=== PATIENT | female | born 1940 | race Caucasian/White ===

== ENCOUNTER → 2016-10-10 | Outpatient (CLI) | payer MEDICARE ==
--- NOTE | 2016-10-10 13:48 | MM ---
Reason for exam: clinical finding. Last mammogram was performed 4 years and 6 months ago. History: Patient is postmenopausal. Family history of breast cancer in maternal aunt, breast cancer in maternal grandmother, breast cancer in maternal cousin, and breast cancer in sister at age 66. 3 excisional biopsies of the left breast. 2 excisional biopsies of the right breast. Indicated problem(s): bloody discharge in the left breast. Physical Findings: Nurse did not find any significant physical abnormalities on exam. MG 3D Diag Mammo W/Cad MARYANN Bilateral CC and MLO view(s) were taken. Prior study comparison: April 16, 2012, CAD bilateral diagnostic mammogram. The breast tissue is heterogeneously dense. This may lower the sensitivity of mammography. Finding #1: Stable architectural distortion in the subareolar position of the left breast consistent with excisional biopsy. Finding #2: There are typically benign round, diffuse/scattered and grouped calcifications in both breasts. These results were verbally communicated with the patient and result sheet given to the patient on 10/10/16. ASSESSMENT: Incomplete: need additional imaging evaluation, BI-RAD 0 RECOMMENDATION: Ultrasound of the left breast. (bloody spontaneous nipple discharge)
--- NOTE | 2016-10-10 13:59 | USB ---
Reason for exam: additional evaluation requested from abnormal screening. History: Patient is postmenopausal. Family history of breast cancer in maternal aunt, breast cancer in maternal grandmother, breast cancer in maternal cousin, and breast cancer in sister at age 66. 3 excisional biopsies of the left breast. 2 excisional biopsies of the right breast. US Breast Limited LT Left breast ultrasound demonstrates prominent ducts at 5-6 o'clock and a 4 x 3 x 4mm oval lesion too small to characterize at 4 o'clock. These results were verbally communicated with the patient and result sheet given to the patient on 10/10/16. ASSESSMENT: Incomplete: need additional imaging evaluation, BI-RAD 0 RECOMMENDATION: Surgical consultation of the left breast. Manage patient on a clinical basis. Consider ductogram. Called Dr. Caputo with mammographic findings and has scheduled an appointment for the patient for 10/20/16 at 4:[address] Bowers. PRELIMINARY REPORT CALLED AND FAXED TO DR. BOWERS ON 10/10/16 AT 300/TMP.
== END | disposition home or self-care (01) ==
LOC: RADMAMWWP 10:22
PROVIDERS: ATTEND Family Medicine
DX: N64.52 Nipple discharge (principal); R92.8 Other abnormal and inconclusive findings on diagnostic imaging of breast
CPT/HCPCS: 76642; G0204; G0279

== ENCOUNTER → 2016-10-28 | Day surgery (SDC) | payer MEDICARE ==
--- NOTE | 2016-10-30 21:59 | MM ---
EXAMINATION TYPE: MG ductogram single duct LT DATE OF EXAM: 10/28/2016 3:23 PM CLINICAL HISTORY: 76-year-old female referred for further evaluation of left- sided spontaneous bloody nipple discharge. COMPARISON: Correlation 10/10/2016 TECHNIQUE: Left-sided ductography. The procedure of ductogram was explained to the patient. Benefits, alternatives , and risks were discussed. An informed consent was then obtained. The patient was placed in supine positioning. The nipple was cleansed with an alcohol wipe. The patient reported a trigger point along the superior aspect of the breast near the nipple which the patient was allowed to manipulate to elicit the bloody discharge. Sterile technique was utilized. The discharging pore was identified and a right -angled JaLoveSpaceki cannula descended easily into the pore after initial probing. A total of 0.4 ml of Omnipaque 240 contrast was injected and the catheter was secured to the nipple with tape. Magnification CC, CC rolled, lateral, and MLO subareolar views were obtained. FINDINGS: The involved segment corresponds to the 4-5:00 position of the breast. Some scattered ductal ectasia and scattered beading is present within this segment. Seen best on the CC view, there is a tortuous duct at the 5:00 position, 5 cm posterior to the nipple which seems to abruptly cut off. This is not clearly seen on the tangential or MLO view. MLO view shows a few short areas of ductal narrowing. The patient tolerated the procedure well without any immediate complication. The patient was discharged home in stable condition. IMPRESSION: BI-RADS 4 - Suspicious RECOMMENDATION: 1. Surgical consultation for possible intraductal lesion at the 5:00 position, 5 cm back from the nipple (CC view). 2. Consider breast MRI correlation as the finding is not clearly seen on the tangential views and given additional scattered ductal narrowing and beading within this segment suggesting additional intraductal abnormalities. Depending on MRI findings, a wider surgical excision may be indicated. MTDD
== END ==
LOC: RADMAMWWP 12:20 → EDSTATUS 13:30
PROVIDERS: ATTEND Surgery
DX: R92.8 Other abnormal and inconclusive findings on diagnostic imaging of breast (principal); N64.52 Nipple discharge; N60.42 Mammary duct ectasia of left breast

== ENCOUNTER → 2016-11-17 | Outpatient (CLI) | payer MEDICARE | END | disposition home or self-care (01) | LOC: RADMRIMAIN 16:13 | PROVIDERS: ATTEND Surgery | DX: N60.49 Mammary duct ectasia of unspecified breast (principal) | CPT/HCPCS: 36415; 82565 ==

== ENCOUNTER 2016-12-30 07:15 | Day surgery (SDC) | payer MEDICARE ==
[2016-12-28 11:13] VITALS: BMI 44.2
[~2016-12-30 07:15] MED LIST: DEXAMETHASONE SOD PHOSPHATE 10 MG/ML 1 ML VIAL IV ONE; HYDROmorphone 1 MG/ML 1 ML SYRINGE IVP PRN; LACTATED RINGERS 1,000 ML IV SCH; LIDOCAINE 1% 20 ML VIAL (10MG/ML) FOR IV START INTRADERMA PRN; MIDAZOLAM 2 MG/2 ML VIAL IV PRN; ONDANSETRON 4 MG/2 ML VIAL IVP ONE; Pre Op ABX Message 1 EACH MISC MISCELLANE ONE; SCOPOLAMINE 1.5MG/72HR PATCH TRANSDERM ONE
[2016-12-30 08:28] LABS: Glucose,Whole Blood 191 mg/dL (75-99)
--- NOTE | 2016-12-30 09:06 | P.GSHP ---
History of Present Illness H&P Date: 12/30/16 Chief Complaint: Left breast intraductal papilloma This a 76-year-old female who presents today for left breast biopsy. Patient has had complaints of some intermittent bloody left nipple drainage. She had a ductogram performed which showed a possible intraductal polyp in the left breast 5 o'clock position approximately 5 cm deep to the nipple. MRI was discussed with the patient. She did not wish to have an MRI. The patient is scheduled today for a left breast biopsy. - Constitutional Constitutional: Reports as per HPI Past Medical History Past Medical History: Diabetes Mellitus, Hyperlipidemia, Hypertension, Thyroid Disorder Additional Past Medical History / Comment(s): left breast bloody discharge History of Any Multi-Drug Resistant Organisms: None Reported Past Surgical History: Breast Surgery, Hysterectomy, Orthopedic Surgery Additional Past Surgical History / Comment(s): 3 left breast bx, 2 rt breast bx , ductogram, right leg orif, with plate, left hip sx Past Anesthesia/Blood Transfusion Reactions: No Reported Reaction Past Psychological History: Anxiety, Depression Smoking Status: Never smoker Past Alcohol Use History: None Reported Past Drug Use History: None Reported - Past Family History Sister(s) Family Medical History: Cancer Medications and Allergies Home Medications Medication Instructions Recorded Confirmed Type INSULIN LISPRO (HumaLOG) [humaLOG] 0 unit SQ AC-TID 12/28/16 12/30/16 History Insulin Detemir [Levemir Flextouch] 60 units SQ HS 12/28/16 12/30/16 History Levothyroxine Sodium [Synthroid] 50 mcg PO QAM 12/28/16 12/30/16 History Losartan/Hydrochlorothiazide 1 each PO HS 12/28/16 12/30/16 History [Losartan-Hctz 100-12.5 mg Tab] Naproxen Sodium [Aleve] 220 mg PO DAILY PRN 12/28/16 12/30/16 History Sertraline [Zoloft] 50 mg PO DAILY 12/28/16 12/30/16 History Simvastatin 20 mg PO DAILY 12/28/16 12/30/16 History Zolpidem [Ambien] 10 mg PO HS 12/28/16 12/30/16 History metFORMIN HCL [Metformin HCl] 500 mg PO BID 12/28/16 12/30/16 History Allergies Allergy/AdvReac Type Severity Reaction Status Date / Time No Known Allergies Allergy Verified 12/30/16 08:26 Surgical - Exam Vital Signs Temp Pulse Resp BP Pulse Ox 98.0 F 69 16 147/79 98 12/30/16 08:19 12/30/16 08:19 12/30/16 08:19 12/30/16 08:19 12/30/16 08:19 - General well developed, no distress - Eyes PERRL - ENT normal pinna - Neck no masses - Respiratory normal expansion - Cardiovascular Rhythm: regular - Abdomen Abdomen: soft, non tender - Integumentary Breast exam is within normal limits there is no masses palpated. There is no cervical or axillary adenopathy. Gentle pressure left breast shows a small amount of dark fluid from a duct in the nipple near the 4 o'clock position. Results - Labs Abnormal Lab Results - Last 24 Hours (Table) 12/30/16 Range/Units 08:22 POC Glucose (mg/dL) 191 H (75-99) mg/dL Assessment and Plan Plan: Left breast intraductal papilloma. We'll perform left breast biopsy.
[2016-12-30] MEDS ORDERED: BUPIVACAIN-EPI 0.25%-1:200,000 30 ML VIAL SQ ONE ×2 (09:09→09:45)
[2016-12-30] MEDS ORDERED: fentaNYL (PF) 50 MCG/ML 2 ML AMP ONE (09:11)
[2016-12-30] MEDS ORDERED: PROPOFOL 10 MG/ML 20 ML VIAL IV ONE (09:11)
[2016-12-30] MEDS ORDERED: PHENYLEPHRINE-0.9% NACL SYG 1 MG/10 ML SYRINGE ONE (09:11)
[2016-12-30] MEDS ORDERED: MIDAZOLAM 2 MG/2 ML VIAL ONE (09:11)
[2016-12-30] MEDS ORDERED: SUCCINYLCHOLINE CHLORIDE 100 MG/5 ML SYR IV ONE (09:11)
[2016-12-30] MEDS ORDERED: LIDOCAINE 1% INJ 10MG/ML (20 ML MDV) ONE (09:11)
[2016-12-30] MEDS ORDERED: LABETALOL 5 MG/ML VIAL MDV ONE (09:11)
[2016-12-30] MEDS ORDERED: SODIUM CHLORIDE 0.9% 50 ML with ceFAZolin 2,000 MG IV ONE ×2 (10:15)
[2016-12-30] MEDS ORDERED: LACTATED RINGERS 1,000 ML IV ONE (10:53)
--- NOTE | 2016-12-30 10:58 | P.OP ---
Date of Procedure: 12/30/16 Preoperative Diagnosis: Intraductal papilloma Postoperative Diagnosis: Intraductal papilloma Procedure(s) Performed: Left breast lumpectomy Implants: Anesthesia: MANSOOR Surgeon: Jeison Bowers Estimated Blood Loss (ml): 20 Pathology: other (Left breast lumpectomy) Condition: stable Disposition: PACU Indications for Procedure: Operative Findings: Description of Procedure: The patient's placed the operative table in the supine position. She received general anesthesia. Her left chest was prepped and draped usual fashion. A inferior circumareolar incision was made and then using left cautery the subcutaneous tissue divided. And then a pair of traction was placed the wound. And then using accommodation with cautery Harmonic scissors the lumpectomy was performed. The rectus performed at the 8 to 3 o'clock position of the breast. The Bovie hemostasis. Since with interrupted 3-0 Monocryl suture. Dermabond was applied. Patient was sent to recovery in stable condition.
[2016-12-30 11:26] VITALS: TEMP 98.5
[2016-12-30 11:31] LABS: Glucose,Whole Blood 222 mg/dL (75-99)
[2016-12-30] MEDS ORDERED: INSULIN LISPRO (humaLOG) 300 UNIT/3 ML VIAL SQ ONE (11:36)
[2016-12-30 11:45] VITALS: RESP 16
[2016-12-30 12:51] VITALS: BP 121/65; PULSE 81
[2016-12-30 13:07] LABS: Glucose,Whole Blood 241 mg/dL (75-99)
== END 2016-12-30 13:41 | disposition home or self-care (01) ==
LOC: OR 07:15
PROVIDERS: ATTEND Surgery
DX: C50.912 Malignant neoplasm of unspecified site of left female breast (principal); E11.9 Type 2 diabetes mellitus without complications; E78.5 Hyperlipidemia, unspecified; I10 Essential (primary) hypertension; E07.9 Disorder of thyroid, unspecified; Z90.710 Acquired absence of both cervix and uterus; Z79.84 Long term (current) use of oral hypoglycemic drugs; Z79.1 Long term (current) use of non-steroidal anti-inflammatories (NSAID); Z79.4 Long term (current) use of insulin; Z79.899 Other long term (current) drug therapy
CPT/HCPCS: 19301; 88342; 88307; 88311; 88341; J2250; J1100; J2405; J2001; J3010; J0690; J2370; J0330; J2704

== ENCOUNTER 2017-01-25 22:24 | Emergency (ER) | payer MEDICARE ==
[2017-01-25 22:31] VITALS: TEMP 98
[2017-01-25] MEDS ORDERED: CEPHALEXIN 500 MG CAP PO STA (23:00)
--- NOTE | 2017-01-25 23:04 | ED ---
Recheck HPI - General Chief Complaint: Recheck/Abnormal Lab/Rx Stated Complaint: breast biopsy incision/poss infection Time Seen by Provider: 01/25/17 22:45 Source: patient, family Mode of arrival: ambulatory Limitations: no limitations - History of Present Illness Initial Comments: Patient complains of drainage from a surgical site. She had a biopsy done on the left breast. Today, she had a large amount of brownish drainage from the surgical site. The drainage has stopped. She has no fevers or chills. She has no chest pain or shortness of breath. She has had no injuries. She has no weakness. - Related Data Home Medications Medication Instructions Recorded Confirmed INSULIN LISPRO (HumaLOG) [humaLOG] 0 unit SQ AC-TID 12/28/16 12/30/16 Insulin Detemir [Levemir Flextouch] 60 units SQ HS 12/28/16 12/30/16 Levothyroxine Sodium [Synthroid] 50 mcg PO QAM 12/28/16 12/30/16 Losartan/Hydrochlorothiazide 1 each PO HS 12/28/16 12/30/16 [Losartan-Hctz 100-12.5 mg Tab] Naproxen Sodium [Aleve] 220 mg PO DAILY PRN 12/28/16 12/30/16 Sertraline [Zoloft] 50 mg PO DAILY 12/28/16 12/30/16 Simvastatin 20 mg PO DAILY 12/28/16 12/30/16 Zolpidem [Ambien] 10 mg PO HS 12/28/16 12/30/16 metFORMIN HCL [Metformin HCl] 500 mg PO BID 12/28/16 12/30/16 Previous Rx's Medication Instructions Recorded Docusate [Colace] 100 mg PO BID #20 capsule 12/30/16 HYDROcodone/APAP 7.5-325MG [[place] 1 each PO Q4H PRN #60 tab 12/30/16 7.5] Cephalexin [Keflex] 500 mg PO Q6HR #40 cap 01/25/17 Allergies Allergy/AdvReac Type Severity Reaction Status Date / Time No Known Allergies Allergy Verified 01/25/17 22:31 Review of Systems ROS Statement: Those systems with pertinent positive or pertinent negative responses have been documented in the HPI. ROS Other: All systems not noted in ROS Statement are negative. Past Medical History Past Medical History: Cancer, Diabetes Mellitus, Hyperlipidemia, Hypertension, Thyroid Disorder Additional Past Medical History / Comment(s): left breast bloody discharge History of Any Multi-Drug Resistant Organisms: None Reported Past Surgical History: Breast Surgery, Hysterectomy, Orthopedic Surgery Additional Past Surgical History / Comment(s): 3 left breast bx, 2 rt breast bx , ductogram, right leg orif, with plate, left hip sx Past Anesthesia/Blood Transfusion Reactions: No Reported Reaction Past Psychological History: Anxiety, Depression Smoking Status: Never smoker Past Alcohol Use History: None Reported Past Drug Use History: None Reported - Past Family History Sister(s) Family Medical History: Cancer General Exam Limitations: no limitations General appearance: alert, in no apparent distress Head exam: Present: atraumatic, normocephalic, normal inspection Extremities exam: Present: normal inspection, full ROM, normal capillary refill. Absent: tenderness, pedal edema, joint swelling, calf tenderness Back exam: Present: normal inspection Skin exam: Present: other (Patient has a surgical site on the left breast, with pink granulation tissue and no active drainage or bleeding) Course Vital Signs 01/25/17 22:27 Temperature 98 F Pulse Rate 78 Respiratory 20 Rate Blood Pressure 132/80 O2 Sat by Pulse 96 Oximetry Medical Decision Making - Medical Decision Making Patient complains of drainage from her surgical site. On my examination she does have a surgical wound with pink granulation tissue, no active bleeding or drainage at this time. I think she likely had a hematoma which spontaneously drained. At this time there is no indication for admission or further workup. I gave her 1 dose of 500 monos Keflex by mouth, and I will prescribe her Keflex to go home on. Patient has a follow-up appointment with her doctor in less than one week, however I instructed her to call him in the morning to see if he would like to see her sooner. She verbalized understanding of this information. Disposition Clinical Impression: Hematoma (nontraumatic) of breast Disposition: HOME SELF-CARE Condition: Good Instructions: Hematoma (ED) Prescriptions: Cephalexin [Keflex] 500 mg PO Q6HR #40 cap Referrals: Amrit Caputo DO [Primary Care Provider] - 1-2 days Time of Disposition: 23:03
[2017-01-25 23:17] VITALS: BP 122/63; PULSE 74; RESP 16
== END 2017-01-25 23:16 | disposition home or self-care (01) ==
LOC: EC 22:24
DX: N64.89 Other specified disorders of breast (principal); E11.9 Type 2 diabetes mellitus without complications; E78.5 Hyperlipidemia, unspecified; E07.9 Disorder of thyroid, unspecified; I10 Essential (primary) hypertension; F41.9 Anxiety disorder, unspecified; F32.9 Major depressive disorder, single episode, unspecified; Z79.84 Long term (current) use of oral hypoglycemic drugs; Z79.4 Long term (current) use of insulin; Z79.899 Other long term (current) drug therapy
CPT/HCPCS: 99282

== ENCOUNTER → 2017-03-03 | Outpatient (CLI) | payer MEDICARE ==
[2017-03-03 11:56] LABS: EKG EKG PERFORMED
[2017-03-03 12:15] LABS: CH 28.7; CHCM 34.1; HCT 40.1 % (34.0-46.0); HDW 3.26; HGB 13.3 gm/dL (11.4-16.0); MCHC 33.1 g/dL (31.0-37.0); MCV 84.6 fL (80.0-100.0); Mean Platelet Volume 7.8; RBC 4.75 m/uL (3.80-5.40); RDW 15.6 % (11.5-15.5); WBC 7.9 k/uL (3.8-10.6)
[2017-03-03 12:34] LABS: Anion Gap 12 mmol/L; Carbon Dioxide 24 mmol/L (22-30); Chloride 106 mmol/L (98-107); Potassium 4.1 mmol/L (3.5-5.1); Sodium 142 mmol/L (137-145)
== END | disposition home or self-care (01) ==
LOC: LABPAT 11:37
PROVIDERS: ATTEND Surgery
DX: Z01.810 Encounter for preprocedural cardiovascular examination (principal); I10 Essential (primary) hypertension; R93.1 Abnormal findings on diagnostic imaging of heart and coronary circulation; C50.912 Malignant neoplasm of unspecified site of left female breast; Z01.812 Encounter for preprocedural laboratory examination
CPT/HCPCS: 80051; 85027; 93005

== ENCOUNTER 2017-03-06 06:47 | Inpatient (IN) | payer MEDICARE ==
[2017-03-01 16:28] VITALS: BMI 43.7
[~2017-03-06 06:47] MED LIST changes: +HEPARIN SODIUM,PORCINE 5,000 UNIT/ML 1 ML VIAL SQ ONE; -HYDROmorphone 1 MG/ML 1 ML SYRINGE IVP PRN; -LACTATED RINGERS 1,000 ML IV SCH; -LIDOCAINE 1% 20 ML VIAL (10MG/ML) FOR IV START INTRADERMA PRN; -MIDAZOLAM 2 MG/2 ML VIAL IV PRN; -SCOPOLAMINE 1.5MG/72HR PATCH TRANSDERM ONE
[2017-03-06] MEDS ORDERED: ALPRAZolam 0.25 MG TAB PO ONE (07:18)
[2017-03-06] MEDS: LACTATED RINGERS 1,000 ML IV SCH (07:25)
[2017-03-06] MEDS ORDERED: LIDOCAINE 1% 20 ML VIAL (10MG/ML) FOR IV START INTRADERMA ONE (07:26)
[2017-03-06 07:31] LABS: Glucose,Whole Blood 157 mg/dL (75-99)
--- NOTE | 2017-03-06 07:59 | P.GSHP ---
History of Present Illness H&P Date: 03/06/17 Chief Complaint: Left Breast cancer This is a 77-year-old female who presents today for left modified radical mastectomy with sentinel node biopsy. Patient was received diagnosed with left breast cancer. She is experiencing bloody nipple discharge. - Constitutional Constitutional: Reports as per HPI Past Medical History Past Medical History: Cancer, Diabetes Mellitus, Hyperlipidemia, Hypertension, Musculoskeletal Disorder, Thyroid Disorder Additional Past Medical History / Comment(s): Left Breast CA. BAD RT HIP. History of Any Multi-Drug Resistant Organisms: None Reported Past Surgical History: Breast Surgery, Hysterectomy, Joint Replacement, Orthopedic Surgery Additional Past Surgical History / Comment(s): 3 left breast bx, 2 rt breast bx , ductogram, ORIF RT LOWER LEG, w/ plate. Left TOTAL Hip. LT BREAST LUMPECTOMY. Past Anesthesia/Blood Transfusion Reactions: No Reported Reaction Smoking Status: Never smoker - Past Family History Sister(s) Family Medical History: Cancer Additional Family Medical History / Comment(s): BREAST CA Medications and Allergies Home Medications Medication Instructions Recorded Confirmed Type INSULIN LISPRO (HumaLOG) [humaLOG] See Protocol SQ AC-TID 12/28/16 03/01/17 History Insulin Detemir [Levemir Flextouch] 60 units SQ HS 12/28/16 03/01/17 History Levothyroxine Sodium [Synthroid] 50 mcg PO QAM 12/28/16 03/01/17 History Losartan/Hydrochlorothiazide 1 tab PO HS 12/28/16 03/01/17 History [Losartan-Hctz 100-12.5 mg Tab] Naproxen Sodium [Aleve] 220 mg PO DAILY PRN 12/28/16 03/01/17 History Sertraline [Zoloft] 50 mg PO HS 12/28/16 03/01/17 History Simvastatin 20 mg PO HS 12/28/16 03/01/17 History Zolpidem [Ambien] 10 mg PO HS 12/28/16 03/01/17 History metFORMIN HCL [Metformin HCl] 500 mg PO AC-SUPPER 12/28/16 03/01/17 History Melatonin 10 mg PO HS PRN 03/01/17 03/01/17 History Allergies Allergy/AdvReac Type Severity Reaction Status Date / Time No Known Allergies Allergy Verified 03/01/17 15:58 Surgical - Exam Vital Signs Temp Pulse Resp BP Pulse Ox 97.3 F L 72 16 193/81 97 03/06/17 07:20 03/06/17 07:20 03/06/17 07:20 03/06/17 07:20 03/06/17 07:20 - General well developed, no distress - Eyes PERRL - ENT normal pinna - Neck no masses - Respiratory normal expansion - Cardiovascular Rhythm: regular - Abdomen Abdomen: soft, non tender Left breast shows evidence of recent biopsy. There are no palpable masses. There is no cervical or axillary lymphadenopathy. Results - Labs Abnormal Lab Results - Last 24 Hours (Table) 03/06/17 Range/Units 07:22 POC Glucose (mg/dL) 157 H (75-99) mg/dL Assessment and Plan Plan: Left breast cancer. We'll perform left modified radical mastectomy with sentinel biopsy.
--- NOTE | 2017-03-06 08:14 | P.OP ---
Date of Procedure: 03/06/17 Preoperative Diagnosis: Screening colonoscopy. History colon polyps Postoperative Diagnosis: Diverticulosis Procedure(s) Performed: Colonoscopy Implants: Anesthesia: MAC Surgeon: Jeison Bowers Pathology: none sent Condition: stable Disposition: PACU Indications for Procedure: Operative Findings: Description of Procedure: Patient's placed on the endoscopy table in the lateral position. She received IV sedation. Digital rectal exam was performed which revealed no abnormalities. The flexible colonoscope was then placed patient anus passed throughout the entire colon. The ileocecal valve was visualized. The cecum, ascending and transverse colon appeared normal. In the descending and sigmoid colon there was evidence of diverticular changes without diverticulitis. The scope was then brought back the rectum and this appeared normal. Scope was withdrawn for patient.
--- NOTE | 2017-03-06 09:14 | NM ---
EXAMINATION TYPE: NM sentinel node injection DATE OF EXAM: 03/06/2017 COMPARISON: NONE HISTORY: LEFT BREAST CA TECHNIQUE AND FINDINGS: The procedure of sentinel lymph node injection was explained to the patient. The benefits, alternatives, and risks were discussed. An informed consent was then obtained. Overlying skin is cleaned with sterile alcohol. Lidocaine buffered with bicarbonate was used as anes thetic into the skin and subcutaneous tissue surrounding the nipple. Following this, 550 uCi Tc 99m Filtered Sulfur Colloid was injected into 4 equivalent doses at 12, 3, 6, and 9:00 position surroundi ng the left nipple intradermally. The injection sites were massaged by nuclear operator for 10 minutes after injection. T he patient tolerated the procedure well without any immediate complication. The patient was kept in the radiology department for short stay after the procedure and then taken to surgery for surgical pr ocedure what is presumed intraoperative gamma probe will be used for sentinel lymph node detection. IMPRESSION: Left breast radiotracer injection for sentinel node localization as above.
[2017-03-06] MEDS ORDERED: ePHEDrine SULFATE/0.9% NACL/PF 50 MG/5 ML SYRINGE IV ONE (11:05)
[2017-03-06] MEDS ORDERED: GLYCOPYRROLATE 0.2 MG/ML 2 ML VIAL ONE (11:05)
[2017-03-06] MEDS ORDERED: fentaNYL (PF) 50 MCG/ML 2 ML AMP ONE (11:05)
[2017-03-06] MEDS ORDERED: ROCURONIUM BROMIDE 10 MG/ML 10 ML VIAL IV ONE (11:05)
[2017-03-06] MEDS ORDERED: LIDOCAINE 1% INJ 10MG/ML (20 ML MDV) ONE (11:05)
[2017-03-06] MEDS ORDERED: NEOSTIGMINE 1 MG/ML 10 ML VIAL ONE (11:05)
[2017-03-06] MEDS ORDERED: MIDAZOLAM 2 MG/2 ML VIAL ONE (11:05)
[2017-03-06] MEDS ORDERED: PROPOFOL 10 MG/ML 20 ML VIAL IV ONE (11:05)
[2017-03-06] MEDS ORDERED: LABETALOL 5 MG/ML VIAL MDV ONE (11:05)
[2017-03-06] MEDS ORDERED: ONDANSETRON 4 MG/2 ML VIAL ONE (11:05)
[2017-03-06] MEDS ORDERED: SODIUM CHLORIDE 0.9% 50 ML with ceFAZolin 2,000 MG IV ONE ×2 (11:10)
[2017-03-06] MEDS ORDERED: METHYLENE BLUE 10 MG/ML 1 ML VIAL INJ ONE (11:33)
[2017-03-06] MEDS ORDERED: LACTATED RINGERS 1,000 ML IV ONE ×2 (11:45→12:56)
[2017-03-06] MEDS ORDERED: HYDROmorphone 1 MG/ML 1 ML SYRINGE IVP PRN (12:56)
[2017-03-06] MEDS ORDERED: NALOXONE 0.4 MG/ML 1 ML VIAL IV PRN (12:56)
[2017-03-06] MEDS ORDERED: ONDANSETRON 4 MG/2 ML VIAL IVP PRN (12:56)
[2017-03-06] MEDS ORDERED: INSULIN LISPRO (humaLOG) 300 UNIT/3 ML VIAL SQ ONE (13:13)
[2017-03-06 13:17] LABS: Glucose,Whole Blood 225 mg/dL (75-99)
[2017-03-06] MEDS: HYDROmorphone 1 MG/ML 1 ML SYRINGE IVP PRN ×2 (13:22→13:28)
--- NOTE | 2017-03-06 13:46 | P.OP ---
Date of Procedure: 03/06/17 Preoperative Diagnosis: Left breast cancer Postoperative Diagnosis: Left breast cancer Procedure(s) Performed: Left modified radical mastectomy with sentinel node biopsy Implants: Anesthesia: MANSOOR Surgeon: Jeison Bowers Estimated Blood Loss (ml): 50 Pathology: other (Left breast and sentinel node) Condition: stable Disposition: PACU Indications for Procedure: Operative Findings: Description of Procedure: The patient's placed the operative table in the supine position. She received general anesthesia. Her left chest wall was prepped and draped usual fashion. The patient's left breast was injected with blue. The breast was marked and the mastectomy flaps were incised. The mastectomy flaps are elevated using left cautery. The flaps were elevated to the sternum medially the clavicle superiorly and inframammary crease inferiorly and the axilla laterally. Breast was then dissected free from the chest wall. Several small perforating veins were divided using Harmonic scissors. Once the breast was free from the chest wall the clavipectoral fascia is opened and then using the neoprobe the sentinel node was found. Sent to pathology. The axilla appeared to have some other enlarged lymph nodes. A low level lymph node actually lymph node dissection was performed using using the Harmonic scissors meticulous dissection was performed to obtain the axillary lymph nodes. Care was taken to identify and preserve the long thoracic and thoracodorsal nerve. The specimen was sent to pathology. The specimen had been tagged with a suture on the superior lateral aspect of the breast. The Bovie hemostasis. 2 GABRIEL drains were placed in the wound. One was placed in the second site and the other was examined. Skin was closed with 2-0 Vicryl in the deep layer and skin jose maria. Patient sent to recovery room in stable condition.
[2017-03-06 20:12] LABS: Glucose,Whole Blood 257 mg/dL (75-99)
[2017-03-06] MEDS: INSULIN DETEMIR 100 UNIT/ML 10 ML VIAL SQ SCH (20:30)
[2017-03-06] MEDS: INSULIN LISPRO (humaLOG) 300 UNIT/3 ML VIAL SQ SCH (20:31)
[2017-03-06] MEDS: ATORVASTATIN 10 MG TAB PO SCH (20:32)
[2017-03-06] MEDS: SERTRALINE 50 MG TAB PO SCH (20:32)
[2017-03-06] MEDS: DOCUSATE 100 MG CAP PO SCH (20:32)
[2017-03-06] MEDS: LOSARTAN 50 MG TAB PO SCH (20:32)
[2017-03-06] MEDS: HYDROCHLOROTHIAZIDE 12.5 MG CAP PO SCH (20:32)
[2017-03-07] MEDS: ZOLPIDEM 10 MG TAB PO PRN (00:49)
[2017-03-07] MEDS: LACTATED RINGERS 1,000 ML IV SCH (04:17)
[2017-03-07] MEDS: LEVOTHYROXINE 50 MCG TAB PO SCH (07:04)
[2017-03-07 07:47] LABS: Glucose,Whole Blood 162 mg/dL (75-99)
[2017-03-07] MEDS: INSULIN LISPRO (humaLOG) 300 UNIT/3 ML VIAL SQ SCH ×4 (08:22→20:56)
[2017-03-07] MEDS: DOCUSATE 100 MG CAP PO SCH ×2 (08:24→20:56)
[2017-03-07] MEDS: ENOXAPARIN 40 MG/0.4 ML SYRINGE SQ SCH (08:24)
--- NOTE | 2017-03-07 10:21 | P.PN ---
Subjective 77-year-old female being seen this morning at the request of nursing staff. Patient has [address] Nikhil-Yee Yee drain labeled b is leaking bulb not functioning the drain does not appear to be in place appears to be out sitting at the tip of the incision dressing around the sites moderate amount of serous drainage noted. Nikhil-Yee drain labeled a 281cc of serous fluid since surgery. Patient is postop done on March 06 left modified radical mastectomy with sentinel node biopsy did speak with the surgeon in regards to the above-mentioned findings who did recommend that the Nikhil-Yee drain B be removed with dressings changed to the left breast Objective - Vital Signs Vital signs: Vital Signs Temp 97.8 F 03/07/17 09:00 Pulse 86 03/07/17 09:00 Resp 12 03/07/17 09:00 BP 135/69 03/07/17 09:00 Pulse Ox 95 03/07/17 09:00 Intake & Output 03/06/17 03/07/17 03/07/17 18:59 06:59 18:59 Intake Total 1600 200 Output Total 70 1929 40 Balance 1530 -1929 160 Intake: IV 1600 Oral 200 Output: Drainage 70 279 40 a 45 196 40 b 25 83 0 Urine 1650 Other: Voiding Method Toilet Toilet # Voids 1 - Exam Physical exam 77-year-old female resting in bed pleasant cooperative oriented 3 Lungs essentially clear with adequate air movement on room air no shortness of breath noted Chest dressing to the left breast with [address]hil-[address] in [address] draining 281cc since surgery drain b the drain appears to be sitting at the tip of the incision leaking around the drain serous drainage Heart S1-S2 audible regular denying chest pain Abdomen soft nontender reports no nausea vomiting Extremities no edema noted - Labs Labs: Abnormal Lab Results - Last 24 Hours (Table) 03/06/17 03/06/17 03/07/17 Range/Units 13:07 20:11 07:42 POC Glucose (mg/dL) 225 H 257 H 162 H (75-99) mg/dL Assessment and Plan Plan: Impression Status post left modified radical mastectomy with sentinel node biopsy done on March 06 Recently diagnosed with left breast cancer experiencing bloody nipple drainage on the left breast Hyperlipidemia Anxiety depressive disorder nonspecified Plan Remove Nikhil-Yee drain B Resume home meds as appropriate Pain control Redress the left breast area and monitor Prepped for probable discharge within 24 hours The above impression and plan of care have been discussed and directed by signing physician. Chapis Carrion nurse practitioner acting as scribe for signing physician.
[2017-03-07] MEDS: HYDROcodone/APAP 5-325MG 1 EACH TAB PO PRN ×2 (10:55→23:01)
[2017-03-07 12:01] LABS: Glucose,Whole Blood 170 mg/dL (75-99)
[2017-03-07 13:46] LABS: Hemoglobin A1C 6.6 % (4.2-6.1)
[2017-03-07] MEDS: LEVOFLOXACIN 500MG-D5W PMX 500 MG in DEXTROSE/WATER 1 100ML.BAG IVPB SCH (14:10)
[2017-03-07 16:48] LABS: Glucose,Whole Blood 245 mg/dL (75-99)
[2017-03-07] MEDS ORDERED: metFORMIN 500 MG TAB PO SCH (17:30)
[2017-03-07 20:52] LABS: Glucose,Whole Blood 214 mg/dL (75-99)
[2017-03-07] MEDS: LOSARTAN 50 MG TAB PO SCH (20:56)
[2017-03-07] MEDS: SERTRALINE 50 MG TAB PO SCH (20:56)
[2017-03-07] MEDS: HYDROCHLOROTHIAZIDE 12.5 MG CAP PO SCH (20:56)
[2017-03-07] MEDS: ATORVASTATIN 10 MG TAB PO SCH (20:56)
[2017-03-07] MEDS: INSULIN DETEMIR 100 UNIT/ML 10 ML VIAL SQ SCH (20:58)
[2017-03-08] MEDS: ZOLPIDEM 10 MG TAB PO PRN (00:07)
[2017-03-08] MEDS: LEVOTHYROXINE 50 MCG TAB PO SCH (06:28)
[2017-03-08 07:21] LABS: Glucose,Whole Blood 158 mg/dL (75-99)
[2017-03-08] MEDS: LACTATED RINGERS 1,000 ML IV SCH (08:03)
[2017-03-08] MEDS: INSULIN LISPRO (humaLOG) 300 UNIT/3 ML VIAL SQ SCH ×2 (08:16→12:34)
[2017-03-08] MEDS: ENOXAPARIN 40 MG/0.4 ML SYRINGE SQ SCH (08:17)
[2017-03-08] MEDS: DOCUSATE 100 MG CAP PO SCH (08:17)
[2017-03-08] MEDS: HYDROcodone/APAP 5-325MG 1 EACH TAB PO PRN (08:20)
[2017-03-08 09:26] VITALS: BP 131/65; PULSE 71; RESP 20; TEMP 97.6
--- NOTE | 2017-03-08 11:32 | P.DS ---
Providers Date of admission: 03/06/17 12:32 Expected date of discharge: 03/08/17 Attending physician: Jeison Hassan Consults: 03/06/17 12:56 Consult Physician Routine Consulting Provider: Amrit Caputo Reason/Comments: Medical management Do you want consulting provider notified?: Yes Primary care physician: Amrit Caputo [facility] Course: 77-year-old female being seen this morning at the request of nursing staff. Patient has [address] Nikhil-Yee Yee drain labeled b is leaking bulb not functioning the drain does not appear to be in place appears to be out sitting at the tip of the incision dressing around the sites moderate amount of serous drainage noted. Nikhil-Yee drain labeled a 281cc of serous fluid since surgery. Patient is postop done on March 06 left modified radical mastectomy with sentinel node biopsy did speak with the surgeon in regards to the above-mentioned findings who did recommend that the Nikhil-Yee drain B be removed with dressings changed to the left breast patient started on IV Levaquin postop. Nikhil-Yee drain A restraining serous drainage dressing remained dry Patient stated there was less surgical pain and patient was felt to be appropriate to be discharged home Impression Status post left modified radical mastectomy with sentinel node biopsy done on March 06 Recently diagnosed with left breast cancer experiencing bloody nipple drainage on the left breast Hyperlipidemia Anxiety depressive disorder nonspecified The above impression and plan of care have been discussed and directed by signing physician. Chapis Carrion nurse practitioner acting as scribe for signing physician. Plan - Discharge Summary New Discharge Prescriptions: New HYDROcodone/APAP 5-325MG [[place] 5-325] 2 each PO Q6HR PRN #15 tab PRN Reason: Moderate To Severe Pain Levofloxacin [Levaquin] 500 mg PO DAILY #7 tab Continue Naproxen Sodium [Aleve] 220 mg PO DAILY PRN PRN Reason: Pain Sertraline [Zoloft] 50 mg PO HS Losartan/Hydrochlorothiazide [Losartan-Hctz 100-12.5 mg Tab] 1 tab PO HS Levothyroxine Sodium [Synthroid] 50 mcg PO QAM Zolpidem [Ambien] 10 mg PO HS Simvastatin 20 mg PO HS Insulin Detemir [Levemir Flextouch] 60 units SQ HS INSULIN LISPRO (HumaLOG) [humaLOG] See Protocol SQ AC-TID metFORMIN HCL [Metformin HCl] 500 mg PO AC-SUPPER Melatonin 10 mg PO HS PRN PRN Reason: INSOMNIA, AMBIEN NOT EFFECTIVE Discharge Medication List INSULIN LISPRO (HumaLOG) [humaLOG] See Protocol SQ AC-TID 12/28/16 [History] Insulin Detemir [Levemir Flextouch] 60 units SQ HS 12/28/16 [History] Levothyroxine Sodium [Synthroid] 50 mcg PO QAM 12/28/16 [History] Losartan/Hydrochlorothiazide [Losartan-Hctz 100-12.5 mg Tab] 1 tab PO HS [History] Naproxen Sodium [Aleve] 220 mg PO DAILY PRN 12/28/16 [History] Sertraline [Zoloft] 50 mg PO HS 12/28/16 [History] Simvastatin 20 mg PO HS 12/28/16 [History] Zolpidem [Ambien] 10 mg PO HS 12/28/16 [History] metFORMIN HCL [Metformin HCl] 500 mg PO AC-SUPPER 12/28/16 [History] Melatonin 10 mg PO HS PRN 03/01/17 [History] HYDROcodone/APAP 5-325MG [[place] 5-325] 2 each PO Q6HR PRN #15 tab 03/08/17 [Rx] Levofloxacin [Levaquin] 500 mg PO DAILY #7 tab 03/08/17 [Rx] Follow up Appointment(s)/Referral(s): Jeison Hassan MD [STAFF PHYSICIAN] - 03/21/17 1:40 pm Activity/Diet/Wound Care/Special Instructions: [facility] [phone] Instructions to be provided for Nikhil-Yee drain care No lifting over 10 pounds May shower in 24 hours No tub bath until seen in follow-up visit in one week with Dr. hassan Discharge Disposition: HOME WITH HOME HEALTH SERVICES
[2017-03-08 12:14] LABS: Glucose,Whole Blood 200 mg/dL (75-99)
[2017-03-08] MEDS: LEVOFLOXACIN 500MG-D5W PMX 500 MG in DEXTROSE/WATER 1 100ML.BAG IVPB SCH (12:36)
--- NOTE | 2017-03-08 13:08 | CONS ---
DATE OF SERVICE: 03/07/2017 Ms. Vizcaino is a pleasant 77-year-old white female who was admitted after left radical mastectomy with sentinel node biopsy. She was recently diagnosed with breast cancer. Past medical history IS significant for left breast cancer, hyperlipidemia, hypertension, hypothyroidism, degenerative osteoarthritis, diabetes. PAST SURGICAL HISTORY: Left radical mastectomy, hysterectomy, joint replacement per orthopedic surgery in the form of lower leg with plate and left total hip arthroplasty. She has had previous left breast lumpectomy, which showed invasive ductal carcinoma. Further pathology currently pending. MEDICATIONS: Insulin, Levemir, Synthroid, Losartan hydrochlorothiazide, Aleve, Zoloft, simvastatin, Ambien, metformin, melatonin. REVIEW OF SYSTEMS: She denies any chest pain, dizziness, diaphoresis, nausea, vomiting. She denies any headache. She denies any dysuria, or incontinence. She denies any stroke or paralysis. She denies any depression. She actually feels in good spirits and is awaiting possible discharge later on today. PHYSICAL EXAM: The patient is alert and oriented x3. HEENT: Head is normocephalic and atraumatic. Oral with poor dentition. NECK: Supple, no JVD. HEART: Regular rate and rhythm. LUNGS: Clear to auscultation. ABDOMEN: Soft, flat, obese. EXTREMITIES: No cyanosis, clubbing or jaundice. No edema. NEUROLOGICAL: Cranial nerves II through XII intact. IMPRESSIONS: 1. Left breast cancers status post left radical mastectomy with drain. 2. Lucas node biopsy. 3. Diabetes. 4. Hypertension. PLAN: Continue postoperative care. Will anticipate discharge soon. She will probably recommend at home nursing for wound care. DEMOND
--- NOTE | 2017-03-09 08:33 | PN ---
DATE OF SERVICE: 03/08/2017 Patient is a pleasant 77-year-old white female who was seen postoperative day # 2 for radical left mastectomy with lymph node dissection. Pathology is still pending. She is upright in chair and eating without difficulty. She denies any complaints. She is tolerating pain well. Apparently, she had a clogging of her drain which a new drain is inserted and is functioning fine with some serosanguineous drainage. PHYSICAL EXAM: HEENT is normocephalic and atraumatic. Neck is supple, no JVD. Heart regular rate and rhythm. LUNGS: Clear to auscultation. ABDOMEN: Soft, nontender, no rebound or rigidity, guarding. EXTREMITIES: No cyanosis, clubbing or jaundice. PSYCHOLOGICAL: She answered questions appropriately without difficulty. IMPRESSION: 1. Left invasive breast cancer. 2. Status post radical mastectomy with lymph node dissection. 3. Diabetes. 4. Hyperlipidemia. 5. Hypothyroidism. PLAN: Continue current medications. Patient will most likely be discharged today with wound care in place. Will go ahead and have follow up with Dr. Bowers for the pathology. DEMOND
== END 2017-03-08 15:45 | disposition home health service (06) | DRG 581 ==
LOC: OR 06:47 → 6PED 12:31 → OR 12:32 → 6PED 12:32
PROVIDERS: ADMIT Surgery; ATTEND Surgery
PROC: 07B60ZZ Excision of Left Axillary Lymphatic, Open Approach (ICD-10-PCS; principal; 2017-03-06 10:30)
PROC: 0HTU0ZZ Resection of Left Breast, Open Approach (ICD-10-PCS; principal; 2017-03-06 10:30)
DX: C50.912 Malignant neoplasm of unspecified site of left female breast (principal); E11.9 Type 2 diabetes mellitus without complications; I10 Essential (primary) hypertension; F32.9 Major depressive disorder, single episode, unspecified; E03.9 Hypothyroidism, unspecified; E78.5 Hyperlipidemia, unspecified; F41.9 Anxiety disorder, unspecified; Z79.4 Long term (current) use of insulin; Z79.899 Other long term (current) drug therapy; Z80.3 Family history of malignant neoplasm of breast; Z96.642 Presence of left artificial hip joint
CPT/HCPCS: 38792; 80051; 83036; 85027; 88307; 88309; 88341; 88342; 93005; 94760

== ENCOUNTER 2017-03-16 18:20 | Emergency (ER) | payer MEDICARE ==
[2017-03-16 18:44] VITALS: RESP 18
--- NOTE | 2017-03-16 19:00 | ED ---
General Adult HPI - General Chief complaint: Wound/Laceration Stated complaint: POST OP COMPLICATIONS Time Seen by Provider: 03/16/17 18:39 Source: patient, family Mode of arrival: wheelchair Limitations: no limitations - History of Present Illness Initial comments: 77-year-old female patient presents to emergency department today for evaluation of her GABRIEL drain site. Patient underwent left sided mastectomy with lymph node removal by Dr. Bowers on 03/06/2017. The patient states that over the last couple of days the site has become more painful. She states that she did have her visiting nurse look at it today and they sent her in with concerns for infection. Patient states that the site has increased redness. She denies any drainage from around the site. States that the GABRIEL drain has been draining however the bulb is dysfunctional and inflates without it eating fall. They state that the drainage inside the bulb has not changed, denies any odor or pus. Patient denies any fever, chills, chest pain, shortness of breath , nausea, vomiting, abdominal pain, or difficulty with urination or bowel movements. Patient states that the mastectomy incision site is not painful, draining, or reddened. Patient was placed on Levaquin after the surgery and completed this yesterday. - Related Data Home Medications Medication Instructions Recorded Confirmed INSULIN LISPRO (HumaLOG) [humaLOG] 20 unit SQ AC-TID 12/28/16 03/16/17 Insulin Detemir [Levemir Flextouch] 60 units SQ HS 12/28/16 03/16/17 Levothyroxine Sodium [Synthroid] 50 mcg PO QAM 12/28/16 03/16/17 Losartan/Hydrochlorothiazide 1 tab PO HS 12/28/16 03/16/17 [Losartan-Hctz 100-12.5 mg Tab] Simvastatin 20 mg PO HS 12/28/16 03/16/17 Zolpidem [Ambien] 10 mg PO HS 12/28/16 03/16/17 metFORMIN HCL [Metformin HCl] 1,000 mg PO AC-SUPPER 12/28/16 03/16/17 Melatonin 10 mg PO HS PRN 03/01/17 03/16/17 HYDROcodone/APAP 5-325MG [[place] 2 tab PO Q6HR PRN 03/16/17 03/16/17 5-325] Sertraline [Zoloft] 100 mg PO DAILY 03/16/17 03/16/17 Previous Rx's Medication Instructions Recorded Cephalexin [Keflex] 500 mg PO Q6H #40 cap 03/16/17 Fluconazole [Diflucan] 100 mg PO ONCE #2 tablet 03/16/17 Allergies Allergy/AdvReac Type Severity Reaction Status Date / Time No Known Allergies Allergy Verified 03/16/17 18:54 Review of Systems ROS Statement: Those systems with pertinent positive or pertinent negative responses have been documented in the HPI. ROS Other: All systems not noted in ROS Statement are negative. Past Medical History Past Medical History: Cancer, Diabetes Mellitus, Hyperlipidemia, Hypertension, Musculoskeletal Disorder, Thyroid Disorder Additional Past Medical History / Comment(s): Left Breast CA. BAD RT HIP. History of Any Multi-Drug Resistant Organisms: None Reported Past Surgical History: Breast Surgery, Hysterectomy, Joint Replacement, Orthopedic Surgery Additional Past Surgical History / Comment(s): 3 left breast bx, 2 rt breast bx , ductogram, ORIF RT LOWER LEG, w/ plate. Left TOTAL Hip. LT BREAST LUMPECTOMY. Past Anesthesia/Blood Transfusion Reactions: No Reported Reaction Past Psychological History: Anxiety, Depression Smoking Status: Never smoker Past Alcohol Use History: None Reported Past Drug Use History: None Reported - Past Family History Sister(s) Family Medical History: Cancer Additional Family Medical History / Comment(s): BREAST CA General Exam Limitations: no limitations General appearance: alert, in no apparent distress Head exam: Present: atraumatic, normocephalic, normal inspection Eye exam: Present: normal appearance, PERRL, EOMI. Absent: scleral icterus, conjunctival injection, periorbital swelling ENT exam: Present: normal exam, mucous membranes moist Neck exam: Present: normal inspection. Absent: tenderness, meningismus, lymphadenopathy Respiratory exam: Present: normal lung sounds bilaterally. Absent: respiratory distress, wheezes, rales, rhonchi, stridor Cardiovascular Exam: Present: regular rate, normal rhythm, normal heart sounds. Absent: systolic murmur, diastolic murmur, rubs, gallop, clicks GI/Abdominal exam: Present: soft, normal bowel sounds. Absent: distended, tenderness, guarding, rebound, rigid Extremities exam: Present: normal inspection, full ROM, normal capillary refill. Absent: tenderness, pedal edema, joint swelling, calf tenderness Back exam: Present: normal inspection Neurological exam: Present: alert, oriented X3, CN II-XII intact Psychiatric exam: Present: normal affect, normal mood Skin exam: Present: warm, dry, intact, normal color, other (Left mastectomy incision site is well approximated with jose maria, no erythema no drainage. Left mid axillary J-P drain site does exhibit surrounding erythema, no drainage. GABRIEL bulb drainage is serosanguineous without evidence of purulence.). Absent: rash Course Vital Signs 03/16/17 03/16/17 03/16/17 18:37 20:22 20:23 Temperature 97.9 F 97.6 F Pulse Rate 76 68 Respiratory 18 18 Rate Blood Pressure 126/58 132/62 O2 Sat by Pulse 94 L 95 Oximetry Medical Decision Making - Medical Decision Making 77-year-old female patient presented for evaluation of her GABRIEL drain site. Physical exam did reveal some surrounding erythema. Lab work was reviewed and was unremarkable, white blood cell count was within normal limits. Patient vital signs are stable, she remained afebrile. Did change the bulb on the GABRIEL drain as it was not staying compressed. Patient had serosanguineous output from the GABRIEL drain with no evidence of purulent drainage. Patient will be started on Keflex. Instructed to call Dr. Nesbitt tomorrow for an appointment. Instructed to return here immediately for any new, worsening, or concerning symptoms. Patient verbalizes understanding and agrees with this plan. - Lab Data Result diagrams: 03/16/17 19:00 03/16/17 19:00 Lab Results 03/16/17 03/16/17 Range/Units 19:00 19:00 WBC 11.3 H (3.8-10.6) k/uL RBC 4.62 (3.80-5.40) m/uL Hgb 13.2 (11.4-16.0) gm/dL Hct 39.0 (34.0-46.0) % MCV 84.5 (80.0-100.0) fL MCH 28.5 (25.0-35.0) pg MCHC 33.7 (31.0-37.0) g/dL RDW 15.9 H (11.5-15.5) % Plt Count 252 (150-450) k/uL Neutrophils % 62 % Lymphocytes % 26 % Monocytes % 6 % Eosinophils % 4 % Basophils % 1 % Neutrophils # 7.0 (1.3-7.7) k/uL Lymphocytes # 3.0 (1.0-4.8) k/uL Monocytes # 0.7 (0-1.0) k/uL Eosinophils # 0.4 (0-0.7) k/uL Basophils # 0.1 (0-0.2) k/uL Sodium 140 (137-145) mmol/L Potassium 4.9 (3.5-5.1) mmol/L Chloride 105 (98-107) mmol/L Carbon Dioxide 27 (22-30) mmol/L Anion Gap 8 mmol/L BUN 24 H (7-17) mg/dL Creatinine 1.12 H (0.52-1.04) mg/dL Est GFR (MDRD) Af Amer 57 (>60 ml/min/1.73 sqM) Est GFR (MDRD) Non-Af 47 (>60 ml/min/1.73 sqM) Glucose 158 H (74-99) mg/dL Calcium 9.1 (8.4-10.2) mg/dL Total Bilirubin 0.4 (0.2-1.3) mg/dL AST 18 (14-36) U/L ALT 28 (9-52) U/L Alkaline Phosphatase 99 (38-126) U/L Total Protein 6.1 L (6.3-8.2) g/dL Albumin 3.7 (3.5-5.0) g/dL Disposition Clinical Impression: Cellulitis Disposition: HOME SELF-CARE Condition: Good Instructions: Cellulitis (ED) Additional Instructions: Complete antibiotic prescription in full. Follow up with Dr. Bowers as directed. Follow up with primary care physician for recheck in 1-2 days. Return here immediately for any new, worsening, or concerning symptoms. Prescriptions: Cephalexin [Keflex] 500 mg PO Q6H #40 cap Fluconazole [Diflucan] 100 mg PO ONCE #2 tablet Referrals: Amrit Caputo DO [Primary Care Provider] - 1-2 days Jeison Bowers MD [STAFF PHYSICIAN] - 1-2 days Time of Disposition: 19:50
[2017-03-16 19:21] LABS: Basophils # (A) 0.1 k/uL (0-0.2); Basophils % (A) 1 %; CH 28.8; CHCM 34.2; Eosinophils # (A) 0.4 k/uL (0-0.7); Eosinophils % (A) 4 %; HDW 3.21; HGB 13.2 gm/dL (11.4-16.0); Luc % (Auto) 2; Lymphocytes % (A) 26 %; MCH 28.5 pg (25.0-35.0); MCHC 33.7 g/dL (31.0-37.0); MCV 84.5 fL (80.0-100.0); Mean Platelet Volume 7.7; Monocytes # (A) 0.7 k/uL (0-1.0); Monocytes % (A) 6 %; Neutrophils % (A) 62 %; RBC 4.62 m/uL (3.80-5.40); RDW 15.9 % (11.5-15.5); WBC 11.3 k/uL (3.8-10.6); WBC (Perox) 10.97
[2017-03-16 19:32] LABS: Calcium 9.1 mg/dL (8.4-10.2); Potassium 4.9 mmol/L (3.5-5.1); Total Bilirubin 0.4 mg/dL (0.2-1.3); Total Protein 6.1 g/dL (6.3-8.2)
[2017-03-16] MEDS ORDERED: CEPHALEXIN 500 MG CAP PO STA (19:47)
[2017-03-16 20:23] VITALS: BP 132/62; PULSE 68
[2017-03-16 20:24] VITALS: TEMP 97.6
== END 2017-03-16 20:24 | disposition home or self-care (01) ==
LOC: EC 18:20
DX: L03.112 Cellulitis of left axilla (principal); T81.89XA Other complications of procedures, not elsewhere classified, initial encounter; E78.5 Hyperlipidemia, unspecified; I10 Essential (primary) hypertension; E11.9 Type 2 diabetes mellitus without complications; E07.9 Disorder of thyroid, unspecified; F32.9 Major depressive disorder, single episode, unspecified; F41.9 Anxiety disorder, unspecified; Z79.4 Long term (current) use of insulin; Z79.84 Long term (current) use of oral hypoglycemic drugs; Z79.899 Other long term (current) drug therapy; Z85.3 Personal history of malignant neoplasm of breast; Z80.3 Family history of malignant neoplasm of breast; Z90.12 Acquired absence of left breast and nipple
CPT/HCPCS: 36415; 80053; 85025; 87040; 99283

== ENCOUNTER → 2017-05-05 | Outpatient (CLI) | payer MEDICARE ==
--- NOTE | 2017-05-07 22:11 | BD ---
EXAMINATION TYPE: MG DEXA axial skeleton. DATE OF EXAM: 05/05/2017 COMPARISON: NONE CLINICAL HISTORY: 77 year-old female history of breast cancer, postmenopausal screening with HRT. Height: 63 Weight: 243.0 FRAX RISK QUESTIONS: Alcohol (3 or more units per day): no Family History (Parent hip fracture): no Glucocorticoids (More than 3mos): no (Ex: prednisone, prednisolone, methylprednisolone, dexamethasone, and hydrocortisone). History of Fracture in Adulthood: yes Secondary Osteoporosis: 1. Type 1 Diabetes: no 2. Hyperthyroidism: no 3. Menopause before 45: yes 4. Malnutrition: no 5. Chronic liver disease: no Rheumatoid Arthritis: no Current Tobacco Use: no RISK FACTORS HISTORY OF: Hip Fracture (Right/Left): no Spine Fracture: no History of Wrist Fracture: no Surgery to Spine/Hip(right/left)/Wrist (right/left): yes left hip When: after 2002 Family History of Osteoporosis: yes Active: no Diet low in dairy products/other sources of calcium: yes Postmenopausal woman: hysterectomy around age 30 Lost more than 2 inches in height since high school: no Frequent falls: no Poor Health: yes Hyperparathyroidism: no Adrenal Insufficiency: no MEDICATIONS: simvastatin, anastrozole, diabetic meds Thyroid Medications: levothyroxine, How Lon year Additional History: breast cancer pt / diagnosed 4 months ago EXAM MEASUREMENTS: Bone mineral densitometry was performed using the [employer] System. Bone mineral density as measured about the Lumbar spine is: ----- L1-L4(G/cm2): 1.456 T Score Values are as follows: ----- L2: 1.8 ----- L3: 3.6 ----- L4: 1.4 ----- L1-L4: 2.3 Bone mineral density has: increased 19.5 % since study of: 10.01.2002 Bone mineral density about the R hip (g/cm2): 1.065 T Score values are as follows: -----R Neck: 0.2 -----R Total: 0.9 Bone mineral density has: increased 3.2 % since study of: 10.01.2002 IMPRESSION: Normal (Values between +1 and -1 indicate normal bone mass). Consider repeating this study in 5 year s or sooner if there is some new clinical indication. NOTE: T-SCORE=SD OF THE YOUNG ADULT MEAN.
== END | disposition home or self-care (01) ==
LOC: RADBDWWP 14:24
PROVIDERS: ATTEND Internal Medicine Hematology & Oncology
DX: C50.512 Malignant neoplasm of lower-outer quadrant of left female breast (principal)
CPT/HCPCS: 77080

== ENCOUNTER → 2017-08-21 | Outpatient (CLI) | payer MEDICARE ==
--- NOTE | 2017-08-21 09:45 | US ---
EXAMINATION TYPE: US abdomen complete DATE OF EXAM: 08/21/2017 COMPARISON: NONE CLINICAL HISTORY: Rt Upper Quad Pain R10.11. History of breast CA. Difficult and limited exam due to patient body habitus and overlying bowel gas EXAM MEASUREMENTS: Liver Length: 19.4 cm Gallbladder Wall: 0.2 cm CBD: 0.5 cm Spleen: 11.5 cm Right Kidney: 10.1 x 4.6 x 4.6 cm Left Kidney: 10.1 x 4.6 x 5.2 cm Pancreas: Tail obscured by overlying bowel gas, visualized portions show no abnormality Liver: Enlarged, attenuating, coarse and echogenic echotexture. Gallbladder: wnl Evidence for sonographic Patterson's sign: No CBD: wnl Spleen: wnl Right Kidney: No hydronephrosis or masses seen Left Kidney: No hydronephrosis or masses seen Upper IVC: wnl Abd Aorta: wnl as visualized, distal portion obscured by bowel gas IMPRESSION: 1. Moderate fatty infiltration of the liver with hepatomegaly.
== END | disposition home or self-care (01) ==
LOC: RADUSWWP 07:34
PROVIDERS: ATTEND Internal Medicine Hematology & Oncology
DX: K76.0 Fatty (change of) liver, not elsewhere classified (principal); R10.13 Epigastric pain
CPT/HCPCS: 76700

== ENCOUNTER → 2018-01-05 | Outpatient (CLI) | payer MEDICARE ==
--- NOTE | 2018-01-05 14:12 | MM ---
Reason for exam: additional evaluation requested from prior study. Last mammogram was performed 1 year and 3 months ago. History: Patient is postmenopausal and has history of breast cancer at age 77. Family history of breast cancer in maternal aunt, breast cancer in maternal grandmother, breast cancer in maternal cousin, and breast cancer in sister at age 66. 3 excisional biopsies of the left breast. 2 excisional biopsies of the right breast. Physical Findings: Nurse Summary: 1cm adenopathy in the right axilla (nurse dw). MG 3D Diag Mammo W/Cad RT CC and MLO view(s) were taken of the right breast. Prior study comparison: October 10, 2016, bilateral MG 3d diag mammo w/cad MARYANN. April 16, 2012, CAD bilateral diagnostic mammogram. The breast tissue is heterogeneously dense. This may lower the sensitivity of mammography. Benign calcifications in the right axilla. No suspicious abnormality. Post biopsy change. These results were verbally communicated with the patient and result sheet given to the patient on 01/05/18. ASSESSMENT: Incomplete: need additional imaging evaluation, BI-RAD 0 RECOMMENDATION: Ultrasound of the right breast. (axilla palpable)
--- NOTE | 2018-01-05 14:21 | USB ---
Reason for exam: additional evaluation requested from abnormal screening. History: Patient is postmenopausal and has history of breast cancer at age 77. Family history of breast cancer in maternal aunt, breast cancer in maternal grandmother, breast cancer in maternal cousin, and breast cancer in sister at age 66. 3 excisional biopsies of the left breast. 2 excisional biopsies of the right breast. US Breast Axilla RT Right axilla ultrasound including focal area of concern, retroareolar and axilla demonstrates no cystic or solid lesion seen. No suspicious finding. These results were verbally communicated with the patient and result sheet given to the patient on 01/05/18. ASSESSMENT: Negative, BI-RAD 1 RECOMMENDATION: Follow-up diagnostic mammogram of the right breast in 1 year.
== END | disposition home or self-care (01) ==
LOC: RADMAMWWP 10:31
PROVIDERS: ATTEND Family Medicine
DX: Z08 Encounter for follow-up examination after completed treatment for malignant neoplasm (principal); R92.8 Other abnormal and inconclusive findings on diagnostic imaging of breast; Z85.3 Personal history of malignant neoplasm of breast
CPT/HCPCS: 77065; 76642; G0279; 77061

== ENCOUNTER → 2019-03-12 | Outpatient (CLI) | payer MEDICARE ==
--- NOTE | 2019-03-12 11:56 | MM ---
Reason for exam: additional evaluation requested from prior study. Last mammogram was performed 1 year and 2 months ago. History: Patient is postmenopausal and has history of breast cancer at age 77. Family history of breast cancer in maternal aunt, breast cancer in maternal grandmother, breast cancer in maternal cousin, and breast cancer in sister at age 66. Mastectomy of the left breast, 2017. 3 excisional biopsies of the left breast. 2 excisional biopsies of the right breast. Took antineoplastic for 2 years beginning at age 77. Physical Findings: Nurse did not find any significant physical abnormalities on exam. MG 3D Diag Mammo W/Cad RT CC and MLO view(s) were taken of the right breast. Prior study comparison: January 05, 2018, right breast MG 3d diag mammo w/cad RT. October 10, 2016, bilateral MG 3d diag mammo w/cad MARYANN. The breast tissue is heterogeneously dense. This may lower the sensitivity of mammography. Finding #1: There is stable architectural distortion in the right breast consistent with known excisional biopsy. Finding #2: There are typically benign round, linear calcifications in the right breast. There is no discrete abnormality. These results were verbally communicated with the patient and result sheet given to the patient on 03/12/19. ASSESSMENT: Benign, BI-RAD 2 RECOMMENDATION: Follow-up diagnostic mammogram of the right breast in 1 year.
== END | disposition home or self-care (01) ==
LOC: RADMAMWWP 10:53
PROVIDERS: ATTEND Family Medicine
DX: R92.8 Other abnormal and inconclusive findings on diagnostic imaging of breast (principal)
CPT/HCPCS: 77065; G0279; 77061

== ENCOUNTER → 2019-10-02 | Outpatient (CLI) | payer MEDICARE ==
--- NOTE | 2019-10-03 10:10 | BD ---
EXAMINATION TYPE: Axial Bone Density DATE OF EXAM: 10/02/2019 COMPARISON: 05/05/2017 CLINICAL HISTORY: C 50.512 Height: 61.5 IN Weight: 246 LBS FRAX RISK QUESTIONS: Secondary Osteoporosis: 3. Menopause before 45: TOTAL HYST AGE 45 RISK FACTORS HISTORY OF: Surgery to Hip(left): YES When: AGE 65 APPROX Active: LIMITED Diet low in dairy products/other sources of calcium: YES Postmenopausal woman: TOTAL HYST AGE 45 MEDICATIONS: Thyroid Medications: YES Which medication: Levothyroxine How Lon+ YEARS Additional Medications: ANASTROZOLE, HUMALOG, LEVEMIR, LEVOTHYROXINE, LOSARTAN, SERTRALINE, SIMVASTAT IN, ZOLPIDEM, LATANOPROST Additional History: BREAST CANCER EXAM MEASUREMENTS: Bone mineral densitometry was performed using the NOSTROMO ICT System. Bone mineral density as measured about the Lumbar spine is: ----- L1-L4(G/cm2): 1.412 T Score Values are as follows: ----- L2: 1.6 ----- L3: 2.3 ----- L4: 1.3 ----- L1-L4: 1.9 Bone mineral density has: Decreased -4.9% since study of: 05/05/2017 Bone mineral density about the R hip (g/cm2): 1.019 T Score values are as follows: -----R Neck: -0.1 -----R Total: 0.7 Bone mineral density has: Decreased -1.9% since study of: 05/05/2017 IMPRESSION: Normal (Values between +1 and -1 indicate normal bone mass). Consider repeating this study in 5 year s or sooner if there is some new clinical indication. NOTE: T-SCORE=SD OF THE YOUNG ADULT MEAN.
== END | disposition home or self-care (01) ==
LOC: RADBDWWP 15:22
PROVIDERS: ATTEND Internal Medicine Hematology & Oncology
DX: C50.512 Malignant neoplasm of lower-outer quadrant of left female breast (principal); Z79.890 Hormone replacement therapy
CPT/HCPCS: 77080

== ENCOUNTER → 2020-05-01 | Outpatient (CLI) | payer MEDICARE ==
--- NOTE | 2020-05-04 10:55 | MM ---
Reason for exam: additional evaluation requested from prior study. Last mammogram was performed 1 year and 2 months ago. History: Patient is postmenopausal and has history of breast cancer at age 77. Family history of breast cancer in maternal aunt, breast cancer in maternal grandmother, breast cancer in maternal cousin, and breast cancer in sister at age 66. Mastectomy of the left breast, 2017. 3 excisional biopsies of the left breast. 2 excisional biopsies of the right breast. Taking antineoplastic for 3 years beginning at age 77. Physical Findings: Nurse did not find any significant physical abnormalities on exam. MG 3D Diag Mammo W/Cad RT CC and MLO view(s) were taken of the right breast. Prior study comparison: March 12, 2019, right breast MG 3d diag mammo w/cad RT. January 05, 2018, right breast MG 3d diag mammo w/cad RT. The breast tissue is heterogeneously dense. This may lower the sensitivity of mammography. Finding: There are typically benign round, linear calcifications in the right breast. There is no discrete abnormality. These results were verbally communicated with the patient and result sheet given to the patient on 05/01/20. ASSESSMENT: Benign, BI-RAD 2 RECOMMENDATION: Follow-up diagnostic mammogram of the right breast in 1 year.
== END | disposition home or self-care (01) ==
LOC: RADMAMWWP 12:28
PROVIDERS: ATTEND Family Medicine
DX: Z08 Encounter for follow-up examination after completed treatment for malignant neoplasm (principal); Z85.3 Personal history of malignant neoplasm of breast
CPT/HCPCS: 77065; G0279; 77061

== ENCOUNTER → 2021-06-22 | Outpatient (CLI) | payer MEDICARE ==
--- NOTE | 2021-06-23 07:33 | MM ---
Reason for exam: additional evaluation requested from prior study. Last mammogram was performed 1 year and 2 months ago. History: Patient is postmenopausal and has history of breast cancer at age 77. Family history of breast cancer in maternal aunt, breast cancer in maternal grandmother, breast cancer in maternal cousin, and breast cancer in sister at age 66. Mastectomy of the left breast, 2017. 3 excisional biopsies of the left breast. 2 excisional biopsies of the right breast. Taking antineoplastic for 3 years beginning at age 77. Physical Findings: Nurse did not find any significant physical abnormalities on exam. MG 3D Diag Mammo W/Cad RT CC and MLO view(s) were taken of the right breast. Prior study comparison: May 01, 2020, right breast MG 3d diag mammo w/cad RT. March 12, 2019, right breast MG 3d diag mammo w/cad RT. There are scattered fibroglandular densities. No significant new findings when compared with previous films. These results were verbally communicated with the patient and result sheet given to the patient on 06/22/21. ASSESSMENT: Benign, BI-RAD 2 RECOMMENDATION: Follow-up diagnostic mammogram of both breasts in 1 year.
== END | disposition home or self-care (01) ==
LOC: RADMAMWWP 13:56
PROVIDERS: ATTEND Family Medicine
DX: N64.89 Other specified disorders of breast (principal); Z85.3 Personal history of malignant neoplasm of breast; Z78.0 Asymptomatic menopausal state; Z80.3 Family history of malignant neoplasm of breast
CPT/HCPCS: 77065; G0279; 77061

== ENCOUNTER → 2021-10-05 | Outpatient (CLI) | payer MEDICARE ==
--- NOTE | 2021-10-05 11:55 | CT ---
EXAMINATION TYPE: CT chest w con DATE OF EXAM: 10/05/2021 COMPARISON: Chest CT April 09, 2012. HISTORY: Breast cancer, shortness of breath CT DLP: 794.1 mGycm. Automated Exposure Control for Dose Reduction was Utilized. TECHNIQUE: CT scan of the thorax is performed following with IV Contrast, patient injected with 80 m L of Isovue 300. FINDINGS: LUNGS: Mild increased interstitial markings bilaterally along with some areas of groundglass opacity in the bases suggestive of mild alveolar and interstitial edema. No new greater than 5 mm pulmonary n odules or masses. No suspicious focal consolidation. There is no pleural effusion or pneumothorax see n. The tracheobronchial tree is patent. MEDIASTINUM: There are no greater than 1 cm hilar or mediastinal lymph nodes. No cardiomegaly or pe ricardial effusion is seen. Coronary artery calcification is present. OTHER: Partial visualization of diverticula in the transverse colon. Multilevel prominent spurring in the mid to lower thoracic spine is present. Left breast is surgically absent. IMPRESSION: Mild bilateral interstitial and bibasilar alveolar edema. Correlate for CHF exacerbation and/or fluid overload state. No suspicious focal consolidation. No significant parenchymal scarring.
--- NOTE | 2021-10-05 19:42 | BD ---
EXAMINATION TYPE: Axial Bone Density DATE OF EXAM: 10/05/2021 COMPARISON: 10.02.2019 CLINICAL HISTORY: 81 YR OLD FEMALE.....ICD-10 CODE: C50.512 BREAST CA, Z79.890 MENOPAUSAL Height: 61.3 Weight: 240 FRAX RISK QUESTIONS: History of Fracture in Adulthood: YES Secondary Osteoporosis: YES 1. Type 1 Diabetes: YES 3. Menopause before 45: YES RISK FACTORS HISTORY OF: HX OR RT TIB FIB FX, LT ANKLE, Surgery to LT HIP....THR, FROM ARTHRITIS Family History of Osteoporosis: YES, NO HIP FXS PT VERY UNSTEADY, AND WINDED....USING [employer] Diet low in dairy products/other sources of calcium: YES Postmenopausal woman: YES, HYST AT 30 YRS OLD, TOTAL Poor Health: CANCER PATIENT Hyperparathyroidism: NO Adrenal Insufficiency: NO MEDICATIONS: Thyroid Medications: YES, SYNTHROID PRODUCT, FOR ABOUT 3 YRS Additional Medications: STATIN FOR CHOLESTEROL, DIABETIC MEDS, ANASTROZOLE, BP MEDS, XANAX, AND ANTID EPRESSANTS, INSULIN, CALCIUM, REFLUX MEDS , NSAIDS, Additional History: HX OF BREAST CANCER 2017...LT BREAST, DIABETIC, CHOLESTEROL, THYROID, ARTHRITIS, HYPERTENSION, REFLUX, CHRONIC PAIN, SOB EXAM MEASUREMENTS: Bone mineral densitometry was performed using the [employer] System. Bone mineral density as measured about the Lumbar spine is: ----- L1-L4(G/cm2): 1.398 T Score Values are as follows: ----- L1: -2.2 ----- L2: -0.4 ----- L3: 2.6 ----- L4: 1.9 ----- L1-L4: 1.8 Bone mineral density has: Decreased -0.4% since study of: 10.02.2019 Bone mineral density about the R hip (g/cm2): 0.923 T Score values are as follows: -----R Neck: -1.5 -----R Total: -0.7 Bone mineral density has: Decreased -16.2% since study of: 10.02.2019 FRAX%s: GRAPH PROVIDED ILLUSTRATES A 16.3% CHANCE FOR A MAJOR OSTEOPOROTIC FX AND A 3.4% FOR HIPS. ....PROBABILITY FOR FX IN 10 YRS TIME IMPRESSION: Osteopenia (T Score between -2.5 and -1). There is slightly increased risk of fracture and the patient may be considered for treatment. Re-Screen 2-5 years. NOTE: T-SCORE=SD OF THE YOUNG ADULT MEAN.
== END | disposition home or self-care (01) ==
LOC: RADBDWWP 08:55
PROVIDERS: ATTEND Internal Medicine Hematology & Oncology
DX: C50.212 Malignant neoplasm of upper-inner quadrant of left female breast (principal); M85.89 Other specified disorders of bone density and structure, multiple sites; J81.0 Acute pulmonary edema; Z79.890 Hormone replacement therapy
CPT/HCPCS: 82565; 84520; 77080; 71260; 36415; Q9967

== ENCOUNTER → 2022-06-23 | Outpatient (CLI) | payer MEDICARE ==
--- NOTE | 2022-06-23 15:38 | MM ---
Reason for Exam: Hx of breast cancer, mastectomy. Last mammogram was performed 1 year(s) and 1 month(s) ago. Patient History: Menarche at age 12. First Full-Term at age 21. Left ovary removed at age 50. Right ovary removed at age 50. Hysterectomy at age 50. Postmenopausal. Breast cancer, left, age 77. 2017, Mastectomy on the Left side. Excisional Biopsy on the Left side. Excisional Biopsy on the Left side. Excisional Biopsy on the Left side. Excisional Biopsy on the Right side. Excisional Biopsy on the Right side. Maternal grandmother had breast cancer, age 67. Maternal cousin (Ruthann) had breast cancer, age 28. Maternal aunt had breast cancer, age 66. Sister had breast cancer, age 66. Prior Study Comparison: 03/12/2019 Right Diagnostic Mammogram, [facility]. 05/01/2020 Right Diagnostic Mammogram, [facility]. 06/22/2021 Right Diagnostic Mammogram, [facility]. Tissue Density: Right: There are scattered fibroglandular densities. Findings: Analyzed By CAD. Benign secretory and Parish's calcifications are redemonstrated. Asymmetric density posterior lateral cc view remains unchanged. No significant change from prior exams. Overall Assessment: Benign, BI-RAD 2 Management: Screening Mammogram of the right breast in 1 year. 1. Patient should continue monthly self breast exams. 2. A clinical breast exam by your physician is recommended on an annual basis. 3. This exam should not preclude additional follow-up of suspicious palpable abnormalities. Results were given to the patient verbally at the time of exam. Electronically signed and approved by: Hadley Daniels M.D. Radiologist
== END | disposition home or self-care (01) ==
LOC: RADMAMWWP 14:50
PROVIDERS: ATTEND Family Medicine
DX: Z85.3 Personal history of malignant neoplasm of breast (principal); Z78.0 Asymptomatic menopausal state; Z90.721 Acquired absence of ovaries, unilateral; Z80.3 Family history of malignant neoplasm of breast
CPT/HCPCS: 77065; G0279; 77061

== ENCOUNTER 2023-05-19 14:54 | Inpatient (IN) | payer MEDICARE ==
[2023-05-19] MEDS ORDERED: MORPHINE SULFATE 4 MG/ML SYRINGE IV STA (15:51)
--- NOTE | 2023-05-19 16:38 | XR ---
EXAMINATION TYPE: XR chest 1V DATE OF EXAM: 05/19/2023 COMPARISON: NONE HISTORY: Fall. TECHNIQUE: Single frontal view of the chest is obtained. FINDINGS: There is no focal air space opacity, pleural effusion, or pneumothorax seen. The cardiac silhouette size is within normal limits. The osseous structures are intact. IMPRESSION: No acute process.
--- NOTE | 2023-05-19 16:54 | ED ---
Weakness HPI - General Chief complaint: Fall Stated complaint: Fall, No Thinners Time Seen by Provider: 05/19/23 15:18 Source: patient, RN notes reviewed, old records reviewed, Caregiver Mode of arrival: EMS Limitations: no limitations - History of Present Illness Initial comments: This is a 83-year-old female to the emergency department for evaluation. Today patient is complaining of multiple issues severe and increasing debility weakness with multiple falls. Hip pain pelvic pain right-sided hip pain as well as significant swelling of the face. Significant swelling of the right side of her neck. Patient does have severe dental disease and dental caries. Patient denying fevers no significant current chest pain or shortness of breath but sev ere weakness MD Complaint: generalized weakness, lack of energy, difficulty walking -: month(s) Location: generalized Severity: severe Consistency: constant Improves with: none Worsens with: none Context: recent illness, history of similar Associated Symptoms: shortness of breath - Related Data Home Medications Medication Instructions Recorded Confirmed INSULIN LISPRO (HumaLOG) [humaLOG] See Protocol SQ AC-TID 12/28/16 05/19/23 Levothyroxine Sodium [Synthroid] 50 mcg PO DAILY 12/28/16 05/19/23 Losartan/Hydrochlorothiazide 1 tab PO DAILY 12/28/16 05/19/23 [Losartan-Hctz 100-12.5 mg Tab] Sertraline [Zoloft] 100 mg PO DAILY 03/16/17 05/19/23 Anastrozole 1 mg PO DAILY 05/19/23 05/19/23 Latanoprost Ophth [Xalatan 0.005%] 1 drop BOTH EYES HS 05/19/23 05/19/23 Loratadine [Claritin] 10 mg PO DAILY 05/19/23 05/19/23 buPROPion XL [Wellbutrin XL] 150 mg PO DAILY 05/19/23 05/19/23 Previous Rx's Medication Instructions Recorded Amoxic-Pot Clav 875-125Mg 1 tab PO Q12HR 10 Days #20 tab 05/24/23 [Augmentin 875-125] Aspirin 81 mg PO DAILY tab 05/24/23 Atorvastatin [Lipitor] 80 mg PO HS tab 05/24/23 Clopidogrel [Plavix] 75 mg PO DAILY tab 05/24/23 Famotidine [Pepcid] 20 mg PO Q24HR tab 05/24/23 Insulin Detemir (Levemir) [Levemir] 13 unit SQ BID@0700,2100 each 05/24/23 Melatonin 6 mg PO HS PRN tab 05/24/23 Zolpidem [Ambien] 10 mg PO HS #3 tab 05/24/23 amLODIPine [Norvasc] 10 mg PO DAILY tab 05/24/23 carvediloL [Coreg] 6.25 mg PO BID-W/MEALS tab 05/24/23 Allergies Allergy/AdvReac Type Severity Reaction Status Date / Time No Known Allergies Allergy Verified 05/19/23 19:20 Review of Systems ROS Statement: Those systems with pertinent positive or pertinent negative responses have been documented in the HPI. ROS Other: All systems not noted in ROS Statement are negative. Past Medical History Past Medical History: Cancer, Diabetes Mellitus, Hyperlipidemia, Hypertension, Musculoskeletal Disorder, Thyroid Disorder Additional Past Medical History / Comment(s): Left Breast CA. BAD RT HIP. History of Any Multi-Drug Resistant Organisms: None Reported Past Surgical History: Breast Surgery, Hysterectomy, Joint Replacement, Orthop edic Surgery Additional Past Surgical History / Comment(s): 3 left breast bx, 2 rt breast bx, ductogram, ORIF RT LOWER LEG, w/ plate. Left TOTAL Hip. LT BREAST LUMPECTOMY. Past Anesthesia/Blood Transfusion Reactions: No Reported Reaction Past Psychological History: Anxiety, Depression Past Alcohol Use History: None Reported Past Drug Use History: None Reported - Past Family History Sister(s) Family Medical History: Cancer Additional Family Medical History / Comment(s): BREAST CA General Exam Limitations: no limitations General appearance: alert, in no apparent distress Head exam: Present: atraumatic, normocephalic, normal inspection Eye exam: Present: normal appearance, PERRL, EOMI, other (Or swelling and edema of right side of the neck). Absent: scleral icterus, conjunctival injection, periorbital swelling ENT exam: Present: other (Neck pain neck swelling right-sided neck swelling) Neck exam: Present: normal inspection. Absent: tenderness, meningismus, lymphadenopathy Respiratory exam: Present: normal lung sounds bilaterally. Absent: respiratory distress, wheezes, rales, rhonchi, stridor Cardiovascular Exam: Present: regular rate, normal rhythm, normal heart sounds. Absent: systolic murmur, diastolic murmur, rubs, gallop, clicks GI/Abdominal exam: Present: soft, normal bowel sounds. Absent: distended, tenderness, guarding, rebound, rigid Extremities exam: Present: normal inspection, full ROM, normal capillary refill. Absent: tenderness, pedal edema, joint swelling, calf tenderness Back exam: Present: normal inspection Neurological exam: Present: alert, oriented X3, CN II-XII intact Psychiatric exam: Present: normal affect, normal mood Skin exam: Present: warm, dry, intact, normal color. Absent: rash Course Vital Signs 05/19/23 05/19/23 05/19/23 14:59 21:44 22:12 Temperature 98.5 F 97.4 F L Pulse Rate 67 65 Respiratory 20 18 18 Rate Blood Pressure 179/60 161/69 O2 Sat by Pulse 95 96 Oximetry - Reevaluation(s) Reevaluation #1: 05/19/23 20:18 Medical record is reviewed Reevaluation #2: 05/19/23 20:18 Patient has no real change in symptoms Reevaluation #3: 05/19/23 20:18 Patient informed results questions answered Reevaluation #4: 05/19/23 20:18 Was pt. sent in by a medical professional or institution (, PA, MACHINE LOADER, urgent care, hospital, or fdc...) When possible be specific @ -no Did you speak to anyone other than the patient for history (EMS, parent, family, police, friend...)? What history was obtained from this source @ -no Did you review nursing and triage notes (agree or disagree)? Why? @ -agree Are old charts reviewed (outside hosp., previous admission, EMS record, old EKG, old radiological studies, urgent care reports/EKG's, fdc records)? Report findings @ -yes Differential Diagnosis (chest pain, altered mental status, abdominal pain women, abdominal pain men, vaginal bleeding, weakness, fever, dyspnea, syncope, headache, dizziness, GI bleed, back pain, seizure, CVA, palpatations, mental health, musculoskeletal)? @ -prior EKG interpreted by me (3pts min.). @ -yes X-rays interpreted by me (1pt min.). @ -yes CT interpreted by me (1pt min.). @ -yes U/S interpreted by me (1pt. min.). @ -no What testing was considered but not performed or refused? (CT, X-rays, U/S, labs)? Why? @ -none What meds were considered but not given or refused? Why? @ -none Did you discuss the management of the patient with other professionals (professionals i.e. , PA, MACHINE LOADER, lab, RT, psych nurse, medical social consultant, corporate travel agent, teacher, juvenile corrections officer, case management assistant)? Give summary @ -no Was smoking cessation discussed for >3mins.? @ -no Was critical care preformed (if so, how long)? @ -no Were there social determinants of health that impacted care today? How? (Homelessness, low income, unemployed, alcoholism, drug addiction, transportation, low edu. Level, literacy, decrease access to med. care, senior living, rehab)? @ -none Was there de-escalation of care discussed even if they declined (Discuss DNR or withdrawal of care, Hospice)? DNR status @ -no What co-morbidities impacted this encounter? (DM, HTN, Smoking, COPD, CAD, Cancer, CVA, ARF, Chemo, Hep., AIDS, mental health diagnosis, sleep apnea, morbid obesity)? @ -none Was patient admitted / discharged? Hospital course, mention meds given and route, prescriptions, significant lab abnormalities, going to OR and other pertinent info. @ - 83 female severe debility and increased falls, pain. Patient also has significant peritonitis, will place on antibiotics and admit for further evaluation management Admitted Undiagnosed new problem with uncertain prognosis? @ -no Drug Therapy requiring intensive monitoring for toxicity (Heparin, Nitro, Insulin, Cardizem)? @ -no Were any procedures done? @ -no Diagnosis/symptom? @ -Stability, peritonitis, weakness Acute, or Chronic, or Acute on Chronic? @ -Acute Uncomplicated (without systemic symptoms) or Complicated (systemic symptoms)? @ -Complicated Side effects of treatment? @ -no Exacerbation, Progression, or Severe Exacerbation? @ -exacerbation Poses a threat to life or bodily function? How? (Chest pain, USA, AL, pneumonia, PE, COPD, DKA, ARF, appy, cholecystitis, CVA, Diverticulitis, Homicidal, Suicidal, threat to staff... and all critical care pts) @ -yes stability Reevaluation #5: 05/19/23 20:18 Differential Weakness: Hypoglycemia, shock, sepsis, hyponatremia, anemia, infection, AL, ETOH, adverse medicine reaction, overdose, stroke, this is not meant to be an all-inclusive list. - Consultations Consultation #1: Spoke with Dr. Caputo will admit this patient Medical Decision Making - Medical Decision Making 83 female severe debility and increased falls, pain. Patient also has significant peritonitis, will place on antibiotics and admit for further evaluation management - Lab Data Result diagrams: 05/22/23 05:57 05/24/23 08:09 Lab Results 05/19/23 05/19/23 05/19/23 Range/Units 17:00 17:00 17:00 WBC (3.8-10.6) k/uL RBC (3.80-5.40) m/uL Hgb (11.4-16.0) gm/dL Hct (34.0-46.0) % MCV (80.0-100.0) fL MCH (25.0-35.0) pg MCHC (31.0-37.0) g/dL RDW (11.5-15.5) % Plt Count (150-450) k/uL MPV Neutrophils % % Lymphocytes % % Monocytes % % Eosinophils % % Basophils % % Neutrophils # (1.3-7.7) k/uL Lymphocytes # (1.0-4.8) k/uL Monocytes # (0-1.0) k/uL Eosinophils # (0-0.7) k/uL Basophils # (0-0.2) k/uL PT 10.6 (10.0-12.5) sec INR 1.0 (<1.2) APTT 20.0 L (22.0-30.0) sec Sodium 141 (137-145) mmol/L Potassium 4.8 (3.5-5.1) mmol/L Chloride 106 (98-107) mmol/L Carbon Dioxide 23 (22-30) mmol/L Anion Gap 12 mmol/L BUN 26 H (7-17) mg/dL Creatinine 0.84 (0.52-1.04) mg/dL Est GFR (CKD-EPI)AfAm 74 (>60 ml/min/1.73 sqM) Est GFR (CKD-EPI)NonAf 64 (>60 ml/min/1.73 sqM) Glucose 54 L (74-99) mg/dL Calcium 9.5 (8.4-10.2) mg/dL Phosphorus 4.2 (2.5-4.5) mg/dL Magnesium 1.6 (1.6-2.3) mg/dL Total Bilirubin 0.8 (0.2-1.3) mg/dL AST 35 (14-36) U/L ALT 21 (4-34) U/L Alkaline Phosphatase 101 (38-126) U/L Troponin I (0.000-0.034) ng/mL C-Reactive Protein 4.2 H (<1.0) mg/dL NT-Pro-B Natriuret Pep 851 pg/mL Total Protein 7.1 (6.3-8.2) g/dL Albumin 4.2 (3.5-5.0) g/dL Amylase 1035 H* (30-110) U/L Lipase 57 (23-300) U/L Influenza Type A (PCR) Not Detected (Not Detectd) Influenza Type B (PCR) Not Detected (Not Detectd) RSV (PCR) Not Detected (Not Detectd) SARS-CoV-2 (PCR) Not Detected (Not Detectd) 05/19/23 05/19/23 Range/Units 17:00 20:05 WBC 9.1 (3.8-10.6) k/uL RBC 4.30 (3.80-5.40) m/uL Hgb 12.7 (11.4-16.0) gm/dL Hct 35.5 (34.0-46.0) % MCV 82.6 (80.0-100.0) fL MCH 29.5 (25.0-35.0) pg MCHC 35.7 (31.0-37.0) g/dL RDW 14.4 (11.5-15.5) % Plt Count 147 L (150-450) k/uL MPV 8.0 Neutrophils % 67 % Lymphocytes % 24 % Monocytes % 6 % Eosinophils % 1 % Basophils % 0 % Neutrophils # 6.1 (1.3-7.7) k/uL Lymphocytes # 2.1 (1.0-4.8) k/uL Monocytes # 0.6 (0-1.0) k/uL Eosinophils # 0.1 (0-0.7) k/uL Basophils # 0.0 (0-0.2) k/uL PT (10.0-12.5) sec INR (<1.2) APTT (22.0-30.0) sec Sodium (137-145) mmol/L Potassium (3.5-5.1) mmol/L Chloride (98-107) mmol/L Carbon Dioxide (22-30) mmol/L Anion Gap mmol/L BUN (7-17) mg/dL Creatinine (0.52-1.04) mg/dL Est GFR (CKD-EPI)AfAm (>60 ml/min/1.73 sqM) Est GFR (CKD-EPI)NonAf (>60 ml/min/1.73 sqM) Glucose (74-99) mg/dL Calcium (8.4-10.2) mg/dL Phosphorus (2.5-4.5) mg/dL Magnesium (1.6-2.3) mg/dL Total Bilirubin (0.2-1.3) mg/dL AST (14-36) U/L ALT (4-34) U/L Alkaline Phosphatase (38-126) U/L Troponin I 0.052 H* (0.000-0.034) ng/mL C-Reactive Protein (<1.0) mg/dL NT-Pro-B Natriuret Pep pg/mL Total Protein (6.3-8.2) g/dL Albumin (3.5-5.0) g/dL Amylase (30-110) U/L Lipase (23-300) U/L Influenza Type A (PCR) (Not Detectd) Influenza Type B (PCR) (Not Detectd) RSV (PCR) (Not Detectd) SARS-CoV-2 (PCR) (Not Detectd) - EKG Data -: EKG Interpreted by Me (EKG is sinus 69 AR 179 QRS 119 QTc 455) - Radiology Data Radiology results: report reviewed (X-ray chest pelvis soft tissue neck is negative for traumatic injury CT does show acute peritonitis), image reviewed Disposition Clinical Impression: Fall, Weakness, Debility, Parotitis Disposition: ADMITTED IP TO THIS HOSP Condition: Stable Is patient prescribed a controlled substance at d/c from ED?: No Time of Disposition: 20:00
[2023-05-19 18:16] LABS: Prothrombin Time 10.6 sec (10.0-12.5)
[2023-05-19 18:19] LABS: ALT 21 U/L (4-34); AST 35 U/L (14-36); African American GFR (CKD) 74 (>60 ml/min/1.73 sqM); Albumin 4.2 g/dL (3.5-5.0); Alkaline Phosphatase 101 U/L (38-126); Anion Gap 12 mmol/L; Blood Urea Nitrogen 26 mg/dL (7-17); C Reactive Protein 4.2 mg/dL (<1.0); Calcium 9.5 mg/dL (8.4-10.2); Carbon Dioxide 23 mmol/L (22-30); Chloride 106 mmol/L (98-107); Glucose 54 mg/dL (74-99); Lipase 57 U/L (23-300); Magnesium 1.6 mg/dL (1.6-2.3); Non-African American GFR(CKD) 64 (>60 ml/min/1.73 sqM); Phosphorus 4.2 mg/dL (2.5-4.5); Potassium 4.8 mmol/L (3.5-5.1); Sodium 141 mmol/L (137-145); Total Protein 7.1 g/dL (6.3-8.2)
[2023-05-19 18:25] LABS: NT-Pro-B-Type Natriuretic Pept 851 pg/mL
[2023-05-19 18:55] LABS: Amylase 1035 U/L (30-110)
[2023-05-19 19:10] LABS: Total Bilirubin 0.8 mg/dL (0.2-1.3)
--- NOTE | 2023-05-19 19:45 | XR ---
EXAMINATION TYPE: XR Hip RT and AP Pelvis DATE OF EXAM: 05/19/2023 4:25 PM CLINICAL INDICATION:Female, 83 years old with history of fall; [facility] COMPARISON: None. TECHNIQUE: The right hip was examined in the frontal and lateral projections and a AP pelvis. FINDINGS: Generalized osteopenia and patient body habitus, limits assessment for fracture. No fracture or dislo cation is identified. Moderate to severe right hip osteoarthritis with some marginal osteophytes. Lef t total hip arthroplasty appears unremarkable. Mild degenerative changes of the SI joints. Degenerati ve cortical irregularity along the anterior iliac spines. Moderate degenerative change of the visuali zed lower lumbar spine. Moderate to heavy atherosclerotic calcifications throughout. IMPRESSION: No radiographic evidence of acute fracture or dislocation involving the pelvis or right hip.
--- NOTE | 2023-05-19 20:10 | CT ---
EXAMINATION TYPE: CT soft tissue neck w con DATE OF EXAM: 05/19/2023 HISTORY: rt sided neck abscess COMPARISON: NONE CT DLP: 413.5 mGycm. Automated Exposure Control for Dose Reduction was Utilized. TECHNIQUE: CT scan of the neck is performed with IV Contrast, patient injected with 85ml mL of Isovu e 370, axial images are obtained, coronal and sagittal reformatted images are reviewed. FINDINGS: Exam is suboptimal secondary to patient's large body habitus along with motion artifact com promises Airway: Patent oropharyngeal airway into the hypopharyngeal airway. There is fullness of the adenoid tonsils in the posterior nasopharynx and prominence of the palatine tonsils. Parotid/submandibular glands: Parotid glands are symmetric with left gland being diffusely lower dens ity. Right gland shows heterogeneous hyperdensity with mild adjacent fat stranding. Carotid/Vascular Structures: Moderate to severe plaque at the bilateral carotid bulb level likely cau ses significant stenosis. Advised follow-up carotid ultrasound to further evaluate. Moderate to sever e mixed plaque at origin of left subclavian artery without definitive significant stenosis. Osseous Structures: Grade 1 retrolisthesis C3 on C4, C4 on C5, and C5 on C6 . Moderate multilevel dis c space narrowing is present. Severe anterior spurring at C5-C6 level is noted. Other: No well-formed fluid collection or abscess is seen. There are subcentimeter lymph nodes throug hout the neck bilaterally. No definitive greater than 1 cm neck adenopathy. IMPRESSION: Suboptimal study. Heterogeneous hyperdensity to right parotid gland with mild adjacent fl uid and fat stranding suggest infection at this level. No well-formed fluid collection or abscess is seen. Airway is patent. Significant stenosis at carotid bulb origin is likely present bilaterally. Ad vise nonemergent carotid ultrasound follow-up to further evaluate.
[2023-05-19 20:12] LABS: Basophils % (A) 0 %; Eosinophils # (A) 0.1 k/uL (0-0.7); Eosinophils % (A) 1 %; HCT 35.5 % (34.0-46.0); HGB 12.7 gm/dL (11.4-16.0); Lymphocytes # (A) 2.1 k/uL (1.0-4.8); Lymphocytes % (A) 24 %; MCH 29.5 pg (25.0-35.0); MCHC 35.7 g/dL (31.0-37.0); MCV 82.6 fL (80.0-100.0); Monocytes # (A) 0.6 k/uL (0-1.0); Monocytes % (A) 6 %; Neutrophils # (A) 6.1 k/uL (1.3-7.7); Neutrophils % (A) 67 %; Platelet Count 147 k/uL (150-450); RDW 14.4 % (11.5-15.5); WBC 9.1 k/uL (3.8-10.6)
[2023-05-19] MEDS ORDERED: NALOXONE 0.4 MG/ML 1 ML VIAL IV PRN (20:13)
[2023-05-19] MEDS ORDERED: ONDANSETRON 4 MG/2 ML VIAL IVP PRN (20:13)
[2023-05-19] MEDS ORDERED: PIPERACILLIN-TAZOBACTAM 3.375 GM in SODIUM CHLORIDE 0.9% 100 ML IVPB STA (20:16)
[2023-05-19] MEDS ORDERED: LEVOFLOXACIN 750MG-D5W PMX 750 MG in DEXTROSE/WATER 1 150ML.BAG IVPB STA (20:16)
[2023-05-19] MEDS: SODIUM CHLORIDE 0.9% 1,000 ML IV SCH (20:33)
[2023-05-19 22:28] LABS: Glucose,Whole Blood 95 mg/dL (70-110)
[2023-05-19] MEDS ORDERED: MELATONIN 3 MG TABLET PO PRN (23:22)
[2023-05-19] MEDS ORDERED: DEXTROSE 50% SYRINGE 50 ML IVP PRN ×2 (23:23)
[2023-05-19] MEDS: ZOLPIDEM 5 MG TAB PO SCH (23:41)
[2023-05-19] MEDS: PIPERACILLIN-TAZOBACTAM 3.375 GM in SODIUM CHLORIDE 0.9% 100 ML IVPB SCH (23:42)
[2023-05-20] MEDS: LATANOPROST 0.005% OPHTH DROPS 2.5 ML BTL BOTH EYES SCH ×2 (00:22→20:54)
[2023-05-20] MEDS: LEVOTHYROXINE 50 MCG TAB PO SCH (05:33)
[2023-05-20 06:18] LABS: Glucose,Whole Blood 112 mg/dL (70-110)
[2023-05-20 07:12] LABS: Glucose,Whole Blood 125 mg/dL (70-110)
[2023-05-20] MEDS: INSULIN ASPART (NovoLOG) 100 UNIT/ML VIAL SQ SCH ×4 (08:11→20:50)
[2023-05-20] MEDS: buPROPion XL 150 MG TAB.ER.24H PO SCH (09:17)
[2023-05-20] MEDS: ANASTROZOLE 1 MG TAB PO SCH (09:17)
[2023-05-20] MEDS: LORATADINE 10 MG TAB PO SCH (09:18)
[2023-05-20] MEDS: LOSARTAN 50 MG TAB PO SCH (09:18)
[2023-05-20] MEDS: SERTRALINE 100 MG TAB PO SCH (09:18)
[2023-05-20] MEDS: FAMOTIDINE 20 MG/2 ML VIAL IV SCH (09:18)
[2023-05-20] MEDS: HEPARIN SODIUM,PORCINE 5,000 UNIT/ML 1 ML VIAL SQ SCH ×2 (09:18→20:50)
[2023-05-20] MEDS: hydroCHLOROthiazide 12.5 MG CAP PO SCH (09:18)
[2023-05-20] MEDS: PIPERACILLIN-TAZOBACTAM 3.375 GM in SODIUM CHLORIDE 0.9% 100 ML IVPB SCH (09:19)
[2023-05-20 09:56] LABS: ALT 17 U/L (8-44); AST 24 U/L (13-35); Albumin 3.8 d/dL (3.8-4.9); Albumin/Globulin Ratio 1.73 Ratio (1.60-3.17); Alkaline Phosphatase 108 U/L (41-126); BUN/Creat Ratio 20.82 Ratio (12.00-20.00); Blood Urea Nitrogen 22.9 mg/dL (9.0-27.0); Calcium 9.1 mg/dL (8.7-10.3); Carbon Dioxide 27.1 mmol/L (21.6-31.8); Chloride 104 mmol/L (96-109); Globulin 2.2 d/dL (1.6-3.3); Glucose 105 mg/dL (70-110); Magnesium 1.6 mg/dL (1.5-2.4); Phosphorus 3.6 mg/dL (2.4-5.1); Sodium 143 mmol/L (135-145); Total Bilirubin 0.3 mg/dL (0.3-1.2)
[2023-05-20 10:06] LABS: Basophils # (A) 0.04 X 10*3/uL (0.00-0.10); Basophils % (A) 0.5 %; Eosinophils # (A) 0.16 X 10*3/uL (0.04-0.35); Eosinophils % (A) 1.9 %; HCT 34.7 % (37.2-46.3); HGB 11.5 d/dL (12.0-15.0); Lymphocytes # (A) 2.23 X 10*3/uL (0.90-5.00); Lymphocytes % (A) 26.5 %; MCH 27.7 pg (27.0-32.0); MCHC 33.1 d/dL (32.0-37.0); MCV 83.6 FL (80.0-97.0); Monocytes # (A) 0.81 X 10*3/uL (0.20-1.00); Monocytes % (A) 9.6 %; NRBC Per 100 WBC 0 X 10*3/uL (0.00-0.01); Neutrophils # (A) 5.13 X 10*3/uL (1.80-7.70); Platelet Count 150 X 10*3/uL (140-440); RBC 4.15 X 10*6/uL (4.10-5.20); RDW 13.6 % (11.5-14.5); WBC 8.41 X 10*3/uL (4.50-10.00)
[2023-05-20 11:53] LABS: Glucose,Whole Blood 436 mg/dL (70-110)
--- NOTE | 2023-05-20 16:12 | P.CRDCN ---
History of Present Illness Consult date: 05/20/23 Consult reason: other (Abnormal EKG and elevated troponin) Chief complaint: Falling frequently History of present illness: History of present illness: Patient is a pleasant 83-year-old female with significant past medical history of diabetes, hypertension, and history of breast cancer who presented to the emergency department with complaints of weakness and falling. She reports that over the past 3-4 months she has been having increasing falling spells and feels like her legs are weak and give out. She denies feeling dizzy or lightheaded during these episodes. Yesterday she was unable to get up and EMS had to be called. She denies any syncope. Denies any chest pain or pressure. No shortness of breath. She denies any significant family history of heart disease. She was never a smoker, denies alcohol or drug use. Troponin was elevated 0.045. EKG shows sinus rhythm with ST depressions, this is a change from prior EKG. REVIEW OF SYSTEMS: No fever or chills. No cough or expectoration. No diaphoresi s. Patient denies headache, dizziness, blurred vision, double vision. Patient denies any stomach discomfort. No nausea, vomiting. No hematochezia. No hematemesis. Denies any black stools or blood in his stools. Denies dysuria or hematuria. Reports muscle weakness. No numbness. No chest pain or pressure. Reports frequent falls. PHYSICAL EXAMINATION: This is a 83 year-old female in no apparent distress at the time of my examination. HEENT: Head is atraumatic, normocephalic. Pupils are equal, round. Sclerae anicteric. Conjunctivae are clear. Mucous membranes of the mouth are moist. CHEST EXAMINATION: Lungs are clear to auscultation. No chest wall tenderness is noted on palpation or with deep breathing. HEART EXAMINATION: Heart regular rate and rhythm. S1, S2 heard. No murmurs, gallops or rub. ABDOMEN: Soft, nontender. Bowel sounds are heard. EXTREMITIES: 2+ peripheral pulses with no evidence of peripheral edema and no calf tenderness noted. NEUROLOGIC EXAMINATION: Patient is awake, alert and oriented x3. IMPRESSION AND PLAN: Abnormal EKG Elevated troponin Diabetes Hypertension History of breast cancer Frequent falls Generalized weakness PLAN: Trend troponin. She is not having any chest pain or shortness of breath. We'll check echocardiogram to evaluate heart function and structure. Given abnormal EKG and elevated troponin will likely plan to proceed with Lexiscan st ress test on Monday if patient is still in the hospital. Continue current regimen. We will follow. I am dictating on behalf of Dr. Hira Anderson's history/physical and assessment/plan. Past Medical History Past Medical History: Cancer, Diabetes Mellitus, Hyperlipidemia, Hypertension, Musculoskeletal Disorder, Thyroid Disorder Additional Past Medical History / Comment(s): Left Breast CA. BAD RT HIP. History of Any Multi-Drug Resistant Organisms: None Reported Past Surgical History: Breast Surgery, Hysterectomy, Joint Replacement, Orthopedic Surgery Additional Past Surgical History / Comment(s): 3 left breast bx, 2 rt breast bx, ductogram, ORIF RT LOWER LEG, w/ plate. Left TOTAL Hip. LT BREAST LUMPECTOMY. Past Anesthesia/Blood Transfusion Reactions: No Reported Reaction Past Psychological History: Anxiety, Depression Smoking Status: Never smoker Past Alcohol Use History: None Reported Past Drug Use History: None Reported - Past Family History Sister(s) Family Medical History: Cancer Additional Family Medical History / Comment(s): BREAST CA Medications and Allergies Home Medications Medication Instructions Recorded Confirmed Type INSULIN LISPRO (HumaLOG) [humaLOG] See Protocol SQ AC-TID 12/28/16 05/19/23 History Levothyroxine Sodium [Synthroid] 50 mcg PO DAILY 12/28/16 05/19/23 History Losartan/Hydrochlorothiazide 1 tab PO DAILY 12/28/16 05/19/23 History [Losartan-Hctz 100-12.5 mg Tab] Simvastatin 20 mg PO HS 12/28/16 05/19/23 History Zolpidem [Ambien] 10 mg PO HS 12/28/16 05/19/23 History Melatonin [Melatonin ER] 10 mg PO HS 03/01/17 05/19/23 History Sertraline [Zoloft] 100 mg PO DAILY 03/16/17 05/19/23 History Anastrozole 1 mg PO DAILY 05/19/23 05/19/23 History Insulin Glargine,Hum.rec.anlog 130 units SQ HS 05/19/23 05/19/23 History [Lantus Solostar Pen] Latanoprost Ophth [Xalatan 0.005%] 1 drop BOTH EYES HS 05/19/23 05/19/23 History Loratadine [Claritin] 10 mg PO DAILY 05/19/23 05/19/23 History buPROPion XL [Wellbutrin XL] 150 mg PO DAILY 05/19/23 05/19/23 History Allergies Allergy/AdvReac Type Severity Reaction Status Date / Time No Known Allergies Allergy Verified 05/19/23 19:20 Physical Exam Vitals: Vital Signs Temp Pulse Pulse Pulse Resp BP BP 05/20/23 12:50 98.2 F 71 16 176/79 05/20/23 07:13 98.5 F 69 20 159/67 05/20/23 01:48 98 F 68 18 147/61 05/19/23 22:12 18 05/19/23 21:44 97.4 F L 65 18 161/69 Pulse Ox 05/20/23 12:50 96 05/20/23 07:13 97 05/20/23 01:48 100 05/19/23 22:12 05/19/23 21:44 96 Intake and Output 05/20/23 05/20/23 05/20/23 06:59 14:59 22:59 Intake Total 590 Output Total 200 600 Balance 390 -600 Intake: Oral 590 Output: Urine 200 600 Other: Voiding Method Toilet Bedside Commode # Voids 3 Results 05/20/23 06:19 05/20/23 06:19 Cardiac Enzymes 05/19/23 05/19/23 05/20/23 Range/Units 17:00 17:00 06:19 AST 35 24 (14-36) U/L Troponin I 0.052 H* (0.000-0.034) ng/mL 05/20/23 Range/Units 12:52 AST (14-36) U/L Troponin I 0.045 H* (0.000-0.034) ng/mL Coagulation 05/19/23 Range/Units 17:00 PT 10.6 (10.0-12.5) sec APTT 20.0 L (22.0-30.0) sec CBC 05/19/23 05/20/23 Range/Units 20:05 06:19 WBC 9.1 8.41 (3.8-10.6) k/uL RBC 4.30 4.15 (3.80-5.40) m/uL Hgb 12.7 11.5 L (11.4-16.0) gm/dL Hct 35.5 34.7 L (34.0-46.0) % Plt Count 147 L 150 (150-450) k/uL Comprehensive Metabolic Panel 05/19/23 05/20/23 Range/Units 17:00 06:19 Sodium 141 143 (137-145) mmol/L Potassium 4.8 4.0 (3.5-5.1) mmol/L Chloride 106 104 (98-107) mmol/L Carbon Dioxide 23 27.1 (22-30) mmol/L BUN 26 H 22.9 (7-17) mg/dL Creatinine 0.84 1.1 (0.52-1.04) mg/dL Glucose 54 L 105 (74-99) mg/dL Calcium 9.5 9.1 (8.4-10.2) mg/dL AST 35 24 (14-36) U/L ALT 21 17 (4-34) U/L Alkaline Phosphatase 101 108 (38-126) U/L Total Protein 7.1 6.0 L (6.3-8.2) g/dL Albumin 4.2 3.8 (3.5-5.0) g/dL Current Medications Generic Name Dose Route Start Last Admin Trade Name Freq PRN Reason Stop Dose Admin Anastrozole 1 mg 05/20/23 09:00 05/20/23 09:17 Anastrozole 1 Mg Tab PO 1 mg DAILY AIDA Administration Atorvastatin Calcium 10 mg 05/20/23 21:00 Atorvastatin 10 Mg Tab PO HS AIDA Bupropion HCl 150 mg 05/20/23 09:00 05/20/23 09:17 Bupropion Xl 150 Mg Tab.Er.24h PO 150 mg DAILY AIDA Administration Dextrose/Water 25 ml 05/19/23 23:23 Dextrose 50% Syringe 50 Ml IVP PER PROTOCOL PRN Hypoglycemia Protocol Dextrose/Water 50 ml 05/19/23 23:23 Dextrose 50% Syringe 50 Ml IVP PER PROTOCOL PRN Hypoglycemia Protocol Famotidine 20 mg 05/20/23 09:00 05/20/23 09:18 Famotidine 20 Mg/2 Ml Vial IV 20 mg Q24HR AIDA Administration Heparin Sodium (Porcine) 5,000 unit 05/20/23 09:00 05/20/23 09:18 Heparin Sodium,Porcine 5,000 Unit/Ml 1 Ml Vial SQ 5,000 unit Q12HR AIDA Administration Hydrochlorothiazide 12.5 mg 05/20/23 09:00 05/20/23 09:18 Hydrochlorothiazide 12.5 Mg Cap PO 12.5 mg DAILY AIDA Administration Sodium Chloride 1,000 mls @ 75 mls/hr 05/19/23 20:15 05/19/23 20:33 Saline 0.9% IV 75 mls/hr .[id number] AIDA Administration Ampicillin Sodium/Sulbactam 100 mls @ 200 mls/hr 05/20/23 16:00 Sodium 3 gm/ Sodium Chloride IVPB Q8HR AIDA Protocol Insulin Aspart 0 unit 05/20/23 07:30 05/20/23 12:55 Insulin Aspart (Novolog) 100 Unit/Ml Vial SQ 12 unit ACHS AIDA Administration Protocol Latanoprost 1 drops 05/19/23 23:30 05/20/23 00:22 Latanoprost 0.005% Ophth Drops 2.5 Ml Btl BOTH EYES 1 drops HS AIDA Administration Levothyroxine Sodium 50 mcg 05/20/23 06:30 05/20/23 05:33 Levothyroxine 50 Mcg Tab PO 50 mcg DAILY@0630 AIDA Administration Loratadine 10 mg 05/20/23 09:00 05/20/23 09:18 Loratadine 10 Mg Tab PO 10 mg DAILY AIDA Administration Losartan Potassium 100 mg 05/20/23 09:00 05/20/23 09:18 Losartan 50 Mg Tab PO 100 mg DAILY AIDA Administration Melatonin 6 mg 05/19/23 23:22 Melatonin 3 Mg Tablet PO HS PRN Insomnia Morphine Sulfate 4 mg 05/19/23 20:13 Morphine Sulfate 4 Mg/Ml Syringe IV Q4HR PRN Severe Pain (Scale 7 to 10) Naloxone HCl 0.2 mg 05/19/23 20:13 Naloxone 0.4 Mg/Ml 1 Ml Vial IV Q2M PRN Opioid Reversal Ondansetron HCl 4 mg 05/19/23 20:13 Ondansetron 4 Mg/2 Ml Vial IVP Q8HR PRN Nausea And Vomiting Sertraline HCl 100 mg 05/20/23 09:00 05/20/23 09:18 Sertraline 100 Mg Tab PO 100 mg DAILY AIDA Administration Zolpidem Tartrate 10 mg 05/19/23 23:30 05/19/23 23:41 Zolpidem 5 Mg Tab PO 10 mg HS AIDA Administration Intake and Output 05/20/23 05/20/23 05/20/23 06:59 14:59 22:59 Intake Total 590 Output Total 200 600 Balance 390 -600 Intake: Oral 590 Output: Urine 200 600 Other: Voiding Method Toilet Bedside Commode # Voids 3 05/20/23 06:19 05/20/23 06:19
--- NOTE | 2023-05-20 16:14 | P.HPIM ---
History of Present Illness This is a pleasant 83 years old female with past medical history of Diabetes Mellitus, Hyperlipidemia, Hypertension, hypothyroidism, left breast cancer status post hysterectomy and left breast lumpectomy, Anxiety, Depression Patient presents because of falling. Patient stated that she's been falling 2-3 times over the last 2-3 months, last time felt was yesterday. She denies dizziness or presyncope/syncope. Patient state that she feels. She is very weak especially in her legs and thus why she fell. She fell on her buttocks and she denies any trauma. No hematoma. No musculoskeletal pain. Patient denies chest pain or dyspnea. No diarrhea or vomiting. No urinary complaints. She is complaining of from right parotid gland swelling and tenderness and warmth for the last 3 days. No pain with eating. She has little exertional dyspnea. She denies smoking alcohol or illicit drugs Patient is afebrile. Vitals are stable Labs reviewed and showing unremarkable cbc, inr, bmp, liver enzymes. Troponin is elevated 0.05. Amylase elevated 1035. Lipase normal at [address] of the neck showing right parotid g with possible infection and possible internal carotid artery stenosisland hyperdensity Review of Systems Review of systems CONSTITUTIONAL: No fever, no malaise, no fatigue. HEENT: No recent visual problems or hearing problems. Denied any sore throat. CARDIOVASCULAR: No orthopnea, PND, no palpitations, no syncope. PULMONARY: No shortness of breath, no cough, no hemoptysis. GASTROINTESTINAL: No diarrhea, no nausea, no vomiting, no abdominal pain. Normoactive bowel sounds. NEUROLOGICAL: No headaches, no weakness, no numbness. HEMATOLOGICAL: Denies any bleeding or petechiae. GENITOURINARY: Denies any burning micturition, frequency, or urgency. MUSCULOSKELETAL/RHEUMATOLOGICAL: Denies any joint pain, swelling, or any muscle pain. ENDOCRINE: Denies any polyuria or polydipsia. Past Medical History Past Medical History: Cancer, Diabetes Mellitus, Hyperlipidemia, Hypertension, Musculoskeletal Disorder, Thyroid Disorder Additional Past Medical History / Comment(s): Left Breast CA. BAD RT HIP. History of Any Multi-Drug Resistant Organisms: None Reported Past Surgical History: Breast Surgery, Hysterectomy, Joint Replacement, Orthopedic Surgery Additional Past Surgical History / Comment(s): 3 left breast bx, 2 rt breast bx, ductogram, ORIF RT LOWER LEG, w/ plate. Left TOTAL Hip. LT BREAST LUMPECTOMY. Past Anesthesia/Blood Transfusion Reactions: No Reported Reaction Past Psychological History: Anxiety, Depression Smoking Status: Never smoker Past Alcohol Use History: None Reported Past Drug Use History: None Reported - Past Family History Sister(s) Family Medical History: Cancer Additional Family Medical History / Comment(s): BREAST CA Medications and Allergies Home Medications Medication Instructions Recorded Confirmed Type INSULIN LISPRO (HumaLOG) [humaLOG] See Protocol SQ AC-TID 12/28/16 05/19/23 History Levothyroxine Sodium [Synthroid] 50 mcg PO DAILY 12/28/16 05/19/23 History Losartan/Hydrochlorothiazide 1 tab PO DAILY 12/28/16 05/19/23 History [Losartan-Hctz 100-12.5 mg Tab] Simvastatin 20 mg PO HS 12/28/16 05/19/23 History Zolpidem [Ambien] 10 mg PO HS 12/28/16 05/19/23 History Melatonin [Melatonin ER] 10 mg PO HS 03/01/17 05/19/23 History Sertraline [Zoloft] 100 mg PO DAILY 03/16/17 05/19/23 History Anastrozole 1 mg PO DAILY 05/19/23 05/19/23 History Insulin Glargine,Hum.rec.anlog 130 units SQ HS 05/19/23 05/19/23 History [Lantus Solostar Pen] Latanoprost Ophth [Xalatan 0.005%] 1 drop BOTH EYES HS 05/19/23 05/19/23 History Loratadine [Claritin] 10 mg PO DAILY 05/19/23 05/19/23 History buPROPion XL [Wellbutrin XL] 150 mg PO DAILY 05/19/23 05/19/23 History Allergies Allergy/AdvReac Type Severity Reaction Status Date / Time No Known Allergies Allergy Verified 05/19/23 19:20 Physical Exam Vitals: Vital Signs Temp Pulse Pulse Resp BP BP Pulse Ox 05/20/23 01:48 98 F 68 18 147/61 100 05/19/23 22:12 18 05/19/23 21:44 97.4 F L 65 18 161/69 96 05/19/23 14:59 98.5 F 67 20 179/60 95 Intake and Output 05/19/23 05/20/23 05/20/23 22:59 06:59 14:59 Intake Total 590 Output Total 200 Balance 390 Intake: Oral 590 Output: Urine 200 Other: Voiding Method Toilet Bedside Commode # Voids 3 Weight 90.718 kg GENERAL: The patient is alert and oriented x3, not in any acute distress. Well developed, well nourished. HEENT: Pupils are round and equally reacting to light. EOMI. No scleral icterus. No conjunctival pallor. Normocephalic, atraumatic. No pharyngeal erythema. No thyromegaly. CARDIOVASCULAR: S1 and S2 present. No murmurs, rubs, or gallops. PULMONARY: Chest is clear to auscultation, no wheezing , no crackles. ABDOMEN: Soft, nontender, nondistended, normoactive bowel sounds. No palpable organomegaly. MUSCULOSKELETAL: No joint swelling or deformity. EXTREMITIES: No cyanosis, clubbing, or pedal edema. NEUROLOGICAL: Gross neurological examination did not reveal any focal deficits. SKIN: No rashes. no petechiae. Results CBC & Chem 7: 05/20/23 06:19 05/20/23 06:19 Labs: Abnormal Lab Results - Last 24 Hours (Table) 05/19/23 05/19/23 05/19/23 Range/Units 17:00 17:00 17:00 Plt Count (150-450) k/uL APTT 20.0 L (22.0-30.0) sec BUN 26 H (7-17) mg/dL Glucose 54 L (74-99) mg/dL POC Glucose (mg/dL) (70-110) mg/dL Troponin I 0.052 H* (0.000-0.034) ng/mL C-Reactive Protein 4.2 H (<1.0) mg/dL Amylase 1035 H* (30-110) U/L 05/19/23 05/20/23 05/20/23 Range/Units 20:05 06:18 07:11 Plt Count 147 L (150-450) k/uL APTT (22.0-30.0) sec BUN (7-17) mg/dL Glucose (74-99) mg/dL POC Glucose (mg/dL) 112 H 125 H (70-110) mg/dL Troponin I (0.000-0.034) ng/mL C-Reactive Protein (<1.0) mg/dL Amylase (30-110) U/L Thrombosis Risk Factor Assmnt - Choose All That Apply Any of the Below Risk Factors Present?: No Other Risk Factors: Yes Each Risk Factor Represents 3 Points: Age 75 years or older Other congenital or acquired thrombophilia - If yes, enter type in comment: No Thrombosis Risk Factor Assessment Total Risk Factor Score: 3 Thrombosis Risk Factor Assessment Level: Moderate Risk Assessment and Plan Assessment: Acute right parotitis generalized weakness, without syncope. Secondary to above Fall possible internal carotid artery stenosis elevated troponin, with mild EKG changes Diabetes mellitus Hypertension Hyperlipidemia Hypothyroidism History of left breast cancer status post breast lumpectomy and hysterectomy. Plan: continue with antibiotic, currently on Zosyn and Levaquin ENT consult infectious disease consult Check echocardiogram and cardiology consult check carotid Doppler Labs and medication were reviewed.. Continue same treatment. Continue with symptomatic treatment. Resume home medication. Monitor lytes and vitals. DVT and GI prophylaxis. Further recommendations depends on the clinical course of the patient DVT prophylaxis: Subcutaneous heparin GI Prophylaxis: Pepcid PT/OT: Pending Prognosis is guarded
[2023-05-20] MEDS: AMPICILLIN-SULBACTAM 3 GM in SODIUM CHLORIDE 0.9% 100 ML IVPB SCH ×2 (16:50→23:59)
[2023-05-20] MEDS: SODIUM CHLORIDE 0.9% 1,000 ML IV SCH ×2 (16:58→22:55)
[2023-05-20 17:00] LABS: Glucose,Whole Blood 148 mg/dL (70-110)
--- NOTE | 2023-05-20 18:27 | US ---
EXAMINATION TYPE: US carotid duplex BILAT DATE OF EXAM: 05/20/2023 COMPARISON: NONE CLINICAL INDICATION: Female, 83 years old with history of fall and stenosis on us; fall stenosis f/u to ct scan TECHNIQUE: Carotid duplex ultrasound examination. Indirect Doppler criteria was utilized. FINDINGS: EXAM MEASUREMENTS: RIGHT: Peak Systolic Velocity (PSV) cm/sec ----- Right CCA: 77.9 ----- Right ICA: Occluded no flow seen ----- Right ECA: 217 ICA/CCA ratio: RIGHT: End Diastole cm/sec ----- Right CCA: 0 ----- Right ICA: Occluded no flow seen ----- Right ECA: 14.5 LEFT: Peak Systolic Velocity (PSV) cm/sec ----- Left CCA: 83 ----- Left ICA: 271 ----- Left ECA: 148 ICA/CCA ratio: 3.3 LEFT: End Diastole cm/sec ----- Left CCA: 0 ----- Left ICA: 12.2 ----- Left ECA: 0 VERTEBRALS (direction of flow): Right Vertebral: Antegrade Left Vertebral: Antegrade ORCHESTRA TEACHER NOTES: IMPRESSION: 1. Right internal carotid artery appears occluded at its origin. Right external carotid artery flow a ppears to be present. 2. Elevated left internal carotid artery velocities suggest stenosis greater than 70%. Criteria for Assigning % of Stenosis / Diameter reduction (Estimation based on the indirect measurements of the internal carotid artery velocities (ICA PSV). 1. Normal (no stenosis)=ICA PSV < 125 cm/s: ratio < 2.0: ICA EDV<40 cm/s. 2. Less than 50% stenosis=ICA PSV < 125 cm/s: ratio < 2.0: ICA EDV<40 cm/s. 3. 50 to 69% stenosis=ICA PSV of 125 to 230 cm/s: ration 2.0 ? 4.0: ICA EDV 40-100 cm/s. 4. Greater than 70% stenosis to near occlusion= ICA PSV > 230 cm/s: ratio > 4.0: ICA EDV > 100 cm/s. 5. Near occlusion= ICA PSV velocities may be low or undetectable: variable ratio and ICA EDV. 6. Total occlusion=unable to detect flow.
[2023-05-20 20:10] LABS: Glucose,Whole Blood 210 mg/dL (70-110)
[2023-05-20] MEDS: ZOLPIDEM 5 MG TAB PO SCH (20:50)
[2023-05-20] MEDS: ATORVASTATIN 10 MG TAB PO SCH (20:50)
[2023-05-20] MEDS ORDERED: LEVOFLOXACIN 750MG-D5W PMX 750 MG in DEXTROSE/WATER 1 150ML.BAG IVPB SCH (21:00)
[2023-05-20] MEDS: MORPHINE SULFATE 4 MG/ML SYRINGE IV PRN (21:00)
[2023-05-21] MEDS: LEVOTHYROXINE 50 MCG TAB PO SCH (05:41)
[2023-05-21 07:28] LABS: Glucose,Whole Blood 292 mg/dL (70-110)
--- NOTE | 2023-05-21 07:39 | P.CONS ---
History of Present Illness - Reason for Consult Consult date: 05/20/23 Parotitis Requesting physician: Edmundo E Sheet - Chief Complaint Pain and swelling to the right side of the face x few days - History of Present Illness Patient is a 83-year-old female with a past medical history significant for diabetes mellitus hypertension hyperlipidemia history of left breast cancer patient presenting to the hospital for evaluation of increasing weakness and debility and fall patient also complaining of swelling of the right side of her cheek and the patient did have a history of multiple dental caries and infection with concern for possible dental infection patient complaining of pain to the right side of the jaw area along with the swelling pain is mostly dull aching to throbbing intensity this morning rate without any radiation pa tient denies having any difficulty swallowing patient denies having any high- grade fever no nausea no vomiting no abdominal pain no diarrhea patient on presentation to the hospital was afebrile did have a normal white count creatinine was normal did have elevated troponin and evaluated amylase lipase was normal blood cultures obtained which are currently pending patient did have a soft tissue neck CT heterogeneous density to the right parietal brain with mild adjacent fluid and fat stranding suggest infection at this level no well- formed fluid collection or abscess patient was started on Zosyn infectious disease was consulted for further management of antibiotic therapy Review of Systems Positive point and negatives has been mentioned in the HPI, complete review of systems was performed and all other systems are negative Past Medical History Past Medical History: Cancer, Diabetes Mellitus, Hyperlipidemia, Hypertension, Musculoskeletal Disorder, Thyroid Disorder Additional Past Medical History / Comment(s): Left Breast CA. BAD RT HIP. History of Any Multi-Drug Resistant Organisms: None Reported Past Surgical History: Breast Surgery, Hysterectomy, Joint Replacement, Orthopedic Surgery Additional Past Surgical History / Comment(s): 3 left breast bx, 2 rt breast bx, ductogram, ORIF RT LOWER LEG, w/ plate. Left TOTAL Hip. LT BREAST LUMPECTOMY. Past Anesthesia/Blood Transfusion Reactions: No Reported Reaction Past Psychological History: Anxiety, Depression Smoking Status: Never smoker Past Alcohol Use History: None Reported Past Drug Use History: None Reported - Past Family History Sister(s) Family Medical History: Cancer Additional Family Medical History / Comment(s): BREAST CA Medications and Allergies Home Medications Medication Instructions Recorded Confirmed Type INSULIN LISPRO (HumaLOG) [humaLOG] See Protocol SQ AC-TID 12/28/16 05/19/23 Hi story Levothyroxine Sodium [Synthroid] 50 mcg PO DAILY 12/28/16 05/19/23 History Losartan/Hydrochlorothiazide 1 tab PO DAILY 12/28/16 05/19/23 History [Losartan-Hctz 100-12.5 mg Tab] Sertraline [Zoloft] 100 mg PO DAILY 03/16/17 05/19/23 History Anastrozole 1 mg PO DAILY 05/19/23 05/19/23 History Latanoprost Ophth [Xalatan 0.005%] 1 drop BOTH EYES HS 05/19/23 05/19/23 History Loratadine [Claritin] 10 mg PO DAILY 05/19/23 05/19/23 History buPROPion XL [Wellbutrin XL] 150 mg PO DAILY 05/19/23 05/19/23 History Amoxic-Pot Clav 875-125Mg 1 tab PO Q12HR 10 Days #20 tab 05/24/23 Rx [Augmentin 875-125] Aspirin 81 mg PO DAILY tab 05/24/23 Rx Atorvastatin [Lipitor] 80 mg PO HS tab 05/24/23 Rx Clopidogrel [Plavix] 75 mg PO DAILY tab 05/24/23 Rx Famotidine [Pepcid] 20 mg PO Q24HR tab 05/24/23 Rx Insulin Detemir (Levemir) [Levemir] 13 unit SQ BID@0700,2100 each 05/24/23 Rx Melatonin 6 mg PO HS PRN tab 05/24/23 Rx Zolpidem [Ambien] 10 mg PO HS #3 tab 05/24/23 Rx amLODIPine [Norvasc] 10 mg PO DAILY tab 05/24/23 Rx carvediloL [Coreg] 6.25 mg PO BID-W/MEALS tab 05/24/23 Rx Allergies Allergy/AdvReac Type Severity Reaction Status Date / Time No Known Allergies Allergy Verified 05/19/23 19:20 Physical Exam Vitals: Vital Signs Temp Pulse Pulse Pulse Resp BP BP 05/20/23 07:13 98.5 F 69 20 159/67 05/20/23 01:48 98 F 68 18 147/61 05/19/23 22:12 18 05/19/23 21:44 97.4 F L 65 18 161/69 05/19/23 14:59 98.5 F 67 20 179/60 Pulse Ox 05/20/23 07:13 97 05/20/23 01:48 100 05/19/23 22:12 05/19/23 21:44 96 05/19/23 14:59 95 Intake and Output 05/19/23 05/20/23 05/20/23 22:59 06:59 14:59 Intake Total 590 Output Total 200 Balance 390 Intake: Oral 590 Output: Urine 200 Other: Voiding Method Toilet Toilet Bedside Commode Bedside Commode # Voids 3 Weight 90.718 kg IGENERAL DESCRIPTION: Elderly female lying in bed, no distress. No tachypnea or accessory muscle of respiration use. HEENT: Shows Pallor , no scleral icterus. Oral mucous membrane is dry. No pharyngeal erythema or thrush did have a swelling and tenderness to the right side of the face area NECK: Trachea central, no thyromegaly. LUNGS: Unlabored breathing. Clear to auscultation anteriorly. No wheeze or crackle. HEART: S1, S2, regular rate and rhythm. No loud murmur ABDOMEN: Soft, no tenderness , guarding or rigidity, no organomegaly EXTREMITIES: No edema of feet. SKIN: No rash, no masses palpable. NEUROLOGICAL: The patient is awake, alert, oriented x3, mood and affect normal. Results CBC & Chem 7: 05/22/23 05:57 05/24/23 08:09 Labs: Abnormal Lab Results - Last 24 Hours (Table) 05/19/23 05/19/23 05/19/23 Range/Units 17:00 17:00 17:00 Hgb (12.0-15.0) d/dL Hct (37.2-46.3) % Plt Count (150-450) k/uL APTT 20.0 L (22.0-30.0) sec BUN 26 H (7-17) mg/dL Est GFR (CKD-EPI) (>=60) BUN/Creatinine Ratio (12.00-20.00) Ratio Glucose 54 L (74-99) mg/dL POC Glucose (mg/dL) (70-110) mg/dL Hemoglobin A1c (<=6.0) % Troponin I 0.052 H* (0.000-0.034) ng/mL C-Reactive Protein 4.2 H (<1.0) mg/dL Total Protein (6.2-8.2) d/dL Amylase 1035 H* (30-110) U/L 05/19/23 05/20/23 05/20/23 Range/Units 20:05 06:18 06:19 Hgb 11.5 L (12.0-15.0) d/dL Hct 34.7 L (37.2-46.3) % Plt Count 147 L (150-450) k/uL APTT (22.0-30.0) sec BUN (7-17) mg/dL Est GFR (CKD-EPI) (>=60) BUN/Creatinine Ratio (12.00-20.00) Ratio Glucose (74-99) mg/dL POC Glucose (mg/dL) 112 H (70-110) mg/dL Hemoglobin A1c (<=6.0) % Troponin I (0.000-0.034) ng/mL C-Reactive Protein (<1.0) mg/dL Total Protein (6.2-8.2) d/dL Amylase (30-110) U/L 05/20/23 05/20/23 05/20/23 Range/Units 06:19 06:19 07:11 Hgb (12.0-15.0) d/dL Hct (37.2-46.3) % Plt Count (150-450) k/uL APTT (22.0-30.0) sec BUN (7-17) mg/dL Est GFR (CKD-EPI) 50 L (>=60) BUN/Creatinine Ratio 20.82 H (12.00-20.00) Ratio Glucose (74-99) mg/dL POC Glucose (mg/dL) 125 H (70-110) mg/dL Hemoglobin A1c 6.1 H (<=6.0) % Troponin I (0.000-0.034) ng/mL C-Reactive Protein (<1.0) mg/dL Total Protein 6.0 L (6.2-8.2) d/dL Amylase (30-110) U/L Assessment and Plan (1) Parotitis Status: Acute Code(s): K11.20 - SIALOADENITIS, UNSPECIFIED SNOMED Code(s): 75921459 Plan: 1patient with the right-sided parotitis more likely related to oral parrish in this patient with less risk of MRSA or gram-negative infection with no evidence of any abscess on the CT 2-discontinue Zosyn 3-start the patient on Unasyn 3 g every 6 hours Daughter at the bedside multiple questions concern answered We will follow on clinical condition and cultures to further adjust medication if needed Thank you for this consultation we will follow the patient along with you Dictation was produced using [employer] dictation software. please excuse any grammatical, word or spelling errors. Time with Patient: Greater than 30
[2023-05-21] MEDS: LOSARTAN 50 MG TAB PO SCH (08:47)
[2023-05-21] MEDS: INSULIN ASPART (NovoLOG) 100 UNIT/ML VIAL SQ SCH ×4 (08:47→20:59)
[2023-05-21] MEDS: buPROPion XL 150 MG TAB.ER.24H PO SCH (08:47)
[2023-05-21] MEDS: SERTRALINE 100 MG TAB PO SCH (08:47)
[2023-05-21] MEDS: LORATADINE 10 MG TAB PO SCH (08:47)
[2023-05-21] MEDS: HEPARIN SODIUM,PORCINE 5,000 UNIT/ML 1 ML VIAL SQ SCH ×2 (08:48→20:59)
[2023-05-21] MEDS: FAMOTIDINE 20 MG/2 ML VIAL IV SCH (08:48)
[2023-05-21] MEDS: AMPICILLIN-SULBACTAM 3 GM in SODIUM CHLORIDE 0.9% 100 ML IVPB SCH ×3 (08:48→23:52)
[2023-05-21] MEDS: ANASTROZOLE 1 MG TAB PO SCH (08:48)
[2023-05-21] MEDS: hydroCHLOROthiazide 12.5 MG CAP PO SCH (08:48)
[2023-05-21] MEDS: MORPHINE SULFATE 4 MG/ML SYRINGE IV PRN (08:56)
[2023-05-21 12:06] LABS: Glucose,Whole Blood 237 mg/dL (70-110)
[2023-05-21] MEDS ORDERED: FUROSEMIDE 10 MG/ML 2 ML VIAL IV ONE (12:56)
[2023-05-21] MEDS ORDERED: amLODIPine 5 MG TAB PO SCH (13:00)
--- NOTE | 2023-05-21 13:05 | P.PN ---
Subjective This is a pleasant 83 years old female with past medical history of Diabetes Mellitus, Hyperlipidemia, Hypertension, hypothyroidism, left breast cancer status post hysterectomy and left breast lumpectomy, Anxiety, Depression Patient presents because of falling. Patient stated that she's been falling 2-3 times over the last 2-3 months, last time felt was yesterday. She denies dizziness or presyncope/syncope. Patient state that she feels. She is very weak especially in her legs and thus why she fell. She fell on her buttocks and she denies any trauma. No hematoma. No musculoskeletal pain. Patient denies chest pain or dyspnea. No diarrhea or vomiting. No urinary complaints. She is complaining of from right parotid gland swelling and tenderness and warmth for the last 3 days. No pain with eating. She has little exertional dyspnea. She denies smoking alcohol or illicit drugs Patient is afebrile. Vitals are stable Labs reviewed and showing unremarkable cbc, inr, bmp, liver enzymes. Troponin is elevated 0.05. Amylase elevated 1035. Lipase normal at [address] of the neck showing right parotid g with possible infection and possible internal carotid artery stenosisland hyperdensity 05/21/2023 Patient arrived parietitis is improving on Unasyn. I discussed the case with Dr. Buckley from ENT service and he cleared her for discharge on 10 days of oral antibiotic from her ears perspective No chest pain or dyspnea. Echocardiogram pending. Cardiology team are planning for stress test on Monday. Her blood pressure is elevated. She is taking her low Zartan 100 mg and hydrochlorothiazide 12.5 mg. We will discontinue her normal saline 75 mL/h of her small dose of IV Lasix and start Norvasc and close monitoring of blood pressure She states that she takes Lantus 1:30 units at night, however we were trending her sugar here was slightly elevated more than 200s and required between 6-10 units of insulin. Therefore going to start her on Levemir 5 units daily with close monitoring. 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 Active Medications Generic Name Dose Route Start Last Admin Trade Name Freq PRN Reason Stop Dose Admin Amlodipine Besylate 5 mg 05/21/23 13:00 Amlodipine 5 Mg Tab PO DAILY AIDA Anastrozole 1 mg 05/20/23 09:00 05/21/23 08:48 Anastrozole 1 Mg Tab PO 1 mg DAILY AIDA Administration Atorvastatin Calcium 10 mg 05/20/23 21:00 05/20/23 20:50 Atorvastatin 10 Mg Tab PO 10 mg HS AIDA Administration Bupropion HCl 150 mg 05/20/23 09:00 05/21/23 08:47 Bupropion Xl 150 Mg Tab.Er.24h PO 150 mg DAILY AIDA Administration Dextrose/Water 25 ml 05/19/23 23:23 Dextrose 50% Syringe 50 Ml IVP PER PROTOCOL PRN Hypoglycemia Protocol Dextrose/Water 50 ml 05/19/23 23:23 Dextrose 50% Syringe 50 Ml IVP PER PROTOCOL PRN Hypoglycemia Protocol Famotidine 20 mg 05/20/23 09:00 05/21/23 08:48 Famotidine 20 Mg/2 Ml Vial IV 20 mg Q24HR AIDA Administration Furosemide 20 mg 05/21/23 12:56 Furosemide 10 Mg/Ml 2 Ml Vial IV 05/21/23 12:57 ONCE ONE Heparin Sodium (Porcine) 5,000 unit 05/20/23 09:00 05/21/23 08:48 Heparin Sodium,Porcine 5,000 Unit/Ml 1 Ml Vial SQ 5,000 unit Q12HR AIDA Administration Hydrochlorothiazide 12.5 mg 05/20/23 09:00 05/21/23 08:48 Hydrochlorothiazide 12.5 Mg Cap PO 12.5 mg DAILY AIDA Administration Ampicillin Sodium/Sulbactam 100 mls @ 200 mls/hr 05/20/23 16:00 05/21/23 08:48 Sodium 3 gm/ Sodium Chloride IVPB 200 mls/hr Q8HR AIDA Administration Protocol Insulin Aspart 0 unit 05/20/23 07:30 05/21/23 08:47 Insulin Aspart (Novolog) 100 Unit/Ml Vial SQ 6 unit ACHS AIDA Administration Protocol Insulin Detemir 5 unit 05/22/23 07:00 Insulin Detemir (Levemir) 100 Unit/Ml Syr SQ DAILY@0700 AIDA Latanoprost 1 drops 05/19/23 23:30 05/20/23 20:54 Latanoprost 0.005% Ophth Drops 2.5 Ml Btl BOTH EYES 1 drops HS AIDA Administration Levothyroxine Sodium 50 mcg 05/20/23 06:30 05/21/23 05:41 Levothyroxine 50 Mcg Tab PO 50 mcg DAILY@0630 AIDA Administration Loratadine 10 mg 05/20/23 09:00 05/21/23 08:47 Loratadine 10 Mg Tab PO 10 mg DAILY AIDA Administration Losartan Potassium 100 mg 05/20/23 09:00 05/21/23 08:47 Losartan 50 Mg Tab PO 100 mg DAILY AIDA Administration Melatonin 6 mg 05/19/23 23:22 Melatonin 3 Mg Tablet PO HS PRN Insomnia Morphine Sulfate 4 mg 05/19/23 20:13 05/21/23 08:56 Morphine Sulfate 4 Mg/Ml Syringe IV 4 mg Q4HR PRN Administration Severe Pain (Scale 7 to 10) Naloxone HCl 0.2 mg 05/19/23 20:13 Naloxone 0.4 Mg/Ml 1 Ml Vial IV Q2M PRN Opioid Reversal Ondansetron HCl 4 mg 05/19/23 20:13 Ondansetron 4 Mg/2 Ml Vial IVP Q8HR PRN Nausea And Vomiting Sertraline HCl 100 mg 05/20/23 09:00 05/21/23 08:47 Sertraline 100 Mg Tab PO 100 mg DAILY AIDA Administration Zolpidem Tartrate 10 mg 05/19/23 23:30 05/20/23 20:50 Zolpidem 5 Mg Tab PO 10 mg HS AIDA Administration Objective - Vital Signs Vital signs: Vital Signs Temp 97.5 F L 05/21/23 12:04 Pulse 77 05/21/23 12:04 Resp 18 05/21/23 12:04 BP 195/73 05/21/23 12:04 Pulse Ox 94 L 05/21/23 12:04 FiO2 Intake & Output 05/20/23 05/21/23 05/21/23 18:59 06:59 18:59 Intake Total 640 Output Total 1200 1100 Balance -1200 -460 Intake: Intake, IV Titration 100 Amount Piperacillin-Tazobactam 3 100 .375 gm In Sodium Chloride 0.9% 100 ml @ 25 mls/hr IVPB Q8HR [facility] Rx# :[id number] Oral 540 Output: Urine 1200 1100 Other: Voiding Method Toilet Diaper Diaper Bedside Commode External Catheter External Catheter # Voids 2 - Exam -GENERAL: The patient is alert and oriented x3, not in any acute distress. Morbidly obese -HEENT: Pupils are round and equally reacting to light. EOMI. No scleral icterus. No conjunctival pallor. Normocephalic, atraumatic. No pharyngeal erythema. No thyromegaly. Swelling around the right parotid gland CARDIOVASCULAR: S1 and S2 present. No murmurs, rubs, or gallops. PULMONARY: Chest is clear to auscultation, no wheezing , no crackles. ABDOMEN: Soft, nontender, nondistended, normoactive bowel sounds. No palpable organomegaly. MUSCULOSKELETAL: No joint swelling or deformity. EXTREMITIES: No cyanosis, clubbing, or pedal edema. NEUROLOGICAL: Gross neurological examination did not reveal any focal deficits. SKIN: No rashes. no petechiae. - Labs CBC & Chem 7: 05/20/23 06:19 05/20/23 06:19 Labs: Abnormal Lab Results - Last 24 Hours (Table) 05/20/23 05/20/23 05/20/23 Range/Units 12:52 16:58 20:09 POC Glucose (mg/dL) 148 H 210 H (70-110) mg/dL Troponin I 0.045 H* (0.000-0.034) ng/mL 05/21/23 05/21/23 Range/Units 07:27 12:05 POC Glucose (mg/dL) 292 H 237 H (70-110) mg/dL Troponin I (0.000-0.034) ng/mL Microbiology - Last 24 Hours (Table) 05/19/23 17:00 Blood Culture - Preliminary Blood Assessment and Plan Assessment: Acute right parotitis generalized weakness, without syncope. Secondary to above Fall possibl left e internal carotid artery stenosis more than 70% and completely on the right side elevated troponin, with mild EKG changes. Recommend for stress test Diabetes mellitus Hypertension Hyperlipidemia Hypothyroidism History of left breast cancer status post breast lumpectomy and hysterectomy. Plan: continue with antibiotic, currently on Zosyn and Levaquin ENT consult infectious disease consult Check echocardiogram and cardiology consult Consult vascular surgery team Continue with losartan and hydrochlorothiazide, Norvasc 5 mg daily and Lasix 20 mg IV 1 with a close monitoring of blood pressure Right units daily with iron insulin sliding scale and close monitoring of glucose. Labs and medication were reviewed.. Continue same treatment. Continue with symptomatic treatment. Resume home medication. Monitor lytes and vitals. DVT and GI prophylaxis. Further recommendations depends on the clinical course of the patient DVT prophylaxis: Subcutaneous heparin GI Prophylaxis: Pepcid PT/OT: Pending Prognosis is guarded
[2023-05-21] MEDS: SODIUM CHLORIDE 0.9% 1,000 ML IV SCH (13:17)
--- NOTE | 2023-05-21 13:42 | P.PN ---
Subjective Progress Note Date: 05/21/23 History of present illness: Patient is a pleasant 83-year-old female with significant past medical history of diabetes, hypertension, and history of breast cancer who presented to the emergency department with complaints of weakness and falling. She reports that over the past 3-4 months she has been having increasing falling spells and feels like her legs are weak and give out. She denies feeling dizzy or lightheaded during these episodes. Yesterday she was unable to get up and EMS had to be called. She denies any syncope. Denies any chest pain or pressure. No shortness of breath. She denies any significant family history of heart disease. She was never a smoker, denies alcohol or drug use. Troponin was elevated 0.052, 0.045. EKG shows sinus rhythm with ST depressions, this is a change from prior EKG. 05/21/23 Shortness of breath is the same. Her legs still feel heavy and weak. No chest pain. PHYSICAL EXAMINATION: This is a 83 year-old female in no apparent distress at the time of my examination. CHEST EXAMINATION: Lungs are clear to auscultation. No chest wall tenderness is noted on palpation or with deep breathing. HEART EXAMINATION: Heart regular rate and rhythm. S1, S2 heard. No murmurs, gallops or rub. ABDOMEN: Soft, nontender. Bowel sounds are heard. EXTREMITIES: 2+ peripheral pulses with no evidence of peripheral edema and no calf tenderness noted. NEUROLOGIC EXAMINATION: Patient is awake, alert and oriented x3. generalized weakness. IMPRESSION AND PLAN: Abnormal EKG Elevated troponin Diabetes Hypertension History of breast cancer Frequent falls Generalized weakness PLAN: We'll check echocardiogram to evaluate heart function and structure. Given abnormal EKG and elevated troponin will plan to proceed with Lexiscan stress test on Monday. Continue current regimen. NPO after midnight. We will follow. I am dictating on behalf of Dr. Hira Anderson's history/physical and assessment/plan. Objective - Vital Signs Vital signs: Vital Signs Temp 98.3 F 05/21/23 07:25 Pulse 82 05/21/23 07:25 Resp 18 05/21/23 07:25 BP 224/93 05/21/23 07:25 Pulse Ox 95 05/21/23 07:25 FiO2 Intake & Output 05/20/23 05/21/23 05/21/23 18:59 06:59 18:59 Intake Total 640 Output Total 1200 1100 Balance -1200 -460 Intake: Intake, IV Titration 100 Amount Piperacillin-Tazobactam 3 100 .375 gm In Sodium Chloride 0.9% 100 ml @ 25 mls/hr IVPB Q8HR [facility] Rx# :[id number] Oral 540 Output: Urine 1200 1100 Other: Voiding Method Toilet Diaper Diaper Bedside Commode External Catheter External Catheter - Labs CBC & Chem 7: 05/20/23 06:19 05/20/23 06:19 Labs: Abnormal Lab Results - Last 24 Hours (Table) 05/20/23 05/20/23 05/20/23 Range/Units 06:19 06:19 11:51 Hgb 11.5 L (12.0-15.0) d/dL Hct 34.7 L (37.2-46.3) % POC Glucose (mg/dL) 436 H (70-110) mg/dL Hemoglobin A1c 6.1 H (<=6.0) % Troponin I (0.000-0.034) ng/mL 05/20/23 05/20/23 05/20/23 Range/Units 12:52 16:58 20:09 Hgb (12.0-15.0) d/dL Hct (37.2-46.3) % POC Glucose (mg/dL) 148 H 210 H (70-110) mg/dL Hemoglobin A1c (<=6.0) % Troponin I 0.045 H* (0.000-0.034) ng/mL 05/21/23 Range/Units 07:27 Hgb (12.0-15.0) d/dL Hct (37.2-46.3) % POC Glucose (mg/dL) 292 H (70-110) mg/dL Hemoglobin A1c (<=6.0) % Troponin I (0.000-0.034) ng/mL Microbiology - Last 24 Hours (Table) 05/19/23 17:00 Blood Culture - Preliminary Blood
--- NOTE | 2023-05-21 16:09 | P.PN ---
Subjective Progress Note Date: 05/21/23 Principal diagnosis: Right-sided parotitis Patient is a 83-year-old female with a past medical history significant for diabetes mellitus hypertension hyperlipidemia history of left breast cancer patient presenting to the hospital for evaluation of increasing weakness and debility and fall patient also complaining of swelling of the right side of her cheek , patient did have a CT of the chest suspicious for right- sided parotitis. On today's evaluation that is 05/21/2023, the patient denies any fever or chills, the patient is breathing comfortably on room air and no need for supplemental oxygen, the patient denies any chest pain or cough, patient denies nausea/vomiting or diarrhea and no abdominal pain, the patient pain to the right side of the face has decreased in intensity Patient did have white count of 8.41 and a creatinine 1.1 as of yesterday, blood culture pending Objective - Vital Signs Vital signs: Vital Signs Temp 97.5 F L 05/21/23 12:04 Pulse 77 05/21/23 12:04 Resp 18 05/21/23 12:04 BP 195/73 05/21/23 12:04 Pulse Ox 94 L 05/21/23 12:04 FiO2 Intake & Output 05/20/23 05/21/23 05/21/23 18:59 06:59 18:59 Intake Total 640 Output Total 1200 1100 Balance -1200 -460 Intake: Intake, IV Titration 100 Amount Piperacillin-Tazobactam 3 100 .375 gm In Sodium Chloride 0.9% 100 ml @ 25 mls/hr IVPB Q8HR [facility] Rx# :[id number] Oral 540 Output: Urine 1200 1100 Other: Voiding Method Toilet Diaper Diaper Bedside Commode External Catheter External Catheter # Voids 2 - Exam GENERAL DESCRIPTION: An elderly female lying in bed in no distress HEENT: Right-sided facial swelling has decreased RESPIRATORY SYSTEM: Unlabored breathing , clear to auscultation anteriorly HEART: S1 S2 regular rate and rhythm , ABDOMEN: Soft , no tenderness EXTREMITIES: No edema feet - Labs CBC & Chem 7: 05/20/23 06:19 05/20/23 06:19 Labs: Abnormal Lab Results - Last 24 Hours (Table) 05/20/23 05/20/23 05/20/23 Range/Units 12:52 16:58 20:09 POC Glucose (mg/dL) 148 H 210 H (70-110) mg/dL Troponin I 0.045 H* (0.000-0.034) ng/mL 05/21/23 05/21/23 Range/Units 07:27 12:05 POC Glucose (mg/dL) 292 H 237 H (70-110) mg/dL Troponin I (0.000-0.034) ng/mL Microbiology - Last 24 Hours (Table) 05/19/23 17:00 Blood Culture - Preliminary Blood Assessment and Plan (1) Parotitis Current Visit: Yes Status: Acute Code(s): K11.20 - SIALOADENITIS, UNSPECIFIED SNOMED Code(s): 11311959 Plan: 1patient with the right-sided parotitis more likely related to oral parrish in this patient with less risk of MRSA or gram-negative infection with no evidence of any abscess on the CT 2Patient to continue with Unasyn 3 g every 6 hours and monitor clinical course closely Dictation was produced using [employer] dictation software. please excuse any grammatical, word or spelling errors. Time with Patient: Less than 30
--- NOTE | 2023-05-21 16:34 | CONS ---
CONSULTATION REASON FOR CONSULTATION: Right parotitis. HISTORY OF PRESENT ILLNESS: The patient is a very pleasant 83-year-old female, who was admitted via the [facility] Emergency Room Department with complaints of weakness, hip pain, and swelling of the right side of her face. The patient states that the right side of her face/neck began swelling approximately 1 week ago and has progressed. She also noted that it had become quite tender. She denied noticing any association of the swelling with respect to her meals. At the time that she was seen in the emergency room, a CT scan of the neck with contrast revealed evidence of some cellulitis of the right parotid gland, but no definite abscess formation. The patient was subsequently admitted for workup and was placed on high-dose Unasyn intravenous antibiotics. In addition, the Infectious Disease Service has been consulted on this patient. The patient does not have a history of having a similar issue before when questioned. The patient apparently does not drink very much water. I have advised her that she needs to drink at least 2 L of water daily if possible. PAST MEDICAL HISTORY: Reveals she has no allergies to medications. CURRENT MEDICATIONS: Include: 1. Insulin and Lantus insulin. 2. Wellbutrin. 3. Ambien. 4. Simvastatin. 5. Losartan/hydrochlorothiazide. 6. Zoloft. 7. Claritin. 8. Synthroid. 9. Xalatan. 10.Anastrozole. REVIEW OF SYSTEMS: CARDIOVASCULAR: Negative. RESPIRATORY: Negative. GASTROINTESTINAL: Negative. METABOLIC/ENDOCRINE: Positive for hypercholesterolemia, type 1 diabetes mellitus, and hypothyroidism. SPECIAL SENSES: Positive for glaucoma. Remainder of the review of systems is unremarkable. PHYSICAL EXAMINATION: GENERAL: This patient is an 83-year-old female, who was alert and cooperative. HEENT: The patient is normocephalic. Tympanic membranes are normal. Middle ear spaces are free of any fluid or infection. Pupils are equal, round, and reactive to light and accommodation. Extraocular movements are within normal limits. Intranasal examination reveals bomuygsr-di-titbmy septal deviation with compensatory hypertrophy of inferior turbinates. Examination of oropharynx is unremarkable. Bimanual palpation of the right cheek reveals evidence of ugfr-zf-hkvdsvku swelling of the right parotid gland with jaqu-jx-twiqmovu tenderness. The gland is firm but it is not fluctuant. No discrete masses or nodules or lumps are noted anywhere in the parotid gland or the tail of the parotid gland. Palpation of the neck is negative for any neck masses or lymphadenopathy. Cranial nerves 2 through 12 and remainder of the head and neck exam are unremarkable. CHEST/CARDIOVASCULAR: Both lung flaherty are clear to percussion and auscultation. The patient is in regular sinus rhythm. S1 and S2 are present without evidence of any murmurs. Peripheral pulses are bilaterally symmetrical. ABDOMEN: There is no evidence any masses, megaly, or tenderness. The abdomen is soft. SKIN: Unremarkable. MUSCULOSKELETAL/NEUROLOGICAL: All within normal limits. PELVIC/RECTAL: Deferred at this time because the patient has this done on a regular basis at her family physician's office. The remainder of the physical exam is essentially unremarkable. IMPRESSION: Right parotitis. PLAN: Continue the patient on the current course of Unasyn. The patient from an ENT standpoint can be discharged any time on the appropriate oral antibiotics as per Infectious Disease Service. It is quite common for elderly patients who don't drink enough water daily to become somewhat dehydrated and develop parotitis. I have encouraged the patient to try to drink as close to two liters of water daily at a minimum. I will sign off on this patient at this time. If the patient should become a surgical patient/candidate for drainage of the gland, then feel free to re-consult my office. I will not need to see this patient for followup in my office after her discharge. I want to take this opportunity to thank you for allowing me to assist in the care of your patient. If I could be of any further assistance, please feel free to call my office. MMODL / IJN: [id number] / DEMOND
[2023-05-21 17:05] LABS: Glucose,Whole Blood 268 mg/dL (70-110)
[2023-05-21 20:13] LABS: Glucose,Whole Blood 246 mg/dL (70-110)
[2023-05-21] MEDS: ZOLPIDEM 5 MG TAB PO SCH (20:59)
[2023-05-21] MEDS: ATORVASTATIN 10 MG TAB PO SCH (20:59)
[2023-05-21] MEDS: LATANOPROST 0.005% OPHTH DROPS 2.5 ML BTL BOTH EYES SCH (21:07)
[2023-05-22] MEDS: LEVOTHYROXINE 50 MCG TAB PO SCH (06:02)
[2023-05-22 07:19] LABS: Glucose,Whole Blood 200 mg/dL (70-110)
[2023-05-22] MEDS ORDERED: REGADENOSON 0.4 MG/5 ML SYRINGE IV ONE (08:00)
[2023-05-22] MEDS: INSULIN ASPART (NovoLOG) 100 UNIT/ML VIAL SQ SCH ×4 (08:14→20:39)
[2023-05-22 08:59] LABS: BUN/Creat Ratio 20.11 Ratio (12.00-20.00); Blood Urea Nitrogen 18.1 mg/dL (9.0-27.0); Calcium 9.1 mg/dL (8.7-10.3); Carbon Dioxide 25.9 mmol/L (21.6-31.8); Chloride 101 mmol/L (96-109); Glucose 198 mg/dL (70-110); Potassium 3.7 mmol/L (3.5-5.5); Sodium 141 mmol/L (135-145)
[2023-05-22] MEDS ORDERED: AMINOPHYLLINE 500 MG/20 ML VIAL IV PRN (09:00)
[2023-05-22] MEDS ORDERED: CAFFEINE CITRATE 60 MG/3 ML VIAL IV PRN (09:00)
[2023-05-22] MEDS ORDERED: REGADENOSON 0.4 MG/5 ML SYRINGE IV PRN (09:00)
[2023-05-22 09:23] LABS: Basophils # (A) 0.04 X 10*3/uL (0.00-0.10); Basophils % (A) 0.4 %; Eosinophils # (A) 0.24 X 10*3/uL (0.04-0.35); Eosinophils % (A) 2.4 %; HCT 37.6 % (37.2-46.3); HGB 12.6 d/dL (12.0-15.0); Lymphocytes # (A) 2.24 X 10*3/uL (0.90-5.00); Lymphocytes % (A) 22.6 %; MCH 27.7 pg (27.0-32.0); MCHC 33.5 d/dL (32.0-37.0); MCV 82.6 FL (80.0-97.0); Mean Platelet Volume 10.9 FL (9.5-12.2); Monocytes # (A) 0.97 X 10*3/uL (0.20-1.00); Monocytes % (A) 9.8 %; NRBC Per 100 WBC 0 X 10*3/uL (0.00-0.01); Neutrophils # (A) 6.36 X 10*3/uL (1.80-7.70); Neutrophils % (A) 64.3 %; Platelet Count 176 X 10*3/uL (140-440); RBC 4.55 X 10*6/uL (4.10-5.20); RDW 13.5 % (11.5-14.5)
[2023-05-22] MEDS ORDERED: amLODIPine 5 MG TAB PO STA (11:07)
--- NOTE | 2023-05-22 11:08 | P.PN ---
Subjective Progress Note Date: 05/22/23 History of present illness: Patient is a pleasant 83-year-old female with significant past medical history of diabetes, hypertension, and history of breast cancer who presented to the emergency department with complaints of weakness and falling. She reports that over the past 3-4 months she has been having increasing falling spells and feels like her legs are weak and give out. She denies feeling dizzy or lightheaded during these episodes. Yesterday she was unable to get up and EMS had to be called. She denies any syncope. Denies any chest pain or pressure. No shortness of breath. She denies any significant family history of heart disease. She was never a smoker, denies alcohol or drug use. Troponin was elevated 0.052, 0.045. EKG shows sinus rhythm with ST depressions, this is a change from prior EKG. 05/21/23 Shortness of breath is the same. Her legs still feel heavy and weak. No chest pain. 05/22 Patient states that she did not sleep last night. She denies having any chest pain or shortness of breath and no dizziness. Echocardiogram has been done and report is pending. Patient is scheduled for Lexiscan stress test today. Blood pressure readings remain elevated and noted that attending has increased amlodipine to 10 mg daily. PHYSICAL EXAMINATION: This is a 83 year-old female in no apparent distress at the time of my examination. CHEST EXAMINATION: Lungs are clear to auscultation. No chest wall tenderness is noted on palpation or with deep breathing. HEART EXAMINATION: Heart regular rate and rhythm. S1, S2 heard. No murmurs, gallops or rub. ABDOMEN: Soft, nontender. Bowel sounds are heard. EXTREMITIES: 2+ peripheral pulses with no evidence of peripheral edema and no calf tenderness noted. NEUROLOGIC EXAMINATION: Patient is awake, alert and oriented x3. generalized weakness. IMPRESSION AND PLAN: Abnormal EKG Elevated troponin Diabetes Hypertension History of breast cancer Frequent falls Generalized weakness PLAN: Obtain echocardiogram report Complete Lexiscan stress test today If echocardiogram and Lexiscan stress test are unremarkable, patient is cleared for discharge Agree with increasing the amlodipine and patient may receive additional 5 mg when she returns from stress test. Nurse practitioner note has been reviewed, I agree with the documented findings and plan of care. Patient was seen and examined. Objective - Vital Signs Vital signs: Vital Signs Temp 97.2 F L 05/22/23 07:16 Pulse 79 05/22/23 07:16 Resp 18 05/22/23 07:16 BP 187/73 05/22/23 07:16 Pulse Ox 92 L 05/22/23 07:16 FiO2 Intake & Output 05/21/23 05/22/23 05/22/23 18:59 06:59 18:59 Output Total 700 400 Balance -700 -400 Output: Urine 700 400 Other: Voiding Method Diaper Diaper External Catheter External Catheter # Voids 2 3 - Labs CBC & Chem 7: 05/22/23 05:57 05/22/23 05:57 Labs: Abnormal Lab Results - Last 24 Hours (Table) 05/21/23 05/21/23 05/21/23 Range/Units 12:05 17:03 20:07 POC Glucose (mg/dL) 237 H 268 H 246 H (70-110) mg/dL 05/22/23 Range/Units 07:18 POC Glucose (mg/dL) 200 H (70-110) mg/dL Microbiology - Last 24 Hours (Table) 05/19/23 17:00 Blood Culture - Preliminary Blood
--- NOTE | 2023-05-22 11:39 | CA ---
Lexiscan Nuclear Stress Test Report Name: Abena Vizcaino Exam Date: 05/22/2023 10:07 Exam Location: [place] Stress Ht (in): 63 Wt (lb): 200 BSA: 1.93 Ordering Phys: Jayda Whitman Referring Phys: ROMAN LAWSON,, Technologist: Stefan Cross Age: 83 Gender: F : 1940 Procedure CPT: Indications: Reflex order-Stress test ICD-10 Codes: Patient History: AZAM, HTN, DM, CHOL, RHEUM FEV Medications: SEE CHART Meds past 24 hrs: Pretest Chest Pain: STRESS TEST Lexiscan Protocol Exercise Duration (min:sec): 02:[address] Depressions (mm): Angina Score: Caballero Score: Resting HR (bpm): 72 Peak HR (bpm): 79 Resting BP (mmHg): 130 / 69 Peak BP (mmHg): 155 / 55 MPHR: 137 Target HR: 116 % MPHR: 58 METS: 1.0 Total Dose: Peak Dose: Atropine: Double Product: 60469 BP Response: Stress Termination: END OF DOSAGE Stress Symptoms: Stress Summary: ECG ANALYSIS Resting ECG: Sinus rhythm. Incomplete left bundle branch block. No arrhythmias. Stress ECG: No ECG changes from baseline with Lexiscan infusion. CONCLUSIONS No ECG evidence of ischemia with Lexiscan infusion. Nuclear test results to follow. Dr. Bruce Guaman MD (Electronically Signed) Final Date: 22 May 2023 11:38
[2023-05-22] MEDS: AMPICILLIN-SULBACTAM 3 GM in SODIUM CHLORIDE 0.9% 100 ML IVPB SCH ×2 (11:51→20:39)
[2023-05-22] MEDS: LORATADINE 10 MG TAB PO SCH (11:51)
[2023-05-22] MEDS: amLODIPine 10 MG TAB PO SCH (11:51)
[2023-05-22] MEDS: LOSARTAN 50 MG TAB PO SCH (11:51)
[2023-05-22] MEDS: hydroCHLOROthiazide 12.5 MG CAP PO SCH (11:52)
[2023-05-22] MEDS: ANASTROZOLE 1 MG TAB PO SCH (11:52)
[2023-05-22] MEDS: FAMOTIDINE 20 MG/2 ML VIAL IV SCH (11:52)
[2023-05-22] MEDS: INSULIN DETEMIR (LEVEMIR) 100 UNIT/ML SYR SQ SCH (11:52)
[2023-05-22] MEDS: SERTRALINE 100 MG TAB PO SCH (11:52)
[2023-05-22] MEDS: HEPARIN SODIUM,PORCINE 5,000 UNIT/ML 1 ML VIAL SQ SCH ×2 (11:53→20:39)
[2023-05-22] MEDS: buPROPion XL 150 MG TAB.ER.24H PO SCH (11:53)
[2023-05-22 12:03] LABS: Glucose,Whole Blood 284 mg/dL (70-110)
--- NOTE | 2023-05-22 12:34 | CT ---
EXAMINATION TYPE: CT angio head neck DATE OF EXAM: 05/22/2023 HISTORY: carotid stenosis COMPARISON: Ultrasound 05/20/2023 CT DLP: 488.6 mGycm. Automated Exposure Control for Dose Reduction was Utilized. TECHNIQUE: CTA scan of the head and neck is performed with IV Contrast, patient injected with 65cc m L of Isovue 370, axial images are obtained, coronal and sagittal reformatted images are reviewed. 3D reconstructed images are created on an independent workstation and reviewed. 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 Hyperostosis of the frontal bone . Mild demineralization is seen. Degenerative change of the atlantoaxial joint. Intracranially there is a dominant right vertebral artery. Vertebrobasilar system is patent. Visualiz ed posterior cerebral arteries are patent. Anterior circulation demonstrates NICA and MCA arteries which appear to be patent. 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 No sizable aneurysm or vascular malformation. There is moderate generalized degenerative change with hypoattenuation of the white matter compatible with remote ischemic white matter change. Dural venous sinuses appear to enhance normally. Emphysematous changes are seen involving the lung ap ices. Atherosclerotic plaque is seen at the origins of the great vessels. Approximate 70% stenosis of the proximal left subclavian artery. Diffuse atherosclerotic change of the right subclavian artery. Question significant stenosis on the right. This is in the region of artifact from the injection of c ontrast within the right upper extremity. Right carotid bifurcation demonstrates extensive calcified plaque. Approximate 80% stenosis axial chinmay ge 18 series 18. Left carotid bifurcation also demonstrates a dense atherosclerotic plaque but also a region of soft p laque best noted on axial image 18 series 18. Findings are suggestive of a 70-75% stenosis. There is approximate 60-70% stenosis proximal right ICA IMPRESSION: 1. There is heavily calcified plaque involving the right carotid bifurcation. On image 18 series 18 f indings are suggestive of a greater than 70% stenosis recommend dedicated arteriogram. No diagnostic evidence of occlusion of the right carotid artery. 2. Mixed calcified and soft plaque proximal left ICA near the bifurcation suspect 70-75% stenosis. Extensive atherosclerotic plaque bilateral subclavian arteries are limited due to adjacent artifact. NASCET criteria was used in interpretation of this exam?
[2023-05-22 12:41] LABS: Mumps Virus IgG Ab Interp POSITIVE; Mumps Virus IgG Antibody 3.4 AI
--- NOTE | 2023-05-22 13:14 | NM ---
EXAMINATION TYPE: NM stress lexiscan cardiolite DATE OF EXAM: 05/22/2023 COMPARISON: NONE CLINICAL INDICATION: Female, 83 years old with history of abnormal EGK, elevated trop; TECHNIQUE: After the intravenous administration of 10.4 mCi Tc 99m Sestamibi - Cardiolite resting SP ECT images acquired 144 minutes post injection. The patient received 0.4mg Lexiscan, 25.8 mCi Tc 99m Sestamibi - Stress images obtained [address] injection FINDINGS: Review of stress and rest SPECT images demonstrates a predominantly fixed defect involving the inferi or and inferolateral wall myocardium. Small area of stress-induced reversibility involving the inferi or lateral wall suspected.. Gated analysis shows an estimated left ventricular ejection fraction of 47 %. IMPRESSION: Findings suspicious for scintigraphic evidence of small area of stress-induced personable ischemia in ferolateral wall.
--- NOTE | 2023-05-22 13:40 | CA ---
Transthoracic Echo Report Name: Abena Vizcaino Age: 83 Gender: F : 1940 Exam Date: 05/22/2023 08:44 Exam Location: [place] [facility] Ht (in): 63 Wt (lb): 200 Ordering Physician: Edmundo Apodaca MD Attending/Referring Phys: [id number], Constanza Sheather Dieter Hua Procedure CPT: Indications: Rule out heart disease Cardiac Hx: Technical Quality: Fair Contrast 1: Total Dose (mL): Contrast 2: Total Dose (mL): MEASUREMENTS (Male / Female) Normal Values 2D ECHO LV Diastolic Diameter PLAX 3.9 cm 4.2 - 5.9 / 3.9 - 5.3 cm LV Systolic Diameter PLAX 3.0 cm IVS Diastolic Thickness 1.8 cm 0.6 - 1.0 / 0.6 - 0.9 cm LVPW Diastolic Thickness 1.4 cm 0.6 - 1.0 / 0.6 - 0.9 cm LV Relative Wall Thickness 0.8 RV Internal Dim ED PLAX 2.5 cm LVOT Diameter 2.1 cm Aortic Root Diameter 2.9 cm LA Systolic Diameter LX 2.1 cm 3.0 - 4.0 / 2.7 - 3.8 cm LV Diastolic Volume MOD BP 37.5 cm??? 67 - 155 / 56 - 104 cm??? LV Systolic Volume MOD BP 16.6 cm??? 22 - 58 / 19 - 49 cm??? LV Ejection Fraction MOD BP 55.8 % >= 55 % LV Cardiac Index MOD BP 786.8 cm???/min???m??? LV Diastolic Volume MOD 4C 52.5 cm??? LV Systolic Volume MOD 4C 24.1 cm??? LV Ejection Fraction MOD 4C 54.1 % LV Cardiac Index MOD 4C 1067.8 cm???/min???m??? LV Diastolic Length 4C 6.3 cm LV Systolic Length 4C 5.7 cm LV Diastolic Volume MOD 2C 25.4 cm??? LV Systolic Volume MOD 2C 11.4 cm??? LV Ejection Fraction MOD 2C 55.1 % LV Cardiac Index MOD 2C 526.0 cm???/min???m??? LV Diastolic Length 2C 6.0 cm LV Systolic Length 2C 5.8 cm LA Volume 45.9 cm??? 18 - 58 / 22 - 52 cm??? LA Volume Index 22.4 cm???/m??? 16 - 28 cm???/m??? DOPPLER AV Peak Velocity 140.9 cm/s AV Peak Gradient 7.9 mmHg LVOT Peak Velocity 89.9 cm/s LVOT Peak Gradient 3.2 mmHg LVOT Velocity Time Integral 19.4 cm LVOT Stroke Volume 65.6 cm??? LVOT Stroke Volume Index 33.9 ml/m??? LVOT Cardiac Index 2464.4 cm???/min???m??? AV Area Cont Eq pk 2.2 cm??? MV Peak Velocity 110.6 cm/s MV Peak Gradient 4.9 mmHg MV Mean Velocity 64.1 cm/s MV Mean Gradient 2.0 mmHg MV Velocity Time Integral 34.2 cm Mitral E Point Velocity 103.1 cm/s Mitral A Point Velocity 110.6 cm/s Mitral E to A Ratio 0.9 MV Deceleration Time 256.9 ms MV E' Velocity 3.2 cm/s Mitral E to MV E' Ratio 31.8 PV Peak Velocity 133.6 cm/s PV Peak Gradient 7.1 mmHg FINDINGS Left Ventricle Severely increased septal wall thickness. Moderately increased posterior wall thickness. Normal LV size. . Left ventricular ejection fraction is estimated at 50-55 %. Right Ventricle Normal right ventricular size. Right Atrium Normal right atrial size. Left Atrium Normal left atrial size. Mitral Valve Mild to moderate Posterior Mitral annulus calcification. Trace MR. Aortic Valve Trileaflet aortic valve. No aortic valve stenosis,, no regurgitation. Tricuspid Valve Structurally normal tricuspid valve. Mild TR. Pulmonic Valve Pulmonic valve not well visualized. No pulmonic regurgitation. Pericardium Normal pericardium. Aorta Normal size aortic root. CONCLUSIONS 1. Left ventricle systolic function borderline normal 2. Mild tricuspid regurgitation with trace mitral regurgitation Previewed by: Dr. Bruce Guaman MD (Electronically Signed) Final Date: 22 May 2023 13:39
[2023-05-22] MEDS ORDERED: ALPRAZolam 0.25 MG TAB PO PRN (14:26)
[2023-05-22] MEDS ORDERED: ALPRAZolam 0.5 MG TAB PO PRN (14:26)
[2023-05-22] MEDS ORDERED: ASPIRIN 325 MG TAB PO STA (14:26)
[2023-05-22] MEDS ORDERED: NITROGLYCERIN SL TABS 0.4 MG TAB SUBLINGUAL PRN (14:26)
[2023-05-22] MEDS ORDERED: ATORVASTATIN 80 MG TAB PO STA (14:26)
--- NOTE | 2023-05-22 15:28 | P.GSCN ---
History of Present Illness Consult date: 05/22/23 Reason for Consult: Carotid stenosis Requesting physician: Edmundo E Sheet History of present illness: This is a pleasant 83-year-old female with a past medical history including hypertension, hyperlipidemia, hypothyroidism, left breast cancer status post hysterectomy and lumpectomy, anxiety, depression, and diabetes mellitus. Patient presented to the emergency department 3 days ago with complaints of lower extremity weakness and multiple falls, with hip pain, pelvic pain and right facial swelling. She underwent a CT soft tissue of the neck showing hyperdensity of the right parotid gland with mild adjacent fluid and fat stranding to suggest infection at the level. Also reported significant stenosis at carotid bulb origin. She then underwent carotid duplex which reported right ICA occlusion and greater than 70% left ICA stenosis. Vascular surgery was consulted for carotid stenosis. She was evaluated by ENT who recommends IV antibiotics and recommendations from infectious disease. No surgical interve ntion warranted. She states swelling has improved. Patient states she has no known history of carotid stenosis and no previous known history of coronary artery disease. Patient was noted to have abnormal EKG and elevated troponin on admission. Cardiology was consulted. Patient underwent Lexiscan stress test which reported suspicious evidence of small area of stress-induced personable ischemia inferolateral wall. She is scheduled to undergo cardiac catheterization tomorrow. She currently denies any chest pain or shortness of breath. States that she gets discomfort in her feet and state that they will feel like they are heavy or that she has shoes on. She denies pain in her legs with walking but states that she has bilateral lower extremity weakness and they feel like they just want to give out and she has fallen. She denies any upper extremity weakness, no difficulty with speech and no visual changes at this time. Review of Systems A 14 point review systems was completed all pertinent positives and negatives as stated in the HPI. Past Medical History Past Medical History: Cancer, Diabetes Mellitus, Hyperlipidemia, Hypertension, Musculoskeletal Disorder, Thyroid Disorder Additional Past Medical History / Comment(s): Left Breast CA. BAD RT HIP. History of Any Multi-Drug Resistant Organisms: None Reported Past Surgical History: Breast Surgery, Hysterectomy, Joint Replacement, Orthopedic Surgery Additional Past Surgical History / Comment(s): 3 left breast bx, 2 rt breast bx, ductogram, ORIF RT LOWER LEG, w/ plate. Left TOTAL Hip. LT BREAST LUMPECTOMY. Past Anesthesia/Blood Transfusion Reactions: No Reported Reaction Past Psychological History: Anxiety, Depression Smoking Status: Never smoker Past Alcohol Use History: None Reported Past Drug Use History: None Reported - Past Family History Sister(s) Family Medical History: Cancer Additional Family Medical History / Comment(s): BREAST CA Medications and Allergies Home Medications Medication Instructions Recorded Confirmed Type INSULIN LISPRO (HumaLOG) [humaLOG] See Protocol SQ AC-TID 12/28/16 05/19/23 History Levothyroxine Sodium [Synthroid] 50 mcg PO DAILY 12/28/16 05/19/23 History Losartan/Hydrochlorothiazide 1 tab PO DAILY 12/28/16 05/19/23 History [Losartan-Hctz 100-12.5 mg Tab] Simvastatin 20 mg PO HS 12/28/16 05/19/23 History Zolpidem [Ambien] 10 mg PO HS 12/28/16 05/19/23 History Melatonin [Melatonin ER] 10 mg PO HS 03/01/17 05/19/23 History Sertraline [Zoloft] 100 mg PO DAILY 03/16/17 05/19/23 History Anastrozole 1 mg PO DAILY 05/19/23 05/19/23 History Insulin Glargine,Hum.rec.anlog 130 units SQ HS 05/19/23 05/19/23 History [Lantus Solostar Pen] Latanoprost Ophth [Xalatan 0.005%] 1 drop BOTH EYES HS 05/19/23 05/19/23 History Loratadine [Claritin] 10 mg PO DAILY 05/19/23 05/19/23 History buPROPion XL [Wellbutrin XL] 150 mg PO DAILY 05/19/23 05/19/23 History Allergies Allergy/AdvReac Type Severity Reaction Status Date / Time No Known Allergies Allergy Verified 05/19/23 19:20 Surgical - Exam Vital Signs Temp Pulse Resp BP Pulse Ox 98.5 F 67 20 179/60 95 05/19/23 14:59 05/19/23 14:59 05/19/23 14:59 05/19/23 14:59 05/19/23 14:59 General appearance: The patient is alert, oriented, appears in no acute distress. HET: Head is normocephalic and atraumatic. Pupils are equal and reactive. Neck: Supple. Heart: Regular. Lungs: Equal expansion, normal respiratory effort. Abdomen: Soft, nontender, nondistended. Extremities: Normal skin color and turgor. Nonpalpable DP and PT pulses. Lower extremities warm to touch with good capillary refill and sensory motor intact. Neurological: No focal deficits. Strength and sensation are grossly intact. Results - Labs 05/22/23 05:57 05/22/23 05:57 Abnormal Lab Results - Last 24 Hours (Table) 05/21/23 05/21/23 05/22/23 Range/Units 17:03 20:07 05:57 Anion Gap 14.10 H (4.00-12.00) mmol/L BUN/Creatinine Ratio 20.11 H (12.00-20.00) Ratio Glucose 198 H (70-110) mg/dL POC Glucose (mg/dL) 268 H 246 H (70-110) mg/dL 05/22/23 05/22/23 Range/Units 07:18 12:02 Anion Gap (4.00-12.00) mmol/L BUN/Creatinine Ratio (12.00-20.00) Ratio Glucose (70-110) mg/dL POC Glucose (mg/dL) 200 H 284 H (70-110) mg/dL Microbiology - Last 24 Hours (Table) 05/19/23 17:00 Blood Culture - Preliminary Blood Diabetes panel 05/22/23 Range/Units 05:57 Sodium 141 (135-145) mmol/L Potassium 3.7 (3.5-5.5) mmol/L Chloride 101 (96-109) mmol/L Carbon Dioxide 25.9 (21.6-31.8) mmol/L BUN 18.1 (9.0-27.0) mg/dL Creatinine 0.9 (0.6-1.5) mg/dL Glucose 198 H (70-110) mg/dL Calcium 9.1 (8.7-10.3) mg/dL Calcium panel 05/22/23 Range/Units 05:57 Calcium 9.1 (8.7-10.3) mg/dL Pituitary panel 05/22/23 Range/Units 05:57 Sodium 141 (135-145) mmol/L Potassium 3.7 (3.5-5.5) mmol/L Chloride 101 (96-109) mmol/L Carbon Dioxide 25.9 (21.6-31.8) mmol/L BUN 18.1 (9.0-27.0) mg/dL Creatinine 0.9 (0.6-1.5) mg/dL Glucose 198 H (70-110) mg/dL Calcium 9.1 (8.7-10.3) mg/dL Adrenal panel 05/22/23 Range/Units 05:57 Sodium 141 (135-145) mmol/L Potassium 3.7 (3.5-5.5) mmol/L Chloride 101 (96-109) mmol/L Carbon Dioxide 25.9 (21.6-31.8) mmol/L BUN 18.1 (9.0-27.0) mg/dL Creatinine 0.9 (0.6-1.5) mg/dL Glucose 198 H (70-110) mg/dL Calcium 9.1 (8.7-10.3) mg/dL - Imaging Comments: Carotid ultrasound: Right ICA reported as occluded. Left ICA PSV 271, ICA/CCA ratio 3.3 reported as greater than 70% stenosis left ICA CT angiogram head and neck reports heavily calcified plaque involving the right carotid bifurcation. On image 18 series 18 findings are suggestive of greater than 70% stenosis recommend dedicated arteriogram. No diagnostic evidence of occlusion of the right carotid artery. Mixed calcified and soft plaque proximal left ICA near the bifurcation suspect 70-75% stenosis. Extensive arthrosclerotic plaque bilateral subclavian arteries are limited due to adjacent artifact. Assessment and Plan Assessment: 1. Bilateral Lower extremity weakness with multiple falls 2. Right-sided facial swelling, parotitis 3. Asymptomatic bilateral ICA stenosis, moderate discordant findings on carotid ultrasound and CT angiogram head and neck 4. Abnormal EKG and elevated troponins, abnormal stress test 5. History hypertension 6. History hyperlipidemia 7. Hypothyroidism 8. Diabetes mellitus Plan: 1. CT angiogram head and neck ordered 2. Lower extremity arterial ultrasound ordered 3. Patient is scheduled for cardiac catheterization tomorrow 4. Recommend increasing statin to 40 mg daily 5. We will await further workup and recommendations from cardiology. Will recommend Plavix Thank you for this consultation, further recommendations forthcoming per vascular surgeon. The impression and plan of care has been dictated as directed. I performed a history and examination of this patient, discussed the same with the dictator. I agree with the dictator's note ,documented as a scribe. Any additional findings or plans will be noted.
--- NOTE | 2023-05-22 16:16 | US ---
EXAMINATION TYPE: US arterial LE multi level DATE OF EXAM: 05/22/2023 4:06 PM CLINICAL INDICATION: Female, 83 years old with history of Nonpalpable pedal pulses. Lower extremity weakness; Bilateral leg pain with R>L. Left arm deferred due to lymph node resections. Suboptimal due to patient unable to stop moving History of: Smoker: No Hypertension: Takes medication Diabetic: Yes Hyperlipidemia: Yes TIA/CVA: No Previous Vascular Surgery: No CAD: Yes Vascular Ulcers: No Gangrene: No Doppler Waveforms: Right: Multiphasic, monophasic waveforms within the digit Left: Multiphasic, monophasic waveform within the digit Right Brachial Pressure: 170 Left Brachial Pressure: Deferred due to lymph node resections Ankle-Brachial Indices: Right: 0.8 Left: 0.8 Toe Brachial Indices: Right: 0.2 Left: 0.4 IMPRESSION: Mild peripheral arterial vascular disease within both lower extremities.
[2023-05-22 17:06] LABS: Glucose,Whole Blood 301 mg/dL (70-110)
[2023-05-22 20:37] LABS: Glucose,Whole Blood 268 mg/dL (70-110)
[2023-05-22] MEDS: ATORVASTATIN 10 MG TAB PO SCH (20:39)
[2023-05-22] MEDS: ZOLPIDEM 5 MG TAB PO SCH (20:39)
[2023-05-22] MEDS: LATANOPROST 0.005% OPHTH DROPS 2.5 ML BTL BOTH EYES SCH (20:40)
[2023-05-23] MEDS: AMPICILLIN-SULBACTAM 3 GM in SODIUM CHLORIDE 0.9% 100 ML IVPB SCH ×3 (04:13→20:05)
[2023-05-23] MEDS: LEVOTHYROXINE 50 MCG TAB PO SCH (06:15)
[2023-05-23] MEDS ORDERED: HEPARIN SODIUM,PORCINE (1 ML) 2,500 UNIT in SODIUM CHLORIDE 0.9% 250 ML IRRIGATION PRN (07:00)
[2023-05-23] MEDS ORDERED: HEPARIN SODIUM,PORCINE 10,000 UNIT in SODIUM CHLORIDE 0.9% 1,000 ML IRRIGATION PRN (07:00)
[2023-05-23 07:17] LABS: Glucose,Whole Blood 262 mg/dL (70-110)
[2023-05-23] MEDS: INSULIN ASPART (NovoLOG) 100 UNIT/ML VIAL SQ SCH ×4 (08:44→20:16)
[2023-05-23] MEDS: INSULIN DETEMIR (LEVEMIR) 100 UNIT/ML SYR SQ SCH ×2 (08:44→20:15)
[2023-05-23] MEDS: amLODIPine 10 MG TAB PO SCH (08:53)
[2023-05-23] MEDS: LORATADINE 10 MG TAB PO SCH (08:54)
[2023-05-23] MEDS: HEPARIN SODIUM,PORCINE 5,000 UNIT/ML 1 ML VIAL SQ SCH ×2 (08:54→20:05)
[2023-05-23] MEDS: SERTRALINE 100 MG TAB PO SCH (08:54)
[2023-05-23] MEDS: LOSARTAN 50 MG TAB PO SCH (08:54)
[2023-05-23] MEDS: FAMOTIDINE 20 MG/2 ML VIAL IV SCH (08:54)
[2023-05-23] MEDS: hydroCHLOROthiazide 12.5 MG CAP PO SCH (08:54)
[2023-05-23] MEDS: buPROPion XL 150 MG TAB.ER.24H PO SCH (08:54)
[2023-05-23] MEDS: ANASTROZOLE 1 MG TAB PO SCH (08:54)
--- NOTE | 2023-05-23 10:03 | P.PN ---
Subjective Progress Note Date: 05/23/23 Principal diagnosis: Carotid stenosis Patient is seen and examined today as a follow-up. She was resting comfortably. She denies any focal deficits. She is scheduled to undergo cardiac catheterization today. She had lower extremity arterial ultrasound performed which shows minimal arterial disease with LORE 0.8 bilaterally. No other acute changes through the night. She denies any chest pain or shortness of breath at this time. Objective - Vital Signs Vital signs: Vital Signs Temp 97.6 F 05/23/23 07:17 Pulse 77 05/23/23 07:17 Resp 18 05/23/23 07:17 BP 174/74 05/23/23 07:17 Pulse Ox 95 05/23/23 07:17 FiO2 Intake & Output 05/22/23 05/23/23 05/23/23 18:59 06:59 18:59 Intake Total 590 Output Total 300 500 Balance -300 90 Intake: Oral 590 Output: Urine 300 500 Other: Voiding Method Diaper Diaper External Catheter External Catheter # Voids 1 1 # Bowel Movements 1 - Exam General appearance: The patient is alert, oriented, appears in no acute distress. HET: Head is normocephalic and atraumatic. Neck: Supple. Heart: Regular. Lungs: Equal expansion, normal respiratory effort. Abdomen: Soft, nondistended. Extremities: Normal skin color and turgor. Bilateral lower extremities warm to touch, good capillary refill. Neurological: No focal deficits. Strength and sensation are grossly intact. - Labs CBC & Chem 7: 05/22/23 05:57 05/22/23 05:57 Labs: Abnormal Lab Results - Last 24 Hours (Table) 05/22/23 05/22/23 05/22/23 Range/Units 05:57 12:02 17:04 Anion Gap 14.10 H (4.00-12.00) mmol/L BUN/Creatinine Ratio 20.11 H (12.00-20.00) Ratio Glucose 198 H (70-110) mg/dL POC Glucose (mg/dL) 284 H 301 H (70-110) mg/dL 05/22/23 05/23/23 Range/Units 20:36 07:16 Anion Gap (4.00-12.00) mmol/L BUN/Creatinine Ratio (12.00-20.00) Ratio Glucose (70-110) mg/dL POC Glucose (mg/dL) 268 H 262 H (70-110) mg/dL Microbiology - Last 24 Hours (Table) 05/19/23 17:00 Blood Culture - Preliminary Blood Assessment and Plan Assessment: 1. Bilateral Lower extremity weakness with multiple falls 2. Right-sided facial swelling, parotitis 3. Asymptomatic bilateral ICA stenosis, discordant findings on carotid ultrasound and CT angiogram head and neck 4. Abnormal EKG and elevated troponins, abnormal stress test 5. History hypertension 6. History hyperlipidemia 7. Hypothyroidism 8. Diabetes mellitus Plan: 1. CT angiogram head and neck ordered and reviewed by Dr. Rodarte. He feels that right ICA bifurcation occluded however appears that there may be reconstitution 2. Lower extremity arterial ultrasound ordered and reviewed, no significant peripheral arterial disease 3. Patient is scheduled for cardiac catheterization today, discussed with Dr. Guaman regarding visualizing right ICA during procedure to evaluate for occlusion 4. Recommend increasing statin to 40 mg daily 5. We will await further workup and recommendations from cardiology. Will recommend Plavix for ICA stenosis Thank you for this consultation, further recommendations forthcoming per vascular surgeon. The impression and plan of care has been dictated as directed. I performed a history and examination of this patient, discussed the same with the dictator. I agree with the dictator's note ,documented as a scribe. Any additional findings or plans will be noted.
[2023-05-23] MEDS ORDERED: VERAPAMIL 2.5 MG/ML 2 ML AMP ONE (10:58)
[2023-05-23] MEDS ORDERED: fentaNYL (PF) 50 MCG/ML 2 ML AMP ONE (11:21)
[2023-05-23] MEDS ORDERED: LIDOCAINE 1% INJ 10MG/ML (5 ML VIAL-PF) SQ ONE (11:39)
[2023-05-23] MEDS ORDERED: HEPARIN SODIUM 1,000 UN/ML (10ML VL) ONE (11:41)
[2023-05-23] MEDS ORDERED: MIDAZOLAM 2 MG/2 ML VIAL IVP ONE (11:43)
[2023-05-23] MEDS ORDERED: fentaNYL (PF) 50 MCG/ML 2 ML AMP IVP ONE (11:44)
[2023-05-23] MEDS ORDERED: VERAPAMIL SYRINGE (5 MG/10 ML) INTRAARTER ONE (11:44)
[2023-05-23] MEDS ORDERED: HEPARIN SODIUM 1,000 UN/ML (10ML VL) IVP ONE ×3 (11:49→12:02)
[2023-05-23] MEDS ORDERED: CLOPIDOGREL 75 MG TAB PO ONE (11:55)
[2023-05-23] MEDS ORDERED: CLOPIDOGREL 75 MG TAB ONE (11:56)
[2023-05-23] MEDS ORDERED: NITROGLYCERIN SL TABS 0.4 MG TAB SUBLINGUAL ONE ×2 (12:13)
[2023-05-23] MEDS ORDERED: IV FLUID CONTINUATION 800 ML IV ONE (12:19)
[2023-05-23] MEDS ORDERED: MAG HYDROX/AL HYDROX/SIMETH 30 ML CUP PO PRN (12:46)
[2023-05-23] MEDS ORDERED: NITROGLYCERIN SL TABS 0.4 MG TAB SUBLINGUAL PRN (12:46)
[2023-05-23] MEDS ORDERED: RX INFO: IV CONTRAST WAS GIVEN 1 EACH MISC MISCELLANE PRN (12:46)
[2023-05-23] MEDS ORDERED: ATROPINE SULFATE 0.1 MG/ML 10ML SYRINGE IV PRN (12:46)
[2023-05-23] MEDS ORDERED: ZOLPIDEM 5 MG TAB PO PRN (12:46)
[2023-05-23] MEDS ORDERED: IOPAMIDOL-370 100ML BTL INJ ONE ×2 (12:54)
[2023-05-23 12:57] LABS: Glucose,Whole Blood 312 mg/dL (70-110)
--- NOTE | 2023-05-23 12:58 | P.CARDCATH ---
Date of Procedure: 05/23/23 Description of Procedure: Cardiac Catheterization: The patient is an 83-year-old female with known history of diabetes, hypertension, hyperlipidemia who presented with weakness and had mild elevation of the troponin was EKG changes. She was evaluated by Dr. Anderson and subsequently had an abnormal MPI. Recommendations were made regarding cardiac catheterization, the risks and the complications were discussed with the patient who is in full understanding and agreement. Procedure Description: Patient was brought to laboratory phlebotomist in fasting semi-sedated state after receiving Fentanyl and Benadryl achieiving moderate conscious sedated state. Using Xylocaine Anesthesia and modified Seldinger technique, a 6-[place]izen [place] sheath was introduced in the right radial artery . Subsequently, selective coronary angiography was performed using a 5-[place] 3.5 bend Monica catheter. Multiple views of the coronary artery including hemiaxial views were obtained. PCI: After removing the catheters a 6-[place]izen [place] EBU 3.75 guiding catheter was introduced and the system and after cannulating the left main a 0.014 BMW J-wire was positioned in the distal LAD. Subsequently a Maaguzi eye IVUS catheter was introduced and images were obtained, following that a 3.0 x 12 mm NC Treck was advanced and 2 inflations at 10 peterson were done, after removing the balloon a 3.5 x 18 mm Xience abby point stent was deployed at 16 peterson. After removing the balloon repeat IVUS imaging was obtained. Subsequently a 3.75 x 12 mm NC Treck balloon was advanced into inflation at 10 peterson were done. After removing the wire images were obtained and revealed stable successful stenting. Subsequently The 5-[place]izen [place] pigtail catheter was used to cross the aortic valve and LVEDP was calculated. Subsequently an image of the right carotid artery was performed using the pigtail. Following that, catheter and sheath were removed. Hemostasis was obtained with deployment of vascular band . There was no immediate complication. Patient was returned to room in stable condition. Of note, the patient received a total of 8500 units of intravenous heparin as well as intra- arterial verapamil. Her ACT was followed. She had EKG changes that resolved at the end of the procedure. Findings: Fluoroscopy: Significant calcifications of the coronary arteries was noted. Left main: This is a large size vessel, bifurcating into LAD and left circumflex, left main has no obstructive disease LAD: This is a large size vessel, reaching to the apex. The proximal LAD has an eccentric 90% stenosis in the mid LAD has diffuse intimal stenosis of 50-60% with no high-grade stenosis Left circumflex: This is a large nondominant vessel giving rise to 2 obtuse m arginal branch, the left circumflex has no obstructive disease RCA: This is a dominant vessel moderate in caliber. The mid RCA has a tubular lesion of 50-60% and there is another plaque in the distal RCA prior to the bifurcation of 50% that is of the vessel has no high-grade stenosis Left Ventriculogram: Not performed, right carotid angiogram revealed an 80-90% stenosis of the internal carotid artery Hemodynamics: There was no gradient across the aortic valve , LVEDP was 6-8 mmHg Conclusion: 1. Calcified coronary arteries 2. Severe stenosis in the proximal LAD 3. And moderate disease in the RCA and mid LAD 4. Successful stenting of the proximal LAD with intravascular ultrasound imaging with reduction of stenosis from 90% to less than 5% 5. Severe right internal carotid artery stenosis Recommendations: The patient will continue on aspirin and Plavix without any interruption for at least 6 months, aggressive coronary risks modifications will be continued, attempting to maintain an LDL of less then 70 mg/dL, her carotid artery obstructive disease will be followed by the vascular surgeon. The findings and the recommendations were discussed with the patient and the family and they were in full understanding and agreement. Duration of sedation is 52 minutes.
[2023-05-23] MEDS ORDERED: SODIUM CHLORIDE 0.9% 1,000 ML in EMPTY BAG 1 BAG IV SCH (13:00)
--- NOTE | 2023-05-23 13:28 | IR ---
EXAMINATION TYPE: IR angio aortic arch DATE OF EXAM: 05/23/2023 COMPARISON: NONE HISTORY: Fluoroscopy time. Fluoroscopy was provided to the referring clinician.
[2023-05-23] MEDS ORDERED: INSULIN ASPART (NovoLOG) 100 UNIT/ML VIAL SQ ONE (14:44)
--- NOTE | 2023-05-23 14:56 | P.PN ---
Subjective Progress Note Date: 05/22/23 Principal diagnosis: Right-sided parotitis Patient is a 83-year-old female with a past medical history significant for diabetes mellitus hypertension hyperlipidemia history of left breast cancer patient presenting to the hospital for evaluation of increasing weakness and debility and fall patient also complaining of swelling of the right side of her cheek , patient did have a CT of the chest suspicious for right- sided parotitis. On today's evaluation that is 05/22/2023, the patient continues to be afebrile , the patient is breathing comfortably on room air and denies any shortness of breath, the patient denies any chest pain or cough, patient denies abdominal pa in and no nausea/vomiting or diarrhea the patient pain to the right side of the face has decreased in intensity Patient did have white count of 9.90 and a creatinine is 0.9, blood culture pending Objective - Vital Signs Vital signs: Vital Signs Temp 97.2 F L 05/22/23 07:16 Pulse 79 05/22/23 07:16 Resp 18 05/22/23 07:16 BP 187/73 05/22/23 07:16 Pulse Ox 92 L 05/22/23 07:16 FiO2 Intake & Output 05/21/23 05/22/23 05/22/23 18:59 06:59 18:59 Output Total 700 400 Balance -700 -400 Output: Urine 700 400 Other: Voiding Method Diaper Diaper Diaper External Catheter External Catheter External Catheter # Voids 2 3 - Exam GENERAL DESCRIPTION: An elderly female lying in bed in no distress HEENT: Right-sided facial swelling has decreased RESPIRATORY SYSTEM: Unlabored breathing , clear to auscultation anteriorly HEART: S1 S2 regular rate and rhythm , ABDOMEN: Soft , no tenderness EXTREMITIES: No edema feet - Labs CBC & Chem 7: 05/22/23 05:57 05/22/23 05:57 Labs: Abnormal Lab Results - Last 24 Hours (Table) 05/21/23 05/21/23 05/21/23 Range/Units 12:05 17:03 20:07 Anion Gap (4.00-12.00) mmol/L BUN/Creatinine Ratio (12.00-20.00) Ratio Glucose (70-110) mg/dL POC Glucose (mg/dL) 237 H 268 H 246 H (70-110) mg/dL 05/22/23 05/22/23 Range/Units 05:57 07:18 Anion Gap 14.10 H (4.00-12.00) mmol/L BUN/Creatinine Ratio 20.11 H (12.00-20.00) Ratio Glucose 198 H (70-110) mg/dL POC Glucose (mg/dL) 200 H (70-110) mg/dL Microbiology - Last 24 Hours (Table) 05/19/23 17:00 Blood Culture - Preliminary Blood Assessment and Plan (1) Parotitis Current Visit: Yes Status: Acute Code(s): K11.20 - SIALOADENITIS, UNSPECIFIED SNOMED Code(s): 96215696 Plan: 1patient with the right-sided parotitis more likely related to oral parrish in this patient with less risk of MRSA or gram-negative infection with no evidence of any abscess on the CT 2Patient has shown clinical improvement and will continue with Unasyn 3 g every 6 hours and monitor clinical course closely Dictation was produced using [employer] dictation software. please excuse any grammatical, word or spelling errors. Time with Patient: Less than 30
--- NOTE | 2023-05-23 14:57 | P.PN ---
Subjective Progress Note Date: 05/23/23 Principal diagnosis: Right-sided parotitis Patient is a 83-year-old female with a past medical history significant for diabetes mellitus hypertension hyperlipidemia history of left breast cancer patient presenting to the hospital for evaluation of increasing weakness and debility and fall patient also complaining of swelling of the right side of her cheek , patient did have a CT of the chest suspicious for right- sided parotitis. On today's evaluation that is 05/23/2023, the patient remains to be afebrile , the patient is breathing comfortably on room air without need for supplemental oxygen, the patient denies any chest pain and no significant cough or sputum pr oduction, patient denies abdominal pain and no nausea/vomiting or diarrhea the patient pain to the right side of the face has decreased in intensity, no new symptoms Patient did have white count of 9.90 and a creatinine is 0.9 as of yesterday no lab draw today, blood culture negative Objective - Vital Signs Vital signs: Vital Signs Temp 97.6 F 05/23/23 07:17 Pulse 72 05/23/23 13:16 Resp 18 05/23/23 13:16 BP 149/77 05/23/23 13:16 Pulse Ox 95 05/23/23 13:16 FiO2 Intake & Output 05/22/23 05/23/23 05/23/23 18:59 06:59 18:59 Intake Total 590 100 Output Total 300 500 Balance -300 90 100 Intake: IV 100 Oral 590 Output: Urine 300 500 Other: Voiding Method Diaper Diaper Diaper External Catheter External Catheter External Catheter # Voids 1 1 # Bowel Movements 1 - Exam GENERAL DESCRIPTION: An elderly female lying in bed in no distress HEENT: Right-sided facial swelling has decreased in intensity and not as tender RESPIRATORY SYSTEM: Unlabored breathing , clear to auscultation anteriorly HEART: S1 S2 regular rate and rhythm , ABDOMEN: Soft , no tenderness EXTREMITIES: No edema feet - Labs CBC & Chem 7: 05/22/23 05:57 05/22/23 05:57 Labs: Abnormal Lab Results - Last 24 Hours (Table) 05/22/23 05/22/23 05/23/23 Range/Units 17:04 20:36 07:16 POC Glucose (mg/dL) 301 H 268 H 262 H (70-110) mg/dL 05/23/23 Range/Units 12:55 POC Glucose (mg/dL) 312 H (70-110) mg/dL Microbiology - Last 24 Hours (Table) 05/19/23 17:00 Blood Culture - Preliminary Blood Assessment and Plan (1) Parotitis Current Visit: Yes Status: Acute Code(s): K11.20 - SIALOADENITIS, UNSPECIFIED SNOMED Code(s): 44130962 Plan: 1patient with the right-sided parotitis more likely related to oral parrish in this patient with less risk of MRSA or gram-negative infection with no evidence of any abscess on the CT 2Patient has shown clinical improvement and will continue with Unasyn 3 g every 6 hours with a plan to finish therapy with oral Augmentin Dictation was produced using [employer] dictation software. please excuse any grammatical, word or spelling errors. Time with Patient: Less than 30
[2023-05-23] MEDS ORDERED: INSULIN DETEMIR (LEVEMIR) 100 UNIT/ML SYR SQ ONE ×2 (15:21)
--- NOTE | 2023-05-23 15:27 | P.PN ---
Subjective Progress Note Date: 05/23/23 This is a 83-year-old female admitted with multiple medical issues including bilateral lower extremity weakness /multiple falls, bilateral ICA stenosis, elevated troponins with abnormal EKG and abnormal Lexiscan stress test, right- sided parotitis, hypertension, diabetes mellitus multiple medical issues, currently awaiting her cardiac catheterization.NPO. Denies chest pain, palpitations or shortness of breath. Lower extremity ultrasound reported suboptimal due to patient unable to stop moving, mild peripheral arterial vascular disease within bilateral lower extremities. Continues on Unasyn ,Repor ts decreased right facial pain, afebrile, WBC 9.9, preliminary blood cultures no growth after 72 hours. Creatinine 0.9. Objective - Vital Signs Vital signs: Vital Signs Temp 97.6 F 05/23/23 07:17 Pulse 77 05/23/23 07:17 Resp 18 05/23/23 07:17 BP 174/74 05/23/23 07:17 Pulse Ox 95 05/23/23 07:17 FiO2 Intake & Output 05/22/23 05/23/23 05/23/23 18:59 06:59 18:59 Intake Total 590 Output Total 300 500 Balance -300 90 Intake: Oral 590 Output: Urine 300 500 Other: Voiding Method Diaper Diaper Diaper External Catheter External Catheter External Catheter # Voids 1 1 # Bowel Movements 1 - Exam PHYSICAL EXAM: VITAL SIGNS: [As above] GENERAL: Alert and oriented 3, Sitting up in bed, no acute distress HEENT: Normocephalic, Conjunctivae normal. eyes normal. Right-sided facial swelling and tenderness ,decreased NECK: Supple, No JVD. CARDIOVASCULAR: S1, S2 regular. No murmur RESPIRATION: Unlabored, equal air entry. Breath sounds diminished in the bases. ABDOMEN: Soft, nontender . No guarding. no masses palpable.+BS LEGS: No edema. no swelling, no calf tenderness noted. NERVOUS SYSTEM: Cranial N 2-12 grossly normal.No focal deficits. Strength and sensation grossly intact. Skin: Warm and dry - Labs CBC & Chem 7: 05/22/23 05:57 05/22/23 05:57 Labs: Abnormal Lab Results - Last 24 Hours (Table) 05/22/23 05/22/23 05/22/23 Range/Units 12:02 17:04 20:36 POC Glucose (mg/dL) 284 H 301 H 268 H (70-110) mg/dL 05/23/23 Range/Units 07:16 POC Glucose (mg/dL) 262 H (70-110) mg/dL Microbiology - Last 24 Hours (Table) 05/19/23 17:00 Blood Culture - Preliminary Blood Assessment and Plan Assessment: Acute right Parotitis Bilateral lower extremity weakness, falls Elevated troponins, EKG changes ,abnormal stress test, cardiac catheterization pending Bilateral ICA stenosis,discordant findings on carotid ultrasound and CT angiogram head and neck,vascular following. Diabetes mellitus, hemoglobin A1c 6. Hypertension Hyperlipidemia Hypothyroidism History of left breast cancer status post breast lumpectomy and hysterectomy. Plan: Continue on current medication regime ,monitoring and symptomatic treatment.NPO, cardiac cath pending with further evaluation of right ICA for occlusion. Vascular surgery recommending Plavix for ICA stenosis. Maintain IV antibiotics as per ID for parotitis. Hyperglycemic, Levemir insulin increased with close monitoring of Accu-Cheks. The impression and plan of care has been dictated as directed. : I performed a history and examination of this patient, discussed the same with the dictator. I agree with the dictator's note ,documented as a scribe. Any additional findings or plans will be noted.
[2023-05-23 16:26] LABS: Glucose,Whole Blood 328 mg/dL (70-110)
[2023-05-23] MEDS: carvediloL 6.25 MG TAB PO SCH (16:51)
[2023-05-23] MEDS: LATANOPROST 0.005% OPHTH DROPS 2.5 ML BTL BOTH EYES SCH (20:05)
[2023-05-23] MEDS: ZOLPIDEM 5 MG TAB PO SCH (20:06)
[2023-05-23 20:11] LABS: Glucose,Whole Blood 251 mg/dL (70-110)
[2023-05-23] MEDS ORDERED: INSULIN DETEMIR (LEVEMIR) 100 UNIT/ML SYR SQ SCH (21:00)
[2023-05-23] MEDS ORDERED: ATORVASTATIN 10 MG TAB PO SCH (21:00)
[2023-05-24 05:59] LABS: Glucose,Whole Blood 192 mg/dL (70-110)
[2023-05-24] MEDS: AMPICILLIN-SULBACTAM 3 GM in SODIUM CHLORIDE 0.9% 100 ML IVPB SCH ×2 (06:06→12:31)
[2023-05-24] MEDS: carvediloL 6.25 MG TAB PO SCH ×2 (06:07→17:29)
[2023-05-24] MEDS: INSULIN DETEMIR (LEVEMIR) 100 UNIT/ML SYR SQ SCH (06:07)
[2023-05-24] MEDS: INSULIN ASPART (NovoLOG) 100 UNIT/ML VIAL SQ SCH ×3 (06:07→17:29)
[2023-05-24] MEDS: LEVOTHYROXINE 50 MCG TAB PO SCH (06:07)
[2023-05-24] MEDS: MORPHINE SULFATE 4 MG/ML SYRINGE IV PRN (06:16)
[2023-05-24] MEDS: HEPARIN SODIUM,PORCINE 5,000 UNIT/ML 1 ML VIAL SQ SCH (08:48)
[2023-05-24] MEDS: buPROPion XL 150 MG TAB.ER.24H PO SCH (08:48)
[2023-05-24] MEDS: SERTRALINE 100 MG TAB PO SCH (08:48)
[2023-05-24] MEDS: amLODIPine 10 MG TAB PO SCH (08:48)
[2023-05-24] MEDS: FAMOTIDINE 20 MG/2 ML VIAL IV SCH (08:48)
[2023-05-24] MEDS: LORATADINE 10 MG TAB PO SCH (08:48)
[2023-05-24 08:49] VITALS: RESP 18; TEMP 98.5
[2023-05-24] MEDS: ANASTROZOLE 1 MG TAB PO SCH (08:49)
[2023-05-24] MEDS: LOSARTAN 50 MG TAB PO SCH (08:49)
[2023-05-24] MEDS ORDERED: CLOPIDOGREL 75 MG TAB PO SCH (09:00)
[2023-05-24] MEDS ORDERED: hydroCHLOROthiazide 12.5 MG CAP PO SCH (09:00)
[2023-05-24] MEDS ORDERED: ASPIRIN 81 MG PO SCH (09:00)
[2023-05-24 09:03] LABS: African American GFR (CKD) 74 (>60 ml/min/1.73 sqM); Anion Gap 9 mmol/L; Blood Urea Nitrogen 23 mg/dL (7-17); Carbon Dioxide 27 mmol/L (22-30); Chloride 104 mmol/L (98-107); Glucose 181 mg/dL (74-99); Non-African American GFR(CKD) 64 (>60 ml/min/1.73 sqM); Potassium 3.9 mmol/L (3.5-5.1); Sodium 140 mmol/L (137-145)
[2023-05-24 11:51] LABS: Glucose,Whole Blood 228 mg/dL (70-110)
[2023-05-24 12:31] VITALS: BP 149/71; PULSE 54
--- NOTE | 2023-05-24 12:52 | P.PN ---
Subjective HISTORY OF PRESENT ILLNESS: Patient is a pleasant 83-year-old female with significant past medical history of diabetes, hypertension, and history of breast cancer who presented to the emergency department with complaints of weakness and falling. She reports that over the past 3-4 months she has been having increasing falling spells and feels like her legs are weak and give out. She denies feeling dizzy or lightheaded during these episodes. Yesterday she was unable to get up and EMS had to be called. She denies any syncope. Denies any chest pain or pressure. No shortness of breath. She denies any significant family history of heart disease. She was never a smoker, denies alcohol or drug use. Troponin was el evated 0.052, 0.045. EKG shows sinus rhythm with ST depressions, this is a change from prior EKG. 05/21/23 Shortness of breath is the same. Her legs still feel heavy and weak. No chest pain. 05/22 Patient states that she did not sleep last night. She denies having any chest pain or shortness of breath and no dizziness. Echocardiogram has been done and report is pending. Patient is scheduled for Lexiscan stress test today. Blood pressure readings remain elevated and noted that attending has increased amlodipine to 10 mg daily. 05/24/2023 Patient examined this morning at the bedside. Patient is status post cardiac catheterization with stenting of the proximal LAD. Patient was also found to have moderate disease in the RCA and mid LAD. She also underwent right carotid angiogram revealing 80-90% stenosis of internal carotid artery. Patient denies any chest pain or pressure. She denies any shortness of breath. She reports feeling weak and states that she cannot ambulate very well on her own. Echocardiogram completed revealing ejection fraction 50-55%, trace MR, mild TR PHYSICAL EXAM: VITAL SIGNS: Reviewed. GENERAL: Well-developed in no acute distress. NECK: Supple. No JVD or thyromegaly LUNGS: Respirations even and unlabored. Lungs essentially clear to auscultation bilaterally. HEART: Regular rate and rhythm. S1 and S2 heard. EXTREMITIES: Normal range of motion. No clubbing or cyanosis. Peripheral pulses intact. No lower extremity edema ASSESSMENT: Abnormal EKG with mild troponin elevation, status post abnormal MPI, status post cardiac catheterization with stenting of the proximal LAD Diabetes Hypertension History of breast cancer Frequent falls Generalized weakness Severe right internal carotid artery stenosis PLAN: Continue to antiplatelet therapy with aspirin and Plavix Continue high intensity statin Continue additional cardiac medications Vascular surgery following for right ICA stenosis Patient to follow-up next week with Dr. Guaman in the office and can obtain clearance to proceed with vascular surgery at that time Nurse practitioner note has been reviewed by physician. Signing provider agrees with the documented findings, assessment, and plan of care. Objective - Vital Signs Vital signs: Vital Signs Temp 98.5 F 05/24/23 12:00 Pulse 54 L 05/24/23 12:00 Resp 18 05/24/23 12:26 BP 149/71 05/24/23 12:00 Pulse Ox 97 05/24/23 12:00 FiO2 Intake & Output 05/23/23 05/24/23 05/24/23 18:59 06:59 18:59 Intake Total 1180 180 Balance 1180 180 Intake: IV 100 Intake, IV Titration 300 Amount Sodium Chloride 0.9% 1, 300 000 ml In Empty Bag 1 bag @ 1 ML/KG/HR 90.718 mls/ hr IV .Q11H2M [facility] Rx#: [id number] Oral 780 180 Other: Voiding Method Diaper Diaper External Catheter External Catheter # Voids 1 # Bowel Movements 1 - Labs CBC & Chem 7: 05/22/23 05:57 05/24/23 08:09 Labs: Abnormal Lab Results - Last 24 Hours (Table) 05/23/23 05/23/23 05/23/23 Range/Units 12:55 16:24 20:09 BUN (7-17) mg/dL Glucose (74-99) mg/dL POC Glucose (mg/dL) 312 H 328 H 251 H (70-110) mg/dL 05/24/23 05/24/23 05/24/23 Range/Units 05:52 08:09 11:49 BUN 23 H (7-17) mg/dL Glucose 181 H (74-99) mg/dL POC Glucose (mg/dL) 192 H 228 H (70-110) mg/dL
--- NOTE | 2023-05-24 14:38 | P.PN ---
Subjective Progress Note Date: 05/24/23 Principal diagnosis: Carotid stenosis The patient is seen and examined today as a follow-up. Yesterday she underwent cardiac cath with stenting. During the cardiac catheterization the right ICA was visualized reporting 80-90% stenosis. Today she is without any complaints. She denies any focal deficits. She is started on aspirin 81 mg daily, Plavix 75 mg daily and a atorvastatin increased to 80 mg at bedtime. Objective - Vital Signs Vital signs: Vital Signs Temp 98.5 F 05/24/23 08:00 Pulse 64 05/24/23 08:00 Resp 18 05/24/23 08:00 BP 163/55 05/24/23 08:00 Pulse Ox 96 05/24/23 08:00 FiO2 Intake & Output 05/23/23 05/24/23 05/24/23 18:59 06:59 18:59 Intake Total 1180 Balance 1180 Intake: IV 100 Intake, IV Titration 300 Amount Sodium Chloride 0.9% 1, 300 000 ml In Empty Bag 1 bag @ 1 ML/KG/HR 90.718 mls/ hr IV .Q11H2M [facility] Rx#: [id number] Oral 780 Other: Voiding Method Diaper Diaper External Catheter External Catheter # Voids 1 # Bowel Movements 1 - Exam General appearance: The patient is alert, oriented, appears in no acute distress. HET: Head is normocephalic and atraumatic. Neck: Supple. Heart: Regular. Lungs: Equal expansion, normal respiratory effort. Abdomen: Soft, nondistended. Extremities: Normal skin color and turgor. Bilateral lower extremities warm to touch, good capillary refill. Neurological: No focal deficits. Strength and sensation are grossly intact. - Labs CBC & Chem 7: 05/22/23 05:57 05/24/23 08:09 Labs: Abnormal Lab Results - Last 24 Hours (Table) 05/23/23 05/23/23 05/23/23 Range/Units 12:55 16:24 20:09 BUN (7-17) mg/dL Glucose (74-99) mg/dL POC Glucose (mg/dL) 312 H 328 H 251 H (70-110) mg/dL 05/24/23 05/24/23 Range/Units 05:52 08:09 BUN 23 H (7-17) mg/dL Glucose 181 H (74-99) mg/dL POC Glucose (mg/dL) 192 H (70-110) mg/dL Assessment and Plan Assessment: 1. Bilateral Lower extremity weakness with multiple falls 2. Right-sided facial swelling, parotitis 3. Asymptomatic bilateral ICA stenosis. Severe right ICA stenosis 80 and 90%. Left ICA stenosis a70-75%. 4. Abnormal EKG and elevated troponins, abnormal stress test 5. History hypertension 6. History hyperlipidemia 7. Hypothyroidism 8. Diabetes mellitus Plan: 1. CT angiogram head and neck ordered and reviewed by Dr. Rodarte. Patient underwent cardiac catheterization and during that time right ICA was visualized. 2. Lower extremity arterial ultrasound ordered and reviewed, no significant peripheral arterial disease 3. Continue aspirin, Plavix and high-dose statin 4. Patient is cleared from vascular surgery for discharge. Follow-up in the next 1-2 weeks to discuss surgical options for carotid stenosis. Patient will need to follow-up with cardiology and get cardiac clearance. Thank you for this consultation. The impression and plan of care has been dictated as directed. Dr. Nichole. I performed a history and examination of this patient, discussed the same with the dictator. I agree with the dictator's note ,documented as a scribe. Any additional findings or plans will be noted.
--- NOTE | 2023-05-24 14:47 | P.DS ---
Providers Date of admission: 05/19/23 20:13 Expected date of discharge: 05/24/23 Attending physician: Amrit Caputo Consults: 05/19/23 20:13 Consult Physician Routine Consulting Provider: Eric Aguila Consult Reason/Comments: parotitis Do you want consulting provider notified?: Yes 05/20/23 07:19 Consult Physician Routine Consulting Provider: Yuridia Alicia Consult Reason/Comments: parotitis Do you want consulting provider notified?: Yes, Notify in am Consult Physician Urgent Consulting Provider: Hira Anderson Consult Reason/Comments: high troponin, fall Do you want consulting provider notified?: Yes 05/21/23 13:11 Consult Physician Routine Consulting Provider: Florin Rodarte Consult Reason/Comments: carotid artery stenosis Do you want consulting provider notified?: Yes, Notify in am 05/23/23 12:46 Consult Physician Routine Consulting Provider: [facility] Consult Reason/Comments: Post Interventional Patient Do you want consulting provider notified?: Already Contacted Primary care physician: Amrit Caputo Hospital Course: Final Diagnoses: Acute right Parotitis Bilateral lower extremity weakness, falls Elevated troponins, EKG changes ,abnormal stress test, cardiac catheterization Bilateral ICA stenosis,discordant findings on carotid ultrasound and CT angiogram head and neck, follow-up with vascular surgery outpatient Diabetes mellitus, hemoglobin A1c 6. Hypertension Hyperlipidemia Hypothyroidism History of left breast cancer status post breast lumpectomy and hysterectomy. Hospital course:This is a 83-year-old female admitted with multiple medical issues including bilateral lower extremity weakness /multiple falls, bilateral ICA stenosis, elevated troponins with abnormal EKG and abnormal Lexiscan stress test, right-sided parotitis, hypertension, diabetes mellitus multiple medical issues, currently awaiting her cardiac catheterization.NPO. Denies chest pain, palpitations or shortness of breath. Lower extremity ultrasound reported suboptimal due to patient unable to stop moving, mild peripheral arterial vascular disease within bilateral lower extremities. Continues on Unasyn ,Reports decreased right facial pain, afebrile, WBC 9.9, preliminary blood cultures no growth after 72 hours. Creatinine 0.9. Levemir dose increased with close monitoring of blood sugars. Accu-Cheks currently running 180s to 250s. Underwent cardiac catheterization, reporting calcified coronary arteries, severe stenosis in the proximal LAD, moderate disease in the RCA and mid LAD with successful stenting of the proximal LAD, severe right internal carotid artery stenosis. Right carotid angiogram reporting 80-90% stenosis of the internal carotid artery. Echocardiogram report EF 50-55%. Denies chest pain, palpitations or shortness of breath. Reports generalized weakness and difficulty ambulating independently. Significant clinical improvement .Cleared by cardiology for discharge. Patient will require further follow-up with vascular surgery regarding right carotid stenosis, after receiving surgical clearance next week from Dr. Guaman. Patient will be discharged to the subacute rehab today in a stable condition with guarded prognosis pending final DC recommendations /antibiotics and clearance per infectious disease. The impression and plan of care has been dictated as directed. : I performed a history and examination of this patient, discussed the same with the dictator. I agree with the dictator's note ,documented as a scribe. Any additional findings or plans will be noted. Patient Condition at Discharge: Stable Plan - Discharge Summary Discharge Rx Participant: No New Discharge Prescriptions: New Melatonin 6 mg PO HS PRN tab PRN Reason: Insomnia amLODIPine [Norvasc] 10 mg PO DAILY tab Famotidine [Pepcid] 20 mg PO Q24HR tab Insulin Detemir (Levemir) [Levemir] 13 unit SQ BID@0700,2100 each Aspirin 81 mg PO DAILY tab carvediloL [Coreg] 6.25 mg PO BID-W/MEALS tab Atorvastatin [Lipitor] 80 mg PO HS tab Clopidogrel [Plavix] 75 mg PO DAILY tab Continue Losartan/Hydrochlorothiazide [Losartan-Hctz 100-12.5 mg Tab] 1 tab PO DAILY Levothyroxine Sodium [Synthroid] 50 mcg PO DAILY INSULIN LISPRO (HumaLOG) [humaLOG] See Protocol SQ AC-TID Sertraline [Zoloft] 100 mg PO DAILY buPROPion XL [Wellbutrin XL] 150 mg PO DAILY Latanoprost Ophth [Xalatan 0.005%] 1 drop BOTH EYES HS Loratadine [Claritin] 10 mg PO DAILY Anastrozole 1 mg PO DAILY Zolpidem [Ambien] 10 mg PO HS #3 tab Discontinued Simvastatin 20 mg PO HS Melatonin [Melatonin ER] 10 mg PO HS Insulin Glargine,Hum.rec.anlog [Lantus Solostar Pen] 130 units SQ HS Discharge Medication List INSULIN LISPRO (HumaLOG) [humaLOG] See Protocol SQ AC-TID 12/28/16 [History] Levothyroxine Sodium [Synthroid] 50 mcg PO DAILY 12/28/16 [History] Losartan/Hydrochlorothiazide [Losartan-Hctz 100-12.5 mg Tab] 1 tab PO DAILY 12/28/16 [History] Sertraline [Zoloft] 100 mg PO DAILY 03/16/17 [History] Anastrozole 1 mg PO DAILY 05/19/23 [History] Latanoprost Ophth [Xalatan 0.005%] 1 drop BOTH EYES HS 05/19/23 [History] Loratadine [Claritin] 10 mg PO DAILY 05/19/23 [History] buPROPion XL [Wellbutrin XL] 150 mg PO DAILY 05/19/23 [History] Aspirin 81 mg PO DAILY tab 05/24/23 [Rx] Atorvastatin [Lipitor] 80 mg PO HS tab 05/24/23 [Rx] Clopidogrel [Plavix] 75 mg PO DAILY tab 05/24/23 [Rx] Famotidine [Pepcid] 20 mg PO Q24HR tab 05/24/23 [Rx] Insulin Detemir (Levemir) [Levemir] 13 unit SQ BID@0700,2100 each 05/24/23 [Rx] Melatonin 6 mg PO HS PRN tab 05/24/23 [Rx] Zolpidem [Ambien] 10 mg PO HS #3 tab 05/24/23 [Rx] amLODIPine [Norvasc] 10 mg PO DAILY tab 05/24/23 [Rx] carvediloL [Coreg] 6.25 mg PO BID-W/MEALS tab 05/24/23 [Rx] Follow up Appointment(s)/Referral(s): Bruce Guaman MD [STAFF PHYSICIAN] - 1 Week Amrit Caputo DO [Primary Care Provider] - 1 Week (after dc from [facility]) Florin Rodarte DO [STAFF PHYSICIAN] - 1 Week Patient Instructions/Handouts: Dehydration (DC) Activity/Diet/Wound Care/Special Instructions: Jimmie LIMA CBC,BMP in 3 days Discharge Disposition: TRANSFER TO SNF/ECF
[2023-05-24 14:55] VITALS: BMI 35.4
[2023-05-24 16:56] LABS: Glucose,Whole Blood 280 mg/dL (70-110)
[2023-05-24] MEDS ORDERED: INSULIN DETEMIR (LEVEMIR) 100 UNIT/ML SYR SQ SCH (21:00)
[2023-05-25] MEDS ORDERED: FAMOTIDINE 20 MG TAB PO SCH (09:00)
--- NOTE | 2023-05-30 15:14 | P.PN ---
Subjective Progress Note Date: 05/24/23 Principal diagnosis: Right-sided parotitis Patient is a 83-year-old female with a past medical history significant for diabetes mellitus hypertension hyperlipidemia history of left breast cancer patient presenting to the hospital for evaluation of increasing weakness and debility and fall patient also complaining of swelling of the right side of her cheek , patient did have a CT of the chest suspicious for right- sided parotitis. On today's evaluation that is 05/24/2023, the patient continues to be afebrile , the patient is breathing comfortably on room air and denies any shortness of breath, the patient denies any chest pain and no cough or sputum production, car hamm denies abdominal pain and no nausea/vomiting or diarrhea , patient pain to the right side of the face has decreased in intensity, the patient is feeling better no new symptoms Patient did have white count of 9.90 as of yesterday and a creatinine is 0.84, blood culture negative Objective - Vital Signs Vital signs: Vital Signs Temp 98.5 F 05/24/23 08:00 Pulse 64 05/24/23 08:00 Resp 18 05/24/23 08:00 BP 163/55 05/24/23 08:00 Pulse Ox 96 05/24/23 08:00 FiO2 Intake & Output 05/23/23 05/24/23 05/24/23 18:59 06:59 18:59 Intake Total 1180 180 Balance 1180 180 Intake: IV 100 Intake, IV Titration 300 Amount Sodium Chloride 0.9% 1, 300 000 ml In Empty Bag 1 bag @ 1 ML/KG/HR 90.718 mls/ hr IV .Q11H2M [facility] Rx#: [id number] Oral 780 180 Other: Voiding Method Diaper Diaper External Catheter External Catheter # Voids 1 # Bowel Movements 1 - Exam GENERAL DESCRIPTION: An elderly female lying in bed in no distress HEENT: Right-sided facial swelling has decreased in intensity and not as tender RESPIRATORY SYSTEM: Unlabored breathing , clear to auscultation anteriorly HEART: S1 S2 regular rate and rhythm , ABDOMEN: Soft , no tenderness EXTREMITIES: No edema feet - Labs CBC & Chem 7: 05/22/23 05:57 05/24/23 08:09 Labs: Abnormal Lab Results - Last 24 Hours (Table) 05/23/23 05/23/23 05/23/23 Range/Units 12:55 16:24 20:09 BUN (7-17) mg/dL Glucose (74-99) mg/dL POC Glucose (mg/dL) 312 H 328 H 251 H (70-110) mg/dL 05/24/23 05/24/23 05/24/23 Range/Units 05:52 08:09 11:49 BUN 23 H (7-17) mg/dL Glucose 181 H (74-99) mg/dL POC Glucose (mg/dL) 192 H 228 H (70-110) mg/dL Assessment and Plan (1) Parotitis Status: Acute Code(s): K11.20 - SIALOADENITIS, UNSPECIFIED SNOMED Code(s): 19914046 Plan: 1patient with the right-sided parotitis more likely related to oral parrish in this patient with less risk of MRSA or gram-negative infection with no evidence of any abscess on the CT 2Patient has shown clinical improvement and will finish therapy with oral Augmentin 2 weeks on discharge and close outpatient follow-up discuss with NEGOTIATOR for admitting team working on discharge Dictation was produced using [employer] dictation software. please excuse any grammatical, word or spelling errors. Time with Patient: Less than 30
== END 2023-05-24 17:44 | DRG 322 ==
LOC: EC 14:54 → 5NMEDONC 20:13 → 3SCARD 05-23 14:02
PROVIDERS: ADMIT Family Medicine; ATTEND Family Medicine
PROC: B4101ZZ Fluoroscopy of Abdominal Aorta using Low Osmolar Contrast (ICD-10-PCS; principal; 2023-05-23 08:25)
PROC: B2111ZZ Fluoroscopy of Multiple Coronary Arteries using Low Osmolar Contrast (ICD-10-PCS; principal; 2023-05-23 08:25)
PROC: B241ZZ3 Ultrasonography of Multiple Coronary Arteries, Intravascular (ICD-10-PCS; principal; 2023-05-23 08:25)
PROC: 4A023N7 Measurement of Cardiac Sampling and Pressure, Left Heart, Percutaneous Approach (ICD-10-PCS; principal; 2023-05-23 08:25)
PROC: 027034Z Dilation of Coronary Artery, One Artery with Drug-eluting Intraluminal Device, Percutaneous Approach (ICD-10-PCS; principal; 2023-05-23 08:25)
DX: I25.10 Atherosclerotic heart disease of native coronary artery without angina pectoris (principal); I25.84 Coronary atherosclerosis due to calcified coronary lesion; K11.21 Acute sialoadenitis; R29.6 Repeated falls; Z91.81 History of falling; Z20.822 Contact with and (suspected) exposure to COVID-19; R79.89 Other specified abnormal findings of blood chemistry; E10.9 Type 1 diabetes mellitus without complications; I10 Essential (primary) hypertension; E78.5 Hyperlipidemia, unspecified; E03.9 Hypothyroidism, unspecified; F32.A Depression, unspecified; F41.9 Anxiety disorder, unspecified; R94.31 Abnormal electrocardiogram [ECG] [EKG]; G47.00 Insomnia, unspecified; I65.23 Occlusion and stenosis of bilateral carotid arteries; K02.9 Dental caries, unspecified; Z79.02 Long term (current) use of antithrombotics/antiplatelets; Z79.4 Long term (current) use of insulin; Z79.890 Hormone replacement therapy; Z79.899 Other long term (current) drug therapy; Z80.3 Family history of malignant neoplasm of breast; Z85.3 Personal history of malignant neoplasm of breast; Z96.642 Presence of left artificial hip joint
CPT/HCPCS: 36415; 70491; 70496; 70498; 71045; 73502; 78452; 80048; 80053; 82150; 83036; 83690; 83735; 83880; 84100; 84484; 85025; 85610; 85730; 86140; 86735; 87040; 87636; 92978; 93005; 93017; 93306; 93458; 93880; 93923; 96365; 96375; 99285

== ENCOUNTER 2023-08-04 05:47 | Inpatient (IN) | payer MEDICARE, OTHER ==
[2023-08-02 13:50] VITALS: BMI 37.2
[2023-08-04] MEDS: SODIUM CHLORIDE 0.9% 1,000 ML IV ONE (06:23)
[2023-08-04 06:24] LABS: Glucose,Whole Blood 191 mg/dL (70-110)
[2023-08-04 06:54] LABS: Basophils # (A) 0.1 k/uL (0-0.2); Basophils % (A) 1 %; Eosinophils # (A) 0.3 k/uL (0-0.7); Eosinophils % (A) 3 %; HCT 39.1 % (34.0-46.0); HGB 13.5 gm/dL (11.4-16.0); Lymphocytes # (A) 2.6 k/uL (1.0-4.8); Lymphocytes % (A) 27 %; MCHC 34.5 g/dL (31.0-37.0); MCV 81.2 fL (80.0-100.0); Mean Platelet Volume 7.9; Monocytes # (A) 0.7 k/uL (0-1.0); Monocytes % (A) 7 %; Neutrophils # (A) 5.8 k/uL (1.3-7.7); Neutrophils % (A) 60 %; Platelet Count 178 k/uL (150-450); RBC 4.81 m/uL (3.80-5.40); WBC 9.6 k/uL (3.8-10.6)
[2023-08-04] MEDS: SODIUM CHLORIDE 0.9% 1,000 ML in EMPTY BAG 1 BAG IV ONE (07:00)
[2023-08-04] MEDS: CLOPIDOGREL 75 MG TAB PO PRN (07:00)
[2023-08-04] MEDS: ASPIRIN 81 MG PO PRN (07:00)
[2023-08-04 07:09] LABS: African American GFR (CKD) 58 (>60 ml/min/1.73 sqM); Anion Gap 10 mmol/L; Blood Urea Nitrogen 25 mg/dL (7-17); Calcium 9.2 mg/dL (8.4-10.2); Carbon Dioxide 27 mmol/L (22-30); Chloride 103 mmol/L (98-107); Glucose 191 mg/dL (74-99); Non-African American GFR(CKD) 50 (>60 ml/min/1.73 sqM); Potassium 4.5 mmol/L (3.5-5.1); Sodium 140 mmol/L (137-145)
[2023-08-04] MEDS ORDERED: HEPARIN SODIUM,PORCINE 10,000 UNIT/ML 1 ML VIAL ONE (07:45)
[2023-08-04] MEDS ORDERED: DEXMEDETOMIDINE/0.9% NACL(PMX) 400 MCG/100 ML IV ONE (07:45)
[2023-08-04] MEDS ORDERED: fentaNYL (PF) 50 MCG/ML 2 ML AMP ONE (07:45)
[2023-08-04] MEDS ORDERED: ePHEDrine 50 MG/ML 1 ML VIAL ONE (07:45)
[2023-08-04] MEDS ORDERED: PROTAMINE SULFATE 10 MG/ML 5 ML VIAL ONE (07:45)
[2023-08-04] MEDS ORDERED: MIDAZOLAM 2 MG/2 ML VIAL ONE (07:45)
[2023-08-04] MEDS ORDERED: GLYCOPYRROLATE 0.2 MG/ML 2 ML VIAL ONE (07:45)
--- NOTE | 2023-08-04 07:48 | P.GSHP ---
History of Present Illness H&P Date: 08/04/23 Chief Complaint: carotid stenosis 83 year old female with history of hospitalization for weakness who had a complete workup for stroke and was found to have severe stenosis greater than 90% on the right and 70% on the left. She was also taken for a coronary angiogram and stented. After discussion with cardiology and the patient, recommendation for TCAR was made and if possible to do without intubation. She denies any fevers, chills, chest pain or shortness of breath. - Review of Systems All systems: negative (what is mentioned in the PMH or HPI) Past Medical History Past Medical History: Cancer, Diabetes Mellitus, Hearing Disorder / Deafness, Hyperlipidemia, Hypertension, Osteoarthritis (OA), Thyroid Disorder Additional Past Medical History / Comment(s): Slight hearing trouble. Currently in wheelchair, unable to stand or walk. Hx left breast cancer. "Bad right hip, may need replacement." History of Any Multi-Drug Resistant Organisms: None Reported Past Surgical History: Breast Surgery, Hysterectomy, Joint Replacement, Orthopedic Surgery Additional Past Surgical History / Comment(s): Left breast biopsy X3, right breast biopsy X2, ductogram, ORIF right lower leg with plate, total left hip replacement, left breast lumpectomy. Past Anesthesia/Blood Transfusion Reactions: No Reported Reaction Past Psychological History: Anxiety, Depression Smoking Status: Never smoker Past Alcohol Use History: None Reported Past Drug Use History: None Reported - Past Family History Sister(s) Family Medical History: Cancer Additional Family Medical History / Comment(s): BREAST CANCER. Medications and Allergies Home Medications Medication Instructions Recorded Confirmed Type INSULIN LISPRO (HumaLOG) [humaLOG] See Protocol SQ AC-TID 12/28/16 08/04/23 History Levothyroxine Sodium [Synthroid] 50 mcg PO DAILY 12/28/16 08/04/23 History Losartan/Hydrochlorothiazide 1 tab PO DAILY 12/28/16 08/04/23 History [Losartan-Hctz 100-12.5 mg Tab] Sertraline [Zoloft] 100 mg PO DAILY 03/16/17 08/04/23 History Anastrozole 1 mg PO DAILY 05/19/23 08/04/23 History Latanoprost Ophth [Xalatan 0.005%] 1 drop BOTH EYES HS 05/19/23 08/04/23 History Loratadine [Claritin] 10 mg PO DAILY 05/19/23 08/04/23 History buPROPion XL [Wellbutrin XL] 150 mg PO DAILY 05/19/23 08/04/23 History Aspirin 81 mg PO DAILY tab 05/24/23 08/04/23 Rx Atorvastatin [Lipitor] 80 mg PO HS tab 05/24/23 08/04/23 Rx Clopidogrel [Plavix] 75 mg PO DAILY tab 05/24/23 08/04/23 Rx Famotidine [Pepcid] 20 mg PO Q24HR tab 05/24/23 08/04/23 Rx Melatonin 6 mg PO HS PRN tab 05/24/23 08/04/23 Rx amLODIPine [Norvasc] 10 mg PO DAILY tab 05/24/23 08/04/23 Rx carvediloL [Coreg] 6.25 mg PO BID-W/MEALS tab 05/24/23 08/04/23 Rx Caldesone (Unk) 1 applic TOPICAL DAILY PRN 08/03/23 08/04/23 History HYDROcodone/APAP 5-325MG [[place] 1 tab PO Q6H PRN 08/03/23 08/04/23 History 5-325] Insulin Detemir (Levemir) [Levemir] 20 unit SQ BID@0700,2100 08/03/23 08/04/23 History Magnesium Hydroxide [Milk of 30 ml PO ONCE PRN 08/03/23 08/04/23 History Magnesia Concentrate] Meloxicam [Mobic] 1 tab PO DAILY 08/03/23 08/04/23 History Na Phos,M-B/Na Phos,Di-Ba [Fleet 1 dose RECTAL ONCE PRN 08/03/23 08/04/23 History Adult] Nystatin 100,000 Unit/gm Powd 1 applic TOPICAL TID PRN 08/03/23 08/04/23 History [Mycostatin Powder] bisacodyL [Dulcolax] 10 mg RECTAL ONCE PRN 08/03/23 08/04/23 History Allergies Allergy/AdvReac Type Severity Reaction Status Date / Time No Known Allergies Allergy Verified 08/02/23 13:25 Surgical - Exam Vital Signs Temp Pulse Resp BP Pulse Ox 97.6 F 61 16 164/73 98 08/04/23 06:51 08/04/23 06:51 08/04/23 06:51 08/04/23 06:51 08/04/23 06:51 - General well developed, well nourished, no distress, obese - Eyes PERRL, normal ocular movement - ENT normal pinna, normal nares - Neck no masses - Respiratory normal expansion - Cardiovascular Rhythm: regular - Abdomen Abdomen: soft, non tender - Neurologic normal sensation - Psychiatric oriented to time, oriented to person, speech is normal diminished dp and pt pulses bilaterally. no focal deficits. Tongue midline. equal outsole caser strength Results - Labs 08/04/23 06:36 08/04/23 06:36 Abnormal Lab Results - Last 24 Hours (Table) 08/04/23 08/04/23 Range/Units 06:20 06:36 BUN 25 H (7-17) mg/dL Glucose 191 H (74-99) mg/dL POC Glucose (mg/dL) 191 H (70-110) mg/dL Diabetes panel 08/04/23 Range/Units 06:36 Sodium 140 (137-145) mmol/L Potassium 4.5 (3.5-5.1) mmol/L Chloride 103 (98-107) mmol/L Carbon Dioxide 27 (22-30) mmol/L BUN 25 H (7-17) mg/dL Creatinine 1.03 (0.52-1.04) mg/dL Glucose 191 H (74-99) mg/dL Calcium 9.2 (8.4-10.2) mg/dL Calcium panel 08/04/23 Range/Units 06:36 Calcium 9.2 (8.4-10.2) mg/dL Pituitary panel 08/04/23 Range/Units 06:36 Sodium 140 (137-145) mmol/L Potassium 4.5 (3.5-5.1) mmol/L Chloride 103 (98-107) mmol/L Carbon Dioxide 27 (22-30) mmol/L BUN 25 H (7-17) mg/dL Creatinine 1.03 (0.52-1.04) mg/dL Glucose 191 H (74-99) mg/dL Calcium 9.2 (8.4-10.2) mg/dL Adrenal panel 08/04/23 Range/Units 06:36 Sodium 140 (137-145) mmol/L Potassium 4.5 (3.5-5.1) mmol/L Chloride 103 (98-107) mmol/L Carbon Dioxide 27 (22-30) mmol/L BUN 25 H (7-17) mg/dL Creatinine 1.03 (0.52-1.04) mg/dL Glucose 191 H (74-99) mg/dL Calcium 9.2 (8.4-10.2) mg/dL Assessment and Plan Assessment: Bilateral internal carotid artery stenosis AMARILYS stenosis greater than 90% Morbid obesity CAD with history of coronary stents Plan: After review of imaging with the patient and her family a long discussion was had and all possible options were discussed including open carotid endarterectomy vs. stenting. Due to her co-morbidities, recent coronary stenting the recommendation was made for right TCAR which would be less of a medical and surgical risk for the patient. After shared decision making with the family and patient the right TCAR was chosen to be performed.
--- NOTE | 2023-08-04 07:52 | P.ANPRN ---
Procedure Note - Anesthesia - Invasive Line Right Arterial Line Time Out Performed: Yes Date of Procedure: 08/04/23 Time of Procedure: 07:20 Location of Patient: PreOp Preparation: Sterile Prep Arterial Line Location: Radial Ultrasound Used: No Needle Guage: 22 Narrative: Central line placement per sterile protocol utilized.
[2023-08-04] MEDS: GELATIN SPONGE,ABSORB (LARGE) 1 EACH SPONGE MISCELLANE ONE (08:00)
[2023-08-04] MEDS: HEPARIN SODIUM,PORCINE (1 ML) 2,500 UNIT in SODIUM CHLORIDE 0.9% 250 ML IRRIGATION ONE (08:04)
[2023-08-04] MEDS: ceFAZolin 2 GM in SODIUM CHLORIDE 0.9% 500 ML 500 ML IRRIGATION PRN (08:04)
[2023-08-04] MEDS: THROMBIN (BOVINE) 5,000 UNIT VIAL MISCELLANE ONE (08:04)
[2023-08-04] MEDS: LIDOCAINE 1% INJ 10MG/ML (20 ML MDV) SQ ONE (08:10)
[2023-08-04] MEDS: DEXMEDETOMIDINE/0.9% NACL(PMX) 400 MCG in EMPTY BAG 1 BAG IV SCH (08:15)
[2023-08-04] MEDS ORDERED: RX INFO: IV CONTRAST WAS GIVEN 1 EACH MISC MISCELLANE PRN (09:00)
[2023-08-04] MEDS: IOPAMIDOL-370 100ML BTL INJ ONE (09:23)
--- NOTE | 2023-08-04 09:51 | P.OP ---
Date of Procedure: 08/04/23 Preoperative Diagnosis: Right ICA stenosis >90% Postoperative Diagnosis: Same Procedure(s) Performed: Right Transcarotid artery revascularization with stenting Ultrasound guided left common femoral vein central venous catheter Anesthesia: MAC Surgeon: Florin Rodarte Estimated Blood Loss (ml): 20 Pathology: none sent Condition: stable Disposition: PACU Indications for Procedure: 83 year old female with history of severe right ICA stenosis presents to the hospital for elective right TCAR. Description of Procedure: Operative narrative: After written and informed consent was obtained the patient all risks benefits and competitions were described the patient was brought to the Vacuum Drier Tender and laid in a supine position. The area of the neck and groins were prepped and draped in usual sterile fashion after appropriate anesthetic was performed per the anesthesiologist. A timeout was performed in normal fashion and antibiotics were administered prior to incision. Utilizing ultrasound the right common carotid artery was located and a transverse incision was created overlying this area. Dissection was carried between the sternocleidomastoid musculature down to the carotid sheath. The sheath was then incised and the common carotid artery was located and dissected free in a circumferential manner and controlled with umbilical tape. Once controlled attention was placed down to the common femoral vein on the left and utilizing ultrasound the vein was cannulated and the 8-Colombian sheath was placed in normal fashion. Attention was then placed back to the carotid artery and the patient was administered heparin and followed with ACTs and redosed as needed for ACT above 200. A pursestring suture was then placed at the common carotid artery with 6-0 Prolene and utilizing a multipurpose needle the common carotid artery was accessed and wire was placed followed by a 4-Colombian sheath. Carotid angiogram was then obtained demonstrating significant stenosis >70% at the bifurcation and internal carotid artery. Stiff wire was then placed followed by the 8 [place] sheath. Flow reversal was then established with the enroute LINE ERECTOR APPRENTICE system after patient's blood pressure was increased to above 160, heart rate above 60 and ACT above 250. 014 wire was then placed across the lesion followed by a 5 x 30 mm balloon and balloon angioplasty was performed followed by an 8 x 40 mm [place] stent. Postdilatation was not performed and final angiogram was obtained demonstrating complete resolution of the stenosis. All guidewires and catheters were removed and the sheath was removed and the arteriotomy was secured with the previously placed pursestring suture. Hemostasis was assured with Gelfoam and thrombin. The femoral sheath was also removed and pressure was held for hemostasis. The patient all procedure well and was moving all extremities and following commands. She was then sent to PACU for recovery.
[2023-08-04] MEDS ORDERED: ATROPINE SULFATE 0.1 MG/ML 10ML SYRINGE IV PRN (09:52)
[2023-08-04] MEDS ORDERED: MAG HYDROX/AL HYDROX/SIMETH 30 ML CUP PO PRN (09:52)
[2023-08-04 10:37] LABS: Glucose,Whole Blood 193 mg/dL (70-110)
[2023-08-04] MEDS: HYDROcodone/APAP 5-325MG 1 EACH TAB PO ONE (13:00)
[2023-08-04] MEDS: HYDROcodone/APAP 5-325MG 1 EACH TAB ONE (13:24)
--- NOTE | 2023-08-04 15:59 | IR ---
EXAMINATION TYPE: IR stent intravas non coronary DATE OF EXAM: 08/04/2023 FLUOROSCOPY RIGHT CAROTID STENOSIS, 4.4MIN FLUORO. 138 images provided. DAP not provided.
[2023-08-04 16:21] LABS: Glucose,Whole Blood 363 mg/dL (70-110)
[2023-08-04 16:22] LABS: Glucose,Whole Blood 186 mg/dL (70-110)
[2023-08-04] MEDS ORDERED: DEXTROSE 50% SYRINGE 50 ML IVP PRN ×2 (17:37)
[2023-08-04] MEDS ORDERED: [UNRECOGNIZED DRUG - OTHER] TOPICAL PRN (20:38)
[2023-08-04] MEDS ORDERED: MAGNESIUM HYDROXIDE 2,400 MG/30 ML CUP PO PRN (20:38)
[2023-08-04] MEDS: ATORVASTATIN 40 MG TAB PO SCH (20:38)
[2023-08-04] MEDS ORDERED: NYSTATIN 100,000 UNIT/GM POWD 15 GM TOPICAL PRN (20:38)
[2023-08-04] MEDS ORDERED: NA PHOS,M-B/NA PHOS,DI-BA 133 ML ENEMA RECTAL PRN (20:38)
[2023-08-04] MEDS: HYDROcodone/APAP 5-325MG 1 EACH TAB PO PRN (20:39)
[2023-08-04] MEDS ORDERED: ONDANSETRON 4 MG/2 ML VIAL IVP PRN (20:41)
[2023-08-04 20:50] LABS: Glucose,Whole Blood 247 mg/dL (70-110)
[2023-08-04] MEDS: carvediloL 6.25 MG TAB PO SCH (21:22)
[2023-08-04] MEDS: INSULIN ASPART (NovoLOG) 100 UNIT/ML VIAL SQ SCH (21:22)
[2023-08-04] MEDS: LATANOPROST 0.005% OPHTH DROPS 2.5 ML BTL BOTH EYES SCH (22:18)
[2023-08-04] MEDS: INSULIN DETEMIR (LEVEMIR) 100 UNIT/ML SYR SQ SCH (22:18)
[2023-08-04] MEDS: ALPRAZolam 0.25 MG TAB PO PRN (22:34)
[2023-08-05 06:09] LABS: Glucose,Whole Blood 169 mg/dL (70-110)
[2023-08-05] MEDS: LEVOTHYROXINE 50 MCG TAB PO SCH (06:36)
[2023-08-05] MEDS: PANTOPRAZOLE 40 MG TABLET PO SCH (06:36)
[2023-08-05] MEDS: LOSARTAN 50 MG TAB PO SCH (08:24)
[2023-08-05] MEDS: SERTRALINE 100 MG TAB PO SCH (08:24)
[2023-08-05] MEDS: ASPIRIN 81 MG PO SCH (08:24)
[2023-08-05] MEDS: hydroCHLOROthiazide 12.5 MG CAP PO SCH (08:24)
[2023-08-05] MEDS: LORATADINE 10 MG TAB PO SCH (08:24)
[2023-08-05] MEDS: CLOPIDOGREL 75 MG TAB PO SCH (08:24)
[2023-08-05] MEDS: buPROPion XL 150 MG TAB.ER.24H PO SCH (08:25)
[2023-08-05] MEDS: ANASTROZOLE 1 MG TAB PO SCH (08:25)
[2023-08-05] MEDS: amLODIPine 10 MG TAB PO SCH (08:25)
[2023-08-05] MEDS ORDERED: NON FORMULARY DRUG (Losartan/Hydrochlorothiazide [Losartan-Hctz 100-12.5 Mg Tab] 1 EACH Ta PO SCH (09:00)
[2023-08-05 11:40] LABS: Glucose,Whole Blood 192 mg/dL (70-110)
[2023-08-05 12:53] LABS: Basophils # (A) 0.1 k/uL (0-0.2); Basophils % (A) 1 %; Eosinophils # (A) 0.2 k/uL (0-0.7); Eosinophils % (A) 2 %; HCT 36.2 % (34.0-46.0); HGB 12.6 gm/dL (11.4-16.0); Lymphocytes # (A) 2.3 k/uL (1.0-4.8); Lymphocytes % (A) 25 %; MCH 28.4 pg (25.0-35.0); MCHC 34.8 g/dL (31.0-37.0); MCV 81.5 fL (80.0-100.0); Mean Platelet Volume 8.1; Monocytes # (A) 0.7 k/uL (0-1.0); Monocytes % (A) 8 %; Neutrophils # (A) 5.6 k/uL (1.3-7.7); Neutrophils % (A) 63 %; Platelet Count 164 k/uL (150-450); RBC 4.44 m/uL (3.80-5.40); RDW 14.1 % (11.5-15.5); WBC 8.9 k/uL (3.8-10.6)
[2023-08-05 13:05] LABS: African American GFR (CKD) 63 (>60 ml/min/1.73 sqM); Anion Gap 11 mmol/L; Blood Urea Nitrogen 21 mg/dL (7-17); Calcium 8.9 mg/dL (8.4-10.2); Carbon Dioxide 24 mmol/L (22-30); Chloride 103 mmol/L (98-107); Glucose 178 mg/dL (74-99); Non-African American GFR(CKD) 55 (>60 ml/min/1.73 sqM); Sodium 138 mmol/L (137-145)
--- NOTE | 2023-08-05 15:25 | P.DS ---
Providers Date of admission: 08/04/23 05:47 Expected date of discharge: 08/06/23 Attending physician: Florin Rodarte DO Consults: 08/04/23 09:52 Consult Physician Routine Consulting Provider: Amrit Caputo Consult Reason/Comments: medical management Do you want consulting provider notified?: Yes Primary care physician: [facility] Hospital Course: Abena is a an 83-year-old female who presented to the hospital on 08/04/2093 and underwent a right transmetatarsal carotid artery revascularization and stent. She tolerated this procedure well and has been convalescing. She is able to eat without issue, she denies any respiratory issues. Her incision is clean and dry, there is some mild swelling with ecchymosis at the area but no respiratory or esophageal compromise therefore no need for intervention her groin site appears clean and dry. Her blood pressures have been maintained on her home medications. The plan is for discharge back to her assisted facility en able. She is in stable condition for discharge. Questions are answered and she seemingly understands. Plan - Discharge Summary Discharge Rx Participant: No New Discharge Prescriptions: No Action Losartan/Hydrochlorothiazide [Losartan-Hctz 100-12.5 mg Tab] 1 tab PO DAILY Levothyroxine Sodium [Synthroid] 50 mcg PO DAILY INSULIN LISPRO (HumaLOG) [humaLOG] See Protocol SQ AC-TID Sertraline [Zoloft] 100 mg PO DAILY buPROPion XL [Wellbutrin XL] 150 mg PO DAILY Latanoprost Ophth [Xalatan 0.005%] 1 drop BOTH EYES HS Melatonin 6 mg PO HS PRN tab PRN Reason: Insomnia amLODIPine [Norvasc] 10 mg PO DAILY tab Famotidine [Pepcid] 20 mg PO Q24HR tab Nystatin 100,000 Unit/gm Powd [Mycostatin Powder] 1 applic TOPICAL TID PRN PRN Reason: excoriation Magnesium Hydroxide [Milk of Magnesia Concentrate] 30 ml PO ONCE PRN PRN Reason: Constipation Caldesone (Unk) 1 applic TOPICAL DAILY PRN PRN Reason: excriation Loratadine [Claritin] 10 mg PO DAILY Anastrozole 1 mg PO DAILY Aspirin 81 mg PO DAILY tab carvediloL [Coreg] 6.25 mg PO BID-W/MEALS tab Atorvastatin [Lipitor] 80 mg PO HS tab Clopidogrel [Plavix] 75 mg PO DAILY tab Insulin Detemir (Levemir) [Levemir] 20 unit SQ BID@0700,2100 HYDROcodone/APAP 5-325MG [[place] 5-325] 1 tab PO Q6H PRN PRN Reason: Pain Meloxicam [Mobic] 1 tab PO DAILY Na Phos,M-B/Na Phos,Di-Ba [Fleet Adult] 1 dose RECTAL ONCE PRN PRN Reason: Constipation bisacodyL [Dulcolax] 10 mg RECTAL ONCE PRN PRN Reason: Constipation Discharge Medication List INSULIN LISPRO (HumaLOG) [humaLOG] See Protocol SQ AC-TID 12/28/16 [History] Levothyroxine Sodium [Synthroid] 50 mcg PO DAILY 12/28/16 [History] Losartan/Hydrochlorothiazide [Losartan-Hctz 100-12.5 mg Tab] 1 tab PO DAILY 12/28/16 [History] Sertraline [Zoloft] 100 mg PO DAILY 03/16/17 [History] Anastrozole 1 mg PO DAILY 05/19/23 [History] Latanoprost Ophth [Xalatan 0.005%] 1 drop BOTH EYES HS 05/19/23 [History] Loratadine [Claritin] 10 mg PO DAILY 05/19/23 [History] buPROPion XL [Wellbutrin XL] 150 mg PO DAILY 05/19/23 [History] Aspirin 81 mg PO DAILY tab 05/24/23 [Rx] Atorvastatin [Lipitor] 80 mg PO HS tab 05/24/23 [Rx] Clopidogrel [Plavix] 75 mg PO DAILY tab 05/24/23 [Rx] Famotidine [Pepcid] 20 mg PO Q24HR tab 05/24/23 [Rx] Melatonin 6 mg PO HS PRN tab 05/24/23 [Rx] amLODIPine [Norvasc] 10 mg PO DAILY tab 05/24/23 [Rx] carvediloL [Coreg] 6.25 mg PO BID-W/MEALS tab 05/24/23 [Rx] Caldesone (Unk) 1 applic TOPICAL DAILY PRN 08/03/23 [History] HYDROcodone/APAP 5-325MG [[place] 5-325] 1 tab PO Q6H PRN 08/03/23 [History] Insulin Detemir (Levemir) [Levemir] 20 unit SQ BID@0700,2100 08/03/23 [History] Magnesium Hydroxide [Milk of Magnesia Concentrate] 30 ml PO ONCE PRN 08/03/23 [History] Meloxicam [Mobic] 1 tab PO DAILY 08/03/23 [History] Na Phos,M-B/Na Phos,Di-Ba [Fleet Adult] 1 dose RECTAL ONCE PRN 08/03/23 [History] Nystatin 100,000 Unit/gm Powd [Mycostatin Powder] 1 applic TOPICAL TID PRN 08/03/23 [History] bisacodyL [Dulcolax] 10 mg RECTAL ONCE PRN 08/03/23 [History] Follow up Appointment(s)/Referral(s): Florin Rodarte DO [STAFF PHYSICIAN] - 2 Weeks Activity/Diet/Wound Care/Special Instructions: May return to breathing as previous. Continue home medications including Plavix and aspirin. Follow-up in 2 weeks. Discharge Disposition: TRANSFER TO SNF/ECF
[2023-08-05 16:10] LABS: Glucose,Whole Blood 239 mg/dL (70-110)
[2023-08-05 16:10] LABS: Glucose,Whole Blood 235 mg/dL (70-110)
--- NOTE | 2023-08-05 18:20 | P.CONS ---
History of Present Illness - History of Present Illness This is a pleasant 83 years old female with past medical history of Diabetes Mellitus, Hyperlipidemia, Hypertension, hypothyroidism, left breast cancer status post hysterectomy and left breast lumpectomy, Anxiety, Depression, Patient was admitted to the hospital 2 months ago for acute peritonitis and CT of the neck showing right parotid g with possible infection and possible internal carotid artery stenosisland hyperdensity. Patient was admitted by vascular surgery team for her right internal carotid artery stenosis 90% status post right revascularization with stenting. Also she has left internal carotid artery stenosis of 70% and history of coronary artery disease status post stent on 05/23/2023 and currently on dual antiplatelet therapy Patient currently lying in bed comfortable denied chest pain or dyspnea. Right neck wound looks closed with dressing in a Place. No headache dizziness weakness numbness or tingling. No change in urine or bowel habits. Patient vitals stable and blood pressure 1:30/70, heart rate 70. She has normal CBC and BMP, glucose controlled Review of Systems Review of systems CONSTITUTIONAL: No fever, no malaise, no fatigue. HEENT: No recent visual problems or hearing problems. Denied any sore throat. CARDIOVASCULAR: No orthopnea, PND, no palpitations, no syncope. PULMONARY: No shortness of breath, no cough, no hemoptysis. GASTROINTESTINAL: No diarrhea, no nausea, no vomiting, no abdominal pain. Normoactive bowel sounds. NEUROLOGICAL: No headaches, no weakness, no numbness. HEMATOLOGICAL: Denies any bleeding or petechiae. GENITOURINARY: Denies any burning micturition, frequency, or urgency. MUSCULOSKELETAL/RHEUMATOLOGICAL: Denies any joint pain, swelling, or any muscle pain. ENDOCRINE: Denies any polyuria or polydipsia. Past Medical History Past Medical History: Cancer, Diabetes Mellitus, Hearing Disorder / Deafness, Hyperlipidemia, Hypertension, Osteoarthritis (OA), Thyroid Disorder Additional Past Medical History / Comment(s): Slight hearing trouble. Currently in wheelchair, unable to stand or walk. Hx left breast cancer. "Bad right hip, may need replacement." History of Any Multi-Drug Resistant Organisms: None Reported Past Surgical History: Breast Surgery, Hysterectomy, Joint Replacement, Orthopedic Surgery Additional Past Surgical History / Comment(s): Left breast biopsy X3, right breast biopsy X2, ductogram, ORIF right lower leg with plate, total left hip replacement, left breast lumpectomy. Past Anesthesia/Blood Transfusion Reactions: No Reported Reaction Past Psychological History: Anxiety, Depression Smoking Status: Never smoker Past Alcohol Use History: None Reported Past Drug Use History: None Reported - Past Family History Sister(s) Family Medical History: Cancer Additional Family Medical History / Comment(s): BREAST CANCER. Medications and Allergies Home Medications Medication Instructions Recorded Confirmed Type INSULIN LISPRO (HumaLOG) [humaLOG] See Protocol SQ AC-TID 12/28/16 08/04/23 History Levothyroxine Sodium [Synthroid] 50 mcg PO DAILY 12/28/16 08/04/23 History Losartan/Hydrochlorothiazide 1 tab PO DAILY 12/28/16 08/04/23 History [Losartan-Hctz 100-12.5 mg Tab] Sertraline [Zoloft] 100 mg PO DAILY 03/16/17 08/04/23 History Anastrozole 1 mg PO DAILY 05/19/23 08/04/23 History Latanoprost Ophth [Xalatan 0.005%] 1 drop BOTH EYES HS 05/19/23 08/04/23 History Loratadine [Claritin] 10 mg PO DAILY 05/19/23 08/04/23 History buPROPion XL [Wellbutrin XL] 150 mg PO DAILY 05/19/23 08/04/23 History Aspirin 81 mg PO DAILY tab 05/24/23 08/04/23 Rx Atorvastatin [Lipitor] 80 mg PO HS tab 05/24/23 08/04/23 Rx Clopidogrel [Plavix] 75 mg PO DAILY tab 05/24/23 08/04/23 Rx Famotidine [Pepcid] 20 mg PO Q24HR tab 05/24/23 08/04/23 Rx Melatonin 6 mg PO HS PRN tab 05/24/23 08/04/23 Rx amLODIPine [Norvasc] 10 mg PO DAILY tab 05/24/23 08/04/23 Rx carvediloL [Coreg] 6.25 mg PO BID-W/MEALS tab 05/24/23 08/04/23 Rx Caldesone (Unk) 1 applic TOPICAL DAILY PRN 08/03/23 08/04/23 History HYDROcodone/APAP 5-325MG [[place] 1 tab PO Q6H PRN 08/03/23 08/04/23 History 5-325] Insulin Detemir (Levemir) [Levemir] 20 unit SQ BID@0700,2100 08/03/23 08/04/23 History Magnesium Hydroxide [Milk of 30 ml PO ONCE PRN 08/03/23 08/04/23 History Magnesia Concentrate] Meloxicam [Mobic] 1 tab PO DAILY 08/03/23 08/04/23 History Na Phos,M-B/Na Phos,Di-Ba [Fleet 1 dose RECTAL ONCE PRN 08/03/23 08/04/23 History Adult] Nystatin 100,000 Unit/gm Powd 1 applic TOPICAL TID PRN 08/03/23 08/04/23 History [Mycostatin Powder] bisacodyL [Dulcolax] 10 mg RECTAL ONCE PRN 08/03/23 08/04/23 History Allergies Allergy/AdvReac Type Severity Reaction Status Date / Time No Known Allergies Allergy Verified 08/02/23 13:25 Physical Exam Vitals: Vital Signs Temp Pulse Resp BP Pulse Ox 08/05/23 11:32 97.6 F 67 20 138/62 92 L 08/05/23 08:00 97.8 F 62 20 132/65 94 L 08/05/23 04:00 97.6 F 69 18 149/66 94 L 08/05/23 01:04 84 16 08/05/23 00:49 142/62 08/04/23 23:45 97.9 F 84 18 175/68 100 08/04/23 19:40 98.0 F 78 18 173/70 97 08/04/23 16:00 98.2 F 72 18 127/72 97 Intake and Output 08/04/23 08/05/23 08/05/23 22:59 06:59 14:59 Intake Total 130 630 Output Total 100 550 Balance 30 -550 630 Intake: IV 20 Invasive Line 2 10 Invasive Line 3 10 Oral 110 630 Output: Urine 100 550 Other: Voiding Method Incontinent Incontinent Incontinent External Catheter External Catheter External Catheter # Voids 1 -GENERAL: The patient is alert and oriented x3, not in any acute distress. These -HEENT: Pupils are round and equally reacting to light. EOMI. No scleral icterus. No conjunctival pallor. Normocephalic, atraumatic. No pharyngeal e rythema. No thyromegaly. Right neck wound is healing with dressing in place CARDIOVASCULAR: S1 and S2 present. No murmurs, rubs, or gallops. PULMONARY: Chest is clear to auscultation, no wheezing , no crackles. ABDOMEN: Soft, nontender, nondistended, normoactive bowel sounds. No palpable organomegaly. MUSCULOSKELETAL: No joint swelling or deformity. EXTREMITIES: No cyanosis, clubbing, or pedal edema. NEUROLOGICAL: Gross neurological examination did not reveal any focal deficits. SKIN: No rashes. no petechiae. Results CBC & Chem 7: 08/05/23 12:05 08/05/23 12:05 Labs: Abnormal Lab Results - Last 24 Hours (Table) 08/04/23 08/04/23 08/04/23 Range/Units 16:17 16:18 20:44 BUN (7-17) mg/dL Glucose (74-99) mg/dL POC Glucose (mg/dL) 363 H 186 H 247 H (70-110) mg/dL 08/05/23 08/05/23 08/05/23 Range/Units 06:07 11:38 12:05 BUN 21 H (7-17) mg/dL Glucose 178 H (74-99) mg/dL POC Glucose (mg/dL) 169 H 192 H (70-110) mg/dL Assessment and Plan Assessment: Right ICA stenosis 90% status post right artery revascularization with stenting Left internal carotid artery stenosis 70% History of coronary arteries disease status post stent Hypertension Diabetes mellitus Anxiety and depression, not an active issue Obesity with BMI of 37.2 Plan: Continue with dual antiplatelet therapy of aspirin or Plavix Vascular surgery primary team on the case Pain controlled Continue with GI and DVT prophylaxis Further recommendation per clinical course We recommend patient follow up with PCP Dr. Spann in 1 week after discharge Thank you for consulting us we will continue following up with the
[2023-08-05 21:04] LABS: Glucose,Whole Blood 216 mg/dL (70-110)
[2023-08-05] MEDS: ATORVASTATIN 80 MG TAB PO SCH (21:50)
[2023-08-05] MEDS: MELATONIN 3 MG TABLET PO PRN (21:51)
[2023-08-06] MEDS: ACETAMINOPHEN TAB 325 MG TAB PO PRN (02:11)
[2023-08-06 06:37] LABS: Glucose,Whole Blood 183 mg/dL (70-110)
[2023-08-06 12:23] LABS: Glucose,Whole Blood 169 mg/dL (70-110)
[2023-08-06 17:22] LABS: Glucose,Whole Blood 287 mg/dL (70-110)
[2023-08-06 20:07] LABS: Glucose,Whole Blood 199 mg/dL (70-110)
--- NOTE | 2023-08-06 21:53 | P.PN ---
Subjective This is a pleasant 83 years old female with past medical history of Diabetes Mellitus, Hyperlipidemia, Hypertension, hypothyroidism, left breast cancer status post hysterectomy and left breast lumpectomy, Anxiety, Depression, Patient was admitted to the hospital 2 months ago for acute peritonitis and CT of the neck showing right parotid g with possible infection and possible internal carotid artery stenosisland hyperdensity. Patient was admitted by vascular surgery team for her right internal carotid artery stenosis 90% status post right revascularization with stenting. Also she has left internal carotid artery stenosis of 70% and history of coronary artery disease status post stent on 05/23/2023 and currently on dual antiplatelet therapy Patient currently lying in bed comfortable denied chest pain or dyspnea. Right neck wound looks closed with dressing in a Place. No headache dizziness weakness numbness or tingling. No change in urine or bowel habits. Patient vitals stable and blood pressure 1:30/70, heart rate 70. She has normal CBC and BMP, glucose controlled 08/06/2023 Her right neck wound is healing and improving No other new complaints other than some dry throat, I offered lozenges but she declines. She states she is well with no difficulty she drinks with no problem She is hemodynamically stable No labs from today Overall she is improving Objective - Vital Signs Vital signs: Vital Signs Temp 97.6 F 08/06/23 11:40 Pulse 54 L 08/06/23 11:40 Resp 20 08/06/23 11:40 BP 112/58 08/06/23 11:40 Pulse Ox 94 L 08/06/23 11:40 FiO2 Intake & Output 08/05/23 08/06/23 08/06/23 18:59 06:59 18:59 Intake Total 870 20 Output Total 350 700 400 Balance 520 -680 -400 Weight 70 kg Intake: IV 20 Invasive Line 2 10 Invasive Line 3 10 Oral 870 Output: Urine 350 700 400 Other: Voiding Method Incontinent Incontinent Incontinent External Catheter External Catheter External Catheter # Voids 2 - Exam GENERAL: The patient is alert and oriented x3, not in any acute distress. Well developed, well nourished. -HEENT: Pupils are round and equally reacting to light. EOMI. No scleral icterus. No conjunctival pallor. Normocephalic, atraumatic. No pharyngeal erythema. No thyromegaly. Right neck wound is healing CARDIOVASCULAR: S1 and S2 present. No murmurs, rubs, or gallops. PULMONARY: Chest is clear to auscultation, no wheezing , no crackles. ABDOMEN: Soft, nontender, nondistended, normoactive bowel sounds. No palpable organomegaly. MUSCULOSKELETAL: No joint swelling or deformity. EXTREMITIES: No cyanosis, clubbing, or pedal edema. NEUROLOGICAL: Gross neurological examination did not reveal any focal deficits. SKIN: No rashes. no petechiae. - Labs CBC & Chem 7: 08/05/23 12:05 08/05/23 12:05 Labs: Abnormal Lab Results - Last 24 Hours (Table) 08/05/23 08/05/23 08/05/23 Range/Units 12:05 12:05 16:08 BUN 21 H (7-17) mg/dL Glucose 178 H (74-99) mg/dL POC Glucose (mg/dL) 235 H (70-110) mg/dL Hemoglobin A1c 8.8 H (<=6.0) % 08/05/23 08/05/23 08/06/23 Range/Units 16:09 21:03 06:35 BUN (7-17) mg/dL Glucose (74-99) mg/dL POC Glucose (mg/dL) 239 H 216 H 183 H (70-110) mg/dL Hemoglobin A1c (<=6.0) % 08/06/23 Range/Units 12:18 BUN (7-17) mg/dL Glucose (74-99) mg/dL POC Glucose (mg/dL) 169 H (70-110) mg/dL Hemoglobin A1c (<=6.0) % Assessment and Plan Assessment: Right ICA stenosis 90% status post right artery revascularization with stenting Left internal carotid artery stenosis 70% History of coronary arteries disease status post stent Hypertension Diabetes mellitus Anxiety and depression, not an active issue Obesity with BMI of 37.2 Plan: Continue with dual antiplatelet therapy of aspirin or Plavix Vascular surgery primary team on the case Pain controlled Continue with GI and DVT prophylaxis Further recommendation per clinical course We recommend patient follow up with PCP Dr. Spann in 1 week after discharge Thank you for consulting us we will continue following up with the
[2023-08-07 05:59] LABS: Glucose,Whole Blood 161 mg/dL (70-110)
[2023-08-07 10:39] LABS: African American GFR (CKD) 63 (>60 ml/min/1.73 sqM); Anion Gap 9 mmol/L; Carbon Dioxide 24 mmol/L (22-30); Chloride 104 mmol/L (98-107); Non-African American GFR(CKD) 55 (>60 ml/min/1.73 sqM); Potassium 4.2 mmol/L (3.5-5.1); Sodium 137 mmol/L (137-145)
[2023-08-07 11:13] VITALS: TEMP 98.3
[2023-08-07 11:50] LABS: Glucose,Whole Blood 254 mg/dL (70-110)
[2023-08-07 12:49] VITALS: BP 117/61; PULSE 55; RESP 18
--- NOTE | 2023-08-09 19:24 | CDI ---
Documentation Clarification Form Date: 08/09/2023 07:11:54 PM From: Ml Peng Phone: Admit Date: 08/04/2023 05:47:00 AM Patient Name: Abena Vizcaino Visit Number: [id number] Discharge Date: 08/07/2023 05:14:00 PM ATTENTION: The Clinical Documentation Specialists (CDI) and [facility] Coding Staff appreciate your assistance in clarifying documentation. Please respond to the clarification below the line at the bottom and electronically sign. The CDI & [facility] Coding staff will review the response and follow-up if needed. Please note: Queries are made part of the Legal Health Record. If you have any questions, please contact the author of this message via ITS. Dr. Wyatt E Sheet Your patient has diagnostic/radiology results: POC [id number]. Please clarify if there is an additional diagnosis and/or clinical significance related to this result. History/Risk Factors: 83yo F, BICAstenosis s/p AMARILYS stenting, CAD w stent, HTN, DMII, anxiety,depression, obesity Clinical indicators: Glucose: 08/04 191 08/05 169- 363 08/06 169-239 Treatment: Home Insulin Lispro Sq Ac; Insulin Detemir (Levemir) 20 unit SQ BID Is there an additional diagnosis and/or clinical significance related to the above diagnostic/radiology result? [ x ] Type 2 diabetes mellitus with hyperglycemia [ ] Type 2 diabetes mellitus with no complications [ ] Result is not clinically significant (no additional diagnosis) [ ] Other, please specify [ ] Unable to determine (Template Last Reviewed: August 2020) MTDD
== END 2023-08-07 17:14 | DRG 36 ==
LOC: 2ORMAIN 05:47 → 3SCARD 12:41
PROVIDERS: ADMIT Surgery; ATTEND Surgery
PROC: 037K3DZ Dilation of Right Internal Carotid Artery with Intraluminal Device, Percutaneous Approach (ICD-10-PCS; principal; 2023-08-04 07:45)
DX: I65.23 Occlusion and stenosis of bilateral carotid arteries (principal); E03.9 Hypothyroidism, unspecified; I10 Essential (primary) hypertension; E11.65 Type 2 diabetes mellitus with hyperglycemia; E66.01 Morbid (severe) obesity due to excess calories; F32.A Depression, unspecified; I25.10 Atherosclerotic heart disease of native coronary artery without angina pectoris; H91.90 Unspecified hearing loss, unspecified ear; F41.9 Anxiety disorder, unspecified; E78.5 Hyperlipidemia, unspecified; Z96.642 Presence of left artificial hip joint; Z68.37 Body mass index [BMI] 37.0-37.9, adult; Z85.3 Personal history of malignant neoplasm of breast; Z95.5 Presence of coronary angioplasty implant and graft; Z79.890 Hormone replacement therapy; Z79.4 Long term (current) use of insulin; Z79.899 Other long term (current) drug therapy; Z79.82 Long term (current) use of aspirin; Z79.02 Long term (current) use of antithrombotics/antiplatelets
CPT/HCPCS: 37215; 80048; 80051; 82565; 83036; 85025; 86850; 86900; 86901

== ENCOUNTER → 2023-10-16 | Outpatient (CLI) | payer MEDICARE, OTHER ==
--- NOTE | 2023-10-16 12:50 | CT ---
EXAMINATION TYPE: CT angio neck DATE OF EXAM: 10/16/2023 HISTORY: stenosis COMPARISON: 05/22/2023 CT DLP: 390.8 mGycm. Automated Exposure Control for Dose Reduction was Utilized. TECHNIQUE: CTA scan of the head and neck is performed with IV Contrast, patient injected with 64ml m L of Isovue 370, axial images are obtained, coronal and sagittal reformatted images are reviewed. 3D reconstructed images are created on an independent workstation and reviewed. FINDINGS: FINDINGS: The brachiocephalic origins are widely patent and no significant stenosis. There is heavily calcified plaque in the subclavian artery distal to their origins and within the axillary segments results in probable significant stenoses. He's been no interval change compared to previous. There is been interval placement of endovascular stent in the proximal right internal carotid artery. In the proximal aspect of the stent, there is an approximate 50-60% stenosis. There is no significa nt stenosis of the right common carotid artery. As on the prior study, there is a severe 70-75% stenosis of the proximal left internal carotid arter y secondary to heavily calcified plaque at the carotid bifurcation. Intracranially, there is no stenosis, segmental occlusion, sizable aneurysm sac or vascular malformat ion. IMPRESSION:. 1. Proximal right internal carotid artery stent with a proximal stent stenosis of approximately 50-60 %. 2. Persistent severe 70-75% stenosis of the proximal left internal carotid artery. 3. Heavily calcified plaques in the axillary portions of the subclavian arteries and significant sten oses are likely. There's been no change.. NASCET criteria was used in interpretation of this exam?
== END | disposition home or self-care (01) ==
LOC: RADCTMAIN 11:18
PROVIDERS: ATTEND Surgery
DX: I65.23 Occlusion and stenosis of bilateral carotid arteries (principal)
CPT/HCPCS: 70498; Q9967

== ENCOUNTER 2024-01-31 13:19 | Inpatient (IN) | payer MEDICARE, OTHER ==
[2024-01-31] MEDS ORDERED: VANCOMYCIN IV PER PHARMACY 1 EACH MISC MISCELLANE PRN (13:38)
--- NOTE | 2024-01-31 13:42 | ED ---
General Adult HPI - General Chief complaint: Skin/Abscess/Foreign Body Stated complaint: Infection in left foot Time Seen by Provider: 01/31/24 13:35 Source: patient, EMS, RN notes reviewed, old records reviewed, Caregiver Mode of arrival: EMS - History of Present Illness Initial comments: This is an 83-year-old female presents to the emergency department complaining of a nonhealing foot wound that her primary medical care doctor states it is now gangrenous and wants the patient admitted with a consult to vascular. Patient denies any fever or chills. Patient cannot see her foot and she is bedbound. According to the daughter there was some talk about amputating the foot. There has been no recent fall. - Related Data Home Medications Medication Instructions Recorded Confirmed INSULIN LISPRO (HumaLOG) [humaLOG] See Protocol SQ AC-TID 12/28/16 01/31/24 Levothyroxine Sodium [Synthroid] 50 mcg PO DAILY 12/28/16 01/31/24 Losartan/Hydrochlorothiazide 1 tab PO DAILY 12/28/16 01/31/24 [Losartan-Hctz 100-12.5 mg Tab] Sertraline [Zoloft] 100 mg PO DAILY 03/16/17 01/31/24 Anastrozole 1 mg PO DAILY 05/19/23 01/31/24 Latanoprost Ophth [Xalatan 0.005%] 1 drop BOTH EYES HS 05/19/23 01/31/24 Loratadine [Claritin] 10 mg PO DAILY 05/19/23 01/31/24 buPROPion XL [Wellbutrin XL] 150 mg PO DAILY 05/19/23 01/31/24 Insulin Detemir (Levemir) [Levemir] 20 unit SQ BID@0700,2100 08/03/23 01/31/24 Magnesium Hydroxide [Milk of 7,200 ml PO DAILY PRN 08/03/23 01/31/24 Magnesia Concentrate] Meloxicam [Mobic] 7.5 mg PO DAILY 08/03/23 01/31/24 Na Phos,M-B/Na Phos,Di-Ba [Fleet 1 dose RECTAL ONCE PRN 08/03/23 01/31/24 Adult] Nystatin 100,000 Unit/gm Powd 1 applic TOPICAL TID PRN 08/03/23 01/31/24 [Mycostatin Powder] bisacodyL [Dulcolax] 10 mg RECTAL ONCE PRN 08/03/23 01/31/24 Atorvastatin Calcium [Lipitor] 80 mg PO HS 01/31/24 01/31/24 Baclofen [Lioresal] 10 mg PO TID 01/31/24 01/31/24 Biofreeze (Unknown) 1 applic TOPICAL TID 01/31/24 01/31/24 Caldesene Baby Powder 1 applic TOPICAL BID 01/31/24 01/31/24 Collagenase [Santyl Ointment] 1 applic TOPICAL DAILY 01/31/24 01/31/24 Collagenase [Santyl Ointment] 1 applic TOPICAL DAILY 01/31/24 01/31/24 Famotidine [Pepcid] 20 mg PO DAILY 01/31/24 01/31/24 Gabapentin 300 mg PO TID 01/31/24 01/31/24 Dominic Packet 1 packet PO BID-W/MEALS 01/31/24 01/31/24 Lidocaine 5% Cream 1 applic TOPICAL WE 01/31/24 01/31/24 Liquacal 30 ml PO BID@0800,1700 01/31/24 01/31/24 Multivitamins, Thera [Multivitamin 1 tab PO DAILY 01/31/24 01/31/24 (formulary)] Sodium Chloride [Saline Nasal Mist] 2 spray EA NOSTRIL DAILY 01/31/24 01/31/24 Vicodin Es 7.5/300mg 1 tab PO Q6H 01/31/24 01/31/24 amLODIPine [Norvasc] 10 mg PO DAILY@1700 01/31/24 01/31/24 rOPINIRole HCL [Requip] 0.5 mg PO BID@1200,2100 01/31/24 01/31/24 traZODone HCL [Desyrel] 50 mg PO HS 01/31/24 01/31/24 Previous Rx's Medication Instructions Recorded Aspirin 81 mg PO DAILY tab 05/24/23 Clopidogrel [Plavix] 75 mg PO DAILY tab 05/24/23 Melatonin 6 mg PO HS PRN tab 05/24/23 carvediloL [Coreg] 6.25 mg PO BID-W/MEALS tab 05/24/23 Acetaminophen Tab [Tylenol] 650 mg PO Q6HR PRN tab 08/07/23 Allergies Allergy/AdvReac Type Severity Reaction Status Date / Time No Known Allergies Allergy Verified 01/31/24 13:50 Review of Systems ROS Statement: Those systems with pertinent positive or pertinent negative responses have been documented in the HPI. ROS Other: All systems not noted in ROS Statement are negative. Past Medical History Past Medical History: Cancer, Diabetes Mellitus, Hearing Disorder / Deafness, Hyperlipidemia, Hypertension, Osteoarthritis (OA), Thyroid Disorder Additional Past Medical History / Comment(s): Slight hearing trouble. Currently in wheelchair, unable to stand or walk. Hx left breast cancer. "Bad right hip, may need replacement." History of Any Multi-Drug Resistant Organisms: None Reported Past Surgical History: Breast Surgery, Hysterectomy, Joint Replacement, Orthopedic Surgery Additional Past Surgical History / Comment(s): Left breast biopsy X3, right breast biopsy X2, ductogram, ORIF right lower leg with plate, total left hip replacement, left breast lumpectomy. Past Anesthesia/Blood Transfusion Reactions: No Reported Reaction Past Psychological History: Anxiety, Depression Smoking Status: Never smoker Past Alcohol Use History: None Reported Past Drug Use History: None Reported - Past Family History Sister(s) Family Medical History: Cancer Additional Family Medical History / Comment(s): BREAST CANCER. General Exam - General Exam Comments Initial Comments: GENERAL: Patient is well-developed and well-nourished. Patient is nontoxic and well- hydrated and is in no acute distress. ENT: Neck is soft and supple. No significant lymphadenopathy is noted. Oropharynx is clear. Moist mucous membranes. Neck has full range of motion without eliciting any pain. EYES: The sclera were anicteric and conjunctiva were pink and moist. Extraocular movements were intact and pupils were equal round and reactive to light. Eyelids were unremarkable. PULMONARY: Unlabored respirations. Good breath sounds bilaterally. No audible rales rhonchi or wheezing was noted. CARDIOVASCULAR: There is a regular rate and rhythm without any murmurs gallops or rubs. ABDOMEN: Soft and nontender with normal bowel sounds. SKIN: Skin is clear with no lesions or rashes and otherwise unremarkable. NEUROLOGIC: Patient is alert and oriented x3. Cranial nerves II through XII are grossly intact. Motor and sensory are also intact. Normal speech, volume and content. Symmetrical smile MUSCULOSKELETAL: Patient's left heel is necrotic and gangrenous. There is no obvious signs of surrounding cellulitis LYMPHATICS: No significant lymphadenopathy is noted PSYCHIATRIC: Normal psychiatric evaluation. Course Vital Signs 01/31/24 13:33 Temperature 98.0 F Pulse Rate 60 Respiratory 18 Rate Blood Pressure 126/50 Medical Decision Making - Medical Decision Making EKG is interpreted by myself. EKG shows sinus bradycardia 59 bpm parables under 72 QRS is 130 QT interval 435 QTc is 434. Patient's EKG shows a left bundle branch block. Was pt. sent in by a medical professional or institution ([facility] Temple, HOSPITAL LABORATORY TECHNICIAN, urgent care, hospital, or longterm...) When possible be specific @ -Dr. Rodrigues sent the patient into the emergency department Did you speak to anyone other than the patient for history (EMS, parent, family, police, friend...)? What history was obtained from this source @ -Dr. Rodrigues called to give me history on this patient prior to the patient's arrival Did you review nursing and triage notes (agree or disagree)? Why? @ -I reviewed and agree with nursing and triage notes Were old charts reviewed (outside hosp., previous admission, EMS record, old EKG, old radiological studies, urgent care reports/EKG's, longterm records)? Report findings @ -No old charts were reviewed Differential Diagnosis? @ -Cellulitis, necrotic foot gangrene, osteomyelitis, this is not an all- inclusive list EKG interpreted by me (3pts min.). @ -As above X-rays interpreted by me (1pt min.). @ -X-ray of the foot showed no acute abnormality CT interpreted by me (1pt min.). @ -None done U/S interpreted by me (1pt. min.). @ -None done What testing was considered but not performed or refused? (CT, X-rays, U/S, labs)? Why? @ -None What meds were considered but not given or refused? Why? @ -None Did you discuss the management of the patient with other professionals (professionals i.e. [facility] Temple, HOSPITAL LABORATORY TECHNICIAN, lab, RT, psych nurse, social media marketing analyst, hot water heater installer, teacher, biosecurity officer, welfare case worker)? Give summary @ -I spoke with Dr. Levine he agreed to admit the patient admit the patient wrote admitting orders Was smoking cessation discussed for >3mins.? @ -No Was critical care preformed (if so, how long)? @ -No Were there social determinants of health that impacted care today? How? (Homelessness, low income, unemployed, alcoholism, drug addiction, transporta tion, low edu. Level, literacy, decrease access to med. care, snf, rehab)? @ -No Was there de-escalation of care discussed even if they declined (Discuss DNR or withdrawal of care, Hospice)? DNR status @ -No What co-morbidities impacted this encounter? (DM, HTN, Smoking, COPD, CAD, Cancer, CVA, ARF, Chemo, Hep., AIDS, mental health diagnosis, sleep apnea, morbid obesity)? @ -None Was patient admitted / discharged? Hospital course, mention meds given and route, prescriptions, significant lab abnormalities, going to OR and other pertinent info. @ -Patient has a necrotic foot and will be admitted and placed on antibiotics. Consults will be placed to vascular surgery Undiagnosed new problem with uncertain prognosis? @ -No Drug Therapy requiring intensive monitoring for toxicity (Heparin, Nitro, Insulin, Cardizem)? @ -No Were any procedures done? @ -No Diagnosis/symptom? @ -Necrotic gangrenous heel Acute, or Chronic, or Acute on Chronic? @ -Acute Uncomplicated (without systemic symptoms) or Complicated (systemic symptoms)? @ -Complicated Side effects of treatment? @ -No Exacerbation, Progression, or Severe Exacerbation? @ -No Poses a threat to life or bodily function? How? (Chest pain, USA, MD, pneumonia, PE, COPD, DKA, ARF, appy, cholecystitis, CVA, Diverticulitis, Homicidal, Suici sebastien, threat to staff... and all critical care pts) @ -Yes this can lead to sepsis and endorgan dysfunction - Lab Data Result diagrams: 01/31/24 13:45 01/31/24 13:45 Lab Results 01/31/24 01/31/24 01/31/24 Range/Units 13:45 13:45 13:45 WBC 12.6 H (3.8-10.6) k/uL RBC 3.88 (3.80-5.40) m/uL Hgb 9.5 L (11.4-16.0) gm/dL Hct 30.2 L (34.0-46.0) % MCV 77.8 L (80.0-100.0) fL MCH 24.6 L (25.0-35.0) pg MCHC 31.7 (31.0-37.0) g/dL RDW 16.7 H (11.5-15.5) % Plt Count 301 (150-450) k/uL MPV 7.9 Neutrophils % 77 % Lymphocytes % 12 % Monocytes % 7 % Eosinophils % 3 % Basophils % 1 % Neutrophils # 9.6 H (1.3-7.7) k/uL Lymphocytes # 1.5 (1.0-4.8) k/uL Monocytes # 0.8 (0-1.0) k/uL Eosinophils # 0.4 (0-0.7) k/uL Basophils # 0.1 (0-0.2) k/uL Hypochromasia Moderate Poikilocytosis Moderate Anisocytosis Slight Microcytosis Slight Sodium 131 L (137-145) mmol/L Potassium 5.0 (3.5-5.1) mmol/L Chloride 99 (98-107) mmol/L Carbon Dioxide 26 (22-30) mmol/L Anion Gap 6 mmol/L BUN 66 H (7-17) mg/dL Creatinine 0.86 (0.52-1.04) mg/dL Est GFR (CKD-EPI)AfAm 73 (>60 ml/min/1.73 sqM) Est GFR (CKD-EPI)NonAf 63 (>60 ml/min/1.73 sqM) Glucose 203 H (74-99) mg/dL Plasma Lactic Acid Chandrakant 1.2 (0.7-2.0) mmol/L Calcium 8.6 (8.4-10.2) mg/dL Total Bilirubin 0.4 (0.2-1.3) mg/dL AST 39 H (14-36) U/L ALT 43 H (4-34) U/L Alkaline Phosphatase 121 (38-126) U/L Total Protein 5.8 L (6.3-8.2) g/dL Albumin 2.9 L (3.5-5.0) g/dL Disposition Clinical Impression: Gangrene of left foot Disposition: ADMITTED IP TO THIS [facility] Referrals: Joaquin Levine MD [Primary Care Provider] - 1-2 days Time of Disposition: 15:18
--- NOTE | 2024-01-31 15:00 | XR ---
EXAMINATION TYPE: XR foot complete LT DATE OF EXAM: 01/31/2024 COMPARISON: None HISTORY: Open wound to foot TECHNIQUE: 3 view left foot FINDINGS: Acute displaced fracture is not identified. Joint spaces appear preserved. There is a long curvilinear calcification at the fifth lateral metatarsal phalangeal joint space. Con property preservation specialist old avulsion. There is severe loss of soft tissue over the heel pad. No suspicious cortical erosion to suggest oste omyelitis. Three-phase bone scan can be performed for sufficient clinical suspicion. IMPRESSION: 1. No suspicious abnormality suggest osteomyelitis. Follow-up 3 phase bone scan can be performed as clinically indicated. 2. Extensive soft tissue loss over the heel pad
[2024-01-31 15:05] LABS: ALT 43 U/L (4-34); AST 39 U/L (14-36); African American GFR (CKD) 73 (>60 ml/min/1.73 sqM); Albumin 2.9 g/dL (3.5-5.0); Alkaline Phosphatase 121 U/L (38-126); Anion Gap 6 mmol/L; Blood Urea Nitrogen 66 mg/dL (7-17); Calcium 8.6 mg/dL (8.4-10.2); Carbon Dioxide 26 mmol/L (22-30); Chloride 99 mmol/L (98-107); Glucose 203 mg/dL (74-99); Non-African American GFR(CKD) 63 (>60 ml/min/1.73 sqM); Sodium 131 mmol/L (137-145); Total Bilirubin 0.4 mg/dL (0.2-1.3); Total Protein 5.8 g/dL (6.3-8.2)
[2024-01-31 15:08] LABS: Anisocytosis Slight; Basophils # (A) 0.1 k/uL (0-0.2); Basophils % (A) 1 %; Eosinophils # (A) 0.4 k/uL (0-0.7); Eosinophils % (A) 3 %; HCT 30.2 % (34.0-46.0); HGB 9.5 gm/dL (11.4-16.0); Hypochromasia Moderate; Lymphocytes # (A) 1.5 k/uL (1.0-4.8); Lymphocytes % (A) 12 %; MCH 24.6 pg (25.0-35.0); MCHC 31.7 g/dL (31.0-37.0); MCV 77.8 fL (80.0-100.0); Mean Platelet Volume 7.9; Microcytosis Slight; Monocytes # (A) 0.8 k/uL (0-1.0); Monocytes % (A) 7 %; Neutrophils # (A) 9.6 k/uL (1.3-7.7); Neutrophils % (A) 77 %; Platelet Count 301 k/uL (150-450); Poikilocytosis Moderate; RBC 3.88 m/uL (3.80-5.40); RDW 16.7 % (11.5-15.5); WBC 12.6 k/uL (3.8-10.6)
[2024-01-31] MEDS: VANCOMYCIN 2,000 MG in SODIUM CHLORIDE 0.9% 500 ML 500 ML IVPB ONE (15:38)
[2024-01-31] MEDS: SODIUM CHLORIDE 0.9% 1,000 ML IV ONE (15:39)
[2024-01-31] MEDS ORDERED: bisacodyL 10 MG SUPP RECTAL PRN (18:40)
[2024-01-31] MEDS ORDERED: MAGNESIUM HYDROXIDE PO PRN (18:40)
[2024-01-31] MEDS: HYDROcodone/APAP 7.5-325MG 1 EACH TAB PO SCH (19:35)
[2024-01-31 21:05] LABS: Glucose,Whole Blood 216 mg/dL (70-110)
[2024-01-31] MEDS: GABAPENTIN 300 MG CAP PO SCH (22:17)
[2024-01-31] MEDS: traZODone HCL 50 MG TAB PO SCH (22:17)
[2024-01-31] MEDS: ATORVASTATIN 80 MG TAB PO SCH (22:17)
[2024-01-31] MEDS: INSULIN DETEMIR (LEVEMIR) 100 UNIT/ML SYR SQ SCH (22:17)
[2024-01-31] MEDS: BACLOFEN 10 MG TAB PO SCH (22:17)
[2024-01-31] MEDS: LATANOPROST 0.005% OPHTH DROPS 2.5 ML BTL BOTH EYES SCH (22:56)
--- NOTE | 2024-01-31 23:21 | P.HPIM ---
History of Present Illness H&P Date: 01/31/24 HISTORY OF PRESENT ILLNESS: 83-year-old with active medical history of Type 2 diabetes, obesity, left-sided breast cancer, hypertension, hyperlipidemia, hypothyroidism, chronic depression, chronic lower back pain with degenerative disc disease and spinal stenosis, peripheral arterial disease with severe carotid stenosis, hypertensive cardiovascular disease, coronary artery disease post PCI and stent placement of the LAD May 2023, also patient had stroke and found to have 80-90 percentile stenosis of the internal carotid artery ended up having right brand scarotid artery revascularization with stenting July 2023: Following her procedure she had quite a bit debility and worsening symptoms ended up being transferred to [facility] or rehab after several weeks of rehab patient improvement was very limited and that being quite bit debilitated wheelchair and bedbound and declined further more patient was transferred to long-term at [facility]. For the last 12 weeks patient had severe rigidity in her body and severe stiffness could not move ambulate or turn. Started having slight irritation and discomfort of the skin with an earlier stage of small ulceration. wound care and [facility] was involved early start seen in November for smaller area in the left heel over the following few weeks become slightly red worsening and required debridement which was done by Dr. Rodrigues 4 weeks ago. He was referred to see vascular for severe PAD and diagnosis was made at the time the patient was told that her circulation is extremely bad and worsening might require amputation above the knee. Entire left heel become gangrenous within the last few days and become much worse with bone exposure. Patient was seen and evaluated today and decided to send patient to the hospital to be seen by vascular start IV antibiotic might require further intervention. She was started on vancomycin IV admitted to the hospital consult vascular lab blood work was done and long talk with the family and prepare for possible need for intervention which most likely below or above-knee amputation in the next 48 hours. REVIEW OF SYSTEMS: CONSTITUTIONAL: Morbidly obese lying in bed in quite good pain no acute respiratory distress. EYES: No icterus sclerae, no conjunctivitis. EARS, NOSE, MOUTH, THROAT, and FACE: No sore throat, lymphadenopathy, carotid bruits or deformity. RESPIRATORY: Mild shortness of breath no cough or wheezes. CARDIOVASCULAR: Positive PND orthopnea palpitation no angina. GASTROINTESTINAL: No Abd pain, Nausea or vomiting, no Diarrhea or constipation, No GI Bleed, no distention or masses. GENITOURINARY: Negative for Hematuria or UTI, no kidney stones. INTEGUMENT/BREAST: Generalized arthralgia and myalgia with chronic lower back pain and significant involvement of the soft tissues without breaking skin and dry this area of her body but worsening in the left heel. HEMATOLOGIC/LYMPHATIC: Negative for bleed or purpura. History of left-sided breast cancer. MUSCULOSKELTAL: Negative for Myalgia or arthralgia. Severe ulcerated left heel with gangrenous change with bone exposure. Severe generalized muscle stiffness and discomfort. NEURLOGICAL: No LOC, Sz or syncope, blurred vision dizziness or abnormality.. BEHAVIORAL/PSYCH: Negative. ENDOCRINE: Negative. PHYSICAL EXAMINATION: General Appearance: Obese lying in bed no distress aware of her left heel not b een able to turn in bed and had severe stiffness. Neck HEENT: Supple, no lymphadenopathy, no thyroid enlargement, no carotid bruits. Lungs: Clear to auscultation without crackles or wheezes no rhonchi, no deformity. Chest Wall: Decreased expansion with deep inspiration no tenderness and no deformity was found on exam, no costochondral pain or discomfort. Heart: Regular rate and rhythm, S1, S2 positive S3 positive systolic murmur. Back: Symmetric, with scoliosis and kyphosis with mild tenderness in lower lumbar area. Abdomen: Soft, non-tender, bowel sounds active all four quadrants, no masses, no organomegaly. Extremities: Left heel had severe gangrenous ulcerated area measure 10 x 12 cm with slight drainage and slight bone exposure. Pulses: No palpable pulse in both lower extremity. Skin: Skin color, texture, tugor normal, no rashes or lesions. Neurologic: Alert oriented x3 cranial nerves II through XII intact, no motor deficit, no abnormal balance or gait. ASSESSMENT AND PLAN: _Severe gangrenous change in the left heel area mostly unstageable: Continue IV antibiotic, topical care, consult infectious disease and vascular, the area how looks cannot be debrided and there is a bone exposure with osteomyelitis will require probably amputation. _Osteomyelitis of the left heel area: Continue vancomycin and consult vascular. _Residual stroke with significant weakness affecting the left side more than the right side. _Severe carotid stenosis post right-sided carotid stenting. _Severe coronary artery disease post angioplasty and stent placement of the LAD back in May 2023 was to be continue on antiplatelet agent along with statin and beta-sofiya. _Type 2 diabetes: Continue Accu-Chek with sliding scales coverage Levemir 20 units twice a day NovoLog 5 to 7 units AC meals plus sliding scales coverage. Eventually can benefit from SGLT2 product. _History of breast cancer: Was seen oncology regularlyStill on anastrozole 1 mg daily. _Hypertension: Continue Coreg 6.25 mg twice a day, amlodipine 10 mg daily, losartan hydrochlorothiazide 100/12.5 mg daily. _Hyperlipidemia: Remain on atorvastatin 80 mg nightly. _Hypothyroidism: Continue Synthroid 50 mcg daily. _Severe spinal stenosis and lower back pain has been on medical management only still on pain meds along with gabapentin. _Chronic depression: Has been on trazodone 50 mg at bedtime along with Wellbutrin 150 mg daily Zoloft 100 mg a day. _Restless leg syndrome: Remain on Requip 0.5 mg twice a day. GI prophylaxis: Will continue patient on famotidine 20 mg daily. _DVT prophylaxis: Knee-high DAVID hose and will use heparin subcutaneous after surgery. CODE STATUS: DO NOT RESUSCITATE. Admit patient to the inpatient service for more than 2 night stay. Past Medical History Past Medical History: Cancer, Diabetes Mellitus, Hearing Disorder / Deafness, Hyperlipidemia, Hypertension, Osteoarthritis (OA), Thyroid Disorder Additional Past Medical History / Comment(s): Slight hearing trouble. Currently in wheelchair, unable to stand or walk. Hx left breast cancer. "Bad right hip, may need replacement." History of Any Multi-Drug Resistant Organisms: None Reported Past Surgical History: Breast Surgery, Hysterectomy, Joint Replacement, O rthopedic Surgery Additional Past Surgical History / Comment(s): Left breast biopsy X3, right breast biopsy X2, ductogram, ORIF right lower leg with plate, total left hip replacement, left breast lumpectomy. Past Anesthesia/Blood Transfusion Reactions: No Reported Reaction Past Psychological History: Anxiety, Depression Smoking Status: Never smoker Past Alcohol Use History: None Reported Past Drug Use History: None Reported - Past Family History Sister(s) Family Medical History: Cancer Additional Family Medical History / Comment(s): BREAST CANCER. Medications and Allergies Home Medications Medication Instructions Recorded Confirmed Type INSULIN LISPRO (HumaLOG) [humaLOG] See Protocol SQ AC-TID 12/28/16 01/31/24 History Levothyroxine Sodium [Synthroid] 50 mcg PO DAILY 12/28/16 01/31/24 History Losartan/Hydrochlorothiazide 1 tab PO DAILY 12/28/16 01/31/24 History [Losartan-Hctz 100-12.5 mg Tab] Sertraline [Zoloft] 100 mg PO DAILY 03/16/17 01/31/24 History Anastrozole 1 mg PO DAILY 05/19/23 01/31/24 History Latanoprost Ophth [Xalatan 0.005%] 1 drop BOTH EYES HS 05/19/23 01/31/24 History Loratadine [Claritin] 10 mg PO DAILY 05/19/23 01/31/24 History buPROPion XL [Wellbutrin XL] 150 mg PO DAILY 05/19/23 01/31/24 History Aspirin 81 mg PO DAILY tab 05/24/23 01/31/24 Rx Clopidogrel [Plavix] 75 mg PO DAILY tab 05/24/23 01/31/24 Rx Melatonin 6 mg PO HS PRN tab 05/24/23 01/31/24 Rx carvediloL [Coreg] 6.25 mg PO BID-W/MEALS tab 05/24/23 01/31/24 Rx Insulin Detemir (Levemir) [Levemir] 20 unit SQ BID@0700,2100 08/03/23 01/31/24 History Magnesium Hydroxide [Milk of 7,200 ml PO DAILY PRN 08/03/23 01/31/24 History Magnesia Concentrate] Meloxicam [Mobic] 7.5 mg PO DAILY 08/03/23 01/31/24 History Na Phos,M-B/Na Phos,Di-Ba [Fleet 1 dose RECTAL ONCE PRN 08/03/23 01/31/24 History Adult] Nystatin 100,000 Unit/gm Powd 1 applic TOPICAL TID PRN 08/03/23 01/31/24 History [Mycostatin Powder] bisacodyL [Dulcolax] 10 mg RECTAL ONCE PRN 08/03/23 01/31/24 History Acetaminophen Tab [Tylenol] 650 mg PO Q6HR PRN tab 08/07/23 01/31/24 Rx Atorvastatin Calcium [Lipitor] 80 mg PO HS 01/31/24 01/31/24 History Baclofen [Lioresal] 10 mg PO TID 01/31/24 01/31/24 History Biofreeze (Unknown) 1 applic TOPICAL TID 01/31/24 01/31/24 History Caldesene Baby Powder 1 applic TOPICAL BID 01/31/24 01/31/24 History Collagenase [Santyl Ointment] 1 applic TOPICAL DAILY 01/31/24 01/31/24 History Collagenase [Santyl Ointment] 1 applic TOPICAL DAILY 01/31/24 01/31/24 History Famotidine [Pepcid] 20 mg PO DAILY 01/31/24 01/31/24 History Gabapentin 300 mg PO TID 01/31/24 01/31/24 History Dominic Packet 1 packet PO BID-W/MEALS 01/31/24 01/31/24 History Lidocaine 5% Cream 1 applic TOPICAL WE 01/31/24 01/31/24 History Liquacal 30 ml PO BID@0800,1700 01/31/24 01/31/24 History Multivitamins, Thera [Multivitamin 1 tab PO DAILY 01/31/24 01/31/24 History (formulary)] Sodium Chloride [Saline Nasal Mist] 2 spray EA NOSTRIL DAILY 01/31/24 01/31/24 History Vicodin Es 7.5/300mg 1 tab PO Q6H 01/31/24 01/31/24 History amLODIPine [Norvasc] 10 mg PO DAILY@1700 01/31/24 01/31/24 History rOPINIRole HCL [Requip] 0.5 mg PO BID@1200,2100 01/31/24 01/31/24 History traZODone HCL [Desyrel] 50 mg PO HS 01/31/24 01/31/24 History Allergies Allergy/AdvReac Type Severity Reaction Status Date / Time No Known Allergies Allergy Verified 01/31/24 13:50 Physical Exam Vitals: Vital Signs Temp Pulse Resp BP 01/31/24 13:33 98.0 F 60 18 126/50 Intake and Output 01/31/24 01/31/24 01/31/24 06:59 14:59 22:59 Other: Weight 100.698 kg Results CBC & Chem 7: 01/31/24 13:45 01/31/24 13:45 Labs: Abnormal Lab Results - Last 24 Hours (Table) 01/31/24 01/31/24 Range/Units 13:45 13:45 WBC 12.6 H (3.8-10.6) k/uL Hgb 9.5 L (11.4-16.0) gm/dL Hct 30.2 L (34.0-46.0) % MCV 77.8 L (80.0-100.0) fL MCH 24.6 L (25.0-35.0) pg RDW 16.7 H (11.5-15.5) % Neutrophils # 9.6 H (1.3-7.7) k/uL Sodium 131 L (137-145) mmol/L BUN 66 H (7-17) mg/dL Glucose 203 H (74-99) mg/dL AST 39 H (14-36) U/L ALT 43 H (4-34) U/L Total Protein 5.8 L (6.3-8.2) g/dL Albumin 2.9 L (3.5-5.0) g/dL
[2024-02-01 06:39] LABS: African American GFR (CKD) >90 (>60 ml/min/1.73 sqM); Non-African American GFR(CKD) 82 (>60 ml/min/1.73 sqM)
[2024-02-01 07:09] LABS: Glucose,Whole Blood 115 mg/dL (70-110)
[2024-02-01] MEDS: ANASTROZOLE 1 MG TAB PO SCH (09:53)
[2024-02-01] MEDS: carvediloL 6.25 MG TAB PO SCH (09:53)
[2024-02-01] MEDS: LEVOTHYROXINE 50 MCG TAB PO SCH (09:53)
[2024-02-01] MEDS: LOSARTAN-HCTZ 50-12.5 MG 1 EACH TAB PO SCH (09:53)
[2024-02-01] MEDS: buPROPion XL 150 MG TAB.ER.24H PO SCH (09:53)
[2024-02-01] MEDS: ASPIRIN 81 MG PO SCH (09:54)
[2024-02-01] MEDS: FAMOTIDINE 20 MG TAB PO SCH (09:54)
[2024-02-01] MEDS: SERTRALINE 100 MG TAB PO SCH (09:54)
[2024-02-01 12:39] LABS: Glucose,Whole Blood 89 mg/dL (70-110)
--- NOTE | 2024-02-01 14:07 | P.GSCN ---
History of Present Illness Consult date: 02/01/24 Reason for Consult: Gangrene foot Requesting physician: Jose Cruz Guzmán History of present illness: This a pleasant 83-year-old female with a history of coronary artery disease status post stenting May 2023, type 2 diabetes mellitus, obesity, l breast cancer, hypertension, hyperlipidemia, hypothyroidism, chronic back pain, carotid stenosis status post TCAR July 2023, and peripheral arterial disease with chr onic lower extremity pressure wounds. Patient resides at [facility] a long- term facility she has been debilitated and wheelchair and bedbound. She had developed pressure ulcer to the left heel and pressure ulcers to the right foot as well during her stay at [facility]. Wounds have been present for few months duration. Patient follows with Dr. Munguia who did her TCAR in July, show she was recently seen by Dr. Nichole in the office as well and was supposed to undergo a CT angiogram of the bilateral lower extremities to evaluate blood flow. Attempted to lower extremity arterial duplex at the office however patient's right leg is contracted and she is not moving either of her legs. Vascular surgery is consulted for worsening wound to the left heel. MAR with nursing had reported increased odor and drainage from the left heel and was concern for infection. She was brought in she states that she has pain on that left foot and heel. She states that she continues to be bedbound she does not move either of her lower extremities. Right lower extremity is contracted she states she is not able to straighten the leg on her own. She denies any chest pain, shortness of breath, abdominal pain, nausea or vomiting at this time. She has been afebrile. No fevers or chills. Review of Systems A 14 point review systems was completed all pertinent positives and negatives as stated in the HPI. Past Medical History Past Medical History: Cancer, Diabetes Mellitus, Hearing Disorder / Deafness, Hyperlipidemia, Hypertension, Osteoarthritis (OA), Thyroid Disorder Additional Past Medical History / Comment(s): Slight hearing trouble. Currently in wheelchair, unable to stand or walk. Hx left breast cancer. "Bad right hip, may need replacement." History of Any Multi-Drug Resistant Organisms: None Reported Past Surgical History: Breast Surgery, Hysterectomy, Joint Replacement, Orthopedic Surgery Additional Past Surgical History / Comment(s): Left breast biopsy X3, right breast biopsy X2, ductogram, ORIF right lower leg with plate, total left hip replacement, left breast lumpectomy. Past Anesthesia/Blood Transfusion Reactions: No Reported Reaction Past Psychological History: Anxiety, Depression Smoking Status: Never smoker Past Alcohol Use History: None Reported Past Drug Use History: None Reported - Past Family History Sister(s) Family Medical History: Cancer Additional Family Medical History / Comment(s): BREAST CANCER. Medications and Allergies Home Medications Medication Instructions Recorded Confirmed Type INSULIN LISPRO (HumaLOG) [humaLOG] See Protocol SQ AC-TID 12/28/16 01/31/24 History Levothyroxine Sodium [Synthroid] 50 mcg PO DAILY 12/28/16 01/31/24 History Losartan/Hydrochlorothiazide 1 tab PO DAILY 12/28/16 01/31/24 History [Losartan-Hctz 100-12.5 mg Tab] Sertraline [Zoloft] 100 mg PO DAILY 03/16/17 01/31/24 History Anastrozole 1 mg PO DAILY 05/19/23 01/31/24 History Latanoprost Ophth [Xalatan 0.005%] 1 drop BOTH EYES HS 05/19/23 01/31/24 History Loratadine [Claritin] 10 mg PO DAILY 05/19/23 01/31/24 History buPROPion XL [Wellbutrin XL] 150 mg PO DAILY 05/19/23 01/31/24 History Aspirin 81 mg PO DAILY tab 05/24/23 01/31/24 Rx Clopidogrel [Plavix] 75 mg PO DAILY tab 05/24/23 01/31/24 Rx Melatonin 6 mg PO HS PRN tab 05/24/23 01/31/24 Rx carvediloL [Coreg] 6.25 mg PO BID-W/MEALS tab 05/24/23 01/31/24 Rx Insulin Detemir (Levemir) [Levemir] 20 unit SQ BID@0700,2100 08/03/23 01/31/24 History Magnesium Hydroxide [Milk of 7,200 ml PO DAILY PRN 08/03/23 01/31/24 History Magnesia Concentrate] Meloxicam [Mobic] 7.5 mg PO DAILY 08/03/23 01/31/24 History Na Phos,M-B/Na Phos,Di-Ba [Fleet 1 dose RECTAL ONCE PRN 08/03/23 01/31/24 History Adult] Nystatin 100,000 Unit/gm Powd 1 applic TOPICAL TID PRN 08/03/23 01/31/24 History [Mycostatin Powder] bisacodyL [Dulcolax] 10 mg RECTAL ONCE PRN 08/03/23 01/31/24 History Acetaminophen Tab [Tylenol] 650 mg PO Q6HR PRN tab 08/07/23 01/31/24 Rx Atorvastatin Calcium [Lipitor] 80 mg PO HS 01/31/24 01/31/24 History Baclofen [Lioresal] 10 mg PO TID 01/31/24 01/31/24 History Biofreeze (Unknown) 1 applic TOPICAL TID 01/31/24 01/31/24 History Caldesene Baby Powder 1 applic TOPICAL BID 01/31/24 01/31/24 History Collagenase [Santyl Ointment] 1 applic TOPICAL DAILY 01/31/24 01/31/24 History Collagenase [Santyl Ointment] 1 applic TOPICAL DAILY 01/31/24 01/31/24 History Famotidine [Pepcid] 20 mg PO DAILY 01/31/24 01/31/24 History Gabapentin 300 mg PO TID 01/31/24 01/31/24 History Dominic Packet 1 packet PO BID-W/MEALS 01/31/24 01/31/24 History Lidocaine 5% Cream 1 applic TOPICAL WE 01/31/24 01/31/24 History Liquacal 30 ml PO BID@0800,1700 01/31/24 01/31/24 History Multivitamins, Thera [Multivitamin 1 tab PO DAILY 01/31/24 01/31/24 History (formulary)] Sodium Chloride [Saline Nasal Mist] 2 spray EA NOSTRIL DAILY 01/31/24 01/31/24 History Vicodin Es 7.5/300mg 1 tab PO Q6H 01/31/24 01/31/24 History amLODIPine [Norvasc] 10 mg PO DAILY@1700 01/31/24 01/31/24 History rOPINIRole HCL [Requip] 0.5 mg PO BID@1200,2100 01/31/24 01/31/24 History traZODone HCL [Desyrel] 50 mg PO HS 01/31/24 01/31/24 History Allergies Allergy/AdvReac Type Severity Reaction Status Date / Time No Known Allergies Allergy Verified 01/31/24 13:50 Surgical - Exam Vital Signs Temp Pulse Resp BP 98.0 F 60 18 126/50 01/31/24 13:33 01/31/24 13:33 01/31/24 13:33 01/31/24 13:33 General appearance: The patient is alert, oriented, appears in no acute distress. Morbidly obese. HET: Head is normocephalic and atraumatic. Pupils are equal and reactive. Neck: Supple. Heart: Regular. Lungs: Equal expansion, normal respiratory effort. Abdomen: Soft, nontender, nondistended. Extremities: Nonpalpable DP or PT pulses. Lower extremities are rigid patient is unable to move her lower extremities. Left heel with pressure ulcer, gangrenous left great toe diabetic ulcer. Right foot to medial pressure ulcers and 1 lateral ulcer. Right knee contracted. Neurological: No focal deficits. Poor strength. Patient's right lower extremity is contracted. She states she cannot move bilateral lower extremities. Results - Labs 01/31/24 13:45 02/01/24 05:10 Abnormal Lab Results - Last 24 Hours (Table) 01/31/24 01/31/24 01/31/24 Range/Units 13:45 13:45 21:04 WBC 12.6 H (3.8-10.6) k/uL Hgb 9.5 L (11.4-16.0) gm/dL Hct 30.2 L (34.0-46.0) % MCV 77.8 L (80.0-100.0) fL MCH 24.6 L (25.0-35.0) pg RDW 16.7 H (11.5-15.5) % Neutrophils # 9.6 H (1.3-7.7) k/uL Sodium 131 L (137-145) mmol/L BUN 66 H (7-17) mg/dL Glucose 203 H (74-99) mg/dL POC Glucose (mg/dL) 216 H (70-110) mg/dL AST 39 H (14-36) U/L ALT 43 H (4-34) U/L Total Protein 5.8 L (6.3-8.2) g/dL Albumin 2.9 L (3.5-5.0) g/dL 02/01/24 Range/Units 07:08 WBC (3.8-10.6) k/uL Hgb (11.4-16.0) gm/dL Hct (34.0-46.0) % MCV (80.0-100.0) fL MCH (25.0-35.0) pg RDW (11.5-15.5) % Neutrophils # (1.3-7.7) k/uL Sodium (137-145) mmol/L BUN (7-17) mg/dL Glucose (74-99) mg/dL POC Glucose (mg/dL) 115 H (70-110) mg/dL AST (14-36) U/L ALT (4-34) U/L Total Protein (6.3-8.2) g/dL Albumin (3.5-5.0) g/dL Diabetes panel 01/31/24 02/01/24 Range/Units 13:45 05:10 Sodium 131 L (137-145) mmol/L Potassium 5.0 (3.5-5.1) mmol/L Chloride 99 (98-107) mmol/L Carbon Dioxide 26 (22-30) mmol/L BUN 66 H (7-17) mg/dL Creatinine 0.86 0.67 (0.52-1.04) mg/dL Glucose 203 H (74-99) mg/dL Calcium 8.6 (8.4-10.2) mg/dL AST 39 H (14-36) U/L ALT 43 H (4-34) U/L Alkaline Phosphatase 121 (38-126) U/L Total Protein 5.8 L (6.3-8.2) g/dL Albumin 2.9 L (3.5-5.0) g/dL Calcium panel 01/31/24 Range/Units 13:45 Calcium 8.6 (8.4-10.2) mg/dL Albumin 2.9 L (3.5-5.0) g/dL Pituitary panel 01/31/24 02/01/24 Range/Units 13:45 05:10 Sodium 131 L (137-145) mmol/L Potassium 5.0 (3.5-5.1) mmol/L Chloride 99 (98-107) mmol/L Carbon Dioxide 26 (22-30) mmol/L BUN 66 H (7-17) mg/dL Creatinine 0.86 0.67 (0.52-1.04) mg/dL Glucose 203 H (74-99) mg/dL Calcium 8.6 (8.4-10.2) mg/dL Adrenal panel 01/31/24 02/01/24 Range/Units 13:45 05:10 Sodium 131 L (137-145) mmol/L Potassium 5.0 (3.5-5.1) mmol/L Chloride 99 (98-107) mmol/L Carbon Dioxide 26 (22-30) mmol/L BUN 66 H (7-17) mg/dL Creatinine 0.86 0.67 (0.52-1.04) mg/dL Glucose 203 H (74-99) mg/dL Calcium 8.6 (8.4-10.2) mg/dL Total Bilirubin 0.4 (0.2-1.3) mg/dL AST 39 H (14-36) U/L ALT 43 H (4-34) U/L Alkaline Phosphatase 121 (38-126) U/L Total Protein 5.8 L (6.3-8.2) g/dL Albumin 2.9 L (3.5-5.0) g/dL - Imaging Comments: Left foot x-ray reports no suspicious abnormality to suggest osteomyelitis. Follow-up three-phase bone scan can be performed as clinically indicated. Extensive soft tissue loss over the heel pad. Assessment and Plan Assessment: 1. Nonhealing left heel pressure ulcer with gangrene 2. Right foot diabetic ulcers 3. Diabetes mellitus 4. Patient is nonambulatory. Bedbound/wheelchair-bound 5. Coronary artery disease status post stenting 6. Severe carotid artery disease status post right TCAR 07/2023 7. Hypertension 8. Hyperlipidemia 9. Morbid obesity Plan: 1. Apply soft heel protector boot to right foot, continue with left foot 2. Antibiotics per recommendations from infectious disease 3. Adaptic, 4 x 4 and Kerlix to left foot 4. CT angiogram abdomen pelvis with runoff ordered 5. Patient will need medical and cardiac clearance prior to any surgical intervention 6. Discussed with patient and daughter likely will proceed with [id number] amputation however need to evaluate blood flow. [place] so options discussed of no treatment and possible hospice care. Patient states she would like surgical intervention. 7. Further recommendations forthcoming following CT angiogram Thank you for this consultation, we will continue to follow. The impression and plan of care has been dictated as directed. I performed a history and examination of this patient, discussed the same with the dictator. I agree with the dictator's note ,documented as a scribe. Any additional findings or plans will be noted.
--- NOTE | 2024-02-01 14:44 | CT ---
EXAMINATION TYPE: CT angio abd aorta w/Runoff DATE OF EXAM: 02/01/2024 COMPARISON: CT chest 10/05/2021 HISTORY: 83-year-old female non-healing wounds TECHNIQUE: Contiguous axial scanning of the abdomen and pelvis performed without and with IV Contrast , patient injected with 125cc mL of Isovue 370. Bilateral lower extent of the runoff after IV contras t demonstration. Delayed images through the the distal lower extremities. Coronal/sagittal reconstruc tions performed. 3-D reconstructions will be generated on a dedicated workstation. CT DLP: 3551.8 mGycm Automated exposure control for dose reduction was used. FINDINGS: Abdomen pelvis: Heart mildly enlarged. Prominent coronary artery calcifications are present. Moderate right and trace left pleural effusions with adjacent atelectasis. Some septal lines are also noted. Correlate for fl uid overload state. Moderate generalized anasarca change, greatest at the lower abdomen and pelvis and lower extremities. Liver mildly enlarged at 18.5 cm. Portal venous system is patent. No biliary ductal dilatation. Gallbladder, adrenal glands, and mildly atrophic pancreas show no gross evaluate. Mild fullness of the bilateral renal collecting systems. Spleen enlarged measuring 15.5 cm measured on axial series. No dilated small bowel, free fluid, or free air. No mesenteric or retroperitoneal lymphadenopathy. Mild overall stool burden. Generalized colonic diverticulosis. No pericolonic inflammatory change. Marked distention of the urinary bladder. Some pelvic floor relaxation is noted. Uterus surgically ab sent. Suspect visualization of a small left ovary. Right ovary not clearly identified. Small pelvic p hleboliths. No abnormal fluid collection in the pelvis or pelvic lymphadenopathy. [facility] throughout the lower thoracic spine. Advanced hypertrophic facet arthropathy throughout. Moderat e to severe degenerative disc disease throughout the lumbar spine. Vasculature: Moderate atherosclerotic calcifications infrarenal abdominal aorta and throughout the bilateral lower extremities. No aneurysm seen. Mild atherosclerotic narrowing at the origin of the celiac axis and moderate at the origin of the rig ht renal artery. Patent SHAZIA is noted. Right: The RADIO DIRECTOR shows mild atherosclerotic changes. The PFA is patent. Moderate atherosclerotic changes throughout the SFA. Segmental severe stenoses distal SFA at the abdu ctor hiatus. Additional moderate to severe segmental stenoses throughout the popliteal artery. The anterior tibial artery origin is patent. The tibial peroneal trunk is patent. Trifurcation vessels becomes very diminutive at the proximal third leg level. Segmental severe stenos es are present. There is further limitation in visualization due to fixation hardware along the tibia causing streak and beam hardening artifacts. A very diminutive posterior tibial artery and peroneal arteries are noted. These may provide collateral flow allowing for three-vessel runoff into the foot. Moderate to severe degenerative changes at the mid and hindfoot. Left: The RADIO DIRECTOR and PFA are patent with mild atherosclerotic changes. Segmental moderate stenoses upper and mid SFA but with more severe stenosis distally at the adductor hiatus. Segmental severe stenoses throughout the popliteal artery. Suspect short segment occlusion just above the knee joint line. There is normal takeoff of the anterior tibial artery with suspected severe stenoses or subtotal occl usions of the tibial peroneal trunk but with reconstitution to supply diminutive trifurcation vessels that demonstrate intermittent severe stenoses throughout. Some vessel enhancement is noted within th e foot. There is a deep soft tissue ulcer along the posterior and plantar heel with foci of soft tissue air a nd some bony destruction at the plantar calcaneus. Some intraosseous air noted near as well. Moderate to severe degenerative change at the midfoot. Advanced degenerative change at the left knee.. IMPRESSION: VASCULATURE: 1. MODERATE ARTHRITIC CHANGES INFRARENAL ABDOMINAL AORTA AND BILATERAL LOWER EXTREMITIES. NO ANEURYSM . MILD ATELECTATIC NARROWING AT THE ORIGIN OF THE CELIAC AXIS AND MODERATE AT THE ORIGIN OF THE RIGHT RENAL ARTERY. RIGHT: 2. SEGMENTAL SEVERE STENOSES DISTAL SFA AND MODERATE TO SEVERE SEGMENTAL STENOSES THROUGHOUT THE POPL ITEAL ARTERY. 3. THE TRIFURCATION VESSELS BECOMES VERY DIMINUTIVE AT THE PROXIMAL THIRD LEAD LEVEL. FURTHER LIMITAT ION IN VISUALIZATION DUE TO PROMINENT METAL ARTIFACT FROM PRIOR FIXATION HARDWARE AT THE TIBIA. 4. DIMINUTIVE PERONEAL AND POSTERIOR TIBIAL ARTERIES MAY PROVIDE COLLATERAL FLOW ALLOWING FOR THREE-V ESSEL RUNOFF INTO THE FOOT. LEFT: 5. DEEP SOFT TISSUE ULCER AT THE HEEL AND PLANTAR HINDFOOT WITH UNDERLYING CONTIGUOUS OSTEOMYELITIS O F THE CALCANEUS. FOCI OF SOFT TISSUE AIR LOCALIZED IN AND AROUND THE ULCER SUGGESTING INFECTION WITH GAS-FORMING ORGANISM. 6. SEGMENTAL MODERATE STENOSES UPPER AND MID SFA BUT WITH SEVERE STENOSES DISTAL SFA. 7. SEGMENTAL SEVERE STENOSES THROUGHOUT THE POPLITEAL ARTERY. SHORT SEGMENT OCCLUSION JUST ABOVE-THE- KNEE JOINT LINE. 8. SEVERE STENOSES OR SUBTOTAL OCCLUSIONS THROUGHOUT THE TRIFURCATION VESSELS. VERY DIMINUTIVE TRIFUR CATION VESSELS NOTED DOWN AT THE ANKLE BUT WITH VESSEL ENHANCEMENT NOTED WITHIN THE FOOT PROBABLY FRO M COLLATERAL FLOW. ABDOMEN PELVIS: 9. CORRELATE FOR THIRD SPACING/FLUID OVERLOAD STATE GIVEN CARDIOMEGALY, GENERALIZED ANASARCA, AND MOD ERATE RIGHT AND TRACE LEFT PLEURAL EFFUSIONS. 10. INCIDENTAL: SPLENOMEGALY AT 15.5 CM, HEPATOMEGALY AT 18.5 CM. PROMINENT DISTENTION OF THE URINARY BLADDER. CORRELATE TO ENSURE VOLUNTARY RETENTION. GENERALIZED COLONIC DIVERTICULOSIS.
[2024-02-01 14:53] VITALS: BMI 39.3
[2024-02-01] MEDS: VANCOMYCIN 1,750 MG in SODIUM CHLORIDE 0.9% 500 ML 500 ML IVPB SCH (16:02)
[2024-02-01] MEDS: amLODIPine 10 MG TAB PO SCH (16:02)
[2024-02-01 16:57] LABS: Glucose,Whole Blood 139 mg/dL (70-110)
[2024-02-01 20:10] LABS: Glucose,Whole Blood 159 mg/dL (70-110)
[2024-02-01] MEDS: AMPICILLIN-SULBACTAM 3 GM in SODIUM CHLORIDE 0.9% 100 ML IVPB SCH (20:53)
[2024-02-01] MEDS: ACETAMINOPHEN TAB 325 MG TAB PO PRN (21:10)
--- NOTE | 2024-02-01 22:49 | P.CONS ---
History of Present Illness - Reason for Consult Consult date: 02/01/24 Infected left heel Requesting physician: Joaquin Levine - Chief Complaint Left heel nonhealing wound x weeks - History of Present Illness Patient is a 83-year-old female with a past medical history significant for diabetes mellitus hypertension hyperlipidemia osteoarthritis in this patient who is a long-term resident patient has been brought into the hospital for evaluation of worsening left heel pressure ulcer apparently the patient was noticed to have increasing oder and drainage from the left heel concern for infection with the symptoms getting worse over the last few days and the patient complaining of more pain to the left heel area unfortunately not able to quantify any further because of her mental condition patient on presentation to the hospital was afebrile and no fever have been recorded subsequently patient was not tachycardic or hypotensive not hypoxic and not for supplemental oxygen patient did have white count of 12.6 creatinine has been normal electrolytes are normal liver isms mildly elevated blood culture obtained which are currently pending patient did have a foot x-ray no suspicious abnormality suggestive of osteomyelitis patient has been admitted to the hospital she was started on vancomycin infectious was consulted for further management of febrile therapy most well patient has been obtained from review the chart talking to the daughter as the patient unable to provide any history Review of Systems Positive points has been mentioned in HPI complete review could not be obtained because of his underlying mental status Past Medical History Past Medical History: Cancer, Diabetes Mellitus, Hearing Disorder / Deafness, Hyperlipidemia, Hypertension, Osteoarthritis (OA), Thyroid Disorder Additional Past Medical History / Comment(s): Slight hearing trouble. Currently in wheelchair, unable to stand or walk. Hx left breast cancer. "Bad right hip, may need replacement." History of Any Multi-Drug Resistant Organisms: None Reported Past Surgical History: Breast Surgery, Hysterectomy, Joint Replacement, Orthopedic Surgery Additional Past Surgical History / Comment(s): Left breast biopsy X3, right breast biopsy X2, ductogram, ORIF right lower leg with plate, total left hip replacement, left breast lumpectomy. Past Anesthesia/Blood Transfusion Reactions: No Reported Reaction Past Psychological History: Anxiety, Depression Smoking Status: Never smoker Past Alcohol Use History: None Reported Past Drug Use History: None Reported - Past Family History Sister(s) Family Medical History: Cancer Additional Family Medical History / Comment(s): BREAST CANCER. Medications and Allergies Home Medications Medication Instructions Recorded Confirmed Type INSULIN LISPRO (HumaLOG) [humaLOG] See Protocol SQ AC-TID 12/28/16 01/31/24 History Levothyroxine Sodium [Synthroid] 50 mcg PO DAILY 12/28/16 01/31/24 History Losartan/Hydrochlorothiazide 1 tab PO DAILY 12/28/16 01/31/24 History [Losartan-Hctz 100-12.5 mg Tab] Sertraline [Zoloft] 100 mg PO DAILY 03/16/17 01/31/24 History Anastrozole 1 mg PO DAILY 05/19/23 01/31/24 History Latanoprost Ophth [Xalatan 0.005%] 1 drop BOTH EYES HS 05/19/23 01/31/24 History Loratadine [Claritin] 10 mg PO DAILY 05/19/23 01/31/24 History buPROPion XL [Wellbutrin XL] 150 mg PO DAILY 05/19/23 01/31/24 History Aspirin 81 mg PO DAILY tab 05/24/23 01/31/24 Rx Clopidogrel [Plavix] 75 mg PO DAILY tab 05/24/23 01/31/24 Rx Melatonin 6 mg PO HS PRN tab 05/24/23 01/31/24 Rx carvediloL [Coreg] 6.25 mg PO BID-W/MEALS tab 05/24/23 01/31/24 Rx Insulin Detemir (Levemir) [Levemir] 20 unit SQ BID@0700,2100 08/03/23 01/31/24 History Magnesium Hydroxide [Milk of 7,200 ml PO DAILY PRN 08/03/23 01/31/24 History Magnesia Concentrate] Meloxicam [Mobic] 7.5 mg PO DAILY 08/03/23 01/31/24 History Na Phos,M-B/Na Phos,Di-Ba [Fleet 1 dose RECTAL ONCE PRN 08/03/23 01/31/24 History Adult] Nystatin 100,000 Unit/gm Powd 1 applic TOPICAL TID PRN 08/03/23 01/31/24 History [Mycostatin Powder] bisacodyL [Dulcolax] 10 mg RECTAL ONCE PRN 08/03/23 01/31/24 History Acetaminophen Tab [Tylenol] 650 mg PO Q6HR PRN tab 08/07/23 01/31/24 Rx Atorvastatin Calcium [Lipitor] 80 mg PO HS 01/31/24 01/31/24 History Baclofen [Lioresal] 10 mg PO TID 01/31/24 01/31/24 History Biofreeze (Unknown) 1 applic TOPICAL TID 01/31/24 01/31/24 History Caldesene Baby Powder 1 applic TOPICAL BID 01/31/24 01/31/24 History Collagenase [Santyl Ointment] 1 applic TOPICAL DAILY 01/31/24 01/31/24 History Collagenase [Santyl Ointment] 1 applic TOPICAL DAILY 01/31/24 01/31/24 History Famotidine [Pepcid] 20 mg PO DAILY 01/31/24 01/31/24 History Gabapentin 300 mg PO TID 01/31/24 01/31/24 History Dominic Packet 1 packet PO BID-W/MEALS 01/31/24 01/31/24 History Lidocaine 5% Cream 1 applic TOPICAL WE 01/31/24 01/31/24 History Liquacal 30 ml PO BID@0800,1700 01/31/24 01/31/24 History Multivitamins, Thera [Multivitamin 1 tab PO DAILY 01/31/24 01/31/24 History (formulary)] Sodium Chloride [Saline Nasal Mist] 2 spray EA NOSTRIL DAILY 01/31/24 01/31/24 History Vicodin Es 7.5/300mg 1 tab PO Q6H 01/31/24 01/31/24 History amLODIPine [Norvasc] 10 mg PO DAILY@1700 01/31/24 01/31/24 History rOPINIRole HCL [Requip] 0.5 mg PO BID@1200,2100 01/31/24 01/31/24 History traZODone HCL [Desyrel] 50 mg PO HS 01/31/24 01/31/24 History Allergies Allergy/AdvReac Type Severity Reaction Status Date / Time No Known Allergies Allergy Verified 01/31/24 13:50 Physical Exam Vitals: Vital Signs Temp Pulse Pulse Resp BP BP Pulse Ox 02/01/24 09:33 60 152/66 02/01/24 08:00 97.7 F 55 L 22 121/60 91 L 02/01/24 07:04 97.9 F 52 L 18 107/62 96 02/01/24 01:16 98 F 61 18 125/57 92 L 01/31/24 21:05 98.2 F 69 18 158/63 93 L 01/31/24 20:00 69 18 141/70 96 01/31/24 13:33 98.0 F 60 18 126/50 Intake and Output 01/31/24 02/01/24 02/01/24 22:59 06:59 14:59 Output Total 700 Balance -700 Output: Urine 700 Other: Voiding Method Diaper Diaper Incontinent Incontinent External Catheter External Catheter # Voids 1 1 Weight 100.698 kg GENERAL DESCRIPTION: Elderly female lying in bed, no distress. No tachypnea or accessory muscle of respiration use. HEENT: Shows Pallor , no scleral icterus. Oral mucous membrane is dry. NECK: Trachea central, no thyromegaly. LUNGS: Unlabored breathing. Clear to auscultation anteriorly. No wheeze or crackle. HEART: S1, S2, regular rate and rhythm. No loud murmur ABDOMEN: Soft, no tenderness , guarding or rigidity, no organomegaly EXTREMITIES: Left heel with unstageable pressure ulcer with some foul-smelling patient also have necrotic wound x 2 to the right foot lateral border SKIN: No rash, no masses palpable. NEUROLOGICAL: The patient is awake, orientation could not determine Results CBC & Chem 7: 01/31/24 13:45 02/01/24 05:10 Labs: Abnormal Lab Results - Last 24 Hours (Table) 01/31/24 01/31/24 01/31/24 Range/Units 13:45 13:45 21:04 WBC 12.6 H (3.8-10.6) k/uL Hgb 9.5 L (11.4-16.0) gm/dL Hct 30.2 L (34.0-46.0) % MCV 77.8 L (80.0-100.0) fL MCH 24.6 L (25.0-35.0) pg RDW 16.7 H (11.5-15.5) % Neutrophils # 9.6 H (1.3-7.7) k/uL Sodium 131 L (137-145) mmol/L BUN 66 H (7-17) mg/dL Glucose 203 H (74-99) mg/dL POC Glucose (mg/dL) 216 H (70-110) mg/dL AST 39 H (14-36) U/L ALT 43 H (4-34) U/L Total Protein 5.8 L (6.3-8.2) g/dL Albumin 2.9 L (3.5-5.0) g/dL 02/01/24 Range/Units 07:08 WBC (3.8-10.6) k/uL Hgb (11.4-16.0) gm/dL Hct (34.0-46.0) % MCV (80.0-100.0) fL MCH (25.0-35.0) pg RDW (11.5-15.5) % Neutrophils # (1.3-7.7) k/uL Sodium (137-145) mmol/L BUN (7-17) mg/dL Glucose (74-99) mg/dL POC Glucose (mg/dL) 115 H (70-110) mg/dL AST (14-36) U/L ALT (4-34) U/L Total Protein (6.3-8.2) g/dL Albumin (3.5-5.0) g/dL Assessment and Plan (1) Pressure ulcer, heel, left, unstageable Current Visit: Yes Status: Acute Code(s): L89.620 - PRESSURE ULCER OF LEFT HEEL, UNSTAGEABLE SNOMED Code(s): 84720835409224237 (2) Left leg cellulitis Current Visit: Yes Status: Acute Code(s): L03.116 - CELLULITIS OF LEFT LOWER LIMB SNOMED Code(s): 30284374860809764 Plan: 1patient presented to hospital with worsening wound to the left heel area currently with necrotic wound unstageable pressure ulcer with secondary cellu litis likely need to cover for both gram-positive as well as gram-negative pathogen 2-vascular surgery has seen the patient and recommending possible amputation awaiting family decision and angiogram 3-we will continue patient on vancomycin we will add Unasyn to cover for the gram-negative and anaerobes while waiting for the workup to be completed Daughter at the bedside questions answered We will follow on clinical condition and cultures to further adjust medication if needed Thank you for this consultation we will follow the patient along with you Dictation was produced using [employer] dictation software. please excuse any grammatical, word or spelling errors. Time with Patient: Greater than 30
--- NOTE | 2024-02-02 06:25 | P.PN ---
Subjective Progress Note Date: 02/01/24 HISTORY OF PRESENT ILLNESS: 83-year-old with active medical history of Type 2 diabetes, obesity, left-sided breast cancer, hypertension, hyperlipidemia, hypothyroidism, chronic depression, chronic lower back pain with degenerative disc disease and spinal stenosis, peripheral arterial disease with severe carotid stenosis, hypertensive cardiovascular disease, coronary artery disease post PCI and stent placement of the LAD May 2023, also patient had stroke and found to have 80-90 percentile stenosis of the internal carotid artery ended up having right transcarotid artery revascularization with stenting July 2023: Following her procedure she had quite a bit debility and worsening symptoms ended up being transferred to [facility] or rehab after several weeks of rehab patient improvement was very limited and that being quite bit debilitated wheelchair and bedbound and declined further more patient was transferred to long-term at [facility]. For the last 12 weeks patient had severe rigidity in her body and severe stiffness could not move ambulate or turn. Started having slight irritation and discomfort of the skin with an earlier stage of small ulceration. wound care and [facility] was involved early start seen in November for smaller area in the left heel over the following few weeks become slightly red worsening and required debridement which was done by Dr. Rodrigues 4 weeks ago. He was referred to see vascular for severe PAD and diagnosis was made at the time the patient was told that her circulation is extremely bad and worsening might require amputation above the knee. Entire left heel become gangrenous within the last few days and become much worse with bone exposure. Patient was seen and evaluated today and decided to send patient to the hospital to be seen by vascular start IV antibiotic might require further intervention. She was started on vancomycin IV admitted to the hospital consult vascular lab blood work was done and long talk with the family and prepare for possible need for intervention which most likely below or above-knee amputation in the next 48 hours. 02/01/2024: Seen vascular today still planning for above-knee amputation but wants patient to be cleared by cardiology and prepare for the procedure and also recommending CT angiogram before the amputation. Both procedure where order. The patient was seen infectious disease agree with the current infection will add Unasyn to vancomycin for better coverage and gram-negative's and anaerobic while waiting for workup and procedure. Patient's pain is under control currently still have severe stiffness still have other area of concern including the sacrum the other heel foot area and upper extremity as well. If all goes well expect probably amputation by tomorrow. REVIEW OF SYSTEMS: CONSTITUTIONAL: Morbidly obese lying in bed in quite good pain no acute respiratory distress. EYES: No icterus sclerae, no conjunctivitis. EARS, NOSE, MOUTH, THROAT, and FACE: No sore throat, lymphadenopathy, carotid bruits or deformity. RESPIRATORY: Mild shortness of breath no cough or wheezes. CARDIOVASCULAR: Positive PND orthopnea palpitation no angina. GASTROINTESTINAL: No Abd pain, Nausea or vomiting, no Diarrhea or constipation, No GI Bleed, no distention or masses. GENITOURINARY: Negative for Hematuria or UTI, no kidney stones. INTEGUMENT/BREAST: Generalized arthralgia and myalgia with chronic lower back pain and significant involvement of the soft tissues without breaking skin and dry this area of her body but worsening in the left heel. HEMATOLOGIC/LYMPHATIC: Negative for bleed or purpura. History of left-sided breast cancer. MUSCULOSKELTAL: Negative for Myalgia or arthralgia. Severe ulcerated left heel with gangrenous change with bone exposure. Severe generalized muscle stiffness and discomfort. NEURLOGICAL: No LOC, Sz or syncope, blurred vision dizziness or abnormality.. BEHAVIORAL/PSYCH: Negative. ENDOCRINE: Negative. PHYSICAL EXAMINATION: General Appearance: Obese lying in bed no distress aware of her left heel not been able to turn in bed and had severe stiffness. Neck HEENT: Supple, no lymphadenopathy, no thyroid enlargement, no carotid bruits. Lungs: Clear to auscultation without crackles or wheezes no rhonchi, no deformity. Chest Wall: Decreased expansion with deep inspiration no tenderness and no deformity was found on exam, no costochondral pain or discomfort. Heart: Regular rate and rhythm, S1, S2 positive S3 positive systolic murmur. Back: Symmetric, with scoliosis and kyphosis with mild tenderness in lower lumbar area. Abdomen: Soft, non-tender, bowel sounds active all four quadrants, no masses, no organomegaly. Extremities: Left heel had severe gangrenous ulcerated area measure 10 x 12 cm with slight drainage and slight bone exposure. Pulses: No palpable pulse in both lower extremity. Skin: Skin color, texture, tugor normal, no rashes or lesions. Neurologic: Alert oriented x3 cranial nerves II through XII intact, no motor deficit, no abnormal balance or gait. ASSESSMENT AND PLAN: _Severe gangrenous change in the left heel area mostly unstageable: Unasyn was added to Zosyn by infectious disease recommendation, patient is going for an angiogram and will be waiting for cardiology clearance and prepare for above- knee amputation. _Osteomyelitis of the left heel area: Will be going for intervention for amputation. _Residual stroke with significant weakness affecting the left side more than the right side. _Severe carotid stenosis post right-sided carotid stenting. _Severe coronary artery disease post angioplasty and stent placement of the LAD back in May 2023 was to be continue on antiplatelet agent along with statin and beta-sofiya. Patient has not had any testing including echocardiogram since her intervention back in May last year. _Type 2 diabetes: Continue Accu-Chek with sliding scales coverage Levemir 20 units twice a day NovoLog 5 to 7 units AC meals plus sliding scales coverage. Eventually can benefit from SGLT2 product. Blood sugarIs doing better currently we will continue Accu-Cheks balance. Will decide her current insulin. _History of breast cancer: Was seen oncology regularlyStill on anastrozole 1 mg daily. _Hypertension: Continue Coreg 6.25 mg twice a day, amlodipine 10 mg daily, losartan hydrochlorothiazide 100/12.5 mg daily. _Hyperlipidemia: Remain on atorvastatin 80 mg nightly. _Hypothyroidism: Continue Synthroid 50 mcg daily. _Severe spinal stenosis and lower back pain has been on medical management only still on pain meds along with gabapentin. _Chronic depression: Has been on trazodone 50 mg at bedtime along with Wellbutrin 150 mg daily Zoloft 100 mg a day. _Restless leg syndrome: Remain on Requip 0.5 mg twice a day. Discussion: The patient is seeing vascular and infectious disease will consult cardiology Also an order for an echocardiogram was done to evaluate ejection fraction patient is not getting go for any cardiac testing side echocardiogram stress test is not in order at this point patient might have some risk involved with amputation but procedure has to be done otherwise mortality would be very high. Objective - Vital Signs Vital signs: Vital Signs Temp 98 F 02/01/24 01:16 Pulse 61 02/01/24 01:16 Resp 18 02/01/24 01:16 BP 125/57 02/01/24 01:16 Pulse Ox 92 L 02/01/24 01:16 FiO2 Intake & Output 01/31/24 01/31/24 02/01/24 06:59 18:59 06:59 Output Total 700 Balance -700 Weight 100.698 kg 100.698 kg Output: Urine 700 Other: Voiding Method Diaper Incontinent External Catheter # Voids 1 - Labs CBC & Chem 7: 01/31/24 13:45 02/01/24 05:10 Labs: Abnormal Lab Results - Last 24 Hours (Table) 01/31/24 01/31/24 01/31/24 Range/Units 13:45 13:45 21:04 WBC 12.6 H (3.8-10.6) k/uL Hgb 9.5 L (11.4-16.0) gm/dL Hct 30.2 L (34.0-46.0) % MCV 77.8 L (80.0-100.0) fL MCH 24.6 L (25.0-35.0) pg RDW 16.7 H (11.5-15.5) % Neutrophils # 9.6 H (1.3-7.7) k/uL Sodium 131 L (137-145) mmol/L BUN 66 H (7-17) mg/dL Glucose 203 H (74-99) mg/dL POC Glucose (mg/dL) 216 H (70-110) mg/dL AST 39 H (14-36) U/L ALT 43 H (4-34) U/L Total Protein 5.8 L (6.3-8.2) g/dL Albumin 2.9 L (3.5-5.0) g/dL
[2024-02-02 07:17] LABS: Glucose,Whole Blood 100 mg/dL (70-110)
[2024-02-02] MEDS: INSULIN ASPART (NovoLOG) 100 UNIT/ML VIAL SQ SCH (08:05)
[2024-02-02 08:52] LABS: Anisocytosis Slight; Basophils # (A) 0.1 k/uL (0-0.2); Basophils % (A) 1 %; Eosinophils # (A) 0.5 k/uL (0-0.7); Eosinophils % (A) 4 %; HCT 36.9 % (34.0-46.0); HGB 11.2 gm/dL (11.4-16.0); Hypochromasia Moderate; Lymphocytes % (A) 19 %; MCHC 30.3 g/dL (31.0-37.0); MCV 79.2 fL (80.0-100.0); Mean Platelet Volume 7.3; Microcytosis Slight; Monocytes # (A) 0.6 k/uL (0-1.0); Monocytes % (A) 6 %; Neutrophils % (A) 68 %; Platelet Count 323 k/uL (150-450); Poikilocytosis Slight; RBC 4.66 m/uL (3.80-5.40); RDW 16.9 % (11.5-15.5); WBC 10.3 k/uL (3.8-10.6)
[2024-02-02 09:27] LABS: African American GFR (CKD) >90 (>60 ml/min/1.73 sqM); Anion Gap 6 mmol/L; Blood Urea Nitrogen 32 mg/dL (7-17); Carbon Dioxide 24 mmol/L (22-30); Chloride 108 mmol/L (98-107); Glucose 93 mg/dL (74-99); Non-African American GFR(CKD) 84 (>60 ml/min/1.73 sqM); Sodium 138 mmol/L (137-145)
[2024-02-02 09:28] LABS: ALT 38 U/L (4-34); Calcium 9.1 mg/dL (8.4-10.2); Total Bilirubin 0.7 mg/dL (0.2-1.3)
[2024-02-02 09:30] LABS: AST 59 U/L (14-36); Alkaline Phosphatase 120 U/L (38-126)
--- NOTE | 2024-02-02 10:20 | P.PN ---
Subjective Progress Note Date: 02/02/24 Principal diagnosis: Peripheral arterial disease, nonhealing lower extremity wounds Patient is seen and examined this morning as a follow-up. She is currently resting in bed. No acute changes through the night. She is without any new complaints. She had a CTA of the abdomen pelvis with runoff with right lower extremity severe stenosis, left lower extremity moderate stenosis upper and mid SFA but with severe stenosis of the distal SFA severe stenosis throughout the popliteal artery short segment occlusion just above the knee joint line. Severe stenosis or subtotal occlusion throughout the trifurcation vessels. Diminutive trifurcation vessels noted down at the ankle but with vessel enhancement noted within the foot probably from collateral flow. Objective - Vital Signs Vital signs: Vital Signs Temp 97.7 F 02/02/24 01:46 Pulse 50 L 02/02/24 01:46 Resp 18 02/02/24 01:46 BP 125/66 02/02/24 01:46 Pulse Ox 99 02/02/24 01:46 FiO2 Intake & Output 02/01/24 02/02/24 02/02/24 18:59 06:59 18:59 Intake Total 620 Output Total 1200 1000 Balance -580 -1000 Weight 100.698 kg Intake: Intake, IV Titration 500 Amount Vancomycin 1,750 mg In 500 Sodium Chloride 0.9% 500 ml 500 ml @ 167 mls/hr IVPB Q24H [facility] Rx#: [id number] Oral 120 Output: Urine 1200 1000 Other: Voiding Method Diaper Diaper Incontinent Incontinent External Catheter External Catheter - Exam General appearance: The patient is alert, oriented, appears in no acute dist ress. Morbidly obese. HET: Head is normocephalic and atraumatic. Pupils are equal and reactive. Neck: Supple. Heart: Regular. Lungs: Equal expansion, normal respiratory effort. Abdomen: Soft, nontender, nondistended. Extremities: Nonpalpable DP or PT pulses. Lower extremities are rigid patient is unable to move her lower extremities. Left heel with pressure ulcer, gangrenous left great toe diabetic ulcer. Right foot to medial pressure ulcers and 1 lateral ulcer. Right knee contracted. Neurological: No focal deficits. Poor strength. Patient's right lower extremity is contracted. She states she cannot move bilateral lower extremities. - Labs CBC & Chem 7: 02/02/24 08:40 02/02/24 08:40 Labs: Abnormal Lab Results - Last 24 Hours (Table) 02/01/24 02/01/24 02/01/24 Range/Units 07:08 16:53 20:08 POC Glucose (mg/dL) 115 H 139 H 159 H (70-110) mg/dL Microbiology - Last 24 Hours (Table) 01/31/24 13:45 Blood Culture - Preliminary Blood 01/31/24 14:00 Blood Culture - Preliminary Blood Assessment and Plan Assessment: 1. Nonhealing left heel pressure ulcer with gangrene 2. Right foot diabetic ulcers 3. Peripheral arterial disease, left greater than right with segmental severe stenosis throughout popliteal artery short segment occlusion severe stenosis subtotal occlusions throughout the trifurcation vessels. 4. Diabetes mellitus 5. Patient is nonambulatory. Bedbound/wheelchair-bound 6. Coronary artery disease status post stenting 6. Severe carotid artery disease status post right TCAR 07/2023 7. Hypertension 8. Hyperlipidemia 9. Morbid obesity Plan: 1. Apply soft heel protector boot to right foot, continue with left foot 2. Antibiotics per recommendations from infectious disease 3. Wet-to-dry dressing daily to left heel 4. CT angiogram abdomen pelvis with runoff ordered and reviewed. Patient should be able to heal and [id number] amputation of the left lower extremity. 5. Patient will need medical and cardiac clearance prior to any surgical intervention 6. Discussed with patient and daughter likely will proceed with [id number] amputation as blood flow does look adequate to heal and [id number] amputation. Timing to be determined. Likely early next week if medically cleared. Thank you for this consultation, we will continue to follow. The impression and plan of care has been dictated as directed. I performed a history and examination of this patient, discussed the same with the dictator. I agree with the dictator's note ,documented as a scribe. Any additional findings or plans will be noted.
[2024-02-02 11:59] LABS: Glucose,Whole Blood 172 mg/dL (70-110)
--- NOTE | 2024-02-02 15:40 | CA ---
Transthoracic Echo Report Name: Abena Vizcaino Age: 83 Gender: F : 1940 Exam Date: 02/02/2024 10:25 Exam Location: [place] [facility] Ht (in): 63 Wt (lb): 222 Ordering Physician: Joaquin Levine MD Attending/Referring Phys: [employer] Associate Luna Max RDCS Procedure CPT: Indications: lvfunction Cardiac Hx: Technical Quality: Technically difficult study Contrast 1: Definity Total Dose (mL): 2 Contrast 2: Total Dose (mL): MEASUREMENTS (Male / Female) Normal Values 2D ECHO LV Diastolic Diameter PLAX 4.2 cm 4.2 - 5.9 / 3.9 - 5.3 cm LV Systolic Diameter PLAX 2.4 cm IVS Diastolic Thickness 1.5 cm 0.6 - 1.0 / 0.6 - 0.9 cm LVPW Diastolic Thickness 1.2 cm 0.6 - 1.0 / 0.6 - 0.9 cm LV Relative Wall Thickness 0.6 RV Internal Dim ED PLAX 2.7 cm LA Volume 57.8 cm??? 18 - 58 / 22 - 52 cm??? LA Volume Index 26.7 cm???/m??? 16 - 28 cm???/m??? M-MODE Aortic Root Diameter MM 3.3 cm LA Systolic Diameter MM 4.1 cm LA Ao Ratio MM 1.2 AV Cusp Separation MM 1.4 cm DOPPLER AV Peak Velocity 187.7 cm/s AV Peak Gradient 14.1 mmHg AV Mean Velocity 130.7 cm/s AV Mean Gradient 7.8 mmHg AV Velocity Time Integral 44.8 cm LVOT Peak Velocity 91.3 cm/s LVOT Peak Gradient 3.3 mmHg LVOT Velocity Time Integral 22.7 cm MV Area PHT 2.3 cm??? Mitral E Point Velocity 150.6 cm/s Mitral A Point Velocity 87.3 cm/s Mitral E to A Ratio 1.7 MV Deceleration Time 330.3 ms MV E' Velocity 4.5 cm/s Mitral E to MV E' Ratio 33.8 TR Peak Velocity 384.2 cm/s TR Peak Gradient 59.1 mmHg Right Ventricular Systolic Press 64.1 mmHg FINDINGS Left Ventricle Moderately increased left ventricular wall thickness. Left ventricular cavity size normal. Normal left ventricular systolic function with no obvious regional wall motion abnormalities. Left ventricular ejection fraction is estimated at 55-60 %. Grade 1 diastolic dysfunction. Right Ventricle Normal right ventricular size and function. Right ventricular systolic pressure estimated at 64 mm hg. Severe pulmonary hypertension. Right Atrium Normal right atrial size. Left Atrium Mildly increased left atrial volume. Mildly increased left atrial area. Mitral Valve Structurally normal mitral valve. Mitral valve thickened. Moderate mitral annular calcification. Mild mitral regurgitation. Aortic Valve No aortic valve stenosis or regurgitation. Tricuspid Valve Structurally normal tricuspid valve. [id number] tricuspid regurgitation. Pulmonic Valve Structurally normal pulmonic valve. Trace pulmonic regurgitation. Pericardium No pericardial effusion. Aorta Normal size aortic root and proximal ascending aorta. CONCLUSIONS Left ventricular ejection fraction 55-60% Moderately increased left ventricular wall thickness RVSP 64 Mild mitral regurgitation Mildly dilated left atrium Mild to moderate tricuspid regurgitation Previewed by: Dr. Hira Anderson DO (Electronically Signed) Final Date: 02 February 2024 15:39
--- NOTE | 2024-02-02 16:06 | P.PN ---
Subjective Progress Note Date: 02/02/24 Principal diagnosis: Reason for follow-up is left heel infected pressure ulcer Patient is a 83-year-old female with a past medical history significant for diabetes mellitus hypertension hyperlipidemia osteoarthritis in this patient who is a [facility] resident patient has been brought into the hospital for evaluation of worsening left heel pressure ulcer concerning for infection prompting this consultation. On today's evaluation that is 02/02/2024, Patient is afebrile patient is currently on room air and denies having any shortness of breath, the patient denies any chest pain or cough, the patient denies any nausea vomiting did not have any abdominal pain and no diarrhea, still complaining of pain to the left heel area but no worsening. Patient white normalized to 10.2, creatinine 0.62 blood cultures pending Objective - Vital Signs Vital signs: Vital Signs Temp 97.4 F L 02/02/24 07:24 Pulse 53 L 02/02/24 07:24 Resp 12 02/02/24 07:24 BP 146/65 02/02/24 07:24 Pulse Ox 94 L 02/02/24 07:24 FiO2 Intake & Output 02/01/24 02/02/24 02/02/24 18:59 06:59 18:59 Intake Total 620 Output Total 1200 1000 650 Balance -580 -1000 -650 Weight 100.698 kg Intake: Intake, IV Titration 500 Amount Vancomycin 1,750 mg In 500 Sodium Chloride 0.9% 500 ml 500 ml @ 167 mls/hr IVPB Q24H [facility] Rx#: [id number] Oral 120 Output: Urine 1200 1000 650 Other: Voiding Method Diaper Diaper Diaper Incontinent Incontinent Incontinent External Catheter External Catheter External Catheter - Exam GENERAL DESCRIPTION: An elderly female lying in bed in no distress RESPIRATORY SYSTEM: Unlabored breathing , decreased breath sounds at bases HEART: S1 S2 regular rate and rhythm , ABDOMEN: Soft , no tenderness EXTREMITIES: Left heel is currently dressed - Labs CBC & Chem 7: 02/02/24 08:40 02/02/24 08:40 Labs: Abnormal Lab Results - Last 24 Hours (Table) 02/01/24 02/01/24 02/02/24 Range/Units 16:53 20:08 08:40 Hgb 11.2 L (11.4-16.0) gm/dL MCV 79.2 L (80.0-100.0) fL MCH 24.0 L (25.0-35.0) pg MCHC 30.3 L (31.0-37.0) g/dL RDW 16.9 H (11.5-15.5) % Chloride (98-107) mmol/L BUN (7-17) mg/dL POC Glucose (mg/dL) 139 H 159 H (70-110) mg/dL AST (14-36) U/L ALT (4-34) U/L Total Protein (6.3-8.2) g/dL Albumin (3.5-5.0) g/dL 02/02/24 Range/Units 08:40 Hgb (11.4-16.0) gm/dL MCV (80.0-100.0) fL MCH (25.0-35.0) pg MCHC (31.0-37.0) g/dL RDW (11.5-15.5) % Chloride 108 H (98-107) mmol/L BUN 32 H (7-17) mg/dL POC Glucose (mg/dL) (70-110) mg/dL AST 59 H (14-36) U/L ALT 38 H (4-34) U/L Total Protein 6.0 L (6.3-8.2) g/dL Albumin 3.0 L (3.5-5.0) g/dL Microbiology - Last 24 Hours (Table) 01/31/24 13:45 Blood Culture - Preliminary Blood 01/31/24 14:00 Blood Culture - Preliminary Blood Assessment and Plan (1) Pressure ulcer, heel, left, unstageable Current Visit: Yes Status: Acute Code(s): L89.620 - PRESSURE ULCER OF LEFT HEEL, UNSTAGEABLE SNOMED Code(s): 59508418669940647 (2) Left leg cellulitis Current Visit: Yes Status: Acute Code(s): L03.116 - CELLULITIS OF LEFT LOWER LIMB SNOMED Code(s): 43564275841518217 Plan: 1patient presented to hospital with worsening wound to the left heel area currently with necrotic wound unstageable pressure ulcer with secondary cellulitis likely need to cover for both gram-positive as well as gram-negative pathogen 2-vascular surgery has seen the patient and recommending possible [id number] amputation 3-patient to continue with vancomycin and Unasyn while waiting for the culture to finalize and condition stabilized Dictation was produced using [employer] dictation software. please excuse any grammatical, word or spelling errors. Time with Patient: Less than 30
[2024-02-02 17:09] LABS: Glucose,Whole Blood 203 mg/dL (70-110)
[2024-02-02 19:54] LABS: Glucose,Whole Blood 199 mg/dL (70-110)
--- NOTE | 2024-02-02 23:25 | P.CRDCN ---
History of Present Illness History of present illness: History of present illness: Patient is a pleasant 83-year-old female with significant past medical history of diabetes, hypertension, CAD s/p PCI and history of breast cancer who presented to the emergency department with complaints of LLE pain and nonhealing left heel ulcer with gangrene. She does have significant diabetes and eventually vascular surgery was consult it with findings of bilateral PAD and recommendations for amputation, debridement. She additionally has a history of carotid artery stenosis status post TCAR 08/16. She underwent left heart catheterization and stenting of her proximal LAD 04/2023 and has done fairly well since that time. She denies any chest pain or pressure. Denies any shortness breath other than her chronic mild dyspnea. Echocardiogram performed this hospitalization shows EF 55-60%, RVSP 64, mild mitral regurgitation. REVIEW OF SYSTEMS: No fever or chills. No cough or expectoration. No diaphoresis. Patient denies headache, dizziness, blurred vision, double vision. Patient denies any stomach discomfort. No nausea, vomiting. No hematochezia. No hematemesis. Denies any black stools or blood in his stools. Denies dysuria or hematuria. Reports muscle weakness. No numbness. No chest pain or pressure. Reports frequent falls. PHYSICAL EXAMINATION: This is a 83 year-old female in no apparent distress at the time of my examination. HEENT: Head is atraumatic, normocephalic. Pupils are equal, round. Sclerae anicteric. Conjunctivae are clear. Mucous membranes of the mouth are moist. CHEST EXAMINATION: Lungs are clear to auscultation. No chest wall tenderness is noted on palpation or with deep breathing. HEART EXAMINATION: Heart regular rate and rhythm. S1, S2 heard. No murmurs, gallops or rub. ABDOMEN: Soft, nontender. Bowel sounds are heard. EXTREMITIES: no evidence of peripheral edema and no calf tenderness noted. NEUROLOGIC EXAMINATION: Patient is awake, alert and oriented x3. IMPRESSION AND PLAN: Gangrenous left lower extremity. Preoperative cardiovascular exam CAD s/p PCI LAD 05/15 PAD Diabetes Hypertension History of breast cancer pulmonary hypertension PLAN: patient with multiple medical comorbidities however just recently had a catheterization in April 2023 with revascularization. No other remaining t argets and patient not having significant angina-type symptoms. He has been 9 months and okay to stop Plavix for surgery however will continue with aspirin throat surgery. Gentle hydration throughout surgery. No further recommendations from an inpatient standpoint. Please call with questions. Past Medical History Past Medical History: Cancer, Diabetes Mellitus, Hearing Disorder / Deafness, Hyperlipidemia, Hypertension, Osteoarthritis (OA), Thyroid Disorder Additional Past Medical History / Comment(s): Slight hearing trouble. Currently in wheelchair, unable to stand or walk. Hx left breast cancer. "Bad right hip, may need replacement." History of Any Multi-Drug Resistant Organisms: None Reported Past Surgical History: Breast Surgery, Hysterectomy, Joint Replacement, Ortho pedic Surgery Additional Past Surgical History / Comment(s): Left breast biopsy X3, right breast biopsy X2, ductogram, ORIF right lower leg with plate, total left hip replacement, left breast lumpectomy. Past Anesthesia/Blood Transfusion Reactions: No Reported Reaction Past Psychological History: Anxiety, Depression Smoking Status: Never smoker Past Alcohol Use History: None Reported Past Drug Use History: None Reported - Past Family History Sister(s) Family Medical History: Cancer Additional Family Medical History / Comment(s): BREAST CANCER. Medications and Allergies Home Medications Medication Instructions Recorded Confirmed Type INSULIN LISPRO (HumaLOG) [humaLOG] See Protocol SQ AC-TID 12/28/16 01/31/24 H istory Levothyroxine Sodium [Synthroid] 50 mcg PO DAILY 12/28/16 01/31/24 History Losartan/Hydrochlorothiazide 1 tab PO DAILY 12/28/16 01/31/24 History [Losartan-Hctz 100-12.5 mg Tab] Sertraline [Zoloft] 100 mg PO DAILY 03/16/17 01/31/24 History Anastrozole 1 mg PO DAILY 05/19/23 01/31/24 History Latanoprost Ophth [Xalatan 0.005%] 1 drop BOTH EYES HS 05/19/23 01/31/24 History Loratadine [Claritin] 10 mg PO DAILY 05/19/23 01/31/24 History buPROPion XL [Wellbutrin XL] 150 mg PO DAILY 05/19/23 01/31/24 History Aspirin 81 mg PO DAILY tab 05/24/23 01/31/24 Rx Clopidogrel [Plavix] 75 mg PO DAILY tab 05/24/23 01/31/24 Rx Melatonin 6 mg PO HS PRN tab 05/24/23 01/31/24 Rx carvediloL [Coreg] 6.25 mg PO BID-W/MEALS tab 05/24/23 01/31/24 Rx Insulin Detemir (Levemir) [Levemir] 20 unit SQ BID@0700,2100 08/03/23 01/31/24 History Magnesium Hydroxide [Milk of 7,200 ml PO DAILY PRN 08/03/23 01/31/24 History Magnesia Concentrate] Meloxicam [Mobic] 7.5 mg PO DAILY 08/03/23 01/31/24 History Na Phos,M-B/Na Phos,Di-Ba [Fleet 1 dose RECTAL ONCE PRN 08/03/23 01/31/24 History Adult] Nystatin 100,000 Unit/gm Powd 1 applic TOPICAL TID PRN 08/03/23 01/31/24 History [Mycostatin Powder] bisacodyL [Dulcolax] 10 mg RECTAL ONCE PRN 08/03/23 01/31/24 History Acetaminophen Tab [Tylenol] 650 mg PO Q6HR PRN tab 08/07/23 01/31/24 Rx Atorvastatin Calcium [Lipitor] 80 mg PO HS 01/31/24 01/31/24 History Baclofen [Lioresal] 10 mg PO TID 01/31/24 01/31/24 History Biofreeze (Unknown) 1 applic TOPICAL TID 01/31/24 01/31/24 History Caldesene Baby Powder 1 applic TOPICAL BID 01/31/24 01/31/24 History Collagenase [Santyl Ointment] 1 applic TOPICAL DAILY 01/31/24 01/31/24 History Collagenase [Santyl Ointment] 1 applic TOPICAL DAILY 01/31/24 01/31/24 History Famotidine [Pepcid] 20 mg PO DAILY 01/31/24 01/31/24 History Gabapentin 300 mg PO TID 01/31/24 01/31/24 History Dominic Packet 1 packet PO BID-W/MEALS 01/31/24 01/31/24 History Lidocaine 5% Cream 1 applic TOPICAL WE 01/31/24 01/31/24 History Liquacal 30 ml PO BID@0800,1700 01/31/24 01/31/24 History Multivitamins, Thera [Multivitamin 1 tab PO DAILY 01/31/24 01/31/24 History (formulary)] Sodium Chloride [Saline Nasal Mist] 2 spray EA NOSTRIL DAILY 01/31/24 01/31/24 History Vicodin Es 7.5/300mg 1 tab PO Q6H 01/31/24 01/31/24 History amLODIPine [Norvasc] 10 mg PO DAILY@1700 01/31/24 01/31/24 History rOPINIRole HCL [Requip] 0.5 mg PO BID@1200,2100 01/31/24 01/31/24 History traZODone HCL [Desyrel] 50 mg PO HS 01/31/24 01/31/24 History Allergies Allergy/AdvReac Type Severity Reaction Status Date / Time No Known Allergies Allergy Verified 01/31/24 13:50 Physical Exam Vitals: Vital Signs Temp Pulse Resp BP Pulse Ox 02/02/24 20:00 63 02/02/24 19:29 98.5 F 63 18 148/68 93 L 02/02/24 13:47 97.8 F 62 16 131/65 92 L 02/02/24 07:24 97.4 F L 53 L 12 146/65 94 L 02/02/24 01:46 97.7 F 50 L 18 125/66 99 Intake and Output 02/02/24 02/02/24 02/03/24 14:59 22:59 06:59 Output Total 1400 200 Balance -1400 -200 Output: Urine 1400 200 Other: Voiding Method Diaper Diaper Incontinent Incontinent External Catheter External Catheter Results 02/02/24 08:40 02/02/24 08:40 Cardiac Enzymes 02/02/24 Range/Units 08:40 AST 59 H (14-36) U/L CBC 02/02/24 Range/Units 08:40 WBC 10.3 (3.8-10.6) k/uL RBC 4.66 (3.80-5.40) m/uL Hgb 11.2 L (11.4-16.0) gm/dL Hct 36.9 (34.0-46.0) % Plt Count 323 (150-450) k/uL Comprehensive Metabolic Panel 02/02/24 Range/Units 08:40 Sodium 138 (137-145) mmol/L Potassium 5.0 (3.5-5.1) mmol/L Chloride 108 H (98-107) mmol/L Carbon Dioxide 24 (22-30) mmol/L BUN 32 H (7-17) mg/dL Creatinine 0.62 (0.52-1.04) mg/dL Glucose 93 (74-99) mg/dL Calcium 9.1 (8.4-10.2) mg/dL AST 59 H (14-36) U/L ALT 38 H (4-34) U/L Alkaline Phosphatase 120 (38-126) U/L Total Protein 6.0 L (6.3-8.2) g/dL Albumin 3.0 L (3.5-5.0) g/dL Current Medications Generic Name Dose Route Start Last Admin Trade Name Freq PRN Reason Stop Dose Admin Acetaminophen 650 mg 01/31/24 18:40 02/02/24 20:34 Acetaminophen Tab 325 Mg Tab PO 650 mg Q6HR PRN Administration Fever and/ or Pain Hydrocodone Bitart/Acetaminophen 1 each 01/31/24 19:00 02/02/24 18:34 Hydrocodone/Apap 7.5-325mg 1 Each Tab PO 1 each Q6H A[facility] Administration Amlodipine Besylate 10 mg 02/01/24 17:00 02/02/24 16:47 Amlodipine 10 Mg Tab PO 10 mg DAILY@1700 AIDA Administration Anastrozole 1 mg 02/01/24 09:00 02/02/24 09:52 Anastrozole 1 Mg Tab PO 1 mg DAILY AIDA Administration Aspirin 81 mg 02/01/24 09:00 02/02/24 09:45 Aspirin 81 Mg PO 81 mg DAILY AIDA Administration Atorvastatin Calcium 80 mg 01/31/24 21:00 02/02/24 20:34 Atorvastatin 80 Mg Tab PO 80 mg HS AIDA Administration Baclofen 10 mg 01/31/24 22:00 02/02/24 20:34 Baclofen 10 Mg Tab PO 10 mg TID AIDA Administration Bisacodyl 10 mg 01/31/24 18:40 Bisacodyl 10 Mg Supp RECTAL ONCE PRN Constipation Bupropion HCl 150 mg 02/01/24 09:00 02/02/24 09:45 Bupropion Xl 150 Mg Tab.Er.24h PO 150 mg DAILY A[facility] Administration Carvedilol 6.25 mg 02/01/24 07:30 02/02/24 16:45 Carvedilol 6.25 Mg Tab PO 6.25 mg BID-W/MEALS A[facility] Administration Famotidine 20 mg 02/01/24 09:00 02/02/24 09:46 Famotidine 20 Mg Tab PO 20 mg DAILY AIDA Administration Gabapentin 300 mg 01/31/24 22:00 02/02/24 20:34 Gabapentin 300 Mg Cap PO 300 mg TID AIDA Administration HCTZ/Losartan Potassium 2 each 02/01/24 09:00 02/02/24 09:49 Losartan-Hctz 50-12.5 Mg 1 Each Tab PO 2 each DAILY A[facility] Administration Vancomycin HCl 1,750 mg/ 500 mls @ 167 mls/hr 02/01/24 16:00 02/02/24 16:45 Sodium Chloride IVPB 167 mls/hr Q24H [facility] Administration Ampicillin Sodium/Sulbactam 100 mls @ 200 mls/hr 02/01/24 18:00 02/02/24 17:38 Sodium 3 gm/ Sodium Chloride IVPB 200 mls/hr Q6HR A[facility] Administration Protocol Insulin Aspart 0 unit 02/02/24 07:30 02/02/24 20:35 Insulin Aspart (Novolog) 100 Unit/Ml Vial SQ 2 unit ACHS [facility] Administration Protocol Insulin Detemir 20 unit 01/31/24 21:00 02/02/24 20:34 Insulin Detemir (Levemir) 100 Unit/Ml Syr SQ 20 unit BID@0700,2100 [facility] Administration Latanoprost 1 drops 01/31/24 21:00 02/02/24 20:42 Latanoprost 0.005% Ophth Drops 2.5 Ml Btl BOTH EYES 1 drops HS [facility] Administration Levothyroxine Sodium 50 mcg 02/01/24 09:00 02/02/24 09:42 Levothyroxine 50 Mcg Tab PO 50 mcg DAILY [facility] Administration Non-Formulary Medication 7,200 ml 01/31/24 18:40 Magnesium Hydroxide PO DAILY PRN Constipation Ropinirole HCl 0.5 mg 01/31/24 21:00 02/02/24 20:42 Ropinirole Hcl 0.25 Mg Tab PO 0.5 mg BID@1200,2100 A[facility] Administration Sertraline HCl 100 mg 02/01/24 09:00 02/02/24 09:48 Sertraline 100 Mg Tab PO 100 mg DAILY [facility] Administration Trazodone HCl 50 mg 01/31/24 21:00 02/02/24 20:34 Trazodone Hcl 50 Mg Tab PO 50 mg HS AIDA Administration Intake and Output 02/02/24 02/02/24 02/03/24 14:59 22:59 06:59 Output Total 1400 200 Balance -1400 -200 Output: Urine 1400 200 Other: Voiding Method Diaper Diaper Incontinent Incontinent External Catheter External Catheter 02/02/24 08:40 02/02/24 08:40
[2024-02-03 07:09] LABS: Glucose,Whole Blood 92 mg/dL (70-110)
--- NOTE | 2024-02-03 07:28 | P.PN ---
Subjective Progress Note Date: 02/02/24 HISTORY OF PRESENT ILLNESS: 83-year-old with active medical history of Type 2 diabetes, obesity, left-sided breast cancer, hypertension, hyperlipidemia, hypothyroidism, chronic depression, chronic lower back pain with degenerative disc disease and spinal stenosis, peripheral arterial disease with severe carotid stenosis, hypertensive cardiovascular disease, coronary artery disease post PCI and stent placement of the LAD May 2023, also patient had stroke and found to have 80-90 percentile stenosis of the internal carotid artery ended up having right transcarotid artery revascularization with stenting July 2023: Following her procedure she had quite a bit debility and worsening symptoms ended up being transferred to [facility] or rehab after several weeks of rehab patient improvement was very limited and that being quite bit debilitated wheelchair and bedbound and declined further more patient was transferred to long-term at [facility]. For the last 12 weeks patient had severe rigidity in her body and severe stiffness could not move ambulate or turn. Started having slight irritation and discomfort of the skin with an earlier stage of small ulceration. wound care and [facility] was involved early start seen in November for smaller area in the left heel over the following few weeks become slightly red worsening and required debridement which was done by Dr. Rodrigues 4 weeks ago. He was referred to see vascular for severe PAD and diagnosis was made at the time the patient was told that her circulation is extremely bad and worsening might require amputation above the knee. Entire left heel become gangrenous within the last few days and become much worse with bone exposure. Patient was seen and evaluated today and decided to send patient to the hospital to be seen by vascular start IV antibiotic might require further intervention. She was started on vancomycin IV admitted to the hospital consult vascular lab blood work was done and long talk with the family and prepare for possible need for intervention which most likely below or above-knee amputation in the next 48 hours. 02/01/2024: Seen vascular today still planning for above-knee amputation but wants patient to be cleared by cardiology and prepare for the procedure and also recommending CT angiogram before the amputation. Both procedure where order. The patient was seen infectious disease agree with the current infection will add Unasyn to vancomycin for better coverage and gram-negative's and anaerobic while waiting for workup and procedure. Patient's pain is under control currently still have severe stiffness still have other area of concern including the sacrum the other heel foot area and upper extremity as well. If all goes well expect probably amputation by tomorrow. 02/02/2024: Vascular awaiting for CT angiogram of the abdomen with runoff to see if they are able to do above-knee amputation of the left lower extremity. Also still waiting for cardiology clearance which again this surgery is extreme necessity otherwise mortality is extremely high. Cardiology and that seen patient late in the day and agree patient is not having any chest pain or angina has been 9 months since angioplasty and stent will be able to stop Aspirin and Plavix before surgery will be on standby watching for any complication might require help otherwise patient is very clear for surgery. Also infectious disease expanded the coverage with antibiotic to continue vancomycin and Unasyn to cover gram-negative and anaerobic as well. Patient and family informed of the decision of the above-named patient by vascular. Like planning for surgery at least early next week. REVIEW OF SYSTEMS: CONSTITUTIONAL: Morbidly obese lying in bed in quite good pain no acute respiratory distress. EYES: No icterus sclerae, no conjunctivitis. EARS, NOSE, MOUTH, THROAT, and FACE: No sore throat, lymphadenopathy, carotid bruits or deformity. RESPIRATORY: Mild shortness of breath no cough or wheezes. CARDIOVASCULAR: Positive PND orthopnea palpitation no angina. GASTROINTESTINAL: No Abd pain, Nausea or vomiting, no Diarrhea or constipation, No GI Bleed, no distention or masses. GENITOURINARY: Negative for Hematuria or UTI, no kidney stones. INTEGUMENT/BREAST: Generalized arthralgia and myalgia with chronic lower back pain and significant involvement of the soft tissues without breaking skin and dry this area of her body but worsening in the left heel. HEMATOLOGIC/LYMPHATIC: Negative for bleed or purpura. History of left-sided breast cancer. MUSCULOSKELTAL: Negative for Myalgia or arthralgia. Severe ulcerated left heel with gangrenous change with bone exposure. Severe generalized muscle stiffness and discomfort. NEURLOGICAL: No LOC, Sz or syncope, blurred vision dizziness or abnormality.. BEHAVIORAL/PSYCH: Negative. ENDOCRINE: Negative. PHYSICAL EXAMINATION: General Appearance: Obese lying in bed no distress aware of her left heel not been able to turn in bed and had severe stiffness. Neck HEENT: Supple, no lymphadenopathy, no thyroid enlargement, no carotid bruits. Lungs: Clear to auscultation without crackles or wheezes no rhonchi, no defo rmity. Chest Wall: Decreased expansion with deep inspiration no tenderness and no deformity was found on exam, no costochondral pain or discomfort. Heart: Regular rate and rhythm, S1, S2 positive S3 positive systolic murmur. Back: Symmetric, with scoliosis and kyphosis with mild tenderness in lower lumbar area. Abdomen: Soft, non-tender, bowel sounds active all four quadrants, no masses, no organomegaly. Extremities: Left heel had severe gangrenous ulcerated area measure 10 x 12 cm with slight drainage and slight bone exposure. Pulses: No palpable pulse in both lower extremity. Skin: Skin color, texture, tugor normal, no rashes or lesions. Neurologic: Alert oriented x3 cranial nerves II through XII intact, no motor deficit, no abnormal balance or gait. ASSESSMENT AND PLAN: _Severe gangrenous change in the left heel area mostly unstageable: Continue Unasyn and Zosyn for gram-negative, positive anaerobic coverage. CTA with runoff test was done with patient as of today scheduled for above-knee amputation for early next week. _Osteomyelitis of the left heel area: The gangrenous site is unstageable and not salvageable at this point amputation require to heal the area. _Severe coronary artery disease post angioplasty and stent placement of the LAD back in May 2023 was to be continue on antiplatelet agent along with statin and beta-sofiya. Patient has not had any testing including echocardiogram since her intervention back in May last year. _Type 2 diabetes: Continue Accu-Chek with sliding scales coverage Levemir 20 units twice a day NovoLog 5 to 7 units AC meals plus sliding scales coverage. Eventually can benefit from SGLT2 product. Blood sugarIs doing better currently we will continue Accu-Cheks balance. Will decide her current insulin. _Residual stroke with significant weakness affecting the left side more than the right side. _Severe carotid stenosis post right-sided carotid stenting. No major finding or complaint _History of breast cancer: Was seen oncology regularlyStill on anastrozole 1 mg daily. _Hypertension: Continue Coreg 6.25 mg twice a day, amlodipine 10 mg daily, losartan hydrochlorothiazide 100/12.5 mg daily. _Hyperlipidemia: Remain on atorvastatin 80 mg nightly. _Hypothyroidism: Continue Synthroid 50 mcg daily. _Severe spinal stenosis and lower back pain has been on medical management only still on pain meds along with gabapentin. _Chronic depression: Has been on trazodone 50 mg at bedtime along with Wellbutrin 150 mg daily Zoloft 100 mg a day. _Restless leg syndrome: Remain on Requip 0.5 mg twice a day. Discussion: Patient seen and evaluated by cardiology, vascular, infectious disease. Echocardiogram was done result compatible with ejection fraction of 55- 60 percentile with well-preserved heart function with pulmonary pressure of 64 mild mitral regurgitation with mild to moderate tricuspid regurgitation. Also CT angiogram with runoff was done which showed segmental of moderate stenosis of the upper and mid SFA but with severe stenosis of the distal SFA as well. Segmental severe stenosis throughout popliteal artery short segment of occlusion just above the knee joint line with severe stenosis or subtotal occlusion throughout trifurcation vessel very diminutive trifurcation vessel noted down at the ankle. Objective - Vital Signs Vital signs: Vital Signs Temp 97.7 F 02/02/24 01:46 Pulse 50 L 02/02/24 01:46 Resp 18 02/02/24 01:46 BP 125/66 02/02/24 01:46 Pulse Ox 99 02/02/24 01:46 FiO2 Intake & Output 02/01/24 02/01/24 02/02/24 06:59 18:59 06:59 Intake Total 620 Output Total 700 1200 1000 Balance -700 -580 -1000 Weight 100.698 kg 100.698 kg Intake: Intake, IV Titration 500 Amount Vancomycin 1,750 mg In 500 Sodium Chloride 0.9% 500 ml 500 ml @ 167 mls/hr IVPB Q24H [facility] Rx#: [id number] Oral 120 Output: Urine 700 1200 1000 Other: Voiding Method Diaper Diaper Diaper Incontinent Incontinent Incontinent External Catheter External Catheter External Catheter # Voids 1 - Labs CBC & Chem 7: 02/02/24 08:40 02/02/24 08:40 Labs: Abnormal Lab Results - Last 24 Hours (Table) 02/01/24 02/01/24 02/01/24 Range/Units 07:08 16:53 20:08 POC Glucose (mg/dL) 115 H 139 H 159 H (70-110) mg/dL Microbiology - Last 24 Hours (Table) 01/31/24 13:45 Blood Culture - Preliminary Blood 01/31/24 14:00 Blood Culture - Preliminary Blood
[2024-02-03 11:59] LABS: Glucose,Whole Blood 222 mg/dL (70-110)
--- NOTE | 2024-02-03 15:29 | P.PN ---
Subjective Progress Note Date: 02/03/24 Principal diagnosis: Reason for follow-up is left heel infected pressure ulcer Patient is a 83-year-old female with a past medical history significant for diabetes mellitus hypertension hyperlipidemia osteoarthritis in this patient who is a half-way resident patient has been brought into the hospital for evaluation of worsening left heel pressure ulcer concerning for infection prompting this consultation. On today's evaluation that is 02/03/2024, patient has been afebrile, patient is breathing comfortably and is currently on room air, patient denies having any significant cough no chest pain shortness of breath, patient denies nausea vomiting or diarrhea and no abdominal pain complaining of pain to the left foot but no worsening pain. No new lab has been obtained today blood pressure currently pending Objective - Vital Signs Vital signs: Vital Signs Temp 97.6 F 02/03/24 07:10 Pulse 61 02/03/24 07:10 Resp 16 02/03/24 07:10 BP 147/70 02/03/24 07:10 Pulse Ox 92 L 02/03/24 07:10 FiO2 Intake & Output 02/02/24 02/03/24 02/03/24 18:59 06:59 18:59 Output Total 1600 350 Balance -1600 -350 Output: Urine 1600 350 Other: Voiding Method Diaper Diaper Diaper Incontinent Incontinent Incontinent External Catheter External Catheter External Catheter - Exam GENERAL DESCRIPTION: An elderly female lying in bed in no distress RESPIRATORY SYSTEM: Unlabored breathing , decreased breath sounds at bases HEART: S1 S2 regular rate and rhythm , ABDOMEN: Soft , no tenderness EXTREMITIES: Left heel is currently dressed - Labs CBC & Chem 7: 02/02/24 08:40 02/02/24 08:40 Labs: Abnormal Lab Results - Last 24 Hours (Table) 02/02/24 02/02/24 02/02/24 Range/Units 11:57 17:07 19:39 POC Glucose (mg/dL) 172 H 203 H 199 H (70-110) mg/dL Microbiology - Last 24 Hours (Table) 01/31/24 13:45 Blood Culture - Preliminary Blood 01/31/24 14:00 Blood Culture - Preliminary Blood Assessment and Plan (1) Pressure ulcer, heel, left, unstageable Current Visit: Yes Status: Acute Code(s): L89.620 - PRESSURE ULCER OF LEFT HEEL, UNSTAGEABLE SNOMED Code(s): 44631471001781534 (2) Left leg cellulitis Current Visit: Yes Status: Acute Code(s): L03.116 - CELLULITIS OF LEFT LOWER LIMB SNOMED Code(s): 81242352374577941 Plan: 1patient presented to hospital with worsening wound to the left heel area currently with necrotic wound unstageable pressure ulcer with secondary cellulitis likely need to cover for both gram-positive as well as gram-negative pathogen 2-vascular surgery has seen the patient and recommending possible [id number] amputation waiting for clearance per cardiology 3-patient to continue with vancomycin and Unasyn antibiotic clinical course closely Dictation was produced using [employer] dictation software. please excuse any grammatical, word or spelling errors. Time with Patient: Less than 30
[2024-02-03 17:09] LABS: Glucose,Whole Blood 156 mg/dL (70-110)
[2024-02-03 19:55] LABS: Glucose,Whole Blood 180 mg/dL (70-110)
[2024-02-04 07:06] LABS: Glucose,Whole Blood 73 mg/dL (70-110)
--- NOTE | 2024-02-04 08:25 | P.PN ---
Subjective Progress Note Date: 02/03/24 HISTORY OF PRESENT ILLNESS: 83-year-old with active medical history of Type 2 diabetes, obesity, left-sided breast cancer, hypertension, hyperlipidemia, hypothyroidism, chronic depression, chronic lower back pain with degenerative disc disease and spinal stenosis, peripheral arterial disease with severe carotid stenosis, hypertensive cardiovascular disease, coronary artery disease post PCI and stent placement of the LAD May 2023, also patient had stroke and found to have 80-90 percentile stenosis of the internal carotid artery ended up having right transcarotid artery revascularization with stenting July 2023: Following her procedure she had quite a bit debility and worsening symptoms ended up being transferred to [facility] or rehab after several weeks of rehab patient improvement was very limited and that being quite bit debilitated wheelchair and bedbound and declined further more patient was transferred to long-term at [facility]. For the last 12 weeks patient had severe rigidity in her body and severe stiffness could not move ambulate or turn. Started having slight irritation and discomfort of the skin with an earlier stage of small ulceration. wound care and [facility] was involved early start seen in November for smaller area in the left heel over the following few weeks become slightly red worsening and required debridement which was done by Dr. Rodrigues 4 weeks ago. He was referred to see vascular for severe PAD and diagnosis was made at the time the patient was told that her circulation is extremely bad and worsening might require amputation above the knee. Entire left heel become gangrenous within the last few days and become much worse with bone exposure. Patient was seen and evaluated today and decided to send patient to the hospital to be seen by vascular start IV antibiotic might require further intervention. She was started on vancomycin IV admitted to the hospital consult vascular lab blood work was done and long talk with the family and prepare for possible need for intervention which most likely below or above-knee amputation in the next 48 hours. 02/01/2024: Seen vascular today still planning for above-knee amputation but wants patient to be cleared by cardiology and prepare for the procedure and also recommending CT angiogram before the amputation. Both procedure where order. The patient was seen infectious disease agree with the current infection will add Unasyn to vancomycin for better coverage and gram-negative's and anaerobic while waiting for workup and procedure. Patient's pain is under control currently still have severe stiffness still have other area of concern including the sacrum the other heel foot area and upper extremity as well. If all goes well expect probably amputation by tomorrow. 02/02/2024: Vascular awaiting for CT angiogram of the abdomen with runoff to see if they are able to do above-knee amputation of the left lower extremity. Also still waiting for cardiology clearance which again this surgery is extreme necessity otherwise mortality is extremely high. Cardiology and that seen patient late in the day and agree patient is not having any chest pain or angina has been 9 months since angioplasty and stent will be able to stop Aspirin and Plavix before surgery will be on standby watching for any complication might require help otherwise patient is very clear for surgery. Also infectious disease expanded the coverage with antibiotic to continue vancomycin and Unasyn to cover gram-negative and anaerobic as well. Patient and family informed of the decision of the above-named patient by vascular. Like planning for surgery at least early next week. 02/03/2024: Continue current antibiotic management by infectious disease which is a combination of Unasyn and vancomycin, continue local care with dressing, no lab for blood work 1 blood sugar still mildly elevated. Patient was seen cardiology consultation with the multiple comorbidity last heart catheter back in June 2023 with revascularization no other remaining cardiac patient is not having any angina and his 9-month past angioplasty can stop Plavix for surgery but decided to continue aspirin through surgery Patient will be watched carefully after surgery surgery as well. REVIEW OF SYSTEMS: CONSTITUTIONAL: Morbidly obese lying in bed in quite good pain no acute respiratory distress. EYES: No icterus sclerae, no conjunctivitis. EARS, NOSE, MOUTH, THROAT, and FACE: No sore throat, lymphadenopathy, carotid bruits or deformity. RESPIRATORY: Mild shortness of breath no cough or wheezes. CARDIOVASCULAR: Positive PND orthopnea palpitation no angina. GASTROINTESTINAL: No Abd pain, Nausea or vomiting, no Diarrhea or constipation, No GI Bleed, no distention or masses. GENITOURINARY: Negative for Hematuria or UTI, no kidney stones. INTEGUMENT/BREAST: Generalized arthralgia and myalgia with chronic lower back pain and significant involvement of the soft tissues without breaking skin and dry this area of her body but worsening in the left heel. HEMATOLOGIC/LYMPHATIC: Negative for bleed or purpura. History of left-sided breast cancer. MUSCULOSKELTAL: Negative for Myalgia or arthralgia. Severe ulcerated left heel with gangrenous change with bone exposure. Severe generalized muscle stiffness and discomfort. NEURLOGICAL: No LOC, Sz or syncope, blurred vision dizziness or abnormality.. BEHAVIORAL/PSYCH: Negative. ENDOCRINE: Negative. PHYSICAL EXAMINATION: General Appearance: Obese lying in bed no distress aware of her left heel not be en able to turn in bed and had severe stiffness. Neck HEENT: Supple, no lymphadenopathy, no thyroid enlargement, no carotid bruits. Lungs: Clear to auscultation without crackles or wheezes no rhonchi, no deformity. Chest Wall: Decreased expansion with deep inspiration no tenderness and no deformity was found on exam, no costochondral pain or discomfort. Heart: Regular rate and rhythm, S1, S2 positive S3 positive systolic murmur. Back: Symmetric, with scoliosis and kyphosis with mild tenderness in lower lumbar area. Abdomen: Soft, non-tender, bowel sounds active all four quadrants, no masses, no organomegaly. Extremities: Left heel had severe gangrenous ulcerated area measure 10 x 12 cm with slight drainage and slight bone exposure. Pulses: No palpable pulse in both lower extremity. Skin: Skin color, texture, tugor normal, no rashes or lesions. Neurologic: Alert oriented x3 cranial nerves II through XII intact, no motor deficit, no abnormal balance or gait. ASSESSMENT AND PLAN: _Severe gangrenous change in the left heel area mostly unstageable: Continue Noy syn and Zosyn for gram-negative, positive anaerobic coverage. Finding of CTA with runoff compatible with been able to do above-knee amputation. _Osteomyelitis of the left heel area: Severe osteomyelitis involving the bone patient will require above-knee amputation no need for bone scan at this point. _Severe coronary artery disease post angioplasty and stent placement of the LAD back in May 2023 patient seen cardiology with no symptoms of chest pain or angina antiplatelet agent will be held for the surgery but continue aspirin. _Type 2 diabetes: Continue Accu-Chek with sliding scales coverage Levemir 20 units twice a day NovoLog 5 to 7 units AC meals plus sliding scales coverage. E ventually can benefit from SGLT2 product. Blood sugarIs doing better currently we will continue Accu-Cheks balance. Will decide her current insulin. _Residual stroke with significant weakness affecting the left side more than the right side. No change at this point. _Severe carotid stenosis post right-sided carotid stenting. No major finding or complaint _History of breast cancer: Was seen oncology regularlyStill on anastrozole 1 mg daily. Breast cancer is in remission no sign of metastasis. _Hypertension: Continue Coreg 6.25 mg twice a day, amlodipine 10 mg daily, losartan hydrochlorothiazide 100/12.5 mg daily. Blood pressure mostly controlled below 144 systolic and below 94 diastolic. _Hyperlipidemia: Remain on atorvastatin 80 mg nightly. _Hypothyroidism: Continue Synthroid 50 mcg daily. _Severe spinal stenosis and lower back pain has been on medical management only still on pain meds along with gabapentin. No surgical intervention. _Chronic depression: Has been on trazodone 50 mg at bedtime along with Wellbutrin 150 mg daily Zoloft 100 mg a day. _Restless leg syndrome: Remain on Requip 0.5 mg twice a day. Discussion: Patient is currently cleared by vascular and infectious disease just waiting for the final date and time for her surgery sometimes earlier this week. Meanwhile continue antibiotic continue supportive care and pain management. Objective - Vital Signs Vital signs: Vital Signs Temp 97.9 F 02/03/24 20:00 Pulse 68 02/03/24 20:00 Resp 19 02/03/24 20:00 BP 150/72 02/03/24 20:00 Pulse Ox 99 02/03/24 20:00 FiO2 Intake & Output 02/03/24 02/03/24 02/04/24 06:59 18:59 06:59 Output Total 350 500 Balance -350 -500 Output: Urine 350 500 Other: Voiding Method Diaper Diaper Diaper Incontinent Incontinent Incontinent External Catheter External Catheter External Catheter # Voids 1 - Labs CBC & Chem 7: 02/02/24 08:40 02/02/24 08:40 Labs: Abnormal Lab Results - Last 24 Hours (Table) 02/03/24 02/03/24 02/03/24 Range/Units 11:57 17:08 19:48 POC Glucose (mg/dL) 222 H 156 H 180 H (70-110) mg/dL Microbiology - Last 24 Hours (Table) 01/31/24 13:45 Blood Culture - Preliminary Blood 01/31/24 14:00 Blood Culture - Preliminary Blood
--- NOTE | 2024-02-04 09:39 | P.PN ---
Subjective Progress Note Date: 02/04/24 Patient seen and examined. No changes overnight. Cardiology has cleared patient for surgery Objective - Vital Signs Vital signs: Vital Signs Temp 98.0 F 02/04/24 07:09 Pulse 58 L 02/04/24 07:09 Resp 16 02/04/24 07:09 BP 142/56 02/04/24 07:09 Pulse Ox 95 02/04/24 07:11 FiO2 Intake & Output 02/03/24 02/04/24 02/04/24 18:59 06:59 18:59 Output Total 500 200 Balance -500 -200 Output: Urine 500 200 Other: Voiding Method Diaper Diaper Diaper Incontinent Incontinent Incontinent External Catheter External Catheter External Catheter # Voids 1 500 # Bowel Movements 1 - Exam Nonpalpable DP or PT pulses. Rigid lower extremities unable to move. Left heel with pressure ulcer and gangrenous changes still great toe. Right foot medial pressure ulcers and lateral ulcers. Right knee is contracted. - Labs CBC & Chem 7: 02/02/24 08:40 02/02/24 08:40 Labs: Abnormal Lab Results - Last 24 Hours (Table) 02/03/24 02/03/24 02/03/24 Range/Units 11:57 17:08 19:48 POC Glucose (mg/dL) 222 H 156 H 180 H (70-110) mg/dL Microbiology - Last 24 Hours (Table) 01/31/24 13:45 Blood Culture - Preliminary Blood 01/31/24 14:00 Blood Culture - Preliminary Blood Assessment and Plan Assessment: 1. Nonhealing left heel pressure ulcer with gangrene 2. Right foot diabetic ulcers 3. Peripheral arterial disease, left greater than right with segmental severe stenosis throughout popliteal artery short segment occlusion severe stenosis subtotal occlusions throughout the trifurcation vessels. 4. Diabetes mellitus 5. Patient is nonambulatory. Bedbound/wheelchair-bound 6. Coronary artery disease status post stenting 6. Severe carotid artery disease status post right TCAR 07/2023 7. Hypertension 8. Hyperlipidemia 9. Morbid obesity Plan: Reviewed medical and cardiac evaluation and notes and patient has been cleared for surgery CT angiogram was reviewed by Dr. Burkett and patient will require above-knee amputation Will schedule surgery sometime early next week
[2024-02-04 12:01] LABS: Glucose,Whole Blood 112 mg/dL (70-110)
--- NOTE | 2024-02-04 12:56 | P.PN ---
Subjective Progress Note Date: 02/04/24 Principal diagnosis: Reason for follow-up is left heel infected pressure ulcer Patient is a 83-year-old female with a past medical history significant for diabetes mellitus hypertension hyperlipidemia osteoarthritis in this patient who is a [facility] resident patient has been brought into the hospital for evaluation of worsening left heel pressure ulcer concerning for infection prompting this consultation. On today's evaluation that is 02/04/2024, Patient is afebrile this morning and denies any chills, patient mention breathing comfortably and is currently on 2 L current oxygen, patient denies any chest pain occasional cough patient denies any abdominal pain no diarrhea no nausea no vomiting has been complaining of pain mostly to the left foot and ankle area. Patient did not have any lab draw today. Blood culture pending Objective - Vital Signs Vital signs: Vital Signs Temp 98.0 F 02/04/24 07:09 Pulse 58 L 02/04/24 07:09 Resp 16 02/04/24 07:09 BP 142/56 02/04/24 07:09 Pulse Ox 95 02/04/24 07:11 FiO2 Intake & Output 02/03/24 02/04/24 02/04/24 18:59 06:59 18:59 Output Total 500 200 Balance -500 -200 Output: Urine 500 200 Other: Voiding Method Diaper Diaper Diaper Incontinent Incontinent Incontinent External Catheter External Catheter External Catheter # Voids 1 500 # Bowel Movements 1 - Exam GENERAL DESCRIPTION: An elderly female lying in bed in no distress RESPIRATORY SYSTEM: Unlabored breathing , decreased breath sounds at bases HEART: S1 S2 regular rate and rhythm , ABDOMEN: Soft , no tenderness EXTREMITIES: Left heel is currently dressed - Labs CBC & Chem 7: 02/02/24 08:40 02/02/24 08:40 Labs: Abnormal Lab Results - Last 24 Hours (Table) 02/03/24 02/03/24 02/04/24 Range/Units 17:08 19:48 11:59 POC Glucose (mg/dL) 156 H 180 H 112 H (70-110) mg/dL Microbiology - Last 24 Hours (Table) 01/31/24 13:45 Blood Culture - Preliminary Blood 01/31/24 14:00 Blood Culture - Preliminary Blood Assessment and Plan (1) Pressure ulcer, heel, left, unstageable Current Visit: Yes Status: Acute Code(s): L89.620 - PRESSURE ULCER OF LEFT HEEL, UNSTAGEABLE SNOMED Code(s): 53064725949953050 (2) Left leg cellulitis Current Visit: Yes Status: Acute Code(s): L03.116 - CELLULITIS OF LEFT LOWER LIMB SNOMED Code(s): 96784887096440584 Plan: 1patient presented to hospital with worsening wound to the left heel area currently with necrotic wound unstageable pressure ulcer with secondary cellulitis likely need to cover for both gram-positive as well as gram-negative pathogen 2-vascular surgery has seen the patient and recommending possible [id number] amputation scheduled for early next week per their note 3-patient to continue with vancomycin and Unasyn antibiotic and monitor clinical course closely Dictation was produced using [employer] dictation software. please excuse any grammatical, word or spelling errors. Time with Patient: Less than 30
--- NOTE | 2024-02-04 13:52 | P.PN ---
Subjective Progress Note Date: 02/04/24 HISTORY OF PRESENT ILLNESS: 83-year-old with active medical history of Type 2 diabetes, obesity, left-sided breast cancer, hypertension, hyperlipidemia, hypothyroidism, chronic depression, chronic lower back pain with degenerative disc disease and spinal stenosis, peripheral arterial disease with severe carotid stenosis, hypertensive cardiovascular disease, coronary artery disease post PCI and stent placement of the LAD May 2023, also patient had stroke and found to have 80-90 percentile stenosis of the internal carotid artery ended up having right transcarotid artery revascularization with stenting July 2023: Following her procedure she had quite a bit debility and worsening symptoms ended up being transferred to [facility] or rehab after several weeks of rehab patient improvement was very limited and that being quite bit debilitated wheelchair and bedbound and declined further more patient was transferred to long-term at [facility]. For the last 12 weeks patient had severe rigidity in her body and severe stiffness could not move ambulate or turn. Started having slight irritation and discomfort of the skin with an earlier stage of small ulceration. wound care and [facility] was involved early start seen in November for smaller area in the left heel over the following few weeks become slightly red worsening and required debridement which was done by Dr. Rodrigues 4 weeks ago. He was referred to see vascular for severe PAD and diagnosis was made at the time the patient was told that her circulation is extremely bad and worsening might require amputation above the knee. Entire left heel become gangrenous within the last few days and become much worse with bone exposure. Patient was seen and evaluated today and decided to send patient to the hospital to be seen by vascular start IV antibiotic might require further intervention. She was started on vancomycin IV admitted to the hospital consult vascular lab blood work was done and long talk with the family and prepare for possible need for intervention which most likely below or above-knee amputation in the next 48 hours. 02/01/2024: Seen vascular today still planning for above-knee amputation but wants patient to be cleared by cardiology and prepare for the procedure and also recommending CT angiogram before the amputation. Both procedure where order. The patient was seen infectious disease agree with the current infection will add Unasyn to vancomycin for better coverage and gram-negative's and anaerobic while waiting for workup and procedure. Patient's pain is under control currently still have severe stiffness still have other area of concern including the sacrum the other heel foot area and upper extremity as well. If all goes well expect probably amputation by tomorrow. 02/02/2024: Vascular awaiting for CT angiogram of the abdomen with runoff to see if they are able to do above-knee amputation of the left lower extremity. Also still waiting for cardiology clearance which again this surgery is extreme necessity otherwise mortality is extremely high. Cardiology and that seen patient late in the day and agree patient is not having any chest pain or angina has been 9 months since angioplasty and stent will be able to stop Aspirin and Plavix before surgery will be on standby watching for any complication might require help otherwise patient is very clear for surgery. Also infectious disease expanded the coverage with antibiotic to continue vancomycin and Unasyn to cover gram-negative and anaerobic as well. Patient and family informed of the decision of the above-named patient by vascular. Like planning for surgery at least early next week. 02/03/2024: Continue current antibiotic management by infectious disease which is a combination of Unasyn and vancomycin, continue local care with dressing, no lab for blood work 1 blood sugar still mildly elevated. Patient was seen cardiology consultation with the multiple comorbidity last heart catheter back in June 2023 with revascularization no other remaining cardiac patient is not having any angina and his 9-month past angioplasty can stop Plavix for surgery but decided to continue aspirin through surgery Patient will be watched carefully after surgery surgery as well. 02/04/2024: Patient was seen and evaluated today her blood sugar has been slightly below in the morning we will adjust Levemir down to 15 units twice a day to lower the odds of having hypoglycemia. Lab was order patient seen vascular today look like he met all the criteria surgery is very clear at this point vascular planning to do surgery early this week. In the meanwhile continue IV antibiotic continue comfort care continue to watch for any further complication antiplatelet agent will be held till after the surgery the patient will be continued on aspirin no further intervention or procedure required before surgery. REVIEW OF SYSTEMS: CONSTITUTIONAL: Morbidly obese lying in bed in quite good pain no acute respiratory distress. EYES: No icterus sclerae, no conjunctivitis. EARS, NOSE, MOUTH, THROAT, and FACE: No sore throat, lymphadenopathy, carotid bruits or deformity. RESPIRATORY: Mild shortness of breath no cough or wheezes. CARDIOVASCULAR: Positive PND orthopnea palpitation no angina. GASTROINTESTINAL: No Abd pain, Nausea or vomiting, no Diarrhea or constipation, No GI Bleed, no distention or masses. GENITOURINARY: Negative for Hematuria or UTI, no kidney stones. INTEGUMENT/BREAST: Generalized arthralgia and myalgia with chronic lower back pain and significant involvement of the soft tissues without breaking skin and dry this area of her body but worsening in the left heel. HEMATOLOGIC/LYMPHATIC: Negative for bleed or purpura. History of left-sided breast cancer. MUSCULOSKELTAL: Negative for Myalgia or arthralgia. Severe ulcerated left heel with gangrenous change with bone exposure. Severe generalized muscle stiffness and discomfort. NEURLOGICAL: No LOC, Sz or syncope, blurred vision dizziness or abnormality.. BEHAVIORAL/PSYCH: Negative. ENDOCRINE: Negative. PHYSICAL EXAMINATION: General Appearance: Obese lying in bed no distress aware of her left heel not been able to turn in bed and had severe stiffness. Neck HEENT: Supple, no lymphadenopathy, no thyroid enlargement, no carotid bruits. Lungs: Clear to auscultation without crackles or wheezes no rhonchi, no deformity. Chest Wall: Decreased expansion with deep inspiration no tenderness and no deformity was found on exam, no costochondral pain or discomfort. Heart: Regular rate and rhythm, S1, S2 positive S3 positive systolic murmur. Back: Symmetric, with scoliosis and kyphosis with mild tenderness in lower lumbar area. Abdomen: Soft, non-tender, bowel sounds active all four quadrants, no masses, no organomegaly. Extremities: Left heel had severe gangrenous ulcerated area measure 10 x 12 cm with slight drainage and slight bone exposure. Pulses: No palpable pulse in both lower extremity. Skin: Skin color, texture, tugor normal, no rashes or lesions. Neurologic: Alert oriented x3 cranial nerves II through XII intact, no motor deficit, no abnormal balance or gait. ASSESSMENT AND PLAN: _Severe gangrenous change in the left heel area mostly unstageable: Continue Unasyn and Zosyn for gram-negative, positive anaerobic coverage. Finding of CTA with runoff compatible with been able to do above-knee amputation. Which obviously vascular surgery are planning to do it early this week. _Osteomyelitis of the left heel area: Severe osteomyelitis involving the bone patient will require above-knee amputation no need for bone scan at this point. _Severe coronary artery disease post angioplasty and stent placement of the LAD back in May 2023 patient seen cardiology with no symptoms of chest pain or angina antiplatelet agent will be held for the surgery but continue aspirin. 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 after surgery. _Residual stroke with significant weakness affecting the left side more than the right side. No change at this point. _Severe carotid stenosis post right-sided carotid stenting. No major finding or complaint _History of breast cancer: Was seen oncology regularlyStill on anastrozole 1 mg daily. Breast cancer is in remission no sign of metastasis. _Hypertension: Continue Coreg 6.25 mg twice a day, amlodipine 10 mg daily, losartan hydrochlorothiazide 100/12.5 mg daily. Blood pressure mostly c ontrolled below 144 systolic and below 94 diastolic. _Hyperlipidemia: Remain on atorvastatin 80 mg nightly. _Hypothyroidism: Continue Synthroid 50 mcg daily. _Severe spinal stenosis and lower back pain has been on medical management only still on pain meds along with gabapentin. No surgical intervention. _Chronic depression: Has been on trazodone 50 mg at bedtime along with Wellbutrin 150 mg daily Zoloft 100 mg a day. _Restless leg syndrome: Remain on Requip 0.5 mg twice a day. Discussion: Patient seen by vascular and all reviewed patient is cleared for above-knee amputation for early this week. No further intervention required at this point the only change made today is reduced Levemir to 15 units twice a day continue to watch patient's symptoms carefully and prepare hopefully for surgery this week. Objective - Vital Signs Vital signs: Vital Signs Temp 98.0 F 02/04/24 07:09 Pulse 58 L 02/04/24 07:09 Resp 16 02/04/24 07:09 BP 142/56 02/04/24 07:09 Pulse Ox 95 02/04/24 07:11 FiO2 Intake & Output 02/03/24 02/04/24 02/04/24 18:59 06:59 18:59 Output Total 500 200 Balance -500 -200 Output: Urine 500 200 Other: Voiding Method Diaper Diaper Incontinent Incontinent External Catheter External Catheter # Voids 1 500 # Bowel Movements 1 - Labs CBC & Chem 7: 02/02/24 08:40 02/02/24 08:40 Labs: Abnormal Lab Results - Last 24 Hours (Table) 02/03/24 02/03/24 02/03/24 Range/Units 11:57 17:08 19:48 POC Glucose (mg/dL) 222 H 156 H 180 H (70-110) mg/dL Microbiology - Last 24 Hours (Table) 01/31/24 13:45 Blood Culture - Preliminary Blood 01/31/24 14:00 Blood Culture - Preliminary Blood
[2024-02-04 17:13] LABS: Glucose,Whole Blood 145 mg/dL (70-110)
[2024-02-04 20:35] LABS: Glucose,Whole Blood 163 mg/dL (70-110)
[2024-02-04] MEDS: INSULIN DETEMIR (LEVEMIR) 100 UNIT/ML SYR SQ SCH (21:00)
[2024-02-05 04:04] LABS: ALT 35 U/L (4-34); AST 33 U/L (14-36); African American GFR (CKD) >90 (>60 ml/min/1.73 sqM); Albumin 2.5 g/dL (3.5-5.0); Alkaline Phosphatase 106 U/L (38-126); Anion Gap 4 mmol/L; Blood Urea Nitrogen 23 mg/dL (7-17); Calcium 8.2 mg/dL (8.4-10.2); Carbon Dioxide 25 mmol/L (22-30); Chloride 106 mmol/L (98-107); Globulin 2.4 g/dL; Glucose 114 mg/dL (74-99); Non-African American GFR(CKD) 83 (>60 ml/min/1.73 sqM); Potassium 4.6 mmol/L (3.5-5.1); Sodium 135 mmol/L (137-145); Total Bilirubin 0.3 mg/dL (0.2-1.3); Total Protein 4.9 g/dL (6.3-8.2)
[2024-02-05 07:25] LABS: Glucose,Whole Blood 106 mg/dL (70-110)
[2024-02-05 08:38] LABS: HCT 29.3 % (37.2-46.3); HGB 8.8 g/dL (12.0-15.0); MCV 80.1 FL (80.0-97.0); Mean Platelet Volume 9.4 FL (9.5-12.2); NRBC Per 100 WBC 0 X 10*3/uL (0.00-0.01); Platelet Count 287 X 10*3/uL (140-440); RBC 3.66 X 10*6/uL (4.10-5.20); RDW 16.5 % (11.5-14.5)
[2024-02-05 11:49] LABS: Glucose,Whole Blood 208 mg/dL (70-110)
--- NOTE | 2024-02-05 13:37 | P.PN ---
Subjective Progress Note Date: 02/05/24 Principal diagnosis: Peripheral arterial disease, nonhealing lower extremity wounds Patient seen and examined as a follow-up. No acute changes. Will plan for left [id number] amputation tomorrow. Objective - Vital Signs Vital signs: Vital Signs Temp 97.9 F 02/05/24 11:57 Pulse 60 02/05/24 11:57 Resp 16 02/05/24 11:57 BP 144/70 02/05/24 11:57 Pulse Ox 95 02/05/24 11:57 FiO2 Intake & Output 02/04/24 02/05/24 02/05/24 18:59 06:59 18:59 Output Total 300 300 400 Balance -300 -300 -400 Output: Urine 300 300 400 Other: Voiding Method Diaper Diaper Diaper Incontinent Incontinent Incontinent External Catheter External Catheter External Catheter # Voids 1 # Bowel Movements 1 - Exam General appearance: The patient is alert, oriented, appears in no acute distress. Morbidly obese. HET: Head is normocephalic and atraumatic. Pupils are equal and reactive. Neck: Supple. Heart: Regular. Lungs: Equal expansion, normal respiratory effort. Abdomen: Soft, nontender, nondistended. Extremities: Nonpalpable DP or PT pulses. Lower extremities are rigid patient is unable to move her lower extremities. Left heel with pressure ulcer, gangrenous left great toe diabetic ulcer. Right foot to medial pressure ulcers and 1 lateral ulcer. Right knee contracted. Neurological: No focal deficits. Poor strength. Patient's right lower extremity is contracted. She states she cannot move bilateral lower extremities. - Labs CBC & Chem 7: 02/05/24 03:04 02/05/24 03:04 Labs: Abnormal Lab Results - Last 24 Hours (Table) 02/04/24 02/04/24 02/05/24 Range/Units 17:11 20:33 03:04 WBC (4.50-10.00) X 10*3/uL RBC (4.10-5.20) X 10*6/uL Hgb (12.0-15.0) g/dL Hct (37.2-46.3) % MCH (27.0-32.0) pg MCHC (32.0-37.0) g/dL RDW (11.5-14.5) % MPV (9.5-12.2) FL Sodium 135 L (137-145) mmol/L BUN 23 H (7-17) mg/dL Glucose 114 H (74-99) mg/dL POC Glucose (mg/dL) 145 H 163 H (70-110) mg/dL Calcium 8.2 L (8.4-10.2) mg/dL ALT 35 H (4-34) U/L Total Protein 4.9 L (6.3-8.2) g/dL Albumin 2.5 L (3.5-5.0) g/dL 02/05/24 02/05/24 Range/Units 03:04 11:48 WBC 11.20 H (4.50-10.00) X 10*3/uL RBC 3.66 L (4.10-5.20) X 10*6/uL Hgb 8.8 L (12.0-15.0) g/dL Hct 29.3 L (37.2-46.3) % MCH 24.0 L (27.0-32.0) pg MCHC 30.0 L (32.0-37.0) g/dL RDW 16.5 H (11.5-14.5) % MPV 9.4 L (9.5-12.2) FL Sodium (137-145) mmol/L BUN (7-17) mg/dL Glucose (74-99) mg/dL POC Glucose (mg/dL) 208 H (70-110) mg/dL Calcium (8.4-10.2) mg/dL ALT (4-34) U/L Total Protein (6.3-8.2) g/dL Albumin (3.5-5.0) g/dL Assessment and Plan Assessment: 1. Nonhealing left heel pressure ulcer with gangrene 2. Right foot diabetic ulcers 3. Peripheral arterial disease, left greater than right with segmental severe stenosis throughout popliteal artery short segment occlusion severe stenosis subtotal occlusions throughout the trifurcation vessels. 4. Diabetes mellitus 5. Patient is nonambulatory. Bedbound/wheelchair-bound 6. Coronary artery disease status post stenting 6. Severe carotid artery disease status post right TCAR 07/2023 7. Hypertension 8. Hyperlipidemia 9. Morbid obesity Plan: 1. Patient is cleared by cardiology and medically cleared to proceed with left [id number] amputation 2. N.p.o. after midnight 3. Type and screen 4. Will plan with left [id number] amputation tomorrow Thank you for this consultation, we will continue to follow. The impression and plan of care has been dictated as directed. I performed a history and examination of this patient, discussed the same with the dictator. I agree with the dictator's note ,documented as a scribe. Any additional findings or plans will be noted.
[2024-02-05] MEDS: VANCOMYCIN TROUGH DUE 1 EACH MISC MISCELLANE ONE (16:06)
[2024-02-05] MEDS: ALPRAZolam 0.25 MG TAB PO PRN (16:58)
[2024-02-05 17:00] LABS: Glucose,Whole Blood 253 mg/dL (70-110)
[2024-02-05 20:16] LABS: Glucose,Whole Blood 213 mg/dL (70-110)
--- NOTE | 2024-02-05 22:33 | P.PN ---
Subjective Progress Note Date: 02/05/24 HISTORY OF PRESENT ILLNESS: 83-year-old with active medical history of Type 2 diabetes, obesity, left-sided breast cancer, hypertension, hyperlipidemia, hypothyroidism, chronic depression, chronic lower back pain with degenerative disc disease and spinal stenosis, peripheral arterial disease with severe carotid stenosis, hypertensive cardiovascular disease, coronary artery disease post PCI and stent placement of the LAD May 2023, also patient had stroke and found to have 80-90 percentile stenosis of the internal carotid artery ended up having right transcarotid artery revascularization with stenting July 2023: Following her procedure she had quite a bit debility and worsening symptoms ended up being transferred to [facility] or rehab after several weeks of rehab patient improvement was very limited and that being quite bit debilitated wheelchair and bedbound and declined further more patient was transferred to long-term at [facility]. For the last 12 weeks patient had severe rigidity in her body and severe stiffness could not move ambulate or turn. Started having slight irritation and discomfort of the skin with an earlier stage of small ulceration. wound care and [facility] was involved early start seen in November for smaller area in the left heel over the following few weeks become slightly red worsening and required debridement which was done by Dr. Rodrigues 4 weeks ago. He was referred to see vascular for severe PAD and diagnosis was made at the time the patient was told that her circulation is extremely bad and worsening might require amputation above the knee. Entire left heel become gangrenous within the last few days and become much worse with bone exposure. Patient was seen and evaluated today and decided to send patient to the hospital to be seen by vascular start IV antibiotic might require further intervention. She was started on vancomycin IV admitted to the hospital consult vascular lab blood work was done and long talk with the family and prepare for possible need for intervention which most likely below or above-knee amputation in the next 48 hours. 02/01/2024: Seen vascular today still planning for above-knee amputation but wants patient to be cleared by cardiology and prepare for the procedure and also recommending CT angiogram before the amputation. Both procedure where order. The patient was seen infectious disease agree with the current infection will add Unasyn to vancomycin for better coverage and gram-negative's and anaerobic while waiting for workup and procedure. Patient's pain is under control currently still have severe stiffness still have other area of concern including the sacrum the other heel foot area and upper extremity as well. If all goes well expect probably amputation by tomorrow. 02/02/2024: Vascular awaiting for CT angiogram of the abdomen with runoff to see if they are able to do above-knee amputation of the left lower extremity. Also still waiting for cardiology clearance which again this surgery is extreme necessity otherwise mortality is extremely high. Cardiology and that seen patient late in the day and agree patient is not having any chest pain or angina has been 9 months since angioplasty and stent will be able to stop Aspirin and Plavix before surgery will be on standby watching for any complication might require help otherwise patient is very clear for surgery. Also infectious disease expanded the coverage with antibiotic to continue vancomycin and Unasyn to cover gram-negative and anaerobic as well. Patient and family informed of the decision of the above-named patient by vascular. Like planning for surgery at least early next week. 02/03/2024: Continue current antibiotic management by infectious disease which is a combination of Unasyn and vancomycin, continue local care with dressing, no lab for blood work 1 blood sugar still mildly elevated. Patient was seen cardiology consultation with the multiple comorbidity last heart catheter back in June 2023 with revascularization no other remaining cardiac patient is not having any angina and his 9-month past angioplasty can stop Plavix for surgery but decided to continue aspirin through surgery Patient will be watched carefully after surgery surgery as well. 02/04/2024: Patient was seen and evaluated today her blood sugar has been slightly below in the morning we will adjust Levemir down to 15 units twice a day to lower the odds of having hypoglycemia. Lab was order patient seen vascular today look like he met all the criteria surgery is very clear at this point vascular planning to do surgery early this week. In the meanwhile continue IV antibiotic continue comfort care continue to watch for any further complication antiplatelet agent will be held till after the surgery the patient will be continued on aspirin no further intervention or procedure required before surgery. 02/05/2024: Family on the bedside, update I would expect from surgery and that the need for above-knee amputation, apparently with the controversy of his doing surgery family understand Dr. Nichole is doing surgery patient is Dr. Rodarte which I believe is 1 who is planning to do surgery sometimes again this week. Still have significant drainage and gangrenous change mostly involving the bone and soft tissue no unstageable continue IV antibiotics continue wound care and infectious disease care. Laboratory value still showing blood sugar to be around in the 200 hemoglobin dropped down to 8.8 still no need for blood transfusion kidney function is holding well with creatinine 1.64 GFR at 83. REVIEW OF SYSTEMS: CONSTITUTIONAL: Morbidly obese lying in bed in quite good pain no acute respiratory distress. EYES: No icterus sclerae, no conjunctivitis. EARS, NOSE, MOUTH, THROAT, and FACE: No sore throat, lymphadenopathy, carotid bruits or deformity. RESPIRATORY: Mild shortness of breath no cough or wheezes. CARDIOVASCULAR: Positive PND orthopnea palpitation no angina. GASTROINTESTINAL: No Abd pain, Nausea or vomiting, no Diarrhea or constipation, No GI Bleed, no distention or masses. GENITOURINARY: Negative for Hematuria or UTI, no kidney stones. INTEGUMENT/BREAST: Generalized arthralgia and myalgia with chronic lower back pain and significant involvement of the soft tissues without breaking skin and dry this area of her body but worsening in the left heel. HEMATOLOGIC/LYMPHATIC: Negative for bleed or purpura. History of left-sided br east cancer. MUSCULOSKELTAL: Negative for Myalgia or arthralgia. Severe ulcerated left heel with gangrenous change with bone exposure. Severe generalized muscle stiffness and discomfort. NEURLOGICAL: No LOC, Sz or syncope, blurred vision dizziness or abnormality.. BEHAVIORAL/PSYCH: Negative. ENDOCRINE: Negative. PHYSICAL EXAMINATION: General Appearance: Obese lying in bed no distress aware of her left heel not been able to turn in bed and had severe stiffness. Neck HEENT: Supple, no lymphadenopathy, no thyroid enlargement, no carotid bruits. Lungs: Clear to auscultation without crackles or wheezes no rhonchi, no deformity. Chest Wall: Decreased expansion with deep inspiration no tenderness and no deformity was found on exam, no costochondral pain or discomfort. Heart: Regular rate and rhythm, S1, S2 positive S3 positive systolic murmur. Back: Symmetric, with scoliosis and kyphosis with mild tenderness in lower lumbar area. Abdomen: Soft, non-tender, bowel sounds active all four quadrants, no masses, no organomegaly. Extremities: Left heel had severe gangrenous ulcerated area measure 10 x 12 cm with slight drainage and slight bone exposure. Pulses: No palpable pulse in both lower extremity. Skin: Skin color, texture, tugor normal, no rashes or lesions. Neurologic: Alert oriented x3 cranial nerves II through XII intact, no motor deficit, no abnormal balance or gait. ASSESSMENT AND PLAN: _Severe gangrenous change in the left heel area mostly unstageable: Still on IV antibiotic, seen wound care along with vascular and infectious disease and vascular planning to do surgery in the next day or 2. _Osteomyelitis of the left heel area: Severe osteomyelitis involving the bone patient will require above-knee amputation no need for bone scan at this point. _Severe coronary artery disease post angioplasty and stent placement of the LAD back in May 2023 patient seen cardiology with no symptoms of chest pain or angina antiplatelet agent will be held for the surgery but continue aspirin. 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 _Residual stroke with significant weakness affecting the left side more than the right side. No change at this point. _Severe carotid stenosis post right-sided carotid stenting. No major finding or complaint _History of breast cancer: Was seen oncology regularlyStill on anastrozole 1 mg daily. Breast cancer is in remission no sign of metastasis. _Hypertension: Continue Coreg 6.25 mg twice a day, amlodipine 10 mg daily, losartan hydrochlorothiazide 100/12.5 mg daily. Blood pressure mostly controlled below 144 systolic and below 94 diastolic. _Hyperlipidemia: Remain on atorvastatin 80 mg nightly. _Hypothyroidism: Continue Synthroid 50 mcg daily. _Severe spinal stenosis and lower back pain has been on medical management only still on pain meds along with gabapentin. No surgical intervention. _Chronic depression: Has been on trazodone 50 mg at bedtime along with Wellbutrin 150 mg daily Zoloft 100 mg a day. _Restless leg syndrome: Remain on Requip 0.5 mg twice a day. Discussion: All family questions were answered today, waiting for vascular to see patient today to talk to and have final plan for the day and the time for surgery. Objective - Vital Signs Vital signs: Vital Signs Temp 98.4 F 02/05/24 02:00 Pulse 65 02/05/24 02:00 Resp 16 02/05/24 02:00 BP 136/61 02/05/24 02:00 Pulse Ox 90 L 02/05/24 02:00 FiO2 Intake & Output 02/04/24 02/04/24 02/05/24 06:59 18:59 06:59 Output Total 200 300 300 Balance -200 -300 -300 Output: Urine 200 300 300 Other: Voiding Method Diaper Diaper Diaper Incontinent Incontinent Incontinent External Catheter External Catheter External Catheter # Voids 500 1 # Bowel Movements 1 1 - Labs CBC & Chem 7: 02/05/24 03:04 02/05/24 03:04 Labs: Abnormal Lab Results - Last 24 Hours (Table) 02/04/24 02/04/24 02/04/24 Range/Units 11:59 17:11 20:33 Sodium (137-145) mmol/L BUN (7-17) mg/dL Glucose (74-99) mg/dL POC Glucose (mg/dL) 112 H 145 H 163 H (70-110) mg/dL Calcium (8.4-10.2) mg/dL ALT (4-34) U/L Total Protein (6.3-8.2) g/dL Albumin (3.5-5.0) g/dL 02/05/24 Range/Units 03:04 Sodium 135 L (137-145) mmol/L BUN 23 H (7-17) mg/dL Glucose 114 H (74-99) mg/dL POC Glucose (mg/dL) (70-110) mg/dL Calcium 8.2 L (8.4-10.2) mg/dL ALT 35 H (4-34) U/L Total Protein 4.9 L (6.3-8.2) g/dL Albumin 2.5 L (3.5-5.0) g/dL
[2024-02-06 07:30] LABS: Glucose,Whole Blood 176 mg/dL (70-110)
[2024-02-06 11:06] LABS: BUN/Creat Ratio 34.71 Ratio (12.00-20.00); Blood Urea Nitrogen 24.3 mg/dL (9.0-27.0); Calcium 8.4 mg/dL (8.7-10.3); Carbon Dioxide 28.8 mmol/L (21.6-31.8); Chloride 103 mmol/L (96-109); Glucose 117 mg/dL (70-110); Potassium 4.7 mmol/L (3.5-5.5); Sodium 140 mmol/L (135-145)
[2024-02-06 11:11] LABS: HCT 31.4 % (37.2-46.3); HGB 9.3 g/dL (12.0-15.0); MCH 23.8 pg (27.0-32.0); MCHC 29.6 g/dL (32.0-37.0); MCV 80.5 FL (80.0-97.0); Mean Platelet Volume 9.7 FL (9.5-12.2); NRBC Per 100 WBC 0 X 10*3/uL (0.00-0.01); Platelet Count 286 X 10*3/uL (140-440); RDW 16.4 % (11.5-14.5); WBC 9.19 X 10*3/uL (4.50-10.00)
[2024-02-06 12:09] LABS: Glucose,Whole Blood 137 mg/dL (70-110)
[2024-02-06] MEDS: IV FLUID CONTINUATION 500 ML IV ONE (13:35)
--- NOTE | 2024-02-06 14:37 | P.PN ---
Subjective Progress Note Date: 02/05/24 Principal diagnosis: Reason for follow-up is left heel infected pressure ulcer Patient is a 83-year-old female with a past medical history significant for diabetes mellitus hypertension hyperlipidemia osteoarthritis in this patient who is a assisted resident patient has been brought into the hospital for evaluation of worsening left heel pressure ulcer concerning for infection prompting this consultation. On today's evaluation that is 02/05/2024,the patient denies any fever or any chills, patient is breathing comfortably on room air, the patient denies chest pain shortness of breath and no significant cough, patient denies abdominal pain, no nausea vomiting or diarrhea. And no worsening pain to the left foot and ankle area. Patient white count is 11.20, creatinine 0.64 blood culture negative so far Objective - Vital Signs Vital signs: Vital Signs Temp 97.9 F 02/05/24 11:57 Pulse 60 02/05/24 11:57 Resp 16 02/05/24 11:57 BP 144/70 02/05/24 11:57 Pulse Ox 95 02/05/24 11:57 FiO2 Intake & Output 02/04/24 02/05/24 02/05/24 18:59 06:59 18:59 Output Total 300 300 400 Balance -300 -300 -400 Output: Urine 300 300 400 Other: Voiding Method Diaper Diaper Diaper Incontinent Incontinent Incontinent External Catheter External Catheter External Catheter # Voids 1 # Bowel Movements 1 - Exam GENERAL DESCRIPTION: An elderly female lying in bed in no distress RESPIRATORY SYSTEM: Unlabored breathing , decreased breath sounds at bases HEART: S1 S2 regular rate and rhythm , ABDOMEN: Soft , no tenderness EXTREMITIES: Left heel is currently dressed - Labs CBC & Chem 7: 02/06/24 06:15 02/06/24 06:15 Labs: Abnormal Lab Results - Last 24 Hours (Table) 02/04/24 02/05/24 02/05/24 Range/Units 20:33 03:04 03:04 WBC 11.20 H (4.50-10.00) X 10*3/uL RBC 3.66 L (4.10-5.20) X 10*6/uL Hgb 8.8 L (12.0-15.0) g/dL Hct 29.3 L (37.2-46.3) % MCH 24.0 L (27.0-32.0) pg MCHC 30.0 L (32.0-37.0) g/dL RDW 16.5 H (11.5-14.5) % MPV 9.4 L (9.5-12.2) FL Sodium 135 L (137-145) mmol/L BUN 23 H (7-17) mg/dL Glucose 114 H (74-99) mg/dL POC Glucose (mg/dL) 163 H (70-110) mg/dL Calcium 8.2 L (8.4-10.2) mg/dL ALT 35 H (4-34) U/L Total Protein 4.9 L (6.3-8.2) g/dL Albumin 2.5 L (3.5-5.0) g/dL 02/05/24 02/05/24 Range/Units 11:48 16:59 WBC (4.50-10.00) X 10*3/uL RBC (4.10-5.20) X 10*6/uL Hgb (12.0-15.0) g/dL Hct (37.2-46.3) % MCH (27.0-32.0) pg MCHC (32.0-37.0) g/dL RDW (11.5-14.5) % MPV (9.5-12.2) FL Sodium (137-145) mmol/L BUN (7-17) mg/dL Glucose (74-99) mg/dL POC Glucose (mg/dL) 208 H 253 H (70-110) mg/dL Calcium (8.4-10.2) mg/dL ALT (4-34) U/L Total Protein (6.3-8.2) g/dL Albumin (3.5-5.0) g/dL Assessment and Plan (1) Pressure ulcer, heel, left, unstageable Current Visit: Yes Status: Acute Code(s): L89.620 - PRESSURE ULCER OF LEFT HEEL, UNSTAGEABLE SNOMED Code(s): 52151158097960612 (2) Left leg cellulitis Current Visit: Yes Status: Acute Code(s): L03.116 - CELLULITIS OF LEFT LOWER LIMB SNOMED Code(s): 26516572566359667 Plan: 1patient presented to hospital with worsening wound to the left heel area currently with necrotic wound unstageable pressure ulcer with secondary cellulitis likely need to cover for both gram-positive as well as gram-negative pathogen 2-vascular surgery has seen the patient and recommending possible [id number] amputation scheduled for tomorrow 3-patient to continue with vancomycin and Unasyn, monitor clinical course closely Dictation was produced using [employer] dictation software. please excuse any grammatical, word or spelling errors. Time with Patient: Less than 30
--- NOTE | 2024-02-06 15:11 | P.PN ---
Subjective Progress Note Date: 02/06/24 Principal diagnosis: Reason for follow-up is left heel infected pressure ulcer Patient is a 83-year-old female with a past medical history significant for diabetes mellitus hypertension hyperlipidemia osteoarthritis in this patient who is a senior care resident patient has been brought into the hospital for evaluation of worsening left heel pressure ulcer concerning for infection prompting this consultation. On today's evaluation that is 02/06/2024,the patient remains to be afebrile, patient is on 3 L nasal cannula supplemental oxygen and denies any shortness of breath no chest pain or cough.Patient denies having any nausea or vomiting, no abdominal pain and no diarrhea has been reported and no worsening pain to the left heel area Patient white count is 9.19 creatinine 0.7 Objective - Vital Signs Vital signs: Vital Signs Temp 97.8 F 02/06/24 12:04 Pulse 58 L 02/06/24 12:04 Resp 16 02/06/24 12:04 BP 129/68 02/06/24 12:04 Pulse Ox 95 02/06/24 12:04 FiO2 Intake & Output 02/05/24 02/06/24 02/06/24 18:59 06:59 18:59 Output Total 600 250 Balance -600 -250 Weight 100.698 kg Output: Urine 600 250 Other: Voiding Method Diaper Diaper Diaper Incontinent Incontinent Incontinent External Catheter External Catheter External Catheter # Voids 2 2 - Exam GENERAL DESCRIPTION: An elderly female lying in bed in no distress RESPIRATORY SYSTEM: Unlabored breathing , decreased breath sounds at bases HEART: S1 S2 regular rate and rhythm , ABDOMEN: Soft , no tenderness EXTREMITIES: Left heel is currently dressed - Labs CBC & Chem 7: 02/06/24 06:15 02/06/24 06:15 Labs: Abnormal Lab Results - Last 24 Hours (Table) 02/05/24 02/05/24 02/06/24 Range/Units 16:59 20:15 06:15 RBC 3.90 L (4.10-5.20) X 10*6/uL Hgb 9.3 L (12.0-15.0) g/dL Hct 31.4 L (37.2-46.3) % MCH 23.8 L (27.0-32.0) pg MCHC 29.6 L (32.0-37.0) g/dL RDW 16.4 H (11.5-14.5) % BUN/Creatinine Ratio (12.00-20.00) Ratio Glucose (70-110) mg/dL POC Glucose (mg/dL) 253 H 213 H (70-110) mg/dL Calcium (8.7-10.3) mg/dL 02/06/24 02/06/24 02/06/24 Range/Units 06:15 07:28 12:07 RBC (4.10-5.20) X 10*6/uL Hgb (12.0-15.0) g/dL Hct (37.2-46.3) % MCH (27.0-32.0) pg MCHC (32.0-37.0) g/dL RDW (11.5-14.5) % BUN/Creatinine Ratio 34.71 H (12.00-20.00) Ratio Glucose 117 H (70-110) mg/dL POC Glucose (mg/dL) 176 H 137 H (70-110) mg/dL Calcium 8.4 L (8.7-10.3) mg/dL Assessment and Plan (1) Pressure ulcer, heel, left, unstageable Current Visit: Yes Status: Acute Code(s): L89.620 - PRESSURE ULCER OF LEFT HEEL, UNSTAGEABLE SNOMED Code(s): 66353839104373141 (2) Left leg cellulitis Current Visit: Yes Status: Acute Code(s): L03.116 - CELLULITIS OF LEFT LOWER LIMB SNOMED Code(s): 51725424317999142 Plan: 1patient presented to hospital with worsening wound to the left heel area currently with necrotic wound unstageable pressure ulcer with secondary cellulitis likely need to cover for both gram-positive as well as gram-negative pathogen 2-vascular surgery has seen the patient and recommending possible [id number] amputation scheduled for this afternoon 3-patient to continue with vancomycin and Unasyn until the surgery is completed and may not need extensive course of IV antibiotics postoperation Dictation was produced using [employer] dictation software. please excuse any grammatical, word or spelling errors. Time with Patient: Less than 30
[2024-02-06] MEDS ORDERED: VASOPRESSIN 20 UNIT/ML 1 ML VIAL ONE (16:00)
[2024-02-06] MEDS ORDERED: GLYCOPYRROLATE 0.2 MG/ML 2 ML VIAL ONE (16:00)
[2024-02-06] MEDS ORDERED: SUGAMMADEX SODIUM 200 MG/2 ML SDV IV ONE (16:00)
[2024-02-06] MEDS ORDERED: LIDOCAINE 1% INJ 10MG/ML (20 ML MDV) ONE (16:00)
[2024-02-06] MEDS ORDERED: SUCCINYLCHOLINE CHLORIDE 200 MG/10 ML VIAL IV ONE (16:00)
[2024-02-06] MEDS ORDERED: ROCURONIUM 10 MG/ML (5 ML VIAL) IV ONE (16:00)
[2024-02-06] MEDS ORDERED: fentaNYL (PF) 50 MCG/ML 2 ML AMP ONE (16:00)
[2024-02-06] MEDS ORDERED: PHENYLEPHRINE 10 MG/ML VIAL ONE (16:00)
[2024-02-06] MEDS ORDERED: PROPOFOL 10 MG/ML 20 ML VIAL IV ONE (16:00)
[2024-02-06] MEDS ORDERED: ePHEDrine 50 MG/ML 1 ML VIAL ONE (16:00)
[2024-02-06] MEDS ORDERED: NEOSTIGMINE 1 MG/ML 10 ML VIAL ONE (16:00)
[2024-02-06 16:01] LABS: Glucose,Whole Blood 96 mg/dL (70-110)
[2024-02-06] MEDS: IV FLUID CONTINUATION 1,000 ML IV ONE (16:30)
--- NOTE | 2024-02-06 18:09 | P.PN ---
Subjective Progress Note Date: 02/06/24 HISTORY OF PRESENT ILLNESS: 83-year-old with active medical history of Type 2 diabetes, obesity, left-sided breast cancer, hypertension, hyperlipidemia, hypothyroidism, chronic depression, chronic lower back pain with degenerative disc disease and spinal stenosis, peripheral arterial disease with severe carotid stenosis, hypertensive cardiovascular disease, coronary artery disease post PCI and stent placement of the LAD May 2023, also patient had stroke and found to have 80-90 percentile stenosis of the internal carotid artery ended up having right transcarotid artery revascularization with stenting July 2023: Following her procedure she had quite a bit debility and worsening symptoms ended up being transferred to [facility] or rehab after several weeks of rehab patient improvement was very limited and that being quite bit debilitated wheelchair and bedbound and declined further more patient was transferred to long-term at [facility]. For the last 12 weeks patient had severe rigidity in her body and severe stiffness could not move ambulate or turn. Started having slight irritation and discomfort of the skin with an earlier stage of small ulceration. wound care and [facility] was involved early start seen in November for smaller area in the left heel over the following few weeks become slightly red worsening and required debridement which was done by Dr. Rodrigues 4 weeks ago. He was referred to see vascular for severe PAD and diagnosis was made at the time the patient was told that her circulation is extremely bad and worsening might require amputation above the knee. Entire left heel become gangrenous within the last few days and become much worse with bone exposure. Patient was seen and evaluated today and decided to send patient to the hospital to be seen by vascular start IV antibiotic might require further intervention. She was started on vancomycin IV admitted to the hospital consult vascular lab blood work was done and long talk with the family and prepare for possible need for intervention which most likely below or above-knee amputation in the next 48 hours. 02/01/2024: Seen vascular today still planning for above-knee amputation but wants patient to be cleared by cardiology and prepare for the procedure and also recommending CT angiogram before the amputation. Both procedure where order. The patient was seen infectious disease agree with the current infection will add Unasyn to vancomycin for better coverage and gram-negative's and anaerobic while waiting for workup and procedure. Patient's pain is under control currently still have severe stiffness still have other area of concern including the sacrum the other heel foot area and upper extremity as well. If all goes well expect probably amputation by tomorrow. 02/02/2024: Vascular awaiting for CT angiogram of the abdomen with runoff to see if they are able to do above-knee amputation of the left lower extremity. Also still waiting for cardiology clearance which again this surgery is extreme necessity otherwise mortality is extremely high. Cardiology and that seen patient late in the day and agree patient is not having any chest pain or angina has been 9 months since angioplasty and stent will be able to stop Aspirin and Plavix before surgery will be on standby watching for any complication might require help otherwise patient is very clear for surgery. Also infectious disease expanded the coverage with antibiotic to continue vancomycin and Unasyn to cover gram-negative and anaerobic as well. Patient and family informed of the decision of the above-named patient by vascular. Like planning for surgery at least early next week. 02/03/2024: Continue current antibiotic management by infectious disease which is a combination of Unasyn and vancomycin, continue local care with dressing, no lab for blood work 1 blood sugar still mildly elevated. Patient was seen cardiology consultation with the multiple comorbidity last heart catheter back in June 2023 with revascularization no other remaining cardiac patient is not having any angina and his 9-month past angioplasty can stop Plavix for surgery but decided to continue aspirin through surgery Patient will be watched carefully after surgery surgery as well. 02/04/2024: Patient was seen and evaluated today her blood sugar has been slightly below in the morning we will adjust Levemir down to 15 units twice a day to lower the odds of having hypoglycemia. Lab was order patient seen vascular today look like he met all the criteria surgery is very clear at this point vascular planning to do surgery early this week. In the meanwhile continue IV antibiotic continue comfort care continue to watch for any further complication antiplatelet agent will be held till after the surgery the patient will be continued on aspirin no further intervention or procedure required before surgery. 02/05/2024: Family on the bedside, update I would expect from surgery and that the need for above-knee amputation, apparently with the controversy of his doing surgery family understand Dr. Nichole is doing surgery patient is Dr. Rodarte which I believe is 1 who is planning to do surgery sometimes again this week. Still have significant drainage and gangrenous change mostly involving the bone and soft tissue no unstageable continue IV antibiotics continue wound care and infectious disease care. Laboratory value still showing blood sugar to be around in the 200 hemoglobin dropped down to 8.8 still no need for blood transfusion kidney function is holding well with creatinine 1.64 GFR at 83. 02/06/2024: Patient seen early this morning scheduled for amputation around 4:00 in the afternoon today, still having significant pain and discomfort but well- controlled with medication. No change in her lab value blood sugar still running slightly with low today specially being n.p.o. She is remain on antibiotic with no reaction or side effect. Following her amputation within 48 hours should be able to get patient go back tomorrow with. Also decided amputation she is having debridement of the other side and probably appropriate culture. REVIEW OF SYSTEMS: CONSTITUTIONAL: Morbidly obese lying in bed in quite good pain no acute respiratory distress. EYES: No icterus sclerae, no conjunctivitis. EARS, NOSE, MOUTH, THROAT, and FACE: No sore throat, lymphadenopathy, carotid bruits or deformity. RESPIRATORY: Mild shortness of breath no cough or wheezes. CARDIOVASCULAR: Positive PND orthopnea palpitation no angina. GASTROINTESTINAL: No Abd pain, Nausea or vomiting, no Diarrhea or constipation, No GI Bleed, no distention or masses. GENITOURINARY: Negative for Hematuria or UTI, no kidney stones. INTEGUMENT/BREAST: Generalized arthralgia and myalgia with chronic lower back pain and significant involvement of the soft tissues without breaking skin and dry this area of her body but worsening in the left heel. HEMATOLOGIC/LYMPHATIC: Negative for bleed or purpura. History of left-sided breast cancer. MUSCULOSKELTAL: Negative for Myalgia or arthralgia. Severe ulcerated left heel with gangrenous change with bone exposure. Severe generalized muscle stiffness and discomfort. NEURLOGICAL: No LOC, Sz or syncope, blurred vision dizziness or abnormality.. BEHAVIORAL/PSYCH: Negative. ENDOCRINE: Negative. PHYSICAL EXAMINATION: General Appearance: Obese lying in bed no distress aware of her left heel not been able to turn in bed and had severe stiffness. Neck HEENT: Supple, no lymphadenopathy, no thyroid enlargement, no carotid bruits. Lungs: Clear to auscultation without crackles or wheezes no rhonchi, no deformity. Chest Wall: Decreased expansion with deep inspiration no tenderness and no deformity was found on exam, no costochondral pain or discomfort. Heart: Regular rate and rhythm, S1, S2 positive S3 positive systolic murmur. Back: Symmetric, with scoliosis and kyphosis with mild tenderness in lower lumbar area. Abdomen: Soft, non-tender, bowel sounds active all four quadrants, no masses, no organomegaly. Extremities: Left heel had severe gangrenous ulcerated area measure 10 x 12 cm with slight drainage and slight bone exposure. Pulses: No palpable pulse in both lower extremity. Skin: Skin color, texture, tugor normal, no rashes or lesions. Neurologic: Alert oriented x3 cranial nerves II through XII intact, no motor deficit, no abnormal balance or gait. ASSESSMENT AND PLAN: _Severe gangrenous change in the left heel area mostly unstageable: Continue IV antibiotic will be going for above-knee amputation today. _Osteomyelitis of the left heel area: Surgical intervention with amputation given today. _Severe coronary artery disease post angioplasty and stent placement of the LAD back in May 2023 patient seen cardiology with no symptoms of chest pain or angina antiplatelet agent will be held for the surgery but continue aspirin. Patient was cleared by cardiology. 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 _Residual stroke with significant weakness affecting the left side more than the right side. No change at this point. _Chronic pain syndrome and pain management: Continue hydrocodone on as needed basis seems to do well with it so far. _Severe carotid stenosis post right-sided carotid stenting. No major finding or complaint _History of breast cancer: Was seen oncology regularlyStill on anastrozole 1 mg daily. Breast cancer is in remission no sign of metastasis. _Hypertension: Continue Coreg 6.25 mg twice a day, amlodipine 10 mg daily, losartan hydrochlorothiazide 100/12.5 mg daily. Blood pressure mostly controlled below 144 systolic and below 94 diastolic. _Hyperlipidemia: Remain on atorvastatin 80 mg nightly. _Hypothyroidism: Continue Synthroid 50 mcg daily. _Severe spinal stenosis and lower back pain has been on medical management only still on pain meds along with gabapentin. No surgical intervention. _Chronic depression: Has been on trazodone 50 mg at bedtime along with Wellbutrin 150 mg daily Zoloft 100 mg a day. _Restless leg syndrome: Remain on Requip 0.5 mg twice a day. Discussion: Patient be going for above-knee amputation along with debridement of the right side continue IV antibiotic continue supportive care medical management with pain management as well expectation following her surgery probably return to [facility] within 72 hours. Objective - Vital Signs Vital signs: Vital Signs Temp 98.6 F 02/06/24 02:00 Pulse 63 02/06/24 02:00 Resp 16 02/06/24 02:00 BP 106/50 02/06/24 02:00 Pulse Ox 92 L 02/06/24 02:00 FiO2 Intake & Output 02/05/24 02/05/24 02/06/24 06:59 18:59 06:59 Output Total 300 600 250 Balance -300 -600 -250 Output: Urine 300 600 250 Other: Voiding Method Diaper Diaper Diaper Incontinent Incontinent Incontinent External Catheter External Catheter External Catheter # Voids 2 - Labs CBC & Chem 7: 02/07/24 05:55 02/07/24 05:55 Labs: Abnormal Lab Results - Last 24 Hours (Table) 02/05/24 02/05/24 02/05/24 Range/Units 03:04 11:48 16:59 WBC 11.20 H (4.50-10.00) X 10*3/uL RBC 3.66 L (4.10-5.20) X 10*6/uL Hgb 8.8 L (12.0-15.0) g/dL Hct 29.3 L (37.2-46.3) % MCH 24.0 L (27.0-32.0) pg MCHC 30.0 L (32.0-37.0) g/dL RDW 16.5 H (11.5-14.5) % MPV 9.4 L (9.5-12.2) FL POC Glucose (mg/dL) 208 H 253 H (70-110) mg/dL 02/05/24 Range/Units 20:15 WBC (4.50-10.00) X 10*3/uL RBC (4.10-5.20) X 10*6/uL Hgb (12.0-15.0) g/dL Hct (37.2-46.3) % MCH (27.0-32.0) pg MCHC (32.0-37.0) g/dL RDW (11.5-14.5) % MPV (9.5-12.2) FL POC Glucose (mg/dL) 213 H (70-110) mg/dL
--- NOTE | 2024-02-06 18:15 | P.OP ---
Date of Procedure: 02/06/24 Preoperative Diagnosis: Left heel gangrene, critical limb ischemia Right lateral foot gangrene with chronic pressure wounds Postoperative Diagnosis: same Procedure(s) Performed: Left above knee amputation Right lateral foot wound debridement Anesthesia: MANSOOR Surgeon: Florin Rodarte Estimated Blood Loss (ml): 100 Pathology: other (Culture right lateral foot wound) Condition: stable Disposition: PACU Indications for Procedure: 83 year old female who is bed bound currently being treated for a left heel gangrenous wound and right lateral foot wounds presents after vascular workup which determined poor blood flow and unlikely healing of the left foot for an above knee amputation and right foot debridement. Description of Procedure: After written and informed consent was obtained for the patient and all risk, benefits and complications were described the patient was brought to the operative suite and laid in the supine position. The area of the left leg was prepped and draped in usual sterile fashion after appropriate anesthetic was performed per the anesthesiologist. Antibiotics were given prior to surgery. Timeout was performed in normal fashion. A fishmouth incision was then created just above the knee both anterior and posteriorly with a 10 blade scalpel. Dissection was then carried down through the subcutaneous tissue and fascia to the femur. The quadriceps muscle was transected utilizing cautery. Femoral vessels were identified and were dissected and and suture-ligated with 2-0 silk suture in normal fashion. Utilizing a Gigli and power saw the femur was then removed in normal fashion. The posterior aspect of the leg was then dissected with a knife and the leg was removed. The sciatic nerve was located and suture-ligated normal fashion. The area was then copiously irrigated with antibiotic solution. Bone wax was applied to prevent bleeding from the marrow. The fascia was then reapproximated with 2-0 Vicryl suture in interrupted fashion. Skin was then closed with jose maria. The area was then cleansed and dressed with Adaptic, 4 x 4, Kerlix and Kristofer wrap. Attention was then placed to the right lateral ankle wounds. Utilizing a 10 blade scalpel the eschar overlying the wound bed was removed exposing the subcutaneous tissue at the ankle. Further debridement was then performed down to some bleeding tissue with removal of ischemic fat. The wound extended to the bone on the lateral aspect of the fifth metatarsal. Superior to this wound was another wound with eschar overlying a pocket of ischemic tissue which was once again removed with a 10 blade scalpel and dissected down to the subcutaneous tissue and fascia. There was a small area of purulence which was cultured at that time. The area was then copiously irrigated and dressed with 4 x 4's and Kerlix. Wounds measured 4 x 3 cm distally at the lateral foot and 3 x 3 cm at the ankle both of which went down to fascia and bone. Patient tolerated the procedure well and was sent to PACU for recovery.
[2024-02-06 20:19] LABS: Glucose,Whole Blood 119 mg/dL (70-110)
[2024-02-07 07:33] LABS: Glucose,Whole Blood 110 mg/dL (70-110)
[2024-02-07 07:38] LABS: African American GFR (CKD) >90 (>60 ml/min/1.73 sqM); Non-African American GFR(CKD) 86 (>60 ml/min/1.73 sqM)
--- NOTE | 2024-02-07 12:14 | P.PN ---
Subjective Progress Note Date: 02/07/24 Principal diagnosis: Peripheral arterial disease, nonhealing lower extremity wounds She is seen and examined today as a follow-up. She is postop day #1 for left [id number] amputation. Currently wrapped with Kristofer wrap. Patient states pain is well-managed. Comes and goes at times and states that feels like she still has her leg. She has been afebrile. Objective - Vital Signs Vital signs: Vital Signs Temp 97.4 F L 02/07/24 07:30 Pulse 62 02/07/24 07:30 Resp 15 02/07/24 07:30 BP 124/64 02/07/24 07:30 Pulse Ox 97 02/07/24 07:30 FiO2 Intake & Output 02/06/24 02/07/24 02/07/24 18:59 06:59 18:59 Intake Total 2200 Output Total 100 Balance 2100 Weight 100.698 kg Intake: IV 2200 Output: Estimated Blood Loss 100 Other: Voiding Method Diaper Diaper Incontinent Incontinent External Catheter External Catheter # Voids 2 2 - Exam General appearance: The patient is alert, oriented, appears in no acute distress. Morbidly obese. HET: Head is normocephalic and atraumatic. Pupils are equal and reactive. Neck: Supple. Heart: Regular. Lungs: Equal expansion, normal respiratory effort. Abdomen: Soft, nondistended. Extremities: Left below the knee amputation with dressing clean dry and intact and Kristofer wrap present. Right foot with dressing and soft offloading boots. Neurological: No focal deficits. Poor strength. Patient's right lower extremity is contracted. - Labs CBC & Chem 7: 02/06/24 06:15 02/07/24 05:55 Labs: Abnormal Lab Results - Last 24 Hours (Table) 02/06/24 02/06/24 02/06/24 Range/Units 06:15 06:15 12:07 RBC 3.90 L (4.10-5.20) X 10*6/uL Hgb 9.3 L (12.0-15.0) g/dL Hct 31.4 L (37.2-46.3) % MCH 23.8 L (27.0-32.0) pg MCHC 29.6 L (32.0-37.0) g/dL RDW 16.4 H (11.5-14.5) % BUN/Creatinine Ratio 34.71 H (12.00-20.00) Ratio Glucose 117 H (70-110) mg/dL POC Glucose (mg/dL) 137 H (70-110) mg/dL Calcium 8.4 L (8.7-10.3) mg/dL 02/06/24 Range/Units 20:17 RBC (4.10-5.20) X 10*6/uL Hgb (12.0-15.0) g/dL Hct (37.2-46.3) % MCH (27.0-32.0) pg MCHC (32.0-37.0) g/dL RDW (11.5-14.5) % BUN/Creatinine Ratio (12.00-20.00) Ratio Glucose (70-110) mg/dL POC Glucose (mg/dL) 119 H (70-110) mg/dL Calcium (8.7-10.3) mg/dL Assessment and Plan Assessment: 1. Nonhealing left heel pressure ulcer with gangrene status post [id number] amputation 2. Right foot diabetic ulcers status postdebridement 3. Peripheral arterial disease, left greater than right with segmental severe stenosis throughout popliteal artery short segment occlusion severe stenosis subtotal occlusions throughout the trifurcation vessels. 4. Diabetes mellitus 5. Patient is nonambulatory. Bedbound/wheelchair-bound 6. Coronary artery disease status post stenting 6. Severe carotid artery disease status post right TCAR 07/2023 7. Hypertension 8. Hyperlipidemia 9. Morbid obesity Plan: 1. 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 Maintain daily dressing change with Adaptic for the 4 x 4 and Kerlix daily to left AKA. Wet-to-dry for right foot wounds 3. Diet as tolerated 4. Consult physical therapy 5. Repeat CBC 6. Anticipate patient will be cleared for discharge from vascular surgery in the next 24 to 48 hours. Thank you for this consultation, we will continue to follow. The impression and plan of care has been dictated as directed. Dr. Nichole I performed a history and examination of this patient, discussed the same with the dictator. I agree with the dictator's note ,documented as a scribe. Any additional findings or plans will be noted.
[2024-02-07 12:18] LABS: Glucose,Whole Blood 164 mg/dL (70-110)
[2024-02-07 12:28] LABS: Anisocytosis Slight; HCT 24.2 % (34.0-46.0); Hypochromasia Marked; MCH 24.5 pg (25.0-35.0); MCHC 30.6 g/dL (31.0-37.0); Mean Platelet Volume 9.8; Microcytosis Slight; Platelet Count 259 k/uL (150-450); Poikilocytosis Slight; RBC 3.03 m/uL (3.80-5.40); RDW 16.9 % (11.5-15.5); WBC 10.2 k/uL (3.8-10.6)
[2024-02-07 12:32] LABS: HGB 7.4 gm/dL (11.4-16.0)
--- NOTE | 2024-02-07 12:34 | P.PN ---
Subjective Progress Note Date: 02/07/24 Principal diagnosis: Reason for follow-up is left heel infected pressure ulcer Patient is a 83-year-old female with a past medical history significant for diabetes mellitus hypertension hyperlipidemia osteoarthritis in this patient who is a [facility] resident patient has been brought into the hospital for evaluation of worsening left heel pressure ulcer concerning for infection prompting this consultation.Patient is status post left [id number] amputation and right lateral foot wound debridement completed on 02/06/2024 On today's evaluation 02/07/2024, the patient continues to be afebrile, the patient is on 3 L current oxygen and breathing comfortably, the Pt denies having any chest pain or cough, the patient denies having any abdominal pain no vomiting or any diarrhea has been reported by the nursing staff has been complaining of pain to the left AKA stump. Patient white count is 10.2 wound culture from 716 currently pending Objective - Vital Signs Vital signs: Vital Signs Temp 97.4 F L 02/07/24 07:30 Pulse 62 02/07/24 07:30 Resp 15 02/07/24 07:30 BP 124/64 02/07/24 07:30 Pulse Ox 97 02/07/24 07:30 FiO2 Intake & Output 02/06/24 02/07/24 02/07/24 18:59 06:59 18:59 Intake Total 2200 Output Total 100 Balance 2100 Weight 100.698 kg Intake: IV 2200 Output: Estimated Blood Loss 100 Other: Voiding Method Diaper Diaper Diaper Incontinent Incontinent Incontinent External Catheter External Catheter External Catheter # Voids 2 2 - Exam GENERAL DESCRIPTION: An elderly female lying in bed in no distress RESPIRATORY SYSTEM: Unlabored breathing , decreased breath sounds at bases HEART: S1 S2 regular rate and rhythm , ABDOMEN: Soft , no tenderness EXTREMITIES: Left AKA stump is currently dressed - Labs CBC & Chem 7: 02/07/24 05:55 02/07/24 05:55 Labs: Abnormal Lab Results - Last 24 Hours (Table) 02/06/24 02/07/24 02/07/24 Range/Units 20:17 05:55 12:17 RBC 3.03 L (3.80-5.40) m/uL Hgb 7.4 L D (11.4-16.0) gm/dL Hct 24.2 L (34.0-46.0) % MCH 24.5 L (25.0-35.0) pg MCHC 30.6 L (31.0-37.0) g/dL RDW 16.9 H (11.5-15.5) % POC Glucose (mg/dL) 119 H 164 H (70-110) mg/dL Assessment and Plan (1) Pressure ulcer, heel, left, unstageable Current Visit: Yes Status: Acute Code(s): L89.620 - PRESSURE ULCER OF LEFT HEEL, UNSTAGEABLE SNOMED Code(s): 55165559499343732 (2) Left leg cellulitis Current Visit: Yes Status: Acute Code(s): L03.116 - CELLULITIS OF LEFT LOWER LIMB SNOMED Code(s): 73491615799912778 Plan: 1patient presented to hospital with worsening wound to the left heel area currently with necrotic wound unstageable pressure ulcer with secondary cellulitis likely need to cover for both gram-positive as well as gram-negative pathogen 2-patient is status post left [id number] amputation and debridement of the right lateral foot wound with cultures obtained which are currently pending 3-patient to continue with vancomycin and Unasyn while waiting for the culture to finalize Dictation was produced using [id number] dictation software. please excuse any grammatical, word or spelling errors. Time with Patient: Less than 30
--- NOTE | 2024-02-07 15:05 | CDI ---
Documentation Clarification Form Date: 02/07/2024 02:56:19 PM From: Sheri Huff RN CCDS Phone: [phone] Admit Date: 01/31/2024 03:21:00 PM Patient Name: Abena Vizcaino Visit Number: [id number] Discharge Date: ATTENTION: The Clinical Documentation Specialists (CDI) and [facility] Coding Staff appreciate your assistance in clarifying documentation. Please respond to the clarification below the line at the bottom and electronically sign. The CDI & [facility] Coding staff will review the response and follow-up if needed. Please note: Queries are made part of the Legal Health Record. If you have any questions, please contact the author of this message via ITS. Doctor: Florin Lynn debridement is documented 02/05, Procedure note. Additional clarification regarding the procedure is requested. History/Risk Factors: 83-year old female presents to the ED referred by Primary Care Physician to see Vascular surgery for Severe PAD and her left heel has become gangrenous with bone exposure. Medical History: DM2, Obesity, HTN, PAD, Hypertensive cardiovascular disease and wheel chair bound, 01/30 , [place] Clinical Indicators: Attention was then placed to the right lateral ankle wounds. Utilizing a 10 blade scalpel the eschar overlying the wound bed was removed exposing the subcutaneous tissue at the ankle. Further debridement was then performed down to some bleeding tissue with removal of ischemic fat. The wound extended to the bone on the lateral aspect of the fifth metatarsal. Superior to this wound was another wound with eschar overlying a pocket of ischemic tissue which was once again removed with a 10 blade scalpel and dissected down to the subcutaneous tissue and fascia. There was a small area of purulence which was cultured at that time. The area was then copiously irrigated and dressed with 4 x 4's and Kerlix. Wounds measured 4 x 3 cm distally at the lateral foot and 3 x 3 cm at the ankle both of which went down to fascia and bone. Treatment: Debridement, using 10 blade scalpel, subcutaneous, fascia and bone Please clarify the type of procedure performed: [ x ] Excisional debridement (the removal of necrotic, devitalized tissue or slough by means of cutting away of tissue) [ ] Non-excisional debridement (the removal of necrotic, devitalized tissue or slough by means of flushing, brushing, or washing. (Irrigation) [ ] Other; please specify [ ] Unable to determine Five elements required for accurate and compliant documentation of a debridement: Technique used (e.g., excisional, excised, cutting, brushing, jet lavage etc.) Instrument(s) used (e.g., scalpel, curette, etc.) Nature of the tissue removed (e.g., necrotic, devitalized tissues, non-viable tissue, etc.) Appearance and size of the wound (e.g., down to fresh bleeding tissue, 7cm x 10cm, etc.) Depth of the debridement* (e.g., skin, subcutaneous tissue, fascia, muscle, bone, etc.) (Template Last Revised: September 2020) MTDD
[2024-02-07 17:15] LABS: Glucose,Whole Blood 195 mg/dL (70-110)
[2024-02-07 19:37] LABS: Glucose,Whole Blood 226 mg/dL (70-110)
--- NOTE | 2024-02-07 23:04 | P.PN ---
Subjective Progress Note Date: 02/07/24 HISTORY OF PRESENT ILLNESS: 83-year-old with active medical history of Type 2 diabetes, obesity, left-sided breast cancer, hypertension, hyperlipidemia, hypothyroidism, chronic depression, chronic lower back pain with degenerative disc disease and spinal stenosis, peripheral arterial disease with severe carotid stenosis, hypertensive cardiovascular disease, coronary artery disease post PCI and stent placement of the LAD May 2023, also patient had stroke and found to have 80-90 percentile stenosis of the internal carotid artery ended up having right transcarotid artery revascularization with stenting July 2023: Following her procedure she had quite a bit debility and worsening symptoms ended up being transferred to [facility] or rehab after several weeks of rehab patient improvement was very limited and that being quite bit debilitated wheelchair and bedbound and declined further more patient was transferred to long-term at [facility]. For the last 12 weeks patient had severe rigidity in her body and severe stiffness could not move ambulate or turn. Started having slight irritation and discomfort of the skin with an earlier stage of small ulceration. wound care and [facility] was involved early start seen in November for smaller area in the left heel over the following few weeks become slightly red worsening and required debridement which was done by Dr. Rodrigues 4 weeks ago. He was referred to see vascular for severe PAD and diagnosis was made at the time the patient was told that her circulation is extremely bad and worsening might require amputation above the knee. Entire left heel become gangrenous within the last few days and become much worse with bone exposure. Patient was seen and evaluated today and decided to send patient to the hospital to be seen by vascular start IV antibiotic might require further intervention. She was started on vancomycin IV admitted to the hospital consult vascular lab blood work was done and long talk with the family and prepare for possible need for intervention which most likely below or above-knee amputation in the next 48 hours. 02/01/2024: Seen vascular today still planning for above-knee amputation but wants patient to be cleared by cardiology and prepare for the procedure and also recommending CT angiogram before the amputation. Both procedure where order. The patient was seen infectious disease agree with the current infection will add Unasyn to vancomycin for better coverage and gram-negative's and anaerobic while waiting for workup and procedure. Patient's pain is under control currently still have severe stiffness still have other area of concern including the sacrum the other heel foot area and upper extremity as well. If all goes well expect probably amputation by tomorrow. 02/02/2024: Vascular awaiting for CT angiogram of the abdomen with runoff to see if they are able to do above-knee amputation of the left lower extremity. Also still waiting for cardiology clearance which again this surgery is extreme necessity otherwise mortality is extremely high. Cardiology and that seen patient late in the day and agree patient is not having any chest pain or angina has been 9 months since angioplasty and stent will be able to stop Aspirin and Plavix before surgery will be on standby watching for any complication might require help otherwise patient is very clear for surgery. Also infectious disease expanded the coverage with antibiotic to continue vancomycin and Unasyn to cover gram-negative and anaerobic as well. Patient and family informed of the decision of the above-named patient by vascular. Like planning for surgery at least early next week. 02/03/2024: Continue current antibiotic management by infectious disease which is a combination of Unasyn and vancomycin, continue local care with dressing, no lab for blood work 1 blood sugar still mildly elevated. Patient was seen cardiology consultation with the multiple comorbidity last heart catheter back in June 2023 with revascularization no other remaining cardiac patient is not having any angina and his 9-month past angioplasty can stop Plavix for surgery but decided to continue aspirin through surgery Patient will be watched carefully after surgery surgery as well. 02/04/2024: Patient was seen and evaluated today her blood sugar has been slightly below in the morning we will adjust Levemir down to 15 units twice a day to lower the odds of having hypoglycemia. Lab was order patient seen vascular today look like he met all the criteria surgery is very clear at this point vascular planning to do surgery early this week. In the meanwhile continue IV antibiotic continue comfort care continue to watch for any further complication antiplatelet agent will be held till after the surgery the patient will be continued on aspirin no further intervention or procedure required before surgery. 02/05/2024: Family on the bedside, update I would expect from surgery and that the need for above-knee amputation, apparently with the controversy of his doing surgery family understand Dr. Nichole is doing surgery patient is Dr. Rodarte which I believe is 1 who is planning to do surgery sometimes again this week. Still have significant drainage and gangrenous change mostly involving the bone and soft tissue no unstageable continue IV antibiotics continue wound care and infectious disease care. Laboratory value still showing blood sugar to be around in the 200 hemoglobin dropped down to 8.8 still no need for blood transfusion kidney function is holding well with creatinine 1.64 GFR at 83. 02/06/2024: Patient seen early this morning scheduled for amputation around 4:00 in the afternoon today, still having significant pain and discomfort but well- controlled with medication. No change in her lab value blood sugar still running slightly with low today specially being n.p.o. She is remain on antibiotic with no reaction or side effect. Following her amputation within 48 hours should be able to get patient go back tomorrow with. Also decided amputation she is having debridement of the other side and probably appropriate culture. 02/07/2024: She had an patient [id number] of the left side yesterday successfully with no major complication she is not having any major bleed at this point. Remain on antibiotic currently combination of Unasyn and vancomycin and infectious disease probably will keep her on IV antibiotic for the time she still hospitalized for culture from the through the remain negative. Lab value today with white blood cell 10.2 hemoglobin 7.4, creatinine 0.57 EGFR of 86 blood sugars fluctuating slightly but still doing well. 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 Titrate diet consult physical therapy and expected probably discharge in the next 24 hours. REVIEW OF SYSTEMS: CONSTITUTIONAL: Morbidly obese lying in bed in quite good pain no acute respiratory distress. EYES: No icterus sclerae, no conjunctivitis. EARS, NOSE, MOUTH, THROAT, and FACE: No sore throat, lymphadenopathy, carotid bruits or deformity. RESPIRATORY: Mild shortness of breath no cough or wheezes. CARDIOVASCULAR: Positive PND orthopnea palpitation no angina. GASTROINTESTINAL: No Abd pain, Nausea or vomiting, no Diarrhea or constipation, No GI Bleed, no distention or masses. GENITOURINARY: Negative for Hematuria or UTI, no kidney stones. INTEGUMENT/BREAST: Generalized arthralgia and myalgia with chronic lower back p ain and significant involvement of the soft tissues without breaking skin and dry this area of her body but worsening in the left heel. HEMATOLOGIC/LYMPHATIC: Negative for bleed or purpura. History of left-sided breast cancer. MUSCULOSKELTAL: Negative for Myalgia or arthralgia. Left above-knee amputation with debridement of the right side the stump area does not have any bleed. NEURLOGICAL: No LOC, Sz or syncope, blurred vision dizziness or abnormality.. BEHAVIORAL/PSYCH: Negative. ENDOCRINE: Negative. PHYSICAL EXAMINATION: General Appearance: Obese lying in bed no distress aware of her left heel not been able to turn in bed and had severe stiffness. Neck HEENT: Supple, no lymphadenopathy, no thyroid enlargement, no carotid bruits. Lungs: Clear to auscultation without crackles or wheezes no rhonchi, no deformity. Chest Wall: Decreased expansion with deep inspiration no tenderness and no deformity was found on exam, no costochondral pain or discomfort. Heart: Regular rate and rhythm, S1, S2 positive S3 positive systolic murmur. Back: Symmetric, with scoliosis and kyphosis with mild tenderness in lower lumbar area. Abdomen: Soft, non-tender, bowel sounds active all four quadrants, no masses, no organomegaly. Extremities: Left side above-knee amputation right side had debridement of the heel area still looking good stump site looks fine with no hemorrhage or bleed. Pulses: No palpable pulse in both lower extremity. Skin: Skin color, texture, tugor normal, no rashes or lesions. Neurologic: Alert oriented x3 cranial nerves II through XII intact, no motor deficit, no abnormal balance or gait. ASSESSMENT AND PLAN: _Severe gangrenous change in the left heel area mostly unstageable: Post above- knee amputation remain on Unasyn and vancomycin will continue antibiotics and follow instruction from infectious disease standpoint to see the length of time needed to be on antibiotic for when discharge. _Osteomyelitis of the left heel area: Intervention with amputation as taking place already and doing well. _Severe coronary artery disease post angioplasty and stent placement of the LAD back in May 2023 patient seen cardiology with no symptoms of chest pain or angina antiplatelet agent will be held for the surgery but continue aspirin. Patient was cleared by cardiology. _Chronic pain syndrome: Continue hydrocodone on as-needed basis for now along with muscle relaxer. _Iron deficiency anemia: Worsening so far with the infection and amputation hemoglobin still above 7 no need for transfusion but continue iron and multivitamin. 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 _Residual stroke with significant weakness affecting the left side more than the right side. No change at this point. _Chronic pain syndrome and pain management: Continue hydrocodone on as needed basis seems to do well with it so far. _Severe carotid stenosis post right-sided carotid stenting. No major finding or complaint _History of breast cancer: Was seen oncology regularlyStill on anastrozole 1 mg daily. Breast cancer is in remission no sign of metastasis. _Hypertension: Continue Coreg 6.25 mg twice a day, amlodipine 10 mg daily, losartan hydrochlorothiazide 100/12.5 mg daily. Blood pressure mostly controlled below 144 systolic and below 94 diastolic. _Hyperlipidemia: Remain on atorvastatin 80 mg nightly. _Hypothyroidism: Continue Synthroid 50 mcg daily. _Severe spinal stenosis and lower back pain has been on medical management only still on pain meds along with gabapentin. No surgical intervention. _Chronic depression: Has been on trazodone 50 mg at bedtime along with Wellbutrin 150 mg daily Zoloft 100 mg a day. _Restless leg syndrome: Remain on Requip 0.5 mg twice a day. Discussion: Had left above knee amputation along with debridement of the right side still seen infectious disease and vascular continue supportive care continue IV antibiotics and prepare probably for return back to SNF and long- term shelter within 48 hours. Objective - Vital Signs Vital signs: Vital Signs Temp 98.9 F 02/07/24 20:00 Pulse 70 02/07/24 19:24 Resp 16 02/07/24 19:24 BP 125/57 02/07/24 19:24 Pulse Ox 96 02/07/24 19:24 FiO2 Intake & Output 02/07/24 02/07/24 02/08/24 06:59 18:59 06:59 Output Total 800 Balance -800 Output: Urine 800 Other: Voiding Method Diaper Diaper Diaper Incontinent Incontinent Incontinent External Catheter External Catheter External Catheter # Voids 2 - Labs CBC & Chem 7: 02/08/24 17:42 02/08/24 05:45 Labs: Abnormal Lab Results - Last 24 Hours (Table) 02/07/24 02/07/24 02/07/24 Range/Units 05:55 12:17 17:14 RBC 3.03 L (3.80-5.40) m/uL Hgb 7.4 L D (11.4-16.0) gm/dL Hct 24.2 L (34.0-46.0) % MCH 24.5 L (25.0-35.0) pg MCHC 30.6 L (31.0-37.0) g/dL RDW 16.9 H (11.5-15.5) % POC Glucose (mg/dL) 164 H 195 H (70-110) mg/dL 02/07/24 Range/Units 19:34 RBC (3.80-5.40) m/uL Hgb (11.4-16.0) gm/dL Hct (34.0-46.0) % MCH (25.0-35.0) pg MCHC (31.0-37.0) g/dL RDW (11.5-15.5) % POC Glucose (mg/dL) 226 H (70-110) mg/dL Microbiology - Last 24 Hours (Table) 02/06/24 17:50 Gram Stain - Preliminary Foot - Right
[2024-02-08 06:21] LABS: Anisocytosis Slight; HCT 20.9 % (34.0-46.0); Hypochromasia Marked; MCH 25.1 pg (25.0-35.0); MCHC 32.2 g/dL (31.0-37.0); Mean Platelet Volume 8.4; Microcytosis Slight; Platelet Count 222 k/uL (150-450); Poikilocytosis Slight; RBC 2.68 m/uL (3.80-5.40); RDW 16.6 % (11.5-15.5); WBC 8.5 k/uL (3.8-10.6)
[2024-02-08 06:25] LABS: HGB 6.7 gm/dL (11.4-16.0)
[2024-02-08 07:02] LABS: ALT 21 U/L (4-34); AST 20 U/L (14-36); African American GFR (CKD) >90 (>60 ml/min/1.73 sqM); Albumin 2.1 g/dL (3.5-5.0); Albumin/Globulin Ratio 0.9; Alkaline Phosphatase 78 U/L (38-126); Anion Gap 1 mmol/L; Blood Urea Nitrogen 15 mg/dL (7-17); Calcium 7.8 mg/dL (8.4-10.2); Carbon Dioxide 28 mmol/L (22-30); Chloride 106 mmol/L (98-107); Globulin 2.4 g/dL; Glucose 109 mg/dL (74-99); Non-African American GFR(CKD) 87 (>60 ml/min/1.73 sqM); Potassium 4.2 mmol/L (3.5-5.1); Sodium 135 mmol/L (137-145); Total Bilirubin 0.3 mg/dL (0.2-1.3); Total Protein 4.5 g/dL (6.3-8.2)
[2024-02-08 07:36] LABS: Glucose,Whole Blood 114 mg/dL (70-110)
--- NOTE | 2024-02-08 11:16 | P.PN ---
Subjective Progress Note Date: 02/08/24 Principal diagnosis: Peripheral arterial disease, nonhealing lower extremity wounds Patient seen and examined today as a follow-up. She is postop day #2 for left [id number] amputation and right foot debridement. She states overall she is doing well. She did have a drop in her hemoglobin to 6.7 and is going to receive a unit of blood. Physical therapy has been consulted. She has been afebrile. She denies any shortness of breath, chest pain, abdominal pain, nausea or vomiting. Objective - Vital Signs Vital signs: Vital Signs Temp 98.3 F 02/08/24 09:01 Pulse 71 02/08/24 09:01 Resp 16 02/08/24 09:01 BP 143/70 02/08/24 09:01 Pulse Ox 93 L 02/08/24 09:01 FiO2 Intake & Output 02/07/24 02/08/24 02/08/24 18:59 06:59 18:59 Intake Total 0 Output Total 800 500 Balance -800 -500 0 Intake: Blood Product 0 Rc As-1 Unit 0 [id number] Output: Urine 800 500 Other: Voiding Method Diaper Diaper Incontinent Incontinent External Catheter External Catheter - Exam General appearance: The patient is alert, oriented, appears in no acute distress. Morbidly obese. HET: Head is normocephalic and atraumatic. Pupils are equal and reactive. Neck: Supple. Heart: Regular. Lungs: Equal expansion, normal respiratory effort. Abdomen: Soft, nondistended. Extremities: Left below the knee amputation with dressing clean dry and intact and Kristofer wrap present. Right foot with dressing and soft offloading boots. Neurological: No focal deficits. Poor strength. Patient's right lower extremity is contracted. - Labs CBC & Chem 7: 02/08/24 05:45 02/08/24 05:45 Labs: Abnormal Lab Results - Last 24 Hours (Table) 02/05/24 02/07/24 02/07/24 Range/Units 14:59 05:55 12:17 RBC 3.03 L (3.80-5.40) m/uL Hgb 7.4 L D (11.4-16.0) gm/dL Hct 24.2 L (34.0-46.0) % MCV (80.0-100.0) fL MCH 24.5 L (25.0-35.0) pg MCHC 30.6 L (31.0-37.0) g/dL RDW 16.9 H (11.5-15.5) % Sodium (137-145) mmol/L Glucose (74-99) mg/dL POC Glucose (mg/dL) 164 H (70-110) mg/dL Calcium (8.4-10.2) mg/dL Total Protein (6.3-8.2) g/dL Albumin (3.5-5.0) g/dL Crossmatch See Detail 02/07/24 02/07/24 02/08/24 Range/Units 17:14 19:34 05:45 RBC 2.68 L (3.80-5.40) m/uL Hgb 6.7 L* (11.4-16.0) gm/dL Hct 20.9 L (34.0-46.0) % MCV 78.0 L (80.0-100.0) fL MCH (25.0-35.0) pg MCHC (31.0-37.0) g/dL RDW 16.6 H (11.5-15.5) % Sodium (137-145) mmol/L Glucose (74-99) mg/dL POC Glucose (mg/dL) 195 H 226 H (70-110) mg/dL Calcium (8.4-10.2) mg/dL Total Protein (6.3-8.2) g/dL Albumin (3.5-5.0) g/dL Crossmatch 02/08/24 02/08/24 Range/Units 05:45 07:34 RBC (3.80-5.40) m/uL Hgb (11.4-16.0) gm/dL Hct (34.0-46.0) % MCV (80.0-100.0) fL MCH (25.0-35.0) pg MCHC (31.0-37.0) g/dL RDW (11.5-15.5) % Sodium 135 L (137-145) mmol/L Glucose 109 H (74-99) mg/dL POC Glucose (mg/dL) 114 H (70-110) mg/dL Calcium 7.8 L (8.4-10.2) mg/dL Total Protein 4.5 L (6.3-8.2) g/dL Albumin 2.1 L (3.5-5.0) g/dL Crossmatch Microbiology - Last 24 Hours (Table) 02/06/24 17:50 Gram Stain - Preliminary Foot - Right Assessment and Plan Assessment: 1. Nonhealing left heel pressure ulcer with gangrene status post [id number] amputation 2. Right foot diabetic ulcers status postdebridement 3. Anemia, acute on chronic 4. Peripheral arterial disease, left greater than right with segmental severe stenosis throughout popliteal artery short segment occlusion severe stenosis subtotal occlusions throughout the trifurcation vessels. 5. Diabetes mellitus 6. Patient is nonambulatory. Bedbound/wheelchair-bound 7. Coronary artery disease status post stenting 8. Severe carotid artery disease status post right TCAR 07/2023 9. Hypertension 10. Hyperlipidemia 11. Morbid obesity Plan: 1. Referral to comfort prosthetics for stump account executive and rigid dressing for left AKA 2. Maintain daily dressing change with Adaptic for the 4 x 4 and Kerlix daily to left AKA. Wet-to-dry for right foot wounds 3. Diet as tolerated 4. Consult physical therapy 5. Agree with transfusion, repeat CBC 6. Patient is cleared from vascular surgery for discharge if hemoglobin stabilizes Thank you for this consultation, we will continue to follow. The impression and plan of care has been dictated as directed. Dr. Nichole I performed a history and examination of this patient, discussed the same with the dictator. I agree with the dictator's note ,documented as a scribe. Any additional findings or plans will be noted.
[2024-02-08] MEDS: HYDROmorphone 1 MG/ML 1 ML SYRINGE IVP STA (11:58)
[2024-02-08 12:12] LABS: Glucose,Whole Blood 117 mg/dL (70-110)
--- NOTE | 2024-02-08 12:35 | P.PN ---
Subjective Progress Note Date: 02/08/24 Principal diagnosis: Reason for follow-up is left heel infected pressure ulcer Patient is a 83-year-old female with a past medical history significant for diabetes mellitus hypertension hyperlipidemia osteoarthritis in this patient who is a snf resident patient has been brought into the hospital for evaluation of worsening left heel pressure ulcer concerning for infection prompting this consultation.Patient is status post left [id number]-[id number] amputation and right lateral foot wound debridement completed on 02/06/2024 On today's evaluation 02/08/2024, Patient is afebrile patient is currently on 3 L current oxygen and denies having any shortness of breath, the patient denies any chest pain or cough, the patient denies any nausea vomiting did not have any abdominal pain and no diarrhea complaining of pain to the left AKA stump and right foot area. Patient white count is 8.5 creatinine 0.56 cultures currently pending Objective - Vital Signs Vital signs: Vital Signs Temp 98.2 F 02/08/24 11:38 Pulse 71 02/08/24 11:38 Resp 16 02/08/24 11:38 BP 119/65 02/08/24 11:38 Pulse Ox 94 L 02/08/24 11:38 FiO2 Intake & Output 02/07/24 02/08/24 02/08/24 18:59 06:59 18:59 Intake Total 310 Output Total 800 500 Balance -800 -500 310 Intake: Blood Product 310 Rc As-1 Unit 310 [id number] Output: Urine 800 500 Other: Voiding Method Diaper Diaper Diaper Incontinent Incontinent Incontinent External Catheter External Catheter External Catheter - Exam GENERAL DESCRIPTION: An elderly female lying in bed in no distress RESPIRATORY SYSTEM: Unlabored breathing , decreased breath sounds at bases HEART: S1 S2 regular rate and rhythm , ABDOMEN: Soft , no tenderness EXTREMITIES: Left AKA stump is currently dressed - Labs CBC & Chem 7: 02/08/24 05:45 02/08/24 05:45 Labs: Abnormal Lab Results - Last 24 Hours (Table) 02/05/24 02/07/24 02/07/24 Range/Units 14:59 17:14 19:34 RBC (3.80-5.40) m/uL Hgb (11.4-16.0) gm/dL Hct (34.0-46.0) % MCV (80.0-100.0) fL RDW (11.5-15.5) % Sodium (137-145) mmol/L Glucose (74-99) mg/dL POC Glucose (mg/dL) 195 H 226 H (70-110) mg/dL Calcium (8.4-10.2) mg/dL Total Protein (6.3-8.2) g/dL Albumin (3.5-5.0) g/dL Crossmatch See Detail 02/08/24 02/08/24 02/08/24 Range/Units 05:45 05:45 07:34 RBC 2.68 L (3.80-5.40) m/uL Hgb 6.7 L* (11.4-16.0) gm/dL Hct 20.9 L (34.0-46.0) % MCV 78.0 L (80.0-100.0) fL RDW 16.6 H (11.5-15.5) % Sodium 135 L (137-145) mmol/L Glucose 109 H (74-99) mg/dL POC Glucose (mg/dL) 114 H (70-110) mg/dL Calcium 7.8 L (8.4-10.2) mg/dL Total Protein 4.5 L (6.3-8.2) g/dL Albumin 2.1 L (3.5-5.0) g/dL Crossmatch 02/08/24 Range/Units 12:10 RBC (3.80-5.40) m/uL Hgb (11.4-16.0) gm/dL Hct (34.0-46.0) % MCV (80.0-100.0) fL RDW (11.5-15.5) % Sodium (137-145) mmol/L Glucose (74-99) mg/dL POC Glucose (mg/dL) 117 H (70-110) mg/dL Calcium (8.4-10.2) mg/dL Total Protein (6.3-8.2) g/dL Albumin (3.5-5.0) g/dL Crossmatch Microbiology - Last 24 Hours (Table) 02/06/24 17:50 Gram Stain - Preliminary Foot - Right Assessment and Plan (1) Pressure ulcer, heel, left, unstageable Current Visit: Yes Status: Acute Code(s): L89.620 - PRESSURE ULCER OF LEFT H EEL, UNSTAGEABLE SNOMED Code(s): 08972004239025929 (2) Left leg cellulitis Current Visit: Yes Status: Acute Code(s): L03.116 - CELLULITIS OF LEFT LOWER LIMB SNOMED Code(s): 72823157948558300 Plan: 1patient presented to hospital with worsening wound to the left heel area currently with necrotic wound unstageable pressure ulcer with secondary cellulitis likely need to cover for both gram-positive as well as gram-negative pathogen 2-patient is status post left [id number]-[id number] amputation and debridement of the right lateral foot wound with cultures obtained which are currently pending 3-patient is afebrile, white count normal, to continue with vancomycin and Unasyn while waiting for the culture to finalize Daughter at the bedside questions were answered Dictation was produced using [employer] dictation software. please excuse any grammatical, word or spelling errors. Time with Patient: Less than 30
--- NOTE | 2024-02-08 13:28 | P.PN ---
Subjective Progress Note Date: 02/08/24 HISTORY OF PRESENT ILLNESS: 83-year-old with active medical history of Type 2 diabetes, obesity, left-sided breast cancer, hypertension, hyperlipidemia, hypothyroidism, chronic depression, chronic lower back pain with degenerative disc disease and spinal stenosis, peripheral arterial disease with severe carotid stenosis, hypertensive cardiovascular disease, coronary artery disease post PCI and stent placement of the LAD May 2023, also patient had stroke and found to have 80-90 percentile stenosis of the internal carotid artery ended up having right transcarotid artery revascularization with stenting July 2023: Following her procedure she had quite a bit debility and worsening symptoms ended up being transferred to [facility] or rehab after several weeks of rehab patient improvement was very limited and that being quite bit debilitated wheelchair and bedbound and declined further more patient was transferred to long-term at [facility]. For the last 12 weeks patient had severe rigidity in her body and severe stiffness could not move ambulate or turn. Started having slight irritation and discomfort of the skin with an earlier stage of small ulceration. wound care and [facility] was involved early start seen in November for smaller area in the left heel over the following few weeks become slightly red worsening and required debridement which was done by Dr. Rodrigues 4 weeks ago. He was referred to see vascular for severe PAD and diagnosis was made at the time the patient was told that her circulation is extremely bad and worsening might require amputation above the knee. Entire left heel become gangrenous within the last few days and become much worse with bone exposure. Patient was seen and evaluated today and decided to send patient to the hospital to be seen by vascular start IV antibiotic might require further intervention. She was started on vancomycin IV admitted to the hospital consult vascular lab blood work was done and long talk with the family and prepare for possible need for intervention which most likely below or above-knee amputation in the next 48 hours. 02/01/2024: Seen vascular today still planning for above-knee amputation but wants patient to be cleared by cardiology and prepare for the procedure and also recommending CT angiogram before the amputation. Both procedure where order. The patient was seen infectious disease agree with the current infection will add Unasyn to vancomycin for better coverage and gram-negative's and anaerobic while waiting for workup and procedure. Patient's pain is under control currently still have severe stiffness still have other area of concern including the sacrum the other heel foot area and upper extremity as well. If all goes well expect probably amputation by tomorrow. 02/02/2024: Vascular awaiting for CT angiogram of the abdomen with runoff to see if they are able to do above-knee amputation of the left lower extremity. Also still waiting for cardiology clearance which again this surgery is extreme necessity otherwise mortality is extremely high. Cardiology and that seen patient late in the day and agree patient is not having any chest pain or angina has been 9 months since angioplasty and stent will be able to stop Aspirin and Plavix before surgery will be on standby watching for any complication might require help otherwise patient is very clear for surgery. Also infectious disease expanded the coverage with antibiotic to continue vancomycin and Unasyn to cover gram-negative and anaerobic as well. Patient and family informed of the decision of the above-named patient by vascular. Like planning for surgery at least early next week. 02/03/2024: Continue current antibiotic management by infectious disease which is a combination of Unasyn and vancomycin, continue local care with dressing, no lab for blood work 1 blood sugar still mildly elevated. Patient was seen cardiology consultation with the multiple comorbidity last heart catheter back in June 2023 with revascularization no other remaining cardiac patient is not having any angina and his 9-month past angioplasty can stop Plavix for surgery but decided to continue aspirin through surgery Patient will be watched carefully after surgery surgery as well. 02/04/2024: Patient was seen and evaluated today her blood sugar has been slightly below in the morning we will adjust Levemir down to 15 units twice a day to lower the odds of having hypoglycemia. Lab was order patient seen vascular today look like he met all the criteria surgery is very clear at this point vascular planning to do surgery early this week. In the meanwhile continue IV antibiotic continue comfort care continue to watch for any further complication antiplatelet agent will be held till after the surgery the patient will be continued on aspirin no further intervention or procedure required before surgery. 02/05/2024: Family on the bedside, update I would expect from surgery and that the need for above-knee amputation, apparently with the controversy of his doing surgery family understand Dr. Nichole is doing surgery patient is Dr. Rodarte which I believe is 1 who is planning to do surgery sometimes again this week. Still have significant drainage and gangrenous change mostly involving the bone and soft tissue no unstageable continue IV antibiotics continue wound care and infectious disease care. Laboratory value still showing blood sugar to be around in the 200 hemoglobin dropped down to 8.8 still no need for blood transfusion kidney function is holding well with creatinine 1.64 GFR at 83. 02/06/2024: Patient seen early this morning scheduled for amputation around 4:00 in the afternoon today, still having significant pain and discomfort but well- controlled with medication. No change in her lab value blood sugar still running slightly with low today specially being n.p.o. She is remain on antibiotic with no reaction or side effect. Following her amputation within 48 hours should be able to get patient go back tomorrow with. Also decided amputation she is having debridement of the other side and probably appropriate culture. 02/07/2024: She had an patient [id number] of the left side yesterday successfully with no major complication she is not having any major bleed at this point. Remain on antibiotic currently combination of Unasyn and vancomycin and infectious disease probably will keep her on IV antibiotic for the time she still hospitalized for culture from the through the remain negative. Lab value today with white blood cell 10.2 hemoglobin 7.4, creatinine 0.57 EGFR of 86 blood sugars fluctuating slightly but still doing well. 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 Titrate diet consult physical therapy and expected probably discharge in the next 24 hours. 02/08/2024: Patient's hemoglobin dropped to 6.7 overnight, hematocrit 20.9, platelets 222. Patient will receive 1 unit PRBC today, will recheck hemoglobin following transfusion. Other blood work includes potassium 4.2, BUN 15, creatinine 0.56, EGFR 87, blood sugars been fluctuating this morning 109, overnight was hyperglycemic at 226. Patient continues on Unasyn and vancomycin, patient will likely be discharged back to [facility] on IV antibiotics for a short time, she will need a PICC line in this case, awaiting infectious disease recommendations. Patient is postop day 2 following left AKA, physical therapy has been consulted but has not seen the patient yet. Left leg is looking good, dressing is clean dry and intact, is having daily dressing changes to both limbs. Patient reports good pain control. If hemoglobin stabilizes patient will likely be discharged tomorrow back to [facility]. Plan was discussed with patient and family at bedside. REVIEW OF SYSTEMS: CONSTITUTIONAL: Morbidly obese lying in bed, appears comfortable, no acute respiratory distress. EYES: No icterus sclerae, no conjunctivitis. EARS, NOSE, MOUTH, THROAT, and FACE: No sore throat, lymphadenopathy, carotid bruits or deformity. RESPIRATORY: Mild shortness of breath no cough or wheezes. CARDIOVASCULAR: Positive PND orthopnea palpitation no angina. GASTROINTESTINAL: No Abd pain, Nausea or vomiting, no Diarrhea or constipation, No GI Bleed, no distention or masses. GENITOURINARY: Negative for Hematuria or UTI, no kidney stones. INTEGUMENT/BREAST: Generalized arthralgia and myalgia with chronic lower back pain and significant involvement of the soft tissues without breaking skin and dry this area of her body but worsening in the left heel. HEMATOLOGIC/LYMPHATIC: Negative for bleed or purpura. History of left-sided breast cancer. MUSCULOSKELTAL: Negative for Myalgia or arthralgia. Left above-knee amputation with debridement of the right side the stump area does not have any bleeding. NEURLOGICAL: No LOC, Sz or syncope, blurred vision dizziness or abnormality.. BEHAVIORAL/PSYCH: Negative. ENDOCRINE: Negative. PHYSICAL EXAMINATION: General Appearance: Obese, lying in bed, no distress, generalized weakness with poor bed mobility and joint stiffness. Neck HEENT: Supple, no lymphadenopathy, no thyroid enlargement, no carotid bruits. Lungs: Clear to auscultation without crackles or wheezes no rhonchi, no defo rmity. Chest Wall: Decreased expansion with deep inspiration no tenderness and no deformity was found on exam, no costochondral pain or discomfort. Heart: Regular rate and rhythm, S1, S2 positive, no murmur. Back: Symmetric, with scoliosis and kyphosis with mild tenderness in lower lumbar area. Abdomen: Soft, non-tender, bowel sounds active all four quadrants, no masses, no organomegaly. Extremities: Left side above-knee amputation, right side had debridement of the heel area still looking good, stump site looks fine with no hemorrhage or bleed. Pulses: No palpable pulse in both lower extremity. Skin: Skin color, texture, tugor normal, no rashes or lesions. Neurologic: Alert oriented x3 cranial nerves II through XII intact, no motor deficit, no abnormal balance or gait. ASSESSMENT AND PLAN: _Severe gangrenous change in the left heel area mostly unstageable: Post above- knee amputation, remain on Unasyn and vancomycin, will continue antibiotics and follow instruction from infectious disease standpoint to see the length of time needed to be on antibiotic for when discharge. _Osteomyelitis of the left heel area: Patient underwent left AKA on 02/06/24, incision is doing well. _Iron deficiency anemia: Worsening so far with the infection and amputation. Hemoglobin 6.7 today, will transfuse 1 unit PRBCs. Continue iron and multivitamin. _Severe coronary artery disease post angioplasty and stent placement of the LAD back in May 2023 patient was seen by cardiology with no symptoms of chest pain or angina, antiplatelet agent will be held for the surgery but continue aspirin. Patient was cleared by cardiology. _Chronic pain syndrome: Continue hydrocodone on as-needed basis for now along with muscle relaxer. _Type 2 diabetes: Blood sugars continue to fluctuate, more hyperglycemia in the last 24 hours. Continue Levemir 15 units twice a day, continue NovoLog per sliding scale coverage, and again consider possibility of SGLT2 product when patient goes back to [facility] after surgery. _Residual stroke with significant weakness affecting the left side more than the right side. No change at this point. PT is consulted. _Chronic pain syndrome and pain management: Continue hydrocodone on as needed basis seems to do well with it so far. _Severe carotid stenosis post right-sided carotid stenting. No major finding or complaint _History of breast cancer: Was seeing oncology regularly. Still on anastrozole 1 mg daily. Breast cancer is in remission no sign of metastasis. _Hypertension: Continue Coreg 6.25 mg twice a day, amlodipine 10 mg daily, losartan hydrochlorothiazide 100/12.5 mg daily. Blood pressure mostly controlled below 144 systolic and below 94 diastolic. _Hyperlipidemia: Remain on atorvastatin 80 mg nightly. _Hypothyroidism: Continue Synthroid 50 mcg daily. _Severe spinal stenosis and lower back pain has been on medical management only still on pain meds along with gabapentin. No surgical intervention. _Chronic depression: Has been on trazodone 50 mg at bedtime along with Wellbutrin 150 mg daily Zoloft 100 mg a day. _Restless leg syndrome: Remain on Requip 0.5 mg twice a day. Discussion: Patient is overall doing well following left AKA. Will transfuse 1 unit of PRBC for hemoglobin of 6.7 repeat hemoglobin following transfusion. If hemoglobin stabilizes patient is otherwise cleared for discharge by vascular surgery. Will need final recommendations for antibiotics after discharge by infectious disease. Hope to return patient to [facility] tomorrow. Objective - Vital Signs Vital signs: Vital Signs Temp 98.3 F 02/08/24 09:01 Pulse 71 02/08/24 09:01 Resp 16 02/08/24 09:01 BP 143/70 02/08/24 09:01 Pulse Ox 93 L 02/08/24 09:01 FiO2 Intake & Output 02/07/24 02/08/24 02/08/24 18:59 06:59 18:59 Intake Total 0 Output Total 800 500 Balance -800 -500 0 Intake: Blood Product 0 Rc As-1 Unit 0 [id number] Output: Urine 800 500 Other: Voiding Method Diaper Diaper Diaper Incontinent Incontinent Incontinent External Catheter External Catheter External Catheter - Labs CBC & Chem 7: 02/08/24 05:45 02/08/24 05:45 Labs: Abnormal Lab Results - Last 24 Hours (Table) 02/05/24 02/07/24 02/07/24 Range/Units 14:59 05:55 12:17 RBC 3.03 L (3.80-5.40) m/uL Hgb 7.4 L D (11.4-16.0) gm/dL Hct 24.2 L (34.0-46.0) % MCV (80.0-100.0) fL MCH 24.5 L (25.0-35.0) pg MCHC 30.6 L (31.0-37.0) g/dL RDW 16.9 H (11.5-15.5) % Sodium (137-145) mmol/L Glucose (74-99) mg/dL POC Glucose (mg/dL) 164 H (70-110) mg/dL Calcium (8.4-10.2) mg/dL Total Protein (6.3-8.2) g/dL Albumin (3.5-5.0) g/dL Crossmatch See Detail 02/07/24 02/07/24 02/08/24 Range/Units 17:14 19:34 05:45 RBC 2.68 L (3.80-5.40) m/uL Hgb 6.7 L* (11.4-16.0) gm/dL Hct 20.9 L (34.0-46.0) % MCV 78.0 L (80.0-100.0) fL MCH (25.0-35.0) pg MCHC (31.0-37.0) g/dL RDW 16.6 H (11.5-15.5) % Sodium (137-145) mmol/L Glucose (74-99) mg/dL POC Glucose (mg/dL) 195 H 226 H (70-110) mg/dL Calcium (8.4-10.2) mg/dL Total Protein (6.3-8.2) g/dL Albumin (3.5-5.0) g/dL Crossmatch 02/08/24 02/08/24 Range/Units 05:45 07:34 RBC (3.80-5.40) m/uL Hgb (11.4-16.0) gm/dL Hct (34.0-46.0) % MCV (80.0-100.0) fL MCH (25.0-35.0) pg MCHC (31.0-37.0) g/dL RDW (11.5-15.5) % Sodium 135 L (137-145) mmol/L Glucose 109 H (74-99) mg/dL POC Glucose (mg/dL) 114 H (70-110) mg/dL Calcium 7.8 L (8.4-10.2) mg/dL Total Protein 4.5 L (6.3-8.2) g/dL Albumin 2.1 L (3.5-5.0) g/dL Crossmatch Microbiology - Last 24 Hours (Table) 02/06/24 17:50 Gram Stain - Preliminary Foot - Right
[2024-02-08 17:22] LABS: Glucose,Whole Blood 162 mg/dL (70-110)
[2024-02-08 18:16] LABS: Anisocytosis Slight; HCT 27.7 % (34.0-46.0); Hypochromasia Marked; MCH 24.8 pg (25.0-35.0); MCHC 31.2 g/dL (31.0-37.0); MCV 79.4 fL (80.0-100.0); Mean Platelet Volume 7.2; Microcytosis Slight; Platelet Count 268 k/uL (150-450); Poikilocytosis Slight; RBC 3.49 m/uL (3.80-5.40); RDW 16.3 % (11.5-15.5); WBC 10.8 k/uL (3.8-10.6)
[2024-02-08 18:27] LABS: HGB 8.6 gm/dL (11.4-16.0)
[2024-02-08 20:17] LABS: Glucose,Whole Blood 203 mg/dL (70-110)
[2024-02-09 07:54] LABS: Glucose,Whole Blood 102 mg/dL (70-110)
[2024-02-09 08:06] LABS: Anisocytosis Slight; HCT 27.7 % (34.0-46.0); HGB 8.6 gm/dL (11.4-16.0); Hypochromasia Marked; MCH 25.1 pg (25.0-35.0); MCHC 31.1 g/dL (31.0-37.0); MCV 80.5 fL (80.0-100.0); Platelet Count 269 k/uL (150-450); Poikilocytosis Slight; RBC 3.44 m/uL (3.80-5.40); RDW 16.4 % (11.5-15.5); WBC 9.4 k/uL (3.8-10.6)
[2024-02-09 08:29] LABS: ALT 30 U/L (4-34); AST 31 U/L (14-36); African American GFR (CKD) >90 (>60 ml/min/1.73 sqM); Albumin 2.5 g/dL (3.5-5.0); Alkaline Phosphatase 94 U/L (38-126); Anion Gap 3 mmol/L; Blood Urea Nitrogen 20 mg/dL (7-17); Calcium 8.5 mg/dL (8.4-10.2); Carbon Dioxide 29 mmol/L (22-30); Chloride 104 mmol/L (98-107); Globulin 2.6 g/dL; Glucose 90 mg/dL (74-99); Non-African American GFR(CKD) 85 (>60 ml/min/1.73 sqM); Potassium 4.3 mmol/L (3.5-5.1); Sodium 136 mmol/L (137-145); Total Bilirubin 0.4 mg/dL (0.2-1.3); Total Protein 5.1 g/dL (6.3-8.2)
[2024-02-09 08:34] LABS: HCT 23.9 % (37.2-46.3); HGB 7.4 g/dL (12.0-15.0); MCH 24.8 pg (27.0-32.0); MCV 80.2 FL (80.0-97.0); Mean Platelet Volume 9.9 FL (9.5-12.2); NRBC Per 100 WBC 0 X 10*3/uL (0.00-0.01); Platelet Count 231 X 10*3/uL (140-440); RBC 2.98 X 10*6/uL (4.10-5.20); WBC 8.24 X 10*3/uL (4.50-10.00)
[2024-02-09 09:40] LABS: Eosinophils # (M) 0.38 k/uL (0-0.7); Lymphocytes # (M) 2.16 k/uL (1.0-4.8); Monocytes # (M) 0.47 k/uL (0-1.0); Neutrophils # (M) 6.39 k/uL (1.3-7.7); Neutrophils % (M) 68 %; Nucleated Red Blood Cells 0 /100 WBC (0-0); Total Cells Counted 100
--- NOTE | 2024-02-09 10:51 | P.PN ---
Subjective Progress Note Date: 02/09/24 Principal diagnosis: Peripheral arterial disease, nonhealing lower extremity wounds Patient seen and examined today as a follow-up. She is postop day #3 for left [id number] amputation and right foot debridement. She states overall she is doing about the same. has pain with movement. Repeat Hg after one unit of blood 8.6. Physical therapy has been consulted. She has been afebrile. She denies any shortness of breath, chest pain, abdominal pain, nausea or vomiting. Stumpr cream beater and rigid dressing in place. Objective - Vital Signs Vital signs: Vital Signs Temp 98.2 F 02/09/24 01:01 Pulse 65 02/09/24 01:01 Resp 20 02/09/24 01:01 BP 136/65 02/09/24 01:01 Pulse Ox 95 02/09/24 01:01 FiO2 Intake & Output 02/08/24 02/09/24 02/09/24 18:59 06:59 18:59 Intake Total 310 590 Output Total 1300 500 Balance -990 90 Weight 100.698 kg Intake: Oral 590 Blood Product 310 Rc As-1 Unit 310 [id number] Output: Urine 1300 500 Other: Voiding Method Diaper Diaper Incontinent Incontinent External Catheter External Catheter # Voids 1 - Exam General appearance: The patient is alert, oriented, appears in no acute distress. Morbidly obese. HET: Head is normocephalic and atraumatic. Pupils are equal and reactive. Neck: Supple. Heart: Regular. Lungs: Equal expansion, normal respiratory effort. Abdomen: Soft, obese, nondistended. Extremities: Left below the knee amputation with stump cream beater and rigid dressing. Right foot with dressing and soft offloading boots. Neurological: No focal deficits. Poor strength. Patient's right lower extremity is contracted. - Labs CBC & Chem 7: 02/09/24 07:24 02/09/24 07:24 Labs: Abnormal Lab Results - Last 24 Hours (Table) 02/05/24 02/08/24 02/08/24 Range/Units 14:59 12:10 17:21 WBC (3.8-10.6) k/uL RBC (3.80-5.40) m/uL Hgb (11.4-16.0) gm/dL Hct (34.0-46.0) % MCV (80.0-100.0) fL MCH (25.0-35.0) pg RDW (11.5-15.5) % Sodium (137-145) mmol/L BUN (7-17) mg/dL POC Glucose (mg/dL) 117 H 162 H (70-110) mg/dL Total Protein (6.3-8.2) g/dL Albumin (3.5-5.0) g/dL Crossmatch See Detail 02/08/24 02/08/24 02/09/24 Range/Units 17:42 20:16 07:24 WBC 10.8 H (3.8-10.6) k/uL RBC 3.49 L (3.80-5.40) m/uL Hgb 8.6 L D (11.4-16.0) gm/dL Hct 27.7 L (34.0-46.0) % MCV 79.4 L (80.0-100.0) fL MCH 24.8 L (25.0-35.0) pg RDW 16.3 H (11.5-15.5) % Sodium 136 L (137-145) mmol/L BUN 20 H (7-17) mg/dL POC Glucose (mg/dL) 203 H (70-110) mg/dL Total Protein 5.1 L (6.3-8.2) g/dL Albumin 2.5 L (3.5-5.0) g/dL Crossmatch Microbiology - Last 24 Hours (Table) 02/06/24 17:50 Gram Stain - Preliminary Foot - Right Wound Culture - Preliminary Proteus mirabilis Assessment and Plan Assessment: 1. Nonhealing left heel pressure ulcer with gangrene status post jrbde-til-nssm amputation 2. Right foot diabetic ulcers status postdebridement 3. Anemia, acute on chronic 4. Peripheral arterial disease, left greater than right with segmental severe stenosis throughout popliteal artery short segment occlusion severe stenosis subtotal occlusions throughout the trifurcation vessels. 5. Diabetes mellitus 6. Patient is nonambulatory. Bedbound/wheelchair-bound 7. Coronary artery disease status post stenting 8. Severe carotid artery disease status post right TCAR 07/2023 9. Hypertension 10. Hyperlipidemia 11. Morbid obesity Plan: 1. Referral to comfort prosthetics for stump cream beater and rigid dressing for left AKA 2. Maintain daily dressing change with Adaptic for the 4 x 4 and Kerlix daily to left AKA. Wet-to-dry for right foot wounds 3. Diet as tolerated 4. Consult physical therapy 5. Recommend [facility], patient going to [facility]. 6. Patient is cleared from vascular surgery for discharge. Follow up with Dr. Rodarte in 2 weeks. Thank you for this consultation, we will sign off at this time. The impression and plan of care has been dictated as directed. Dr. Nichole I performed a history and examination of this patient, discussed the same with the dictator. I agree with the dictator's note ,documented as a scribe. Any additional findings or plans will be noted.
[2024-02-09 12:03] LABS: Glucose,Whole Blood 209 mg/dL (70-110)
[2024-02-09] MEDS: COLLAGENASE 250 UNIT/GM OINTMENT 30 GM TUBE TOPICAL SCH (12:48)
[2024-02-09 13:26] VITALS: BP 155/64; PULSE 59; RESP 19; TEMP 98
[2024-02-09] MEDS ORDERED: VANCOMYCIN TROUGH DUE 1 EACH MISC MISCELLANE ONE (15:00)
[2024-02-09] MEDS: ERTAPENEM 1 GM in SODIUM CHLORIDE 0.9% 50 ML IVPB SCH (15:42)
--- NOTE | 2024-02-09 16:12 | P.PN ---
Subjective Progress Note Date: 02/09/24 Principal diagnosis: Reason for follow-up is left heel infected pressure ulcer Patient is a 83-year-old female with a past medical history significant for diabetes mellitus hypertension hyperlipidemia osteoarthritis in this patient who is a [facility] resident patient has been brought into the hospital for evaluation of worsening left heel pressure ulcer concerning for infection prompting this consultation.Patient is status post left [id number] amputation and right lateral foot wound debridement completed on 02/06/2024 On today's evaluation that is 02/09/2024, patient has been afebrile, patient is breathing comfortably and is currently on 4 L nasal current oxygen, patient denies having any significant cough no chest pain shortness of breath, patient denies nausea vomiting or diarrhea and no abdominal pain complaining of pain to left AKA stump and right foot wound. Patient white count is 9.4 creatinine 0.60 right foot wound culture finalized with ESBL Proteus Objective - Vital Signs Vital signs: Vital Signs Temp 97.9 F 02/09/24 07:57 Pulse 60 02/09/24 07:57 Resp 20 02/09/24 07:57 BP 116/55 02/09/24 07:57 Pulse Ox 96 02/09/24 07:57 FiO2 Intake & Output 02/08/24 02/09/24 02/09/24 18:59 06:59 18:59 Intake Total 310 590 Output Total 1300 500 Balance -990 90 Weight 100.698 kg Intake: Oral 590 Blood Product 310 Rc As-1 Unit 310 [id number] Output: Urine 1300 500 Other: Voiding Method Diaper Diaper Diaper Incontinent Incontinent Incontinent External Catheter External Catheter External Catheter # Voids 1 - Exam GENERAL DESCRIPTION: An elderly female lying in bed in no distress RESPIRATORY SYSTEM: Unlabored breathing , decreased breath sounds at bases HEART: S1 S2 regular rate and rhythm , ABDOMEN: Soft , no tenderness EXTREMITIES: Left AKA stump is currently dressed, right foot lateral border did have 2 wounds proximal wound is slightly deep with slough tissue and wound can be palpable - Labs CBC & Chem 7: 02/09/24 07:24 02/09/24 07:24 Labs: Abnormal Lab Results - Last 24 Hours (Table) 02/05/24 02/08/24 02/08/24 Range/Units 14:59 12:10 17:21 WBC (3.8-10.6) k/uL RBC (3.80-5.40) m/uL Hgb (11.4-16.0) gm/dL Hct (34.0-46.0) % MCV (80.0-100.0) fL MCH (25.0-35.0) pg MCHC (32.0-37.0) g/dL RDW (11.5-15.5) % Sodium (137-145) mmol/L BUN (7-17) mg/dL POC Glucose (mg/dL) 117 H 162 H (70-110) mg/dL Total Protein (6.3-8.2) g/dL Albumin (3.5-5.0) g/dL Crossmatch See Detail 02/08/24 02/08/24 02/09/24 Range/Units 17:42 20:16 03:37 WBC 10.8 H (3.8-10.6) k/uL RBC 3.49 L 2.98 L (3.80-5.40) m/uL Hgb 8.6 L D 7.4 L (11.4-16.0) gm/dL Hct 27.7 L 23.9 L (34.0-46.0) % MCV 79.4 L (80.0-100.0) fL MCH 24.8 L 24.8 L (25.0-35.0) pg MCHC 31.0 L (32.0-37.0) g/dL RDW 16.3 H 16.0 H (11.5-15.5) % Sodium (137-145) mmol/L BUN (7-17) mg/dL POC Glucose (mg/dL) 203 H (70-110) mg/dL Total Protein (6.3-8.2) g/dL Albumin (3.5-5.0) g/dL Crossmatch 02/09/24 02/09/24 Range/Units 07:24 07:24 WBC (3.8-10.6) k/uL RBC 3.44 L (3.80-5.40) m/uL Hgb 8.6 L (11.4-16.0) gm/dL Hct 27.7 L (34.0-46.0) % MCV (80.0-100.0) fL MCH (25.0-35.0) pg MCHC (32.0-37.0) g/dL RDW 16.4 H (11.5-15.5) % Sodium 136 L (137-145) mmol/L BUN 20 H (7-17) mg/dL POC Glucose (mg/dL) (70-110) mg/dL Total Protein 5.1 L (6.3-8.2) g/dL Albumin 2.5 L (3.5-5.0) g/dL Crossmatch Microbiology - Last 24 Hours (Table) 02/06/24 17:50 Anaerobic Culture - Final Foot - Right 02/06/24 17:50 Gram Stain - Preliminary Foot - Right Wound Culture - Preliminary Proteus mirabilis Assessment and Plan (1) Pressure ulcer, heel, left, unstageable Current Visit: Yes Status: Acute Code(s): L89.620 - PRESSURE ULCER OF LEFT HEEL, UNSTAGEABLE SNOMED Code(s): 05787679304201259 (2) Left leg cellulitis Current Visit: Yes Status: Acute Code(s): L03.116 - CELLULITIS OF LEFT LOWER LIMB SNOMED Code(s): 27736447743264895 (3) Infection due to extended spectrum beta lactamase (ESBL) producing Proteus mirabilis Current Visit: Yes Status: Acute Code(s): A49.8 - OTHER BACTERIAL INFECTIONS OF UNSPECIFIED SITE; Z16.12 - EXTENDED SPECTRUM BETA LACTAMASE (ESBL) RESISTANCE SNOMED Code(s): 3664749245 (4) Foot osteomyelitis, right Current Visit: Yes Status: Acute Code(s): M86.9 - OSTEOMYELITIS, UNSPECIFIED SNOMED Code(s): 1659415055415873 Plan: 1patient presented to hospital with worsening wound to the left heel area currently with necrotic wound unstageable pressure ulcer with secondary cellulitis likely need to cover for both gram-positive as well as gram-negative pathogen 2-patient is status post left [id number] amputation and debridement of the right lateral foot wound with cultures obtained which are currently growing ESBL Proteus 3-patient right foot lateral border wound slightly deep with a burn palpable concerning for osteomyelitis PICC line has been placed recommend 6-week course of Invanz 1 g daily discussed with admitting physician Dictation was produced using [employer] software. please excuse any grammatical, word or spelling errors. Time with Patient: Less than 30
--- NOTE | 2024-02-09 17:13 | P.DS ---
Providers Date of admission: 01/31/24 15:21 Attending physician: Joaquin Levine Consults: 01/31/24 15:19 Consult Physician Urgent Consulting Provider: Harshal Whyte Consult Reason/Comments: Gangrenous foot Do you want consulting provider notified?: Yes 02/01/24 08:30 Consult Physician Routine Consulting Provider: Yuridia Alicia Consult Reason/Comments: Infected L heel Do you want consulting provider notified?: Yes Primary care physician: [facility] Course: HISTORY OF PRESENT ILLNESS: 83-year-old with active medical history of Type 2 diabetes, obesity, left-sided breast cancer, hypertension, hyperlipidemia, hypothyroidism, chronic depression, chronic lower back pain with degenerative disc disease and spinal stenosis, peripheral arterial disease with severe carotid stenosis, hypertensive cardiovascular disease, coronary artery disease post PCI and stent placement of the LAD May 2023, also patient had stroke and found to have 80-90 percen tile stenosis of the internal carotid artery ended up having right transcarotid artery revascularization with stenting July 2023: Following her procedure she had quite a bit debility and worsening symptoms ended up being transferred to [facility] or rehab after several weeks of rehab patient improvement was very limited and that being quite bit debilitated wheelchair and bedbound and declined further more patient was transferred to long-term at [facility]. For the last 12 weeks patient had severe rigidity in her body and severe stiffness could not move ambulate or turn. Started having slight irritation and discomfort of the skin with an earlier stage of small ulceration. wound care and [facility] was involved early start seen in November for smaller area in the left heel over the following few weeks become slightly red worsening and required debridement which was done by Dr. Rodrigues 4 weeks ago. He was referred to see vascular for severe PAD and diagnosis was made at the time the patient was told that her circulation is extremely bad and worsening might require amputation above the knee. Entire left heel become gangrenous within the last few days and become much worse with bone exposure. Patient was seen and evaluated today and decided to send patient to the hospital to be seen by vascular start IV antibiotic might require further intervention. She was started on vancomycin IV admitted to the hospital consult vascular lab blood work was done and long talk with the family and prepare for possible need for intervention which most likely below or above-knee amputation in the next 48 hours. 02/01/2024: Seen vascular today still planning for above-knee amputation but wants patient to be cleared by cardiology and prepare for the procedure and also recommending CT angiogram before the amputation. Both procedure where order. The patient was seen infectious disease agree with the current infection will add Unasyn to vancomycin for better coverage and gram-negative's and anaerobic while waiting for workup and procedure. Patient's pain is under control currently still have severe stiffness still have other area of concern including the sacrum the other heel foot area and upper extremity as well. If all goes well expect probably amputation by tomorrow. 02/02/2024: Vascular awaiting for CT angiogram of the abdomen with runoff to see if they are able to do above-knee amputation of the left lower extremity. Also still waiting for cardiology clearance which again this surgery is extreme necessity otherwise mortality is extremely high. Cardiology and that seen patient late in the day and agree patient is not having any chest pain or angina has been 9 months since angioplasty and stent will be able to stop Aspirin and Plavix before surgery will be on standby watching for any complication might require help otherwise patient is very clear for surgery. Also infectious disease expanded the coverage with antibiotic to continue vancomycin and Unasyn to cover gram-negative and anaerobic as well. Patient and family informed of the decision of the above-named patient by vascular. Like planning for surgery at least early next week. 02/03/2024: Continue current antibiotic management by infectious disease which is a combination of Unasyn and vancomycin, continue local care with dressing, no lab for blood work 1 blood sugar still mildly elevated. Patient was seen cardiology consultation with the multiple comorbidity last heart catheter back in June 2023 with revascularization no other remaining cardiac patient is not having any angina and his 9-month past angioplasty can stop Plavix for surgery but decided to continue aspirin through surgery Patient will be watched carefully after surgery surgery as well. 02/04/2024: Patient was seen and evaluated today her blood sugar has been slightly below in the morning we will adjust Levemir down to 15 units twice a day to lower the odds of having hypoglycemia. Lab was order patient seen vascular today look like he met all the criteria surgery is very clear at this point vascular planning to do surgery early this week. In the meanwhile continue IV antibiotic continue comfort care continue to watch for any further complication antiplatelet agent will be held till after the surgery the patient will be continued on aspirin no further intervention or procedure required before surgery. 02/05/2024: Family on the bedside, update I would expect from surgery and that the need for above-knee amputation, apparently with the controversy of his doing surgery family understand Dr. Nichole is doing surgery patient is Dr. Rodarte which I believe is 1 who is planning to do surgery sometimes again this week. Still have significant drainage and gangrenous change mostly involving the bone and soft tissue no unstageable continue IV antibiotics continue wound care and infectious disease care. Laboratory value still showing blood sugar to be around in the 200 hemoglobin dropped down to 8.8 still no need for blood transfusion kidney function is holding well with creatinine 1.64 GFR at 83. 02/06/2024: Patient seen early this morning scheduled for amputation around 4:00 in the afternoon today, still having significant pain and discomfort but well- controlled with medication. No change in her lab value blood sugar still running slightly with low today specially being n.p.o. She is remain on antibiotic with no reaction or side effect. Following her amputation within 48 hours should be able to get patient go back tomorrow with. Also decided amputation she is having debridement of the other side and probably appropriate culture. 02/07/2024: She had an patient [id number] of the left side yesterday successfully with no major complication she is not having any major bleed at this point. Remain on antibiotic currently combination of Unasyn and vancomycin and infectious disease probably will keep her on IV antibiotic for the time she still hospitalized for culture from the through the remain negative. Lab value today with white blood cell 10.2 hemoglobin 7.4, creatinine 0.57 EGFR of 86 blood sugars fluctuating slightly but still doing well. Will continue daily dressing apparently patient was referred to comfort prosthetics for stump title checker and rigid dressing. Titrate diet consult physical therapy and expected probably discharge in the next 24 hours. 02/08/2024: Patient's hemoglobin dropped to 6.7 overnight, hematocrit 20.9, platelets 222. Patient will receive 1 unit PRBC today, will recheck hemoglobin following transfusion. Other blood work includes potassium 4.2, BUN 15, creatinine 0.56, EGFR 87, blood sugars been fluctuating this morning 109, overnight was hyperglycemic at 226. Patient continues on Unasyn and vancomycin, patient will likely be discharged back to [facility] on IV antibiotics for a short time, she will need a PICC line in this case, awaiting infectious disease recommendations. Patient is postop day 2 following left AKA, physical therapy has been consulted but has not seen the patient yet. Left leg is looking good, dressing is clean dry and intact, is having daily dressing changes to both limbs. Patient reports good pain control. If hemoglobin stabilizes patient will likely be discharged tomorrow back to [facility]. Plan was discussed with patient and family at bedside. 02/09/2024: Patient received one unit PRBCs yesterday, hemoglobin following transfusion increased to 7.4 yesterday afternoon, and is 8.6 this morning. Other labwork is as follows: HCT 27.7, WBC 9.4, platelet 269, potassium 4.3, BUN 20, creatinine 0.60, eGFR 85. Wound culture was positive for moderate ESBL proteus. Infectious disease recommends ertapenem 1gm IV daily for 6 weeks. Patient will have PICC line placed today to accommodate IV antibiotics at discharge. Discussed case with vascular surgery, they are happy with how her incision is healing, referring patient [facility] prosthetics for stump title checker and rigid dressing for left AKA. Recommend continuing wound care at discharge, consulting PT, otherwise patient is cleared for discharge from vascular standpoint. Will plan to discharge patient back to [facility] this afternoon with arrangements made to continue IV antibiotics and wound care. REVIEW OF SYSTEMS: CONSTITUTIONAL: Morbidly obese lying in bed, appears comfortable, no acute respiratory distress. EYES: No icterus sclerae, no conjunctivitis. EARS, NOSE, MOUTH, THROAT, and FACE: No sore throat, lymphadenopathy, carotid bruits or deformity. RESPIRATORY: Mild shortness of breath no cough or wheezes. CARDIOVASCULAR: Positive PND orthopnea palpitation no angina. GASTROINTESTINAL: No Abd pain, Nausea or vomiting, no Diarrhea or constipation, No GI Bleed, no distention or masses. GENITOURINARY: Negative for Hematuria or UTI, no kidney stones. INTEGUMENT/BREAST: Generalized arthralgia and myalgia with chronic lower back pain and significant involvement of the soft tissues without breaking skin and dry this area of her body but worsening in the left heel. HEMATOLOGIC/LYMPHATIC: Negative for bleed or purpura. History of left-sided breast cancer. MUSCULOSKELTAL: Negative for Myalgia or arthralgia. Left above-knee amputation with debridement of the right side the stump area does not have any bleeding. NEURLOGICAL: No LOC, Sz or syncope, blurred vision dizziness or abnormality.. BEHAVIORAL/PSYCH: Negative. ENDOCRINE: Negative. PHYSICAL EXAMINATION: General Appearance: Obese, lying in bed, no distress, generalized weakness with poor bed mobility and joint stiffness. Neck HEENT: Supple, no lymphadenopathy, no thyroid enlargement, no carotid bruit s. Lungs: Clear to auscultation without crackles or wheezes no rhonchi, no deformity. Chest Wall: Decreased expansion with deep inspiration no tenderness and no deformity was found on exam, no costochondral pain or discomfort. Heart: Regular rate and rhythm, S1, S2 positive, no murmur. Back: Symmetric, with scoliosis and kyphosis with mild tenderness in lower lumbar area. Abdomen: Soft, non-tender, bowel sounds active all four quadrants, no masses, no organomegaly. Extremities: Left side above-knee amputation, right side had debridement of the heel area still looking good, stump site looks fine with no hemorrhage or bleed. Dressing is clean, dry and intact. Pulses: No palpable pulse in both lower extremity. Skin: Skin color, texture, tugor normal, no rashes or lesions. Neurologic: Alert oriented x3 cranial nerves II through XII intact, no motor deficit, no abnormal balance or gait. ASSESSMENT AND PLAN: _Severe gangrenous change in the left heel area mostly unstageable: Post above- knee amputation, wound culture positive for ESBL proteus, infectious disease recommending ertapenem 1gm IV daily for 6 weeks. Patient will have PICC line placed today for IV antibiotics at discharge. _Osteomyelitis of the left heel area: Patient underwent left AKA on 02/06/24, incision is doing well. _Iron deficiency anemia: Worsening so far with the infection and amputation. Hemoglobin dropped to 6.7 on 02/08/24, transfused 1 unit PRBCs, hemoglobin increased to 7.6 yesterday afternoon and in now 8.6. Will continue iron and multivitamin and monitor CBC closely. _Severe coronary artery disease post angioplasty and stent placement of the LAD back in May 2023 patient was seen by cardiology with no symptoms of chest pain or angina, antiplatelet agent will be held for the surgery but continue aspirin. Patient was cleared by cardiology. _Chronic pain syndrome: Continue hydrocodone on as-needed basis for now along with muscle relaxer. _Type 2 diabetes: Blood sugars continue to fluctuate, more hyperglycemia in the last 24 hours. Continue Levemir 15 units twice a day, continue NovoLog per sliding scale coverage, and again consider possibility of SGLT2 product when patient goes back to [facility] after surgery. _Residual stroke with significant weakness affecting the left side more than the right side. No change at this point. PT is consulted. _Chronic pain syndrome and pain management: Continue hydrocodone on as needed basis seems to do well with it so far. _Severe carotid stenosis post right-sided carotid stenting. No major finding or complaint _History of breast cancer: Was seeing oncology regularly. Still on anastrozole 1 mg daily. Breast cancer is in remission no sign of metastasis. _Hypertension: Continue Coreg 6.25 mg twice a day, amlodipine 10 mg daily, losartan hydrochlorothiazide 100/12.5 mg daily. Blood pressure mostly controlled below 144 systolic and below 94 diastolic. _Hyperlipidemia: Remain on atorvastatin 80 mg nightly. _Hypothyroidism: Continue Synthroid 50 mcg daily. _Severe spinal stenosis and lower back pain has been on medical management only still on pain meds along with gabapentin. No surgical intervention. _Chronic depression: Has been on trazodone 50 mg at bedtime along with Wellbutrin 150 mg daily Zoloft 100 mg a day. _Restless leg syndrome: Remain on Requip 0.5 mg twice a day. Discussion: Patient is overall doing well following left AKA. Hemoglobin has stabilized following blood transfusion, patient is otherwise cleared for discharge by vascular surgery. Infectious disease has provided final recommendations for discharge, ertapenem 1gm IV daily for 6 weeks. Patient has had PICC line placed. She is ready to return to [facility], case managment has made arrangements to continue IV antibiotics and wound care. Hospital Course: Patient has been admitted to [facility] for long-term nursing care after her stroke in July 2023 and has since had very limited mobility [facility] essentially bed bound. For the last 12 weeks patient had severe stiffness and was not able to move, ambulate, or turn. She began to develop a pressure wound on her left heel, for which wound care and [facility] was involved early, however the wound continued to grow larger with more irritation and redness. She was referred to see vascular for severe PAD and to evaluate the wound, at this time they determined her circulation was very poor resulting in poor wound healing, and there was a high likelihood she would need an above the knee amputation in the near future. From that point the entire left heel become gangrenous very quickly, became much worse with bone exposure. On 01/31/24 patient was sent to the emergency department to be admitted for inpatient antibiotics and possible intervention on left foot, for this she was started on vancomycin IV and infectious disease and vascular were consulted. Infectious disease saw the patient, agreed with vancomycin IV and added Unasyn as well. Wound care followed patient throughout the stay to manage dressing prior to amputation. Vascular followed the patient throughout her stay. Early in her hospital stay they determined that she would need a left [id number] amputation, but would hold on surgery until patient could achieve cardiology clearance and have CT angiogram completed. CT angiogram demonstrated right lower extremity severe stenosis, left lower extremity moderate stenosis upper and mid SFA but with severe stenosis of the distal SFA severe stenosis throughout the popliteal artery short segment occlusion just above the knee joint line. Severe stenosis or subtotal occlusion throughout the trifurcation vessels. Diminutive trifurcation vessels noted down at the ankle but with vessel enhancement noted within the foot probably from collateral flow. Determined that the left leg would be able to heal from an above the knee amputation. Cardiology evaluated the patient for surgical clearance, who agreed that at this point the severe infection to her foot was life-threatening and amputation would be necessary, agreeable to hold plavix for surgery but keep patient on aspirin, cleared patient for surgery. Patient ultimately underwent left above the knee amputation and right foot wound debridement on 02/06/24. Patient tolerated the surgery considerably well. Pain was controlled through the post-op period with no wound complications. Patient did have a drop in hemoglobin on 02/08/2024 down to 6.7, requiring 1 unit of PRBCs to be transfused. Following transfusion hemoglobin increased to 8.6 on 02/09/24. Wound culture resulted on 02/09/24, positive for ESBL proteus, for which infectious disease recommended 6 weeks antibiotics with ertapenem 1gm IV. At time of discharge, patient labs are HGB 8.6, HCT 27.7, PLT 269, WBC 9.4, potassium 4.3, BUN 20, creatinine 0.60, eGFR 85. Vital signs are stable, BP 155/64, HR 60, O2 96% on 4LNC, afebrile. Patient and family are agreeable with plan to return to [facility] to continue rehab. Infectious disease recommends 6 weeks antibiotics with ertapenem 1gm IV, patient has had PICC line placed for this. Case management has coordinated with [facility] for patient to receive IV antibiotic infusion after discharge. Vascular has placed a referral to [facility] prosthetics for stump title checker and rigid dressing, recommend patient to follow up with Dr. Rodarte in 2 weeks. Patient will have close monitoring and follow up with [facility] wound care to continue dressing changes and assess wound healing. Patient will be seen by our practice in [facility] in the next 1-2 days. All questions were answered at time of discharge. Patient will be transferred back to [facility] this afternoon. Time spent discharging patient: 36 minutes. The patient was seen and evaluated by Dr. Levine. Plan, assessment, and medications were all discussed, reviewed, and directed by Dr. Levine with Ronni ASHBY-Xiomara acting as a scribe. Patient Condition at Discharge: Stable Plan - Discharge Summary Discharge Rx Participant: No New Discharge Prescriptions: New Ertapenem [INVanz] 1 gm IVPB Q24H #42 each Continue Losartan/Hydrochlorothiazide [Losartan-Hctz 100-12.5 mg Tab] 1 tab PO DAILY Levothyroxine Sodium [Synthroid] 50 mcg PO DAILY INSULIN LISPRO (HumaLOG) [humaLOG] See Protocol SQ AC-TID Sertraline [Zoloft] 100 mg PO DAILY buPROPion XL [Wellbutrin XL] 150 mg PO DAILY Latanoprost Ophth [Xalatan 0.005%] 1 drop BOTH EYES HS Melatonin 6 mg PO HS PRN tab PRN Reason: Insomnia Nystatin 100,000 Unit/gm Powd [Mycostatin Powder] 1 applic TOPICAL TID PRN PRN Reason: excoriation Magnesium Hydroxide [Milk of Magnesia Concentrate] 7,200 ml PO DAILY PRN PRN Reason: Constipation Acetaminophen Tab [Tylenol] 650 mg PO Q6HR PRN tab PRN Reason: Fever And/ Or Pain Lidocaine 5% Cream 1 applic TOPICAL WE Gabapentin 300 mg PO TID Biofreeze (Unknown) 1 applic TOPICAL TID Baclofen [Lioresal] 10 mg PO TID rOPINIRole HCL [Requip] 0.5 mg PO BID@1200,2100 Liquacal 30 ml PO BID@0800,1700 Caldesene Baby Powder 1 applic TOPICAL BID traZODone HCL [Desyrel] 50 mg PO HS Collagenase [Santyl Ointment] 1 applic TOPICAL DAILY amLODIPine [Norvasc] 10 mg PO DAILY@1700 Atorvastatin Calcium [Lipitor] 80 mg PO HS Vicodin Es 7.5/300mg 1 tab PO Q6H #60 Loratadine [Claritin] 10 mg PO DAILY Anastrozole 1 mg PO DAILY Aspirin 81 mg PO DAILY tab carvediloL [Coreg] 6.25 mg PO BID-W/MEALS tab Clopidogrel [Plavix] 75 mg PO DAILY tab Insulin Detemir (Levemir) [Levemir] 20 unit SQ BID@0700,2100 Meloxicam [Mobic] 7.5 mg PO DAILY Na Phos,M-B/Na Phos,Di-Ba [Fleet Adult] 1 dose RECTAL ONCE PRN PRN Reason: Constipation bisacodyL [Dulcolax] 10 mg RECTAL ONCE PRN PRN Reason: Constipation Collagenase [Santyl Ointment] 1 applic TOPICAL DAILY Dominic Packet 1 packet PO BID-W/MEALS Sodium Chloride [Saline Nasal Mist] 2 spray EA NOSTRIL DAILY Multivitamins, Thera [Multivitamin (formulary)] 1 tab PO DAILY Famotidine [Pepcid] 20 mg PO DAILY Discharge Medication List INSULIN LISPRO (HumaLOG) [humaLOG] See Protocol SQ AC-TID 12/28/16 [History] Levothyroxine Sodium [Synthroid] 50 mcg PO DAILY 12/28/16 [History] Losartan/Hydrochlorothiazide [Losartan-Hctz 100-12.5 mg Tab] 1 tab PO DAILY 12/28/16 [History] Sertraline [Zoloft] 100 mg PO DAILY 03/16/17 [History] Anastrozole 1 mg PO DAILY 05/19/23 [History] Latanoprost Ophth [Xalatan 0.005%] 1 drop BOTH EYES HS 05/19/23 [History] Loratadine [Claritin] 10 mg PO DAILY 05/19/23 [History] buPROPion XL [Wellbutrin XL] 150 mg PO DAILY 05/19/23 [History] Aspirin 81 mg PO DAILY tab 05/24/23 [Rx] Clopidogrel [Plavix] 75 mg PO DAILY tab 05/24/23 [Rx] Melatonin 6 mg PO HS PRN tab 05/24/23 [Rx] carvediloL [Coreg] 6.25 mg PO BID-W/MEALS tab 05/24/23 [Rx] Insulin Detemir (Levemir) [Levemir] 20 unit SQ BID@0700,2100 08/03/23 [History] Magnesium Hydroxide [Milk of Magnesia Concentrate] 7,200 ml PO DAILY PRN 08/03/23 [History] Meloxicam [Mobic] 7.5 mg PO DAILY 08/03/23 [History] Na Phos,M-B/Na Phos,Di-Ba [Fleet Adult] 1 dose RECTAL ONCE PRN 08/03/23 [History] Nystatin 100,000 Unit/gm Powd [Mycostatin Powder] 1 applic TOPICAL TID PRN 08/03/23 [History] bisacodyL [Dulcolax] 10 mg RECTAL ONCE PRN 08/03/23 [History] Acetaminophen Tab [Tylenol] 650 mg PO Q6HR PRN tab 08/07/23 [Rx] Atorvastatin Calcium [Lipitor] 80 mg PO HS 01/31/24 [History] Baclofen [Lioresal] 10 mg PO TID 01/31/24 [History] Biofreeze (Unknown) 1 applic TOPICAL TID 01/31/24 [History] Caldesene Baby Powder 1 applic TOPICAL BID 01/31/24 [History] Collagenase [Santyl Ointment] 1 applic TOPICAL DAILY 01/31/24 [History] Collagenase [Santyl Ointment] 1 applic TOPICAL DAILY 01/31/24 [History] Famotidine [Pepcid] 20 mg PO DAILY 01/31/24 [History] Gabapentin 300 mg PO TID 01/31/24 [History] Dominic Packet 1 packet PO BID-W/MEALS 01/31/24 [History] Lidocaine 5% Cream 1 applic TOPICAL WE 01/31/24 [History] Liquacal 30 ml PO BID@0800,1700 01/31/24 [History] Multivitamins, Thera [Multivitamin (formulary)] 1 tab PO DAILY 01/31/24 [Hi story] Sodium Chloride [Saline Nasal Mist] 2 spray EA NOSTRIL DAILY 01/31/24 [History] amLODIPine [Norvasc] 10 mg PO DAILY@1700 01/31/24 [History] rOPINIRole HCL [Requip] 0.5 mg PO BID@1200,2100 01/31/24 [History] traZODone HCL [Desyrel] 50 mg PO HS 01/31/24 [History] Ertapenem [INVanz] 1 gm IVPB Q24H #42 each 02/09/24 [Rx] Vicodin Es 7.5/300mg 1 tab PO Q6H #60 02/09/24 [Rx] Follow up Appointment(s)/Referral(s): Florin Rodarte DO [STAFF PHYSICIAN] - 2 Weeks Joaquin Levine MD [Primary Care Provider] - 1-2 days Yuridia Alicia MD [STAFF PHYSICIAN] - 1 Week Ambulatory/Diagnostic Orders: Basic Metabolic Panel [LAB.AMB] Location: None Selected C Reactive Protein [LAB.AMB] Location: None Selected Complete Blood Count w/diff [LAB.AMB] Location: None Selected Erythrocyte Sedimentation Rate [LAB.AMB] Location: None Selected Activity/Diet/Wound Care/Special Instructions: Activity as tolerated and recommended per physical therapy Daily dressing change right foot clean with saline, wet-to-dry 4 x 4 and wrap with Kerlix Left AKA incision site change daily if needed Adaptic, 4 x 4, wrapped with Kerlix and apply stump title checker
[2024-02-09 17:27] LABS: Glucose,Whole Blood 159 mg/dL (70-110)
--- NOTE | 2024-02-13 14:26 | CDI ---
Documentation Clarification Form Date: 02/13/2024 01:58:39 PM From: Mary Perez RN, CCDS Phone: [phone] Admit Date: 01/31/2024 03:21:00 PM Patient Name: Abena Vizcaino Visit Number: [id number] Discharge Date: 02/09/2024 07:48:00 PM ATTENTION: The Clinical Documentation Specialists (CDI) and [facility] Coding Staff appreciate your assistance in clarifying documentation. Please respond to the clarification below the line at the bottom and electronically sign. The CDI & [facility] Coding staff will review the response and follow-up if needed. Please note: Queries are made part of the Legal Health Record. If you have any questions, please contact the author of this message via ITS. Dr. Joaquin Levine Nonhealing left heel pressure ulcer with gangrene is documented in the progress notes. Additional specificity regarding the type of gangrene is requested. Patient history/risk factors: DM, obesity, breast cancer, HTN, HLD, CAD and PVD. Presents with nonhealing foot wound. Admitted with osteomyelitis of the left heel area and severe gangrenous changes, s/p left AKA. Clinical Indicators: ED: "Cellulitis, necrotic foot gangrene, osteomyelitis." 01/31 CTA: left soft tissue ulcer at the heel and plantar hindfoot with underlying contiguous osteomyelitis of the calcaneus. Foci of soft tissue air localized in and around the ulcer suggesting infection with gas-forming organism. 01/31 ID Consult: "patient presented to hospital with worsening wound to the left heel area, currently with necrotic wound unstageable pressure ulcer with secondary cellulitis. Likely need to cover for both gram-positive as well as gram-negative pathogen." 01/31 Surgery consult: "Nonhealing left heel pressure ulcer with gangrene." 02/05 Procedure note: "Left heel gangrene, critical limb ischemia. S/P left above knee amputation and right lateral foot wound debridement." Treatment: s/p AKA on 02/05; IV Unasyn 3gm Q6H 01/31-02/08; IV Vancomycin 2gm x1 on 01/30; IV Vancomycin 1750mg Q24H 01/31-02/07 After work up and study can you further specify the type of gangrene? [ ] Gas gangrene [ ] Dry gangrene [ XX ] PAD and infection Gangrene [ ] Unable to determine MTDD
--- NOTE | 2024-02-13 14:43 | CDI ---
Documentation Clarification Form Date: 02/13/2024 02:30:14 PM From: Mary Perez RN, CCDS Phone: [phone] Admit Date: 01/31/2024 03:21:00 PM Patient Name: Abena Vizcaino Visit Number: [id number] Discharge Date: 02/09/2024 07:48:00 PM ATTENTION: The Clinical Documentation Specialists (CDI) and [facility] Coding Staff appreciate your assistance in clarifying documentation. Please respond to the clarification below the line at the bottom and electronically sign. The CDI & [facility] Coding staff will review the response and follow-up if needed. Please note: Queries are made part of the Legal Health Record. If you have any questions, please contact the author of this message via ITS. Dr. Joaquin Levine The patient was bedbound and debilitated. Based on this information and the findings below, is there an additional diagnosis that is clinically appropriate for this patient? History/Risk Factors: DM, obesity, breast cancer, HTN, HLD, CAD, PVD and stroke with internal carotid artery stenosis, s/p revascularization with stenting. Presents with nonhealing foot wound. Admitted with osteomyelitis of the left heel area and severe gangrenous changes, s/p left AKA. Clinical Indicators: H&P: " Following her procedure she had quite a bit of debility and worsening symptoms. Quite debilitated, wheelchair and bedbound. Further more patient was transferred to long-term at [facility]. For the last 12 weeks patient had severe rigidity in her body and severe stiffness. Could not move ambulate or turn." 02/02 IM: "Obese lying in bed, no distress, aware of her left heel. Has not been able to turn in bed and had severe stiffness." Treatment: 02/08 PT assessment: level of function is dependent. Required total assist to complete bed mobility activities; discharged to [facility] Is there an additional diagnosis that is clinically appropriate for this patient? [ ] Functional Quadriplegia [ ] Complete Immobility due to frailty/severe debility [ ] Age related weakness or frailty - without complete immobility [ ] No additional diagnosis/not clinically significant [ XX ] Spinal Stenosis Paraplegia [ ] Unable to determine MTDD
== END 2024-02-09 19:48 | DRG 240 ==
LOC: EC 13:19 → 5NMEDONC 15:21
PROVIDERS: ADMIT Internal Medicine Geriatric Medicine; ATTEND Internal Medicine Geriatric Medicine
PROC: 0JBQ3ZZ Excision of Right Foot Subcutaneous Tissue and Fascia, Percutaneous Approach (ICD-10-PCS; 2024-02-06)
PROC: 0Y6D0Z3 Detachment at Left Upper Leg, Low, Open Approach (ICD-10-PCS; principal; 2024-02-06 07:30)
PROC: 30233N1 Transfusion of Nonautologous Red Blood Cells into Peripheral Vein, Percutaneous Approach (ICD-10-PCS; 2024-02-08)
PROC: 05HB33Z Insertion of Infusion Device into Right Basilic Vein, Percutaneous Approach (ICD-10-PCS; 2024-02-09)
DX: E11.52 Type 2 diabetes mellitus with diabetic peripheral angiopathy with gangrene (principal); G82.20 Paraplegia, unspecified; I69.354 Hemiplegia and hemiparesis following cerebral infarction affecting left non-dominant side; L03.116 Cellulitis of left lower limb; Z16.12 Extended spectrum beta lactamase (ESBL) resistance; M86.9 Osteomyelitis, unspecified; I70.262 Atherosclerosis of native arteries of extremities with gangrene, left leg; I27.20 Pulmonary hypertension, unspecified; E11.649 Type 2 diabetes mellitus with hypoglycemia without coma; L89.610 Pressure ulcer of right heel, unstageable; E11.621 Type 2 diabetes mellitus with foot ulcer; D50.9 Iron deficiency anemia, unspecified; E03.9 Hypothyroidism, unspecified; L89.620 Pressure ulcer of left heel, unstageable; E11.69 Type 2 diabetes mellitus with other specified complication; I11.9 Hypertensive heart disease without heart failure; B96.4 Proteus (mirabilis) (morganii) as the cause of diseases classified elsewhere; E11.65 Type 2 diabetes mellitus with hyperglycemia; E66.01 Morbid (severe) obesity due to excess calories; Z68.39 Body mass index [BMI] 39.0-39.9, adult; F32.A Depression, unspecified; G25.81 Restless legs syndrome; I08.1 Rheumatic disorders of both mitral and tricuspid valves; Z95.820 Peripheral vascular angioplasty status with implants and grafts; Z79.4 Long term (current) use of insulin; I25.10 Atherosclerotic heart disease of native coronary artery without angina pectoris; H91.90 Unspecified hearing loss, unspecified ear; E78.5 Hyperlipidemia, unspecified; F41.9 Anxiety disorder, unspecified; G89.4 Chronic pain syndrome; M54.50 Low back pain, unspecified; M48.00 Spinal stenosis, site unspecified; R32 Unspecified urinary incontinence; M19.90 Unspecified osteoarthritis, unspecified site; Z79.811 Long term (current) use of aromatase inhibitors; Z79.82 Long term (current) use of aspirin; Z79.02 Long term (current) use of antithrombotics/antiplatelets; Z79.890 Hormone replacement therapy; Z79.1 Long term (current) use of non-steroidal anti-inflammatories (NSAID); Z79.899 Other long term (current) drug therapy; Z74.01 Bed confinement status; Z99.3 Dependence on wheelchair; Z85.3 Personal history of malignant neoplasm of breast; Z95.5 Presence of coronary angioplasty implant and graft; Z96.642 Presence of left artificial hip joint; Z71.3 Dietary counseling and surveillance
CPT/HCPCS: 36415; 36573; 75635; 80048; 80053; 80202; 82565; 83605; 85025; 85027; 86850; 86900; 86901; 86920; 87040; 87070; 87075; 87077; 87186; 87205; 93005; 93306; 94760; 96365; 96366; 99285

== ENCOUNTER 2024-02-18 06:56 | Inpatient (IN) | payer MEDICARE, OTHER ==
[2024-02-18 07:10] LABS: Glucose,Whole Blood 103 mg/dL (70-110)
--- NOTE | 2024-02-18 07:29 | ED ---
General Adult HPI - General Chief complaint: Altered Mental Status Stated complaint: AMS Time Seen by Provider: 02/18/24 07:00 Source: patient, EMS, RN notes reviewed Mode of arrival: EMS Limitations: altered mental status - History of Present Illness Initial comments: Patient is an 84-year-old female present to the emergency department with concern for change in mental status. Patient presents from nursing facility. Patient is drowsy and is a poor historian. Patient only states her name and follows simple commands. Patient has no complaints. Unclear last known well. - Related Data Home Medications Medication Instructions Recorded Confirmed INSULIN LISPRO (HumaLOG) [humaLOG] See Protocol SQ AC-TID 12/28/16 01/31/24 Levothyroxine Sodium [Synthroid] 50 mcg PO DAILY 12/28/16 01/31/24 Losartan/Hydrochlorothiazide 1 tab PO DAILY 12/28/16 01/31/24 [Losartan-Hctz 100-12.5 mg Tab] Sertraline [Zoloft] 100 mg PO DAILY 03/16/17 01/31/24 Anastrozole 1 mg PO DAILY 05/19/23 01/31/24 Latanoprost Ophth [Xalatan 0.005%] 1 drop BOTH EYES HS 05/19/23 01/31/24 Loratadine [Claritin] 10 mg PO DAILY 05/19/23 01/31/24 buPROPion XL [Wellbutrin XL] 150 mg PO DAILY 05/19/23 01/31/24 Insulin Detemir (Levemir) [Levemir] 20 unit SQ BID@0700,2100 08/03/23 01/31/24 Magnesium Hydroxide [Milk of 7,200 ml PO DAILY PRN 08/03/23 01/31/24 Magnesia Concentrate] Meloxicam [Mobic] 7.5 mg PO DAILY 08/03/23 01/31/24 Na Phos,M-B/Na Phos,Di-Ba [Fleet 1 dose RECTAL ONCE PRN 08/03/23 01/31/24 Adult] Nystatin 100,000 Unit/gm Powd 1 applic TOPICAL TID PRN 08/03/23 01/31/24 [Mycostatin Powder] bisacodyL [Dulcolax] 10 mg RECTAL ONCE PRN 08/03/23 01/31/24 Atorvastatin Calcium [Lipitor] 80 mg PO HS 01/31/24 01/31/24 Baclofen [Lioresal] 10 mg PO TID 01/31/24 01/31/24 Biofreeze (Unknown) 1 applic TOPICAL TID 01/31/24 01/31/24 Caldesene Baby Powder 1 applic TOPICAL BID 01/31/24 01/31/24 Collagenase [Santyl Ointment] 1 applic TOPICAL DAILY 01/31/24 01/31/24 Collagenase [Santyl Ointment] 1 applic TOPICAL DAILY 01/31/24 01/31/24 Famotidine [Pepcid] 20 mg PO DAILY 01/31/24 01/31/24 Gabapentin 300 mg PO TID 01/31/24 01/31/24 Dominic Packet 1 packet PO BID-W/MEALS 01/31/24 01/31/24 Lidocaine 5% Cream 1 applic TOPICAL WE 01/31/24 01/31/24 Liquacal 30 ml PO BID@0800,1700 01/31/24 01/31/24 Multivitamins, Thera [Multivitamin 1 tab PO DAILY 01/31/24 01/31/24 (formulary)] Sodium Chloride [Saline Nasal Mist] 2 spray EA NOSTRIL DAILY 01/31/24 01/31/24 amLODIPine [Norvasc] 10 mg PO DAILY@1700 01/31/24 01/31/24 rOPINIRole HCL [Requip] 0.5 mg PO BID@1200,2100 01/31/24 01/31/24 traZODone HCL [Desyrel] 50 mg PO HS 01/31/24 01/31/24 Previous Rx's Medication Instructions Recorded Aspirin 81 mg PO DAILY tab 05/24/23 Clopidogrel [Plavix] 75 mg PO DAILY tab 05/24/23 Melatonin 6 mg PO HS PRN tab 05/24/23 carvediloL [Coreg] 6.25 mg PO BID-W/MEALS tab 05/24/23 Acetaminophen Tab [Tylenol] 650 mg PO Q6HR PRN tab 08/07/23 Ertapenem [INVanz] 1 gm IVPB Q24H #42 each 02/09/24 Vicodin Es 7.5/300mg 1 tab PO Q6H #60 02/09/24 Allergies Allergy/AdvReac Type Severity Reaction Status Date / Time No Known Allergies Allergy Verified 01/31/24 13:50 Review of Systems ROS Statement: Those systems with pertinent positive or pertinent negative responses have been documented in the HPI. ROS Other: All systems not noted in ROS Statement are negative. Limitations: ROS unobtainable due to patients medical condition Past Medical History Past Medical History: Cancer, Diabetes Mellitus, Hearing Disorder / Deafness, Hyperlipidemia, Hypertension, Osteoarthritis (OA), Thyroid Disorder Additional Past Medical History / Comment(s): Slight hearing trouble. Currently in wheelchair, unable to stand or walk. Hx left breast cancer. "Bad right hip, may need replacement." History of Any Multi-Drug Resistant Organisms: None Reported Past Surgical History: Breast Surgery, Hysterectomy, Joint Replacement, Orthopedic Surgery Additional Past Surgical History / Comment(s): Left breast biopsy X3, right breast biopsy X2, ductogram, ORIF right lower leg with plate, total left hip replacement, left breast lumpectomy. Past Anesthesia/Blood Transfusion Reactions: No Reported Reaction Past Psychological History: Anxiety, Depression Smoking Status: Never smoker Past Alcohol Use History: None Reported Past Drug Use History: None Reported - Past Family History Sister(s) Family Medical History: Cancer Additional Family Medical History / Comment(s): BREAST CANCER. General Exam Limitations: altered mental status General appearance: alert, in no apparent distress Head exam: Present: normocephalic Eye exam: Present: normal appearance ENT exam: Present: normal oropharynx Neck exam: Present: normal inspection Respiratory exam: Present: normal lung sounds bilaterally Cardiovascular Exam: Present: regular rate, normal rhythm GI/Abdominal exam: Present: soft. Absent: tenderness Extremities exam: Present: other (Left AKA) Neurological exam: Present: alert, altered Expanded Neurological exam: Present: protecting the airway Patient oriented to: Present: person. Absent: place, time Motor strength exam: RUE: 4, LUE: 4 Eye Response: (3) open to voice Motor Response: (6) obeys commands Verbal Response: (4) confused conversation Psychiatric exam: Present: flat affect Skin exam: Present: other (Right foot ulcers.) Course Vital Signs 02/18/24 06:59 Pulse Rate 66 Respiratory 18 Rate Blood Pressure 108/49 O2 Sat by Pulse 100 Oximetry EKG Findings - EKG Results: EKG: interpreted by ERMD (Left bundle branch block. Nonspecific T waves.), sinus rhythm, normal axis EKG shows: bradycardia Medical Decision Making - Medical Decision Making Was pt. sent in by a medical professional or institution ([employer] Temple, PERSONAL SECURITY SPECIALIST, urgent care, hospital, or detention...) When possible be specific @ -Patient was sent in by the detention Did you speak to anyone other than the patient for history (EMS, parent, family, police, friend...)? What history was obtained from this source @ -Family arrives later and confirms that patient is more drowsy than normal, also states DNR status Did you review nursing and triage notes (agree or disagree)? Why? @ -I reviewed and agree with nursing and triage notes Were old charts reviewed (outside hosp., previous admission, EMS record, old EKG, old radiological studies, urgent care reports/EKG's, detention records)? Report findings @ -No old charts were reviewed Differential Diagnosis (chest pain, altered mental status, abdominal pain women, abdominal pain men, vaginal bleeding, weakness, fever, dyspnea, syncope, headac he, dizziness, GI bleed, back pain, seizure, CVA, palpatations, mental health, musculoskeletal)? @ -Differential Altered Mental Status: Hypoglycemia, DKA, hypercapnia, ETOH, overdose, CO poisoning, trauma, myxedema coma, HTN encephalopathy, infection, encephalitis, psychosis, intercranial hemorrhage, hepatic encephalopathy, meningitis, CVA, this is not meant to be an all-inclusive list EKG interpreted by me (3pts min.). @ -As above X-rays interpreted by me (1pt min.). @ -Chest x-ray shows mild opacity right side CT interpreted by me (1pt min.). @ -CT brain without acute abnormality U/S interpreted by me (1pt. min.). @ -None done What testing was considered but not performed or refused? (CT, X-rays, U/S, labs)? Why? @ -None What meds were considered but not given or refused? Why? @ -None Did you discuss the management of the patient with other professionals (professionals i.e. [employer] Temple, PERSONAL SECURITY SPECIALIST, lab, RT, psych nurse, mental health social worker, race board attendant, teacher, u[employer] revenue officer, correctional casework specialist)? Give summary @ -Case discussed with Dr. Maher covering Dr. Olivas who will admit Was smoking cessation discussed for >3mins.? @ -No Was critical care preformed (if so, how long)? @ -No Were there social determinants of health that impacted care today? How? (Homelessness, low income, unemployed, alcoholism, drug addiction, transportation, low edu. Level, literacy, decrease access to med. care, prison, rehab)? @ -No Was there de-escalation of care discussed even if they declined (Discuss DNR or withdrawal of care, Hospice)? DNR status @ -No What co-morbidities impacted this encounter? (DM, HTN, Smoking, COPD, CAD, Cancer, CVA, ARF, Chemo, Hep., AIDS, mental health diagnosis, sleep apnea, morbid obesity)? @ -Family states patient is to be no code. This is the 2 daughters that are present as a have previously discussed this Was patient admitted / discharged? Hospital course, mention meds given and route, prescriptions, significant lab abnormalities, going to OR and other pertinent info. @ -Patient presents with change in mental status. There is evidence of urinary tract infection and possible pneumonia. Patient will be admitted with IV antibiotics. Admission orders written. Undiagnosed new problem with uncertain prognosis? @ -No Drug Therapy requiring intensive monitoring for toxicity (Heparin, Nitro, Insulin, Cardizem)? @ -No Were any procedures done? @ -No Diagnosis/symptom? @ -Altered mental status, urinary tract infection Acute, or Chronic, or Acute on Chronic? @ -Acute, acute Uncomplicated (without systemic symptoms) or Complicated (systemic symptoms)? @ -Complicated with change in mental state Side effects of treatment? @ -No Exacerbation, Progression, or Severe Exacerbation? @ -No Poses a threat to life or bodily function? How? (Chest pain, [place], [place], pneumonia, PE, COPD, DKA, ARF, appy, cholecystitis, CVA, Diverticulitis, Homicidal, Suicidal, threat to staff... and all critical care pts) @ -Threat to organ function and mental status - Lab Data Result diagrams: 02/18/24 07:28 02/18/24 07: Lab Results 02/18/24 02/18/24 02/18/24 Range/Units 07:09 07: 07:28 WBC 6.0 (3.8-10.6) k/uL RBC 3.84 (3.80-5.40) m/uL Hgb 9.5 L (11.4-16.0) gm/dL Hct 29.9 L (34.0-46.0) % MCV 77.7 L (80.0-100.0) fL MCH 24.8 L (25.0-35.0) pg MCHC 31.9 (31.0-37.0) g/dL RDW 17.3 H (11.5-15.5) % Plt Count 272 (150-450) k/uL MPV 7.5 Neutrophils % 68 % Lymphocytes % 19 % Monocytes % 5 % Eosinophils % 6 % Basophils % 1 % Neutrophils # 4.1 (1.3-7.7) k/uL Lymphocytes # 1.1 (1.0-4.8) k/uL Monocytes # 0.3 (0-1.0) k/uL Eosinophils # 0.4 (0-0.7) k/uL Basophils # 0.0 (0-0.2) k/uL Hypochromasia Marked Poikilocytosis Slight Anisocytosis Slight Microcytosis Slight PT 12.1 (10.0-12.5) sec INR 1.1 (<1.2) APTT 27.4 (22.0-30.0) sec Sodium (137-145) mmol/L Potassium (3.5-5.1) mmol/L Chloride (98-107) mmol/L Carbon Dioxide (22-30) mmol/L Anion Gap mmol/L BUN (7-17) mg/dL Creatinine (0.52-1.04) mg/dL Est GFR (CKD-EPI)AfAm (>60 ml/min/1.73 sqM) Est GFR (CKD-EPI)NonAf (>60 ml/min/1.73 sqM) Glucose (74-99) mg/dL POC Glucose (mg/dL) 103 (70-110) mg/dL POC Glu Broaching Machine Operator ID [place], [place] Calcium (8.4-10.2) mg/dL Total Bilirubin (0.2-1.3) mg/dL AST (14-36) U/L ALT (4-34) U/L Alkaline Phosphatase (38-126) U/L Troponin I (0.000-0.034) ng/mL Total Protein (6.3-8.2) g/dL Albumin (3.5-5.0) g/dL Urine Color Urine Appearance (Clear) Urine pH (5.0-8.0) Ur Specific Murray (1.001-1.035) Urine Protein (Negative) Urine Glucose (UA) (Negative) Urine Ketones (Negative) Urine Blood (Negative) Urine Nitrite (Negative) Urine Bilirubin (Negative) Urine Urobilinogen (<2.0) mg/dL Ur Leukocyte Esterase (Negative) Urine RBC (0-5) /hpf Urine WBC (0-5) /hpf Urine WBC Clumps (None) /hpf Ur Squamous Epith Cells (0-4) /hpf Urine Mucus (None) /hpf Ur Yeast w Hyphae (None) /hpf Urine Yeast (Budding) (None) /hpf Urine Opiates Screen (NotDetected) Ur Oxycodone Screen (NotDetected) Urine Methadone Screen (NotDetected) Ur Barbiturates Screen (NotDetected) U Tricyclic Antidepress (NotDetected) Ur Phencyclidine Scrn (NotDetected) Ur Amphetamines Screen (NotDetected) U Methamphetamines Scrn (NotDetected) U Benzodiazepines Scrn (NotDetected) Urine Cocaine Screen (NotDetected) U Marijuana (THC) Screen (NotDetected) 02/18/24 02/18/24 02/18/24 Range/Units 07: 07: 07:56 WBC (3.8-10.6) k/uL RBC (3.80-5.40) m/uL Hgb (11.4-16.0) gm/dL Hct (34.0-46.0) % MCV (80.0-100.0) fL MCH (25.0-35.0) pg MCHC (31.0-37.0) g/dL RDW (11.5-15.5) % Plt Count (150-450) k/uL MPV Neutrophils % % Lymphocytes % % Monocytes % % Eosinophils % % Basophils % % Neutrophils # (1.3-7.7) k/uL Lymphocytes # (1.0-4.8) k/uL Monocytes # (0-1.0) k/uL Eosinophils # (0-0.7) k/uL Basophils # (0-0.2) k/uL Hypochromasia Poikilocytosis Anisocytosis Microcytosis PT (10.0-12.5) sec INR (<1.2) APTT (22.0-30.0) sec Sodium 135 L (137-145) mmol/L Potassium 3.8 (3.5-5.1) mmol/L Chloride 100 (98-107) mmol/L Carbon Dioxide 33 H (22-30) mmol/L Anion Gap 2 mmol/L BUN 20 H (7-17) mg/dL Creatinine 0.58 (0.52-1.04) mg/dL Est GFR (CKD-EPI)AfAm >90 (>60 ml/min/1.73 sqM) Est GFR (CKD-EPI)NonAf 85 (>60 ml/min/1.73 sqM) Glucose 113 H (74-99) mg/dL POC Glucose (mg/dL) (70-110) mg/dL POC Glu Broaching Machine Operator ID Calcium 8.0 L (8.4-10.2) mg/dL Total Bilirubin 0.5 (0.2-1.3) mg/dL AST 33 (14-36) U/L ALT 39 H (4-34) U/L Alkaline Phosphatase 105 (38-126) U/L Troponin I 0.050 H* (0.000-0.034) ng/mL Total Protein 5.2 L (6.3-8.2) g/dL Albumin 2.7 L (3.5-5.0) g/dL Urine Color Yellow Urine Appearance Turbid H (Clear) Urine pH 6.0 (5.0-8.0) Ur Specific Murray 1.020 (1.001-1.035) Urine Protein 1+ H (Negative) Urine Glucose (UA) Negative (Negative) Urine Ketones Negative (Negative) Urine Blood Large H (Negative) Urine Nitrite Negative (Negative) Urine Bilirubin Negative (Negative) Urine Urobilinogen <2.0 (<2.0) mg/dL Ur Leukocyte Esterase Large H (Negative) Urine RBC >182 H (0-5) /hpf Urine WBC >182 H (0-5) /hpf Urine WBC Clumps Few H (None) /hpf Ur Squamous Epith Cells 3 (0-4) /hpf Urine Mucus Moderate H (None) /hpf Ur Yeast w Hyphae Occasional (None) /hpf Urine Yeast (Budding) Many H (None) /hpf Urine Opiates Screen Detected H (NotDetected) Ur Oxycodone Screen Not Detected (NotDetected) Urine Methadone Screen Not Detected (NotDetected) Ur Barbiturates Screen Not Detected (NotDetected) U Tricyclic Antidepress Not Detected (NotDetected) Ur Phencyclidine Scrn Not Detected (NotDetected) Ur Amphetamines Screen Not Detected (NotDetected) U Methamphetamines Scrn Not Detected (NotDetected) U Benzodiazepines Scrn Not Detected (NotDetected) Urine Cocaine Screen Not Detected (NotDetected) U Marijuana (THC) Screen Not Detected (NotDetected) Disposition Clinical Impression: Altered mental status, Urinary tract infection Disposition: ADMITTED IP TO THIS HOSP Is patient prescribed a controlled substance at d/c from ED?: No Referrals: Joaquin Levine MD [Primary Care Provider] - 1-2 days Time of Disposition: 10:09
[2024-02-18 08:01] LABS: ALT 39 U/L (4-34); AST 33 U/L (14-36); African American GFR (CKD) >90 (>60 ml/min/1.73 sqM); Albumin 2.7 g/dL (3.5-5.0); Alkaline Phosphatase 105 U/L (38-126); Anion Gap 2 mmol/L; Blood Urea Nitrogen 20 mg/dL (7-17); Carbon Dioxide 33 mmol/L (22-30); Chloride 100 mmol/L (98-107); Glucose 113 mg/dL (74-99); Non-African American GFR(CKD) 85 (>60 ml/min/1.73 sqM); Potassium 3.8 mmol/L (3.5-5.1); Sodium 135 mmol/L (137-145); Total Bilirubin 0.5 mg/dL (0.2-1.3); Total Protein 5.2 g/dL (6.3-8.2)
[2024-02-18 08:06] LABS: INR 1.1 (<1.2); Partial Thromboplastin Time 27.4 sec (22.0-30.0); Prothrombin Time 12.1 sec (10.0-12.5)
[2024-02-18 08:18] LABS: Anisocytosis Slight; Basophils % (A) 1 %; Eosinophils # (A) 0.4 k/uL (0-0.7); Eosinophils % (A) 6 %; HCT 29.9 % (34.0-46.0); HGB 9.5 gm/dL (11.4-16.0); Hypochromasia Marked; Lymphocytes # (A) 1.1 k/uL (1.0-4.8); Lymphocytes % (A) 19 %; MCH 24.8 pg (25.0-35.0); MCHC 31.9 g/dL (31.0-37.0); MCV 77.7 fL (80.0-100.0); Mean Platelet Volume 7.5; Microcytosis Slight; Monocytes # (A) 0.3 k/uL (0-1.0); Monocytes % (A) 5 %; Neutrophils # (A) 4.1 k/uL (1.3-7.7); Neutrophils % (A) 68 %; Platelet Count 272 k/uL (150-450); Poikilocytosis Slight; RBC 3.84 m/uL (3.80-5.40); RDW 17.3 % (11.5-15.5)
--- NOTE | 2024-02-18 08:24 | CT ---
EXAMINATION TYPE: CT brain wo con DATE OF EXAM: 02/18/2024 COMPARISON: None HISTORY: ams CT DLP: 1168.4 mGycm Automated exposure control for dose reduction was used. Findings: The ventricles, basal cisterns and sulci over the convexities are moderately enlarged consistent with generalized atrophy. There is a mild diffuse decreased density in the periventricular white matter consistent with chronic ischemic white matter demyelination. There is no acute intra or extra-axial hemorrhage. There is no mass effect or shift of the midline st ructures. The posterior fossa including the brainstem, fourth ventricle and cerebellar pontine angles appear no rmal. Intraorbital contents appear normal and symmetric. Visualized paranasal sinuses and mastoid air cells are well aerated. There is a right carotid stent. IMPRESSION: 1. Moderate generalized atrophy. 2. Mild to moderate chronic ischemic white matter demyelination. 3. No acute bleed or mass effect.
--- NOTE | 2024-02-18 08:26 | XR ---
EXAMINATION TYPE: XR chest 1V portable DATE OF EXAM: 02/18/2024 COMPARISON: 05/19/2023 HISTORY: Altered mental status TECHNIQUE: Single frontal view of the chest is obtained. FINDINGS: Exam is limited by rotation and the portable technique. There is opacification of the right lung base most consistent with a pneumonic infiltrate. There is no pneumothorax. The left lung is clear. The osseous structures are intact. IMPRESSION: 1. Limited study. 2. Opacity in the right lung base suspicious for pneumonia. Short-term follow-up is recommended
[2024-02-18 08:42] LABS: Amphetamine Screen,Urine Not Detected (NotDetected); Barbiturate Screen,Urine Not Detected (NotDetected); Benzodiazepines Screen,Urine Not Detected (NotDetected); Cocaine Screen,Urine Not Detected (NotDetected); Methadone Screen, Urine Not Detected (NotDetected); Opiate Screen,Urine Detected (NotDetected); Oxycodone Screen, Urine Not Detected (NotDetected); Phencyclidine Screen,Urine Not Detected (NotDetected); Tricyclic Antidepressant,Urine Not Detected (NotDetected); Urn Cannabinoid Scrn Not Detected (NotDetected)
[2024-02-18 08:50] LABS: Appearance,Urine Turbid (Clear); Bilirubin,Urine Negative (Negative); Blood,Urine Large (Negative); Budding Yeast,Urine Many /hpf; Color,Urine Yellow; Glucose,Urine (UA) Negative (Negative); Hyphae Yeast, Urine Occasional /hpf; Ketones,Urine Negative (Negative); Leukocyte Esterase,Urine Large (Negative); Mucus,Urine Moderate /hpf; Nitrite,Urine Negative (Negative); Protein,Urine 1+ (Negative); RBC,Urine >182 /hpf (0-5); Squamous Epithelial Cell,Urine 3 /hpf (0-4); Urobilinogen,Urine <2.0 mg/dL (<2.0); WBC,Urine >182 /hpf (0-5)
[2024-02-18] MEDS ORDERED: ACETAMINOPHEN TAB 325 MG TAB PO PRN (10:10)
[2024-02-18] MEDS ORDERED: NALOXONE 0.4 MG/ML 1 ML VIAL IV PRN (10:10)
--- NOTE | 2024-02-18 11:19 | P.HPIM ---
History of Present Illness 83-year-old with active medical history of Type 2 diabetes, obesity, left-sided breast cancer, hypertension, hyperlipidemia, hypothyroidism, chronic depression, chronic lower back pain with degenerative disc disease and spinal stenosis, peripheral arterial disease with severe carotid stenosis, hypertensive cardiovascular disease, coronary artery disease post PCI and stent placement of the LAD May 2023 Patient was recently discharged from this facility for severe infection of the left lower extremity status post AKA, she was in care home and she was getting more tired and drowsy over the last few days Over 1 day she will come significantly confused and she was transferred to the hospital Daughter at bedside and help with information Patient cannot tell her name and the name of her daughter, she is somewhat confused and very lethargic and drowsy She denies chest pain or dyspnea but she has some dry cough Complains from suprapubic pain, she states that her urine output has lowered her over the last week She is also complaining from phantom pain in her left AKA like. Dressing with some dried discharge. On admission patient is hypothermic and she was placed in Caridad hugger. Temperature was 96.1 Rest of vital stable CBC is unremarkable with hemoglobin 9.5, BMP is reviewed with sodium slightly low 135 high BUN at 20 with creatinine 0.5. INR 1.1. Troponin mildly elevated at 0.05 Urine analysis suspicious for infection Urine drug screen is positive for opiates Chest x-ray showing opacity in the right lower lung suspicious for pneumonia CT of the brain is negative EKG showing sinus bradycardia with no significant ST-T changes and QTc 488. Review of Systems Review of systems CONSTITUTIONAL: No fever, no malaise, no fatigue. HEENT: No recent visual problems or hearing problems. Denied any sore throat. CARDIOVASCULAR: No orthopnea, PND, no palpitations, no syncope. PULMONARY: No shortness of breath, no cough, no hemoptysis. GASTROINTESTINAL: No diarrhea, no nausea, no vomiting, no abdominal pain. Normoactive bowel sounds. NEUROLOGICAL: No headaches, no weakness, no numbness. HEMATOLOGICAL: Denies any bleeding or petechiae. GENITOURINARY: Denies any burning micturition, frequency, or urgency. MUSCULOSKELETAL/RHEUMATOLOGICAL: Denies any joint pain, swelling, or any muscle pain. ENDOCRINE: Denies any polyuria or polydipsia. Past Medical History Past Medical History: Cancer, Diabetes Mellitus, Hearing Disorder / Deafness, Hyperlipidemia, Hypertension, Osteoarthritis (OA), Thyroid Disorder Additional Past Medical History / Comment(s): Slight hearing trouble. Currently in wheelchair, unable to stand or walk. Hx left breast cancer. "Bad right hip, may need replacement." History of Any Multi-Drug Resistant Organisms: None Reported Past Surgical History: Breast Surgery, Hysterectomy, Joint Replacement, Orthop edic Surgery Additional Past Surgical History / Comment(s): Left breast biopsy X3, right breast biopsy X2, ductogram, ORIF right lower leg with plate, total left hip replacement, left breast lumpectomy. Past Anesthesia/Blood Transfusion Reactions: No Reported Reaction Past Psychological History: Anxiety, Depression Smoking Status: Never smoker Past Alcohol Use History: None Reported Past Drug Use History: None Reported - Past Family History Sister(s) Family Medical History: Cancer Additional Family Medical History / Comment(s): BREAST CANCER. Medications and Allergies Home Medications Medication Instructions Recorded Confirmed Type INSULIN LISPRO (HumaLOG) [humaLOG] See Protocol SQ AC-TID 12/28/16 01/31/24 Hi story Levothyroxine Sodium [Synthroid] 50 mcg PO DAILY 12/28/16 01/31/24 History Losartan/Hydrochlorothiazide 1 tab PO DAILY 12/28/16 01/31/24 History [Losartan-Hctz 100-12.5 mg Tab] Sertraline [Zoloft] 100 mg PO DAILY 03/16/17 01/31/24 History Anastrozole 1 mg PO DAILY 05/19/23 01/31/24 History Latanoprost Ophth [Xalatan 0.005%] 1 drop BOTH EYES HS 05/19/23 01/31/24 History Loratadine [Claritin] 10 mg PO DAILY 05/19/23 01/31/24 History buPROPion XL [Wellbutrin XL] 150 mg PO DAILY 05/19/23 01/31/24 History Aspirin 81 mg PO DAILY tab 05/24/23 01/31/24 Rx Clopidogrel [Plavix] 75 mg PO DAILY tab 05/24/23 01/31/24 Rx Melatonin 6 mg PO HS PRN tab 05/24/23 01/31/24 Rx carvediloL [Coreg] 6.25 mg PO BID-W/MEALS tab 05/24/23 01/31/24 Rx Insulin Detemir (Levemir) [Levemir] 20 unit SQ BID@0700,2100 08/03/23 01/31/24 History Magnesium Hydroxide [Milk of 7,200 ml PO DAILY PRN 08/03/23 01/31/24 History Magnesia Concentrate] Meloxicam [Mobic] 7.5 mg PO DAILY 08/03/23 01/31/24 History Na Phos,M-B/Na Phos,Di-Ba [Fleet 1 dose RECTAL ONCE PRN 08/03/23 01/31/24 History Adult] Nystatin 100,000 Unit/gm Powd 1 applic TOPICAL TID PRN 08/03/23 01/31/24 History [Mycostatin Powder] bisacodyL [Dulcolax] 10 mg RECTAL ONCE PRN 08/03/23 01/31/24 History Acetaminophen Tab [Tylenol] 650 mg PO Q6HR PRN tab 08/07/23 01/31/24 Rx Atorvastatin Calcium [Lipitor] 80 mg PO HS 01/31/24 01/31/24 History Baclofen [Lioresal] 10 mg PO TID 01/31/24 01/31/24 History Biofreeze (Unknown) 1 applic TOPICAL TID 01/31/24 01/31/24 History Caldesene Baby Powder 1 applic TOPICAL BID 01/31/24 01/31/24 History Collagenase [Santyl Ointment] 1 applic TOPICAL DAILY 01/31/24 01/31/24 History Collagenase [Santyl Ointment] 1 applic TOPICAL DAILY 01/31/24 01/31/24 History Famotidine [Pepcid] 20 mg PO DAILY 01/31/24 01/31/24 History Gabapentin 300 mg PO TID 01/31/24 01/31/24 History Dominic Packet 1 packet PO BID-W/MEALS 01/31/24 01/31/24 History Lidocaine 5% Cream 1 applic TOPICAL WE 01/31/24 01/31/24 History Liquacal 30 ml PO BID@0800,1700 01/31/24 01/31/24 History Multivitamins, Thera [Multivitamin 1 tab PO DAILY 01/31/24 01/31/24 History (formulary)] Sodium Chloride [Saline Nasal Mist] 2 spray EA NOSTRIL DAILY 01/31/24 01/31/24 History amLODIPine [Norvasc] 10 mg PO DAILY@1700 01/31/24 01/31/24 History rOPINIRole HCL [Requip] 0.5 mg PO BID@1200,2100 01/31/24 01/31/24 History traZODone HCL [Desyrel] 50 mg PO HS 01/31/24 01/31/24 History Ertapenem [INVanz] 1 gm IVPB Q24H #42 each 02/09/24 Rx Vicodin Es 7.5/300mg 1 tab PO Q6H #60 02/09/24 Rx Allergies Allergy/AdvReac Type Severity Reaction Status Date / Time No Known Allergies Allergy Verified 01/31/24 13:50 Physical Exam Vitals: Vital Signs Temp Pulse Resp BP Pulse Ox 02/18/24 10:10 96.1 F L 56 L 18 145/82 96 02/18/24 06:59 66 18 108/49 100 Intake and Output 02/17/24 02/18/24 02/18/24 22:59 06:59 14:59 Other: Weight 90.718 kg -GENERAL: The patient is alert and oriented x1-2, drowsy and confused, not in any acute distress. Well developed, well nourished. Patient was hypothermic on Caridad hugger. Obese HEENT: Pupils are round and equally reacting to light. EOMI. No scleral icterus. No conjunctival pallor. Normocephalic, atraumatic. No pharyngeal erythema. No thyromegaly. CARDIOVASCULAR: S1 and S2 present. No murmurs, rubs, or gallops. -PULMONARY: Chest is clear to auscultation, no wheezing , no crackles. Mildly tachypneic with occasional coughing -ABDOMEN: Soft, nondistended, normoactive bowel sounds. No palpable organomegaly. Suprapubic tenderness with no rebound tenderness MUSCULOSKELETAL: No joint swelling or deformity. -EXTREMITIES: No cyanosis, clubbing, or pedal edema. S/p left AKA with dressing in place NEUROLOGICAL: Gross neurological examination did not reveal any focal deficits. SKIN: No rashes. no petechiae. Results CBC & Chem 7: 02/18/24 07:02/18/24 07: Labs: Abnormal Lab Results - Last 24 Hours (Table) 02/18/24 02/18/24 02/18/24 Range/Units 07:28 07:28 07:28 Hgb 9.5 L (11.4-16.0) gm/dL Hct 29.9 L (34.0-46.0) % MCV 77.7 L (80.0-100.0) fL MCH 24.8 L (25.0-35.0) pg RDW 17.3 H (11.5-15.5) % Sodium 135 L (137-145) mmol/L Carbon Dioxide 33 H (22-30) mmol/L BUN 20 H (7-17) mg/dL Glucose 113 H (74-99) mg/dL Calcium 8.0 L (8.4-10.2) mg/dL ALT 39 H (4-34) U/L Troponin I 0.050 H* (0.000-0.034) ng/mL Total Protein 5.2 L (6.3-8.2) g/dL Albumin 2.7 L (3.5-5.0) g/dL Urine Appearance (Clear) Urine Protein (Negative) Urine Blood (Negative) Ur Leukocyte Esterase (Negative) Urine RBC (0-5) /hpf Urine WBC (0-5) /hpf Urine WBC Clumps (None) /hpf Urine Mucus (None) /hpf Urine Yeast (Budding) (None) /hpf Urine Opiates Screen (NotDetected) 02/18/24 Range/Units 07:56 Hgb (11.4-16.0) gm/dL Hct (34.0-46.0) % MCV (80.0-100.0) fL MCH (25.0-35.0) pg RDW (11.5-15.5) % Sodium (137-145) mmol/L Carbon Dioxide (22-30) mmol/L BUN (7-17) mg/dL Glucose (74-99) mg/dL Calcium (8.4-10.2) mg/dL ALT (4-34) U/L Troponin I (0.000-0.034) ng/mL Total Protein (6.3-8.2) g/dL Albumin (3.5-5.0) g/dL Urine Appearance Turbid H (Clear) Urine Protein 1+ H (Negative) Urine Blood Large H (Negative) Ur Leukocyte Esterase Large H (Negative) Urine RBC >182 H (0-5) /hpf Urine WBC >182 H (0-5) /hpf Urine WBC Clumps Few H (None) /hpf Urine Mucus Moderate H (None) /hpf Urine Yeast (Budding) Many H (None) /hpf Urine Opiates Screen Detected H (NotDetected) Assessment and Plan Assessment: Metabolic/toxic encephalopathy Acute urinary tract infection Right lower lobe opacity suspicious for pneumonia, clinically is not behaving much like pneumonia Recent history of gangrenous left lower extremity,S/p left AKA with Obesity with BMI of 36.6 Diabetes mellitus Hypertension Hyperlipidemia History of osteoarthritis Hypothyroidism History of carotid artery stenosis History of breast cancer Plan: Continue with antibiotic currently on ceftriaxone Follow-up culture results Consult infectious disease team Follow-up with neurology Continue with gentle hydration, normal saline to 75 mL/h Labs and medication were reviewed.. Continue same treatment. Continue with symptomatic treatment. Resume home medication. Monitor lytes and vitals. DVT and GI prophylaxis. Further recommendations depends on the clinical course of the patient DVT prophylaxis: Subcutaneous heparin GI Prophylaxis: Pepcid PT/OT: Pending Prognosis is guarded
[2024-02-18] MEDS: SODIUM CHLORIDE 0.9% 1,000 ML IV SCH (11:31)
[2024-02-18 12:19] LABS: Glucose,Whole Blood 60 mg/dL (70-110)
[2024-02-18 12:58] LABS: Glucose,Whole Blood 97 mg/dL (70-110)
[2024-02-18] MEDS: HYDROcodone/APAP 5-325MG 1 EACH TAB PO PRN (14:12)
[2024-02-18 16:35] LABS: Glucose,Whole Blood 82 mg/dL (70-110)
[2024-02-18] MEDS: ERTAPENEM 1 GM in SODIUM CHLORIDE 0.9% 50 ML IVPB SCH (19:03)
[2024-02-18] MEDS: COLLAGENASE 250 UNIT/GM OINTMENT 30 GM TUBE TOPICAL SCH (19:03)
[2024-02-18 20:04] LABS: Glucose,Whole Blood 116 mg/dL (70-110)
[2024-02-18] MEDS: ASPIRIN 81 MG PO SCH (20:38)
[2024-02-18] MEDS: CLOPIDOGREL 75 MG TAB PO SCH (20:38)
[2024-02-18] MEDS ORDERED: FAMOTIDINE 20 MG/2 ML VIAL ONE (20:39)
[2024-02-18] MEDS: ATORVASTATIN 80 MG TAB PO SCH (20:39)
[2024-02-18] MEDS: FAMOTIDINE 20 MG/2 ML VIAL IV SCH (20:39)
[2024-02-18] MEDS: HEPARIN SODIUM,PORCINE 5,000 UNIT/ML 1 ML VIAL SQ SCH (20:39)
[2024-02-18 20:58] LABS: Glucose,Whole Blood 120 mg/dL (70-110)
--- NOTE | 2024-02-18 22:09 | P.CONS ---
History of Present Illness - Reason for Consult Consult date: 02/18/24 UTI, pneumonia, left AKA wound Requesting physician: Edumndo E Sheet - Chief Complaint Weakness and mental status changes x 1 day - History of Present Illness Patient is a 84-year-old female with a past medical history significant for diabetes mellitus hypertension hyperlipidemia osteoarthritis recent admission to the hospital with extensive left diabetic foot infection requiring left [id number] amputation patient also have a wound on the lateral aspect of the right foot that was debrided in OR culture positive for ESBL Proteus patient did get a PICC line and was advised a 6-week course of IV Invanz with the patient was currently receiving at the local shelter patient has been brought into the ER this morning concerning for mental status changes patient was noted to be drowsy patient on presentation to the hospital was afebrile and no fever have been found subsequently patient was not tachycardic or hypotensive mildly hypoxic requiring supplemental oxygen patient did have a normal white count of 6.0 creatinine 0.58 she did have a positive UA urine drug screen was positive for opiates patient did have a chest x-ray opacity right lung base suspicious for pneumonia patient was started on Rocephin admitted to hospital infectious disease was consulted for further management of antibiotic therapy most information has been obtained from review of the chart talking to the daughter as the patient herself was not a good historian no clear history of any nausea vomiting or choking on the food patient did have a Nichole catheter was placed about a week ago and the shelter decreased risk of contamination of her left leg stump Review of Systems Positive points has been mentioned in HPI complete review could not be obtained because of his underlying mental status Past Medical History Past Medical History: Cancer, Diabetes Mellitus, Hearing Disorder / Deafness, Hyperlipidemia, Hypertension, Osteoarthritis (OA), Thyroid Disorder Additional Past Medical History / Comment(s): Slight hearing trouble. Currently in wheelchair, unable to stand or walk. Hx left breast cancer. "Bad right hip, may need replacement." History of Any Multi-Drug Resistant Organisms: None Reported Past Surgical History: Breast Surgery, Hysterectomy, Joint Replacement, Orthopedic Surgery Additional Past Surgical History / Comment(s): Left breast biopsy X3, right breast biopsy X2, ductogram, ORIF right lower leg with plate, total left hip replacement, left breast lumpectomy. Past Anesthesia/Blood Transfusion Reactions: No Reported Reaction Past Psychological History: Anxiety, Depression Smoking Status: Never smoker Past Alcohol Use History: None Reported Past Drug Use History: None Reported - Past Family History Sister(s) Family Medical History: Cancer Additional Family Medical History / Comment(s): BREAST CANCER. Medications and Allergies Home Medications Medication Instructions Recorded Confirmed Type INSULIN LISPRO (HumaLOG) [humaLOG] See Protocol SQ AC-TID@07,11,16 12/28/16 02/18/24 History Levothyroxine Sodium [Synthroid] 50 mcg PO DAILY@0800 12/28/16 02/18/24 History Losartan/Hydrochlorothiazide 1 tab PO DAILY@0800 12/28/16 02/18/24 History [Losartan-Hctz 100-12.5 mg Tab] Sertraline [Zoloft] 100 mg PO DAILY@00 03/16/02/18/24 History Anastrozole 1 mg PO DAILY@0800 05/19/23 02/18/24 History Latanoprost Ophth [Xalatan 0.005%] 1 drop BOTH EYES HS@209905/19/23 02/18/24 History Loratadine [Claritin] 10 mg PO DAILY@0800 05/19/23 02/18/24 History buPROPion XL [Wellbutrin XL] 150 mg PO DAILY@0800 05/19/23 02/18/24 History Melatonin 6 mg PO HS PRN tab 05/24/23 02/18/24 Rx Insulin Detemir (Levemir) [Levemir] 20 unit SQ BID@0700,2100 08/03/23 02/18/24 History Magnesium Hydroxide [Milk of 7,200 ml PO DAILY PRN 08/03/23 02/18/24 History Magnesia Concentrate] Meloxicam [Mobic] 7.5 mg PO DAILY@0800 08/03/23 02/18/24 History Na Phos,M-B/Na Phos,Di-Ba [Fleet 133 ml RECTAL DAILY PRN 08/03/23 02/18/24 History Adult] bisacodyL [Dulcolax] 10 mg RECTAL DAILY PRN 08/03/23 02/18/24 History Atorvastatin Calcium [Lipitor] 80 mg PO HS@209901/31/24 02/18/24 History Baclofen [Lioresal] 10 mg PO TID@0800,1400,2200 01/31/24 02/18/24 History Biofreeze (Unknown) 1 applic TOPICAL TID 01/31/24 02/18/24 History Caldesene Baby Powder 1 applic TOPICAL BID 01/31/24 02/18/24 History Collagenase [Santyl Ointment] 1 applic TOPICAL DAILY 01/31/24 02/18/24 History Collagenase [Santyl Ointment] 1 applic TOPICAL DAILY 01/31/24 02/18/24 History Famotidine [Pepcid] 20 mg PO DAILY@79901/31/24 02/18/24 History Gabapentin 300 mg PO TID@06,14,01/31/24 02/18/24 History Dominic Packet 1 packet PO BID-W/MEALS 01/31/24 02/18/24 History Lidocaine 5% Cream 1 applic TOPICAL WE@79901/31/24 02/18/24 History Liquacal 30 ml PO BID@0800,1700 01/31/24 02/18/24 History Multivitamins, Thera [Multivitamin 1 tab PO DAILY 01/31/24 02/18/24 History (formulary)] Sodium Chloride [Saline Nasal Mist] 2 spray EA NOSTRIL DAILY@0801/31/24 02/18/24 History amLODIPine [Norvasc] 10 mg PO DAILY@1700 01/31/24 02/18/24 History rOPINIRole HCL [Requip] 0.5 mg PO BID@1200,2100 01/31/24 02/18/24 History traZODone HCL [Desyrel] 50 mg PO HS@199901/31/24 02/18/24 History Acetaminophen Tab [Tylenol] 650 mg PO TID@08,14,22 02/18/24 02/18/24 History Aspirin 81 mg PO DAILY@79902/18/24 02/18/24 History Clopidogrel [Plavix] 75 mg PO DAILY@79902/18/24 02/18/24 History Ertapenem [INVanz] 1 gm IVPB DAILY@79902/18/24 02/18/24 History HYDROcodone/APAP 7.5-325MG [Normal 1 tab PO QID@00,06,12,18 02/18/24 02/18/24 History 7.5-325] Sennosides/Docusate Sodium [Senna 1 cap PO BID@0800,1700 02/18/24 02/18/24 History Plus 8.6-50 mg Softgel] carvediloL [Coreg] 6.25 mg PO BID@0800,1700 02/18/24 02/18/24 History Allergies Allergy/AdvReac Type Severity Reaction Status Date / Time No Known Allergies Allergy Verified 02/18/24 12:46 Physical Exam Vitals: Vital Signs Temp Pulse Resp BP Pulse Ox 02/18/24 11:36 97.6 F 18 02/18/24 10:10 96.1 F L 56 L 18 145/82 96 02/18/24 06:59 66 18 108/49 100 Intake and Output 02/17/24 02/18/24 02/18/24 22:59 06:59 14:59 Other: Weight 90.718 kg GENERAL DESCRIPTION: Elderly female lying in bed, no distress. No tachypnea or accessory muscle of respiration use. HEENT: Shows Pallor , no scleral icterus. Oral mucous membrane is dry. No pharyngeal erythema or thrush NECK: Trachea central, no thyromegaly. LUNGS: Unlabored breathing. Decreased breath sound the base HEART: S1, S2, regular rate and rhythm. No loud murmur ABDOMEN: Soft, no tenderness , guarding or rigidity, no organomegaly EXTREMITIES: Left AKA incision is healing well with no swelling or redness patient did have a wound on the right foot lateral border with slough tissue but no surrounding redness SKIN: No rash, no masses palpable. NEUROLOGICAL: The patient is lethargic but arousable, mood and affect normal. Results CBC & Chem 7: 02/18/24 07:02/18/24 07: Labs: Abnormal Lab Results - Last 24 Hours (Table) 02/18/24 02/18/24 02/18/24 Range/Units 07: 07: 07: Hgb 9.5 L (11.4-16.0) gm/dL Hct 29.9 L (34.0-46.0) % MCV 77.7 L (80.0-100.0) fL MCH 24.8 L (25.0-35.0) pg RDW 17.3 H (11.5-15.5) % Sodium 135 L (137-145) mmol/L Carbon Dioxide 33 H (22-30) mmol/L BUN 20 H (7-17) mg/dL Glucose 113 H (74-99) mg/dL POC Glucose (mg/dL) (70-110) mg/dL Calcium 8.0 L (8.4-10.2) mg/dL ALT 39 H (4-34) U/L Troponin I 0.050 H* (0.000-0.034) ng/mL Total Protein 5.2 L (6.3-8.2) g/dL Albumin 2.7 L (3.5-5.0) g/dL Urine Appearance (Clear) Urine Protein (Negative) Urine Blood (Negative) Ur Leukocyte Esterase (Negative) Urine RBC (0-5) /hpf Urine WBC (0-5) /hpf Urine WBC Clumps (None) /hpf Urine Mucus (None) /hpf Urine Yeast (Budding) (None) /hpf Urine Opiates Screen (NotDetected) 02/18/24 02/18/24 Range/Units 07:56 12:17 Hgb (11.4-16.0) gm/dL Hct (34.0-46.0) % MCV (80.0-100.0) fL MCH (25.0-35.0) pg RDW (11.5-15.5) % Sodium (137-145) mmol/L Carbon Dioxide (22-30) mmol/L BUN (7-17) mg/dL Glucose (74-99) mg/dL POC Glucose (mg/dL) 60 L (70-110) mg/dL Calcium (8.4-10.2) mg/dL ALT (4-34) U/L Troponin I (0.000-0.034) ng/mL Total Protein (6.3-8.2) g/dL Albumin (3.5-5.0) g/dL Urine Appearance Turbid H (Clear) Urine Protein 1+ H (Negative) Urine Blood Large H (Negative) Ur Leukocyte Esterase Large H (Negative) Urine RBC >182 H (0-5) /hpf Urine WBC >182 H (0-5) /hpf Urine WBC Clumps Few H (None) /hpf Urine Mucus Moderate H (None) /hpf Urine Yeast (Budding) Many H (None) /hpf Urine Opiates Screen Detected H (NotDetected) Assessment and Plan (1) Diabetic ulcer of right foot Current Visit: Yes Status: Acute Code(s): E11.621 - TYPE 2 DIABETES MELLITUS WITH FOOT ULCER; L97.519 - NON-PRS CHRONIC ULCER OTH PRT RIGHT FOOT W UNSP SEVERITY SNOMED Code(s): 830980384 (2) Abnormal chest x-ray Current Visit: Yes Status: Acute Code(s): R93.89 - ABNORMAL FINDINGS ON DX IMAGING OF OTH BODY STRUCTURES SNOMED Code(s): 839062340 (3) Foot osteomyelitis, right Current Visit: No Status: Acute Code(s): M86.9 - OSTEOMYELITIS, UNSPECIFIED SNOMED Code(s): 7354473237868949 Plan: 1patient presented to hospital for evaluation of weakness mental status changes which is likely multifactorial possible dehydration patient did have a positive UA and concern for possible Respiratory tract infection however urine showed mostly yeast 2-patient also have a abnormal x-ray question of atelectasis clinically not behaving as pneumonia but not excluded 3patient did have right diabetic foot ulcer with underlying osteomyelitis last culture positive for ESBL Proteus 4we will change her Nichole catheter pending UA continue Nichole. 5check a CRP and procalcitonin level and 22 pending sputum if possible. 6local wound care to the right foot lateral border wound with Santyl followed by moist dressing and keep the area of the pressure 7-we will discontinue Rocephin and start the patient on Invanz 1 g daily Daughter at the bedside questions were answered We will follow on clinical condition and cultures to further adjust medication if needed Thank you for this consultation we will follow the patient along with you Dictation was produced using [employer] dictation software. please excuse any grammatical, word or spelling errors. Time with Patient: Greater than 30
[2024-02-18] MEDS ORDERED: RX INFO: IV CONTRAST WAS GIVEN 1 EACH MISC MISCELLANE PRN (22:44)
[2024-02-19] MEDS: IPRATROPIUM-ALBUTEROL 3 ML NEB INHALATION STA (00:04)
--- NOTE | 2024-02-19 00:09 | CT ---
EXAM: CT Angiography Chest With Intravenous Contrast CLINICAL HISTORY: ITS.REASON CT Reason: Difficulty breathing/elevated dimer TECHNIQUE: Axial computed tomographic angiography images of the chest with intravenous contrast. CTDI is 35.5 mGy and DLP is 993.6 mGy-cm. This CT exam was performed using one or more of the following dose reduction techniques: automated exposure control, adjustment of the mA and/or kV according to patient size, and/or use of iterative reconstruction technique. MIP reconstructed images were created and reviewed. COMPARISON: 10/05/2021. FINDINGS: Pulmonary arteries: Central pulmonary arteries are unremarkable. Peripheral branches the pulmonary arteries are unremarkable. Aorta: Atherosclerotic disease of the thoracic aorta is noted. No thoracic aortic aneurysm. Lungs: Airway is normal. Presumed subsegmental atelectasis posteriorly. No mass. Pleural space: Large bilateral pleural effusions are noted. No pneumothorax. Heart: Cardiomegaly. Consider congestive heart failure. No significant pericardial effusion. No evidence of RV dysfunction. Thyroid: Visualized thyroid gland is unremarkable. Bones/joints: Severe degenerative disc disease of the thoracic spine, kyphosis, and levoscoliosis. No acute fracture. No dislocation. Soft tissues: Unremarkable. Lymph nodes: Unremarkable. No enlarged lymph nodes. Liver: Fatty liver. IMPRESSION: 1. Large bilateral pleural effusions. Consider congestive heart failure. 2. No central pulmonary emboli. 3. No peripheral pulmonary emboli. 4. Bilateral pneumonia cannot be excluded although the findings most compatible with atelectasis.
[2024-02-19] MEDS: carvediloL 6.25 MG TAB PO SCH (00:25)
--- NOTE | 2024-02-19 01:17 | P.CNNES ---
History of Present Illness Consult date: 02/18/24 Requesting physician: Geovany Wolf Reason for Consult: Altered mental status History of Present Illness: Patient is a 84-year-old female with history of diabetes with severe diabetic neuropathy, left AKA, came to the hospital by ambulance this morning at 6:56 AM for syncope versus seizure. As per patient's daughter, patient was found unresponsive at the shelter [facility], and she was foaming at the mouth. Her blood sugar was 60 and she was "out of it". Patient's family states that her blood sugar stays high usually, and 60 was very low for her. She was given glucagon. Patient has no previous history of seizures. She has been living in this facility since May 2023. Family denies any stroke symptoms like slurred speech, facial droop, problem with the vision or any focal numbness or tingling. At present she is back to baseline. Patient used walker for a year, but in the last 8 months, she is wheelchair bound. She has undergone left above-knee amputation few months ago. As per EMS flowsheet when EMS arrived at the shelter, multiple staff members were present, but did not know about patient's history in detail. Pieces of information were obtained from the staff member. An RECEIVING DISTRIBUTION STATION OPERATOR mentioned that she checked on the patient around midnight to give the patient her 6-hour [place] and stated patient was fine, talking about her daughter and had refused the [place]. Another staff member stated that she knew the patient was diabetic and found the patient mostly unresponsive. Her blood sugar was 60. Staff member gave patient glucagon shot. Mental status did not improve and then staff member saw the patient to be satting at 88% on 2 L nasal cannula and her blood pressure was 90s/60s. Patient is normally on 2 L/min nasal cannula via oxygen concentrator. Another staff member mentioned that patient is receiving IV antibiotics via PICC line for infected decubitus ulcer. Patient was noted to be in atrial fibrillation. Vital signs at the scene blood pressure 99/38, pulse ra te 51, respiration 14, saturation 95% and temperature 96.9. Blood sugar 77. Patient's blood test shows normal WBC hemoglobin 9.5, platelets 272. PT PTT normal. Sodium 135 potassium 3.8, normal renal functions, AST is normal, ALT 39. Troponin is mildly elevated 0.050. UA shows large amount of blood, large amount of leukocyte esterase and more than 182 WBCs and RBCs. Urine drug screen positive for opiates. EKG showed sinus bradycardia. CT head showed moderate generalized atrophy. Mild to moderate chronic ischemic white matter demyelination. No acute bleed or mass effect. I personally reviewed CT head, agree with the findings. Chest x-ray showed limited study. Opacity in the right lung base, suspicious for pneumonia. Patient has history of diabetes for many years. Denies any tobacco or alcohol use. Patient has history of right carotid stenting performed 4 months ago. She has severe stenosis of the left ICA as well, but the vascular surgeons are just watching it. Patient is more forgetful, but family denies any symptoms concerning for dementia. Her appetite is decreased, which she takes a lot of pain medications. Patient has some phantom limb symptoms. Review of Systems Constitutional: Denies chills, Denies fever Eyes: denies blurred vision, denies pain, denies loss of peripheral vision Ears: deny: decreased hearing, ear discharge Ears, nose, mouth and throat: Denies headache, Denies sore throat Cardiovascular: Reports dyspnea on exertion, Denies chest pain, Denies shortness of breath Respiratory: Reports cough, Denies excessive sputum Gastrointestinal: Denies abdominal pain, Denies diarrhea, Denies nausea, Denies vomiting Genitourinary: Reports mixed incontinence, Denies dysuria Musculoskeletal: Denies low back pain, Denies myalgias, Denies neck pain Neurological: Reports as per HPI Psychiatric: Reports anxiety, Reports depression Hematologic/Lymphatic: Reports easy bleeding, Denies easy bruising Past Medical History Past Medical History: Cancer, Diabetes Mellitus, Hearing Disorder / Deafness, Hyperlipidemia, Hypertension, Osteoarthritis (OA), Thyroid Disorder Additional Past Medical History / Comment(s): Slight hearing trouble. Currently in wheelchair, unable to stand or walk. Hx left breast cancer. "Bad right hip, may need replacement." History of Any Multi-Drug Resistant Organisms: None Reported Past Surgical History: Breast Surgery, Hysterectomy, Joint Replacement, Orthopedic Surgery Additional Past Surgical History / Comment(s): Left breast biopsy X3, right breast biopsy X2, ductogram, ORIF right lower leg with plate, total left hip replacement, left breast lumpectomy., L AKA, PICC line placement Past Anesthesia/Blood Transfusion Reactions: No Reported Reaction Past Psychological History: Anxiety, Depression Smoking Status: Never smoker Past Alcohol Use History: None Reported Past Drug Use History: None Reported - Past Family History Sister(s) Family Medical History: Cancer Additional Family Medical History / Comment(s): BREAST CANCER. Medications and Allergies Home Medications Medication Instructions Recorded Confirmed Type INSULIN LISPRO (HumaLOG) [humaLOG] See Protocol SQ AC-TID@07,11,16 12/28/16 02/18/24 History Levothyroxine Sodium [Synthroid] 50 mcg PO DAILY@0812/28/16 02/18/24 History Losartan/Hydrochlorothiazide 1 tab PO DAILY@79912/28/16 02/18/24 History [Losartan-Hctz 100-12.5 mg Tab] Sertraline [Zoloft] 100 mg PO DAILY@79903/16/17 02/18/24 History Anastrozole 1 mg PO DAILY@0800 05/19/23 02/18/24 History Latanoprost Ophth [Xalatan 0.005%] 1 drop BOTH EYES HS@209905/19/23 02/18/24 History Loratadine [Claritin] 10 mg PO DAILY@0800 05/19/23 02/18/24 History buPROPion XL [Wellbutrin XL] 150 mg PO DAILY@0800 05/19/23 02/18/24 History Melatonin 6 mg PO HS PRN tab 05/24/23 02/18/24 Rx Insulin Detemir (Levemir) [Levemir] 20 unit SQ BID@0700,2100 08/03/23 02/18/24 History Magnesium Hydroxide [Milk of 7,200 ml PO DAILY PRN 08/03/23 02/18/24 History Magnesia Concentrate] Meloxicam [Mobic] 7.5 mg PO DAILY@0800 08/03/23 02/18/24 History Na Phos,M-B/Na Phos,Di-Ba [Fleet 133 ml RECTAL DAILY PRN 08/03/23 02/18/24 History Adult] bisacodyL [Dulcolax] 10 mg RECTAL DAILY PRN 08/03/23 02/18/24 History Atorvastatin Calcium [Lipitor] 80 mg PO HS@209901/31/24 02/18/24 History Baclofen [Lioresal] 10 mg PO TID@0800,1400,2200 01/31/2424 History Biofreeze (Unknown) 1 applic TOPICAL TID 01/31/24 02/18/24 History Caldesene Baby Powder 1 applic TOPICAL BID 01/31/24 02/18/24 History Collagenase [Santyl Ointment] 1 applic TOPICAL DAILY 01/31/24 02/18/24 History Collagenase [Santyl Ointment] 1 applic TOPICAL DAILY 01/31/24 02/18/24 History Famotidine [Pepcid] 20 mg PO DAILY@0801/31/24 02/18/24 History Gabapentin 300 mg PO TID@06,,01/31/24 02/18/24 History Dominic Packet 1 packet PO BID-W/MEALS 01/31/24 02/18/24 History Lidocaine 5% Cream 1 applic TOPICAL WE@79901/31/24 02/18/24 History Liquacal 30 ml PO BID@0800,1700 01/31/24 02/18/24 History Multivitamins, Thera [Multivitamin 1 tab PO DAILY 01/31/24 02/18/24 History (formulary)] Sodium Chloride [Saline Nasal Mist] 2 spray EA NOSTRIL DAILY@0801/31/24 02/18/24 History amLODIPine [Norvasc] 10 mg PO DAILY@1700 01/31/24 02/18/24 History rOPINIRole HCL [Requip] 0.5 mg PO BID@1200,2100 01/31/24 02/18/24 History traZODone HCL [Desyrel] 50 mg PO HS@199901/31/24 02/18/24 History Acetaminophen Tab [Tylenol] 650 mg PO TID@08,14,22 02/18/24 02/18/24 History Aspirin 81 mg PO DAILY@0802/18/24 02/18/24 History Clopidogrel [Plavix] 75 mg PO DAILY@0802/18/24 02/18/24 History Ertapenem [INVanz] 1 gm IVPB DAILY@79902/18/24 02/18/24 History HYDROcodone/APAP 7.5-325MG [[place] 1 tab PO QID@00,06,12,18 02/18/24 02/18/24 History 7.5-325] Sennosides/Docusate Sodium [Senna 1 cap PO BID@0800,1700 02/18/24 02/18/24 History Plus 8.6-50 mg Softgel] carvediloL [Coreg] 6.25 mg PO BID@0800,1700 02/18/24 02/18/24 History Allergies Allergy/AdvReac Type Severity Reaction Status Date / Time No Known Allergies Allergy Verified 02/18/24 12:46 Physical Examination - Vital Signs Vital Signs: Vital Signs Temp Pulse Resp BP Pulse Ox 02/18/24 14:14 97.6 F 61 18 153/62 98 02/18/24 14:00 18 02/18/24 11:36 97.6 F 18 02/18/24 10:10 96.1 F L 56 L 18 145/82 96 02/18/24 06:59 66 18 108/49 100 Intake and Output 02/18/24 02/18/24 02/18/24 06:59 14:59 22:59 Other: Voiding Method Indwelling Catheter Weight 90.718 kg 90.718 kg Patient is an elderly female, very pleasant, in no acute distress. Patient is alert awake oriented to time place and person. Patient knows it is January but she thinks the year is . She knows it is Monday and that she is in [facility] in [facility] and name of the current president Mr. Henry. Speech and language functions are normal. Patient can name and repeat very well. No aphasia or dysarthria. Attention, concentration and fund of knowledge is adequate. Detail cognitive function testing deferred. On cranial nerve examination, pupils are equal, round and reacting to light, visual flaherty are full on confrontation, with no neglect on double simultaneous stimulation. Extraocular muscles are intact with no nystagmus. Face is symmetric, tongue protrudes to the midline. Palatal elevation and sensation normal, hearing and shoulder shrug normal, facial sensation normal. On muscle strength testing, there is no pronator drift and the strength is normal in arms distally and proximally. Patient has left above-knee amputation. Patient's right leg is completely weak proximally and distally with not much movement. She has severe peripheral neuropathy. Deep tendon reflexes are symmetric 2 in the upper extremities, absent in the lower limbs. Sensory to touch is equal with no neglect on double simultaneous stimulation. Cerebellar function showed no ataxia for slkhiv-[id number]-vqev testing. No dysdiadochokinesia. Cannot perform [id number] testing. Gait deferred.. On general examination, there is no carotid bruit or murmur, S1-S2 audible. Chest is clear on consultation. Abdomen is soft nontender. No organomegaly, bowel sounds present. Patient has peripheral edema. Left AKA. Results - Laboratory Findings CBC and BMP: 02/18/24 07:28 02/18/24 07:28 Abnormal Lab Findings: Abnormal Labs 02/18/24 02/18/24 02/18/24 07:28 07: 07:28 Hgb 9.5 L Hct 29.9 L MCV 77.7 L MCH 24.8 L RDW 17.3 H Sodium 135 L Carbon Dioxide 33 H BUN 20 H Glucose 113 H POC Glucose (mg/dL) Calcium 8.0 L ALT 39 H Troponin I 0.050 H* Total Protein 5.2 L Albumin 2.7 L Urine Appearance Urine Protein Urine Blood Ur Leukocyte Esterase Urine RBC Urine WBC Urine WBC Clumps Urine Mucus Urine Yeast (Budding) Urine Opiates Screen 02/18/24 02/18/24 07:56 12:17 Hgb Hct MCV MCH RDW Sodium Carbon Dioxide BUN Glucose POC Glucose (mg/dL) 60 L Calcium ALT Troponin I Total Protein Albumin Urine Appearance Turbid H Urine Protein 1+ H Urine Blood Large H Ur Leukocyte Esterase Large H Urine RBC >182 H Urine WBC >182 H Urine WBC Clumps Few H Urine Mucus Moderate H Urine Yeast (Budding) Many H Urine Opiates Screen Detected H Assessment and Plan Assessment: * Syncopal spell versus seizure, likely due to hypoglycemia. Patient's blood sugar was 60 when checked by the EMS (after she has received glucagon at the nursing facility before EMS was called). Therefore she probably had lower glucose at the onset of symptoms. * History of severe left ICA stenosis. History of right ICA stenting * Abnormal chest x-ray, rule out pneumonia * Diabetic ulcer right foot. * Osteomyelitis right foot * History of left AKA * Diabetes * Hyperlipidemia * Hypertension * Diabetic peripheral neuropathy Plan: * Patient had a CTA head and neck performed 10/16/2023, which revealed proximal right ICA stent in the proximal stent stenosis of approximately 50-60%. Persistent severe 70-75% stenosis of the proximal left ICA. Heavily calcified plaques in the axillary portion of the subclavian arteries and significant stenosis are likely. There's been no change as compared to 05/22/2023 study. Vascular surgery consult. * Patient's syncopal episode/seizure was likely from hypoglycemia. Family declined checking EEG. * Patient has possible pneumonia for which patient is on Invanz. ID following. * Resume dual antiplatelet medication including aspirin 81 mg, Plavix 75 mg and Lipitor 80 mg (all home medications). * Hemoglobin A1c 8.9 on 12/13/2023. Recommend optimize control of diabetes to target A1c < 7.0. Avoid hypoglycemia. * DVT prophylaxis: Patient on heparin 5000 units subcu every 12 hour. * Dr. Marbin Duke Will resume neurology service from Monday. Thank you for the consult.
[2024-02-19] MEDS: IPRATROPIUM-ALBUTEROL 3 ML NEB INHALATION PRN (04:19)
[2024-02-19 05:23] LABS: Glucose,Whole Blood 173 mg/dL (70-110)
[2024-02-19] MEDS: GABAPENTIN 300 MG CAP PO SCH (05:25)
[2024-02-19 06:18] LABS: Glucose,Whole Blood 159 mg/dL (70-110)
[2024-02-19 07:38] LABS: Anisocytosis Slight; Basophils # (A) 0.1 k/uL (0-0.2); Basophils % (A) 1 %; Eosinophils # (A) 0.3 k/uL (0-0.7); Eosinophils % (A) 2 %; HGB 9.2 gm/dL (11.4-16.0); Hypochromasia Marked; Lymphocytes # (A) 1.4 k/uL (1.0-4.8); Lymphocytes % (A) 12 %; MCHC 30.6 g/dL (31.0-37.0); MCV 78.5 fL (80.0-100.0); Mean Platelet Volume 6.7; Microcytosis Slight; Monocytes # (A) 0.5 k/uL (0-1.0); Monocytes % (A) 5 %; Neutrophils # (A) 8.9 k/uL (1.3-7.7); Neutrophils % (A) 79 %; Platelet Count 366 k/uL (150-450); Poikilocytosis Slight; RBC 3.83 m/uL (3.80-5.40); RDW 17.1 % (11.5-15.5); WBC 11.2 k/uL (3.8-10.6)
[2024-02-19 09:10] LABS: ALT 34 U/L (4-34); AST 29 U/L (14-36); African American GFR (CKD) >90 (>60 ml/min/1.73 sqM); Alkaline Phosphatase 130 U/L (38-126); Anion Gap 4 mmol/L; Blood Urea Nitrogen 14 mg/dL (7-17); C Reactive Protein 3.5 mg/dL (<1.0); Calcium 8.4 mg/dL (8.4-10.2); Carbon Dioxide 28 mmol/L (22-30); Chloride 102 mmol/L (98-107); Glucose 140 mg/dL (74-99); Non-African American GFR(CKD) >90 (>60 ml/min/1.73 sqM); Potassium 4.5 mmol/L (3.5-5.1); Sodium 134 mmol/L (137-145); Total Bilirubin 0.5 mg/dL (0.2-1.3); Total Protein 5.6 g/dL (6.3-8.2)
[2024-02-19] MEDS: LEVOTHYROXINE 50 MCG TAB PO SCH (09:13)
[2024-02-19] MEDS: SENNOSIDES-DOCUSATE SODIUM 1 EACH TAB PO SCH (09:14)
[2024-02-19] MEDS: SERTRALINE 100 MG TAB PO SCH (09:14)
[2024-02-19] MEDS: PANTOPRAZOLE 40 MG/10 ML VIAL IV SCH (09:14)
[2024-02-19] MEDS: IPRATROPIUM-ALBUTEROL 3 ML NEB INHALATION SCH (11:26)
[2024-02-19 11:31] LABS: Glucose,Whole Blood 245 mg/dL (70-110)
[2024-02-19] MEDS ORDERED: DEXTROSE 50% SYRINGE 50 ML IVP PRN ×2 (11:32)
--- NOTE | 2024-02-19 12:18 | P.GSCN ---
History of Present Illness Consult date: 02/19/24 Reason for Consult: Recent AKA, stump trauma program manager removed from infectious disease Requesting physician: Milagros Gomez History of present illness: This is a 84-year-old female known to vascular service who underwent recent owrxb-est-trye amputation on 02/06/[address] Rodarte and was discharged to [facility] for subacute rehab. Apparently patient had some altered mental status changes and was found nearly nonresponsive and was also found to have a low blood sugar and shortness of breath. She was brought into the emergency department for further evaluation. She was admitted with positive urinalysis and chest x-ray suspicious for pneumonia. Infectious disease was consulted for further antibiotic recommendations. Will nursing reports that while infectious disease was seeing patient they took her stump trauma program manager off her [id number] amputation site and the nurse on yesterday was not able to put on the stump trauma program manager, she notified the medicine team who then consulted vascular surgery. Patient does state that she continues to have phantom pain on the left lower extremity. She is scheduled to see Dr. Munguia next week. She is without. Surgical site healing well no drainage or redness. Patient has been afebrile. Patient currently having some wheezing with increased respiratory effort. She is alert and oriented x 3. Review of Systems A 14 point review systems was completed all pertinent positives and negatives as stated in the HPI. Past Medical History Past Medical History: Cancer, Diabetes Mellitus, Hearing Disorder / Deafness, Hyperlipidemia, Hypertension, Osteoarthritis (OA), Thyroid Disorder Additional Past Medical History / Comment(s): Slight hearing trouble. Currently in wheelchair, unable to stand or walk. Hx left breast cancer. "Bad right hip, may need replacement." History of Any Multi-Drug Resistant Organisms: None Reported Past Surgical History: Breast Surgery, Hysterectomy, Joint Replacement, Orthopedic Surgery Additional Past Surgical History / Comment(s): Left breast biopsy X3, right breast biopsy X2, ductogram, ORIF right lower leg with plate, total left hip replacement, left breast lumpectomy., L AKA, PICC line placement Past Anesthesia/Blood Transfusion Reactions: No Reported Reaction Past Psychological History: Anxiety, Depression Smoking Status: Never smoker Past Alcohol Use History: None Reported Past Drug Use History: None Reported - Past Family History Sister(s) Family Medical History: Cancer Additional Family Medical History / Comment(s): BREAST CANCER. Medications and Allergies Home Medications Medication Instructions Recorded Confirmed Type INSULIN LISPRO (HumaLOG) [humaLOG] See Protocol SQ AC-TID@07,11,16 12/28/16 02/18/24 History Levothyroxine Sodium [Synthroid] 50 mcg PO DAILY@0800 12/28/16 02/18/24 History Losartan/Hydrochlorothiazide 1 tab PO DAILY@0812/28/16 02/18/24 History [Losartan-Hctz 100-12.5 mg Tab] Sertraline [Zoloft] 100 mg PO DAILY@03/16/02/18/24 History Anastrozole 1 mg PO DAILY@79905/19/23 02/18/24 History Latanoprost Ophth [Xalatan 0.005%] 1 drop BOTH EYES HS@209905/19/23 02/18/24 History Loratadine [Claritin] 10 mg PO DAILY@0800 05/19/23 02/18/24 History buPROPion XL [Wellbutrin XL] 150 mg PO DAILY@0805/19/23 02/18/24 History Melatonin 6 mg PO HS PRN tab 05/24/23 02/18/24 Rx Insulin Detemir (Levemir) [Levemir] 20 unit SQ BID@0700,209908/03/23 02/18/24 History Magnesium Hydroxide [Milk of 7,200 ml PO DAILY PRN 08/03/23 02/18/24 History Magnesia Concentrate] Meloxicam [Mobic] 7.5 mg PO DAILY@0808/03/23 02/18/24 History Na Phos,M-B/Na Phos,Di-Ba [Fleet 133 ml RECTAL DAILY PRN 08/03/23 02/18/24 History Adult] bisacodyL [Dulcolax] 10 mg RECTAL DAILY PRN 08/03/23 02/18/24 History Atorvastatin Calcium [Lipitor] 80 mg PO HS@209901/31/24 02/18/24 History Baclofen [Lioresal] 10 mg PO TID@0800,1400,2200 01/31/24 02/18/24 History Biofreeze (Unknown) 1 applic TOPICAL TID 01/31/24 02/18/24 History Caldesene Baby Powder 1 applic TOPICAL BID 01/31/24 02/18/24 History Collagenase [Santyl Ointment] 1 applic TOPICAL DAILY 01/31/24 02/18/24 History Collagenase [Santyl Ointment] 1 applic TOPICAL DAILY 01/31/24 02/18/24 History Famotidine [Pepcid] 20 mg PO DAILY@0801/31/24 02/18/24 History Gabapentin 300 mg PO TID@06,14,01/31/24 02/18/24 History Dominic Packet 1 packet PO BID-W/MEALS 01/31/24 02/18/24 History Lidocaine 5% Cream 1 applic TOPICAL WE@79901/31/24 02/18/24 History Liquacal 30 ml PO BID@0800,1700 01/31/24 02/18/24 History Multivitamins, Thera [Multivitamin 1 tab PO DAILY 01/31/24 02/18/24 History (formulary)] Sodium Chloride [Saline Nasal Mist] 2 spray EA NOSTRIL DAILY@79901/31/24 02/18/24 History amLODIPine [Norvasc] 10 mg PO DAILY@169901/31/24 02/18/24 History rOPINIRole HCL [Requip] 0.5 mg PO BID@1200,2100 01/31/24 02/18/24 History traZODone HCL [Desyrel] 50 mg PO HS@199901/31/24 02/18/24 History Acetaminophen Tab [Tylenol] 650 mg PO TID@08,14,22 02/18/24 02/18/24 History Aspirin 81 mg PO DAILY@79902/18/24 02/18/24 History Clopidogrel [Plavix] 75 mg PO DAILY@79902/18/24 02/18/24 History Ertapenem [INVanz] 1 gm IVPB DAILY@79902/18/24 02/18/24 History HYDROcodone/APAP 7.5-325MG [Floyd 1 tab PO QID@00,06,12,18 02/18/24 02/18/24 History 7.5-325] Sennosides/Docusate Sodium [Senna 1 cap PO BID@0800,1700 02/18/24 02/18/24 History Plus 8.6-50 mg Softgel] carvediloL [Coreg] 6.25 mg PO BID@0800,1700 02/18/24 02/18/24 History Allergies Allergy/AdvReac Type Severity Reaction Status Date / Time No Known Allergies Allergy Verified 02/18/24 12:46 Surgical - Exam Vital Signs Pulse Resp BP Pulse Ox 66 18 108/49 100 02/18/24 06:59 02/18/24 06:59 02/18/24 06:59 02/18/24 06:59 General appearance: The patient is alert, oriented, appears in no acute distress. Morbidly obese. HET: Head is normocephalic and atraumatic. Pupils are equal and reactive. Neck: Supple. Heart: Regular. Lungs: Equal expansion, increased respiratory effort. Abdomen: Soft, nontender, nondistended. Extremities: Left ymxkv-okh-gsxz amputation surgical site well-approximated with jose maria without any swelling, redness or drainage. Left foot with diabetic ulcer to the medial aspect with escar and 2 to the lateral aspect down to subcutaneous tissue Neurological: No focal deficits. Results - Labs 02/19/24 07:09 02/19/24 07:09 Abnormal Lab Results - Last 24 Hours (Table) 02/18/24 02/18/24 02/18/24 Range/Units 12:17 20:03 20:56 WBC (3.8-10.6) k/uL Hgb (11.4-16.0) gm/dL Hct (34.0-46.0) % MCV (80.0-100.0) fL MCH (25.0-35.0) pg MCHC (31.0-37.0) g/dL RDW (11.5-15.5) % Neutrophils # (1.3-7.7) k/uL D-Dimer (<0.60) mg/L FEU Sodium (137-145) mmol/L Creatinine (0.52-1.04) mg/dL Glucose (74-99) mg/dL POC Glucose (mg/dL) 60 L 116 H 120 H (70-110) mg/dL Alkaline Phosphatase (38-126) U/L C-Reactive Protein (<1.0) mg/dL Total Protein (6.3-8.2) g/dL Albumin (3.5-5.0) g/dL 07/02/19/24 02/19/24 Range/Units 22:20 05:21 06:16 WBC (3.8-10.6) k/uL Hgb (11.4-16.0) gm/dL Hct (34.0-46.0) % MCV (80.0-100.0) fL MCH (25.0-35.0) pg MCHC (31.0-37.0) g/dL RDW (11.5-15.5) % Neutrophils # (1.3-7.7) k/uL D-Dimer 1.23 H (<0.60) mg/L FEU Sodium (137-145) mmol/L Creatinine (0.52-1.04) mg/dL Glucose (74-99) mg/dL POC Glucose (mg/dL) 173 H 159 H (70-110) mg/dL Alkaline Phosphatase (38-126) U/L C-Reactive Protein (<1.0) mg/dL Total Protein (6.3-8.2) g/dL Albumin (3.5-5.0) g/dL 02/19/24 02/19/24 Range/Units 07:09 07:09 WBC 11.2 H (3.8-10.6) k/uL Hgb 9.2 L (11.4-16.0) gm/dL Hct 30.0 L (34.0-46.0) % MCV 78.5 L (80.0-100.0) fL MCH 24.0 L (25.0-35.0) pg MCHC 30.6 L (31.0-37.0) g/dL RDW 17.1 H (11.5-15.5) % Neutrophils # 8.9 H (1.3-7.7) k/uL D-Dimer (<0.60) mg/L FEU Sodium 134 L (137-145) mmol/L Creatinine 0.42 L (0.52-1.04) mg/dL Glucose 140 H (74-99) mg/dL POC Glucose (mg/dL) (70-110) mg/dL Alkaline Phosphatase 130 H (38-126) U/L C-Reactive Protein 3.5 H (<1.0) mg/dL Total Protein 5.6 L (6.3-8.2) g/dL Albumin 3.0 L (3.5-5.0) g/dL Diabetes panel 02/19/24 Range/Units 07:09 Sodium 134 L (137-145) mmol/L Potassium 4.5 (3.5-5.1) mmol/L Chloride 102 (98-107) mmol/L Carbon Dioxide 28 (22-30) mmol/L BUN 14 (7-17) mg/dL Creatinine 0.42 L (0.52-1.04) mg/dL Glucose 140 H (74-99) mg/dL Calcium 8.4 (8.4-10.2) mg/dL AST 29 (14-36) U/L ALT 34 (4-34) U/L Alkaline Phosphatase 130 H (38-126) U/L Total Protein 5.6 L (6.3-8.2) g/dL Albumin 3.0 L (3.5-5.0) g/dL Calcium panel 02/19/24 Range/Units 07:09 Calcium 8.4 (8.4-10.2) mg/dL Albumin 3.0 L (3.5-5.0) g/dL Pituitary panel 02/19/24 Range/Units 07:09 Sodium 134 L (137-145) mmol/L Potassium 4.5 (3.5-5.1) mmol/L Chloride 102 (98-107) mmol/L Carbon Dioxide 28 (22-30) mmol/L BUN 14 (7-17) mg/dL Creatinine 0.42 L (0.52-1.04) mg/dL Glucose 140 H (74-99) mg/dL Calcium 8.4 (8.4-10.2) mg/dL Adrenal panel 02/19/24 Range/Units 07:09 Sodium 134 L (137-145) mmol/L Potassium 4.5 (3.5-5.1) mmol/L Chloride 102 (98-107) mmol/L Carbon Dioxide 28 (22-30) mmol/L BUN 14 (7-17) mg/dL Creatinine 0.42 L (0.52-1.04) mg/dL Glucose 140 H (74-99) mg/dL Calcium 8.4 (8.4-10.2) mg/dL Total Bilirubin 0.5 (0.2-1.3) mg/dL AST 29 (14-36) U/L ALT 34 (4-34) U/L Alkaline Phosphatase 130 H (38-126) U/L Total Protein 5.6 L (6.3-8.2) g/dL Albumin 3.0 L (3.5-5.0) g/dL Assessment and Plan Assessment: 1. Recent left gjxha-jmu-ywxq amputation, well-healing 2. Peripheral arterial disease 3. Right foot diabetic ulcers Plan: Apply clean stump trauma program manager and rigid dressing. Patient's daughter is at the bedside and was asked to bring in patient's other clean stump trauma program manager from [facility]. There is no indication for any other vascular surgical intervention. Incision well-healing, continue local wound care to right foot ulcers and continue outpatient wound care. Thank you for this consultation, we will sign off at this time. The impression and plan of care has been dictated as directed. I performed a history and examination of this patient, discussed the same with the dictator. I agree with the dictator's note ,documented as a scribe. Any additional findings or plans will be noted.
[2024-02-19] MEDS: INSULIN ASPART (NovoLOG) 100 UNIT/ML VIAL SQ SCH (12:50)
[2024-02-19] MEDS: FUROSEMIDE 10 MG/ML 4 ML VIAL IV SCH (12:50)
--- NOTE | 2024-02-19 14:25 | P.CNPUL ---
History of Present Illness Consult date: 02/19/24 Requesting physician: Joaquin Levine Reason for consult: dyspnea, hypoxemia Chief complaint: Altered mental status History of present illness: This is an 84-year-old female patient with a known history of diabetes mellitus, hearing disorder, hyperlipidemia, hypertension, hypothyroidism, breast cancer status post left lumpectomy, peripheral vascular disease. She was recently here for severe gangrenous change in the left heel, unstageable and had undergone an fjwlx-sqs-admu amputation. Wound culture was positive for ESBL Proteus and she was to receive 6 weeks of IV antibiotics. She was discharged to a local ECF on February 09, 2024 and they brought her back here yesterday February 18, 2024 with a ltered mental status. CT scan of the brain revealed moderate generalized atrophy. Mild to moderate chronic ischemic white matter demyelination. No acute bleed or mass effect. Chest x-ray reveals a limited study with opacity in the right lung base suspicious for pneumonia. CT angiogram however revealed large bilateral pleural effusions. Consider congestive heart failure. No central pulmonary emboli. Bilateral pneumonia cannot be excluded. White count 11.2. Hemoglobin 9.2. Platelets 363. Sodium 134. Potassium 4.5. Bicarb 28. BUN 14. Creatinine 0.42. Glucose 140. Procalcitonin 1.24. She is been initiated on DuoNeb inhalations, ertapenem, heparin for DVT prophylaxis. Currently on IV diuretics. Normal saline at KVO. Review of Systems ROS unobtainable: due to mental status Past Medical History Past Medical History: Cancer, Diabetes Mellitus, Hearing Disorder / Deafness, Hyperlipidemia, Hypertension, Osteoarthritis (OA), Thyroid Disorder Additional Past Medical History / Comment(s): Slight hearing trouble. Currently in wheelchair, unable to stand or walk. Hx left breast cancer. "Bad right hip, may need replacement." History of Any Multi-Drug Resistant Organisms: None Reported Past Surgical History: Breast Surgery, Hysterectomy, Joint Replacement, Orthopedic Surgery Additional Past Surgical History / Comment(s): Left breast biopsy X3, right breast biopsy X2, ductogram, ORIF right lower leg with plate, total left hip replacement, left breast lumpectomy., L AKA, PICC line placement Past Anesthesia/Blood Transfusion Reactions: No Reported Reaction Past Psychological History: Anxiety, Depression Smoking Status: Never smoker Past Alcohol Use History: None Reported Past Drug Use History: None Reported - Past Family History Sister(s) Family Medical History: Cancer Additional Family Medical History / Comment(s): BREAST CANCER. Medications and Allergies Home Medications Medication Instructions Recorded Confirmed Type INSULIN LISPRO (HumaLOG) [humaLOG] See Protocol SQ AC-TID@07,11,16 12/28/16 02/18/24 History Levothyroxine Sodium [Synthroid] 50 mcg PO DAILY@0800 12/28/16 02/18/24 History Losartan/Hydrochlorothiazide 1 tab PO DAILY@0800 12/28/16 02/18/24 History [Losartan-Hctz 100-12.5 mg Tab] Sertraline [Zoloft] 100 mg PO DAILY@0800 03/16/02/18/24 History Anastrozole 1 mg PO DAILY@0800 05/19/23 02/18/24 History Latanoprost Ophth [Xalatan 0.005%] 1 drop BOTH EYES HS@209905/19/23 02/18/24 History Loratadine [Claritin] 10 mg PO DAILY@0800 05/19/23 02/18/24 History buPROPion XL [Wellbutrin XL] 150 mg PO DAILY@0800 05/19/23 02/18/24 History Melatonin 6 mg PO HS PRN tab 05/24/23 02/18/24 Rx Insulin Detemir (Levemir) [Levemir] 20 unit SQ BID@0700,2100 08/03/23 02/18/24 History Magnesium Hydroxide [Milk of 7,200 ml PO DAILY PRN 08/03/23 02/18/24 History Magnesia Concentrate] Meloxicam [Mobic] 7.5 mg PO DAILY@0800 08/03/23 02/18/24 History Na Phos,M-B/Na Phos,Di-Ba [Fleet 133 ml RECTAL DAILY PRN 08/03/23 02/18/24 History Adult] bisacodyL [Dulcolax] 10 mg RECTAL DAILY PRN 08/03/23 02/18/24 History Atorvastatin Calcium [Lipitor] 80 mg PO HS@2100 01/31/24 02/18/24 History Baclofen [Lioresal] 10 mg PO TID@0800,1400,2200 01/31/24 02/18/24 History Biofreeze (Unknown) 1 applic TOPICAL TID 01/31/24 02/18/24 History Caldesene Baby Powder 1 applic TOPICAL BID 01/31/24 02/18/24 History Collagenase [Santyl Ointment] 1 applic TOPICAL DAILY 01/31/24 02/18/24 History Collagenase [Santyl Ointment] 1 applic TOPICAL DAILY 01/31/24 02/18/24 History Famotidine [Pepcid] 20 mg PO DAILY@79901/31/24 02/18/24 History Gabapentin 300 mg PO TID@06,,01/31/24 02/18/24 History Dominic Packet 1 packet PO BID-W/MEALS 01/31/24 02/18/24 History Lidocaine 5% Cream 1 applic TOPICAL WE@79901/31/24 02/18/24 History Liquacal 30 ml PO BID@0800,1700 01/31/24 02/18/24 History Multivitamins, Thera [Multivitamin 1 tab PO DAILY 01/31/24 02/18/24 History (formulary)] Sodium Chloride [Saline Nasal Mist] 2 spray EA NOSTRIL DAILY@79901/31/24 02/18/24 History amLODIPine [Norvasc] 10 mg PO DAILY@1700 01/31/24 02/18/24 History rOPINIRole HCL [Requip] 0.5 mg PO BID@1200,2100 01/31/24 02/18/24 History traZODone HCL [Desyrel] 50 mg PO HS@199901/31/24 02/18/24 History Acetaminophen Tab [Tylenol] 650 mg PO TID@08,14,02/18/24 02/18/24 History Aspirin 81 mg PO DAILY@79902/18/24 02/18/24 History Clopidogrel [Plavix] 75 mg PO DAILY@79902/18/24 02/18/24 History Ertapenem [INVanz] 1 gm IVPB DAILY@79902/18/24 02/18/24 History HYDROcodone/APAP 7.5-325MG [Lilly 1 tab PO QID@00,06,12,18 02/18/24 02/18/24 History 7.5-325] Sennosides/Docusate Sodium [Senna 1 cap PO BID@0800,1700 02/18/24 02/18/24 History Plus 8.6-50 mg Softgel] carvediloL [Coreg] 6.25 mg PO BID@0800,1700 02/18/24 02/18/24 History Allergies Allergy/AdvReac Type Severity Reaction Status Date / Time No Known Allergies Allergy Verified 02/18/24 12:46 Physical Exam Vitals: Vital Signs Temp Pulse Pulse Resp BP BP Pulse Ox 02/19/24 11:35 77 20 02/19/24 11:27 74 20 02/19/24 08:38 70 18 02/19/24 08:29 69 16 96 02/19/24 08:00 97.5 F L 73 18 174/53 93 L 02/19/24 04:29 68 02/19/24 04:19 69 02/19/24 04:00 98 F 71 18 162/64 97 02/19/24 00:20 98 F 71 16 127/63 96 02/19/24 00:14 74 02/19/24 00:04 73 02/18/24 21:57 92 L 02/18/24 21:54 88 L 02/18/24 20:31 97.7 F 79 20 184/67 92 L 02/18/24 18:25 97.7 F 70 16 147/54 97 02/18/24 14:14 97.6 F 61 18 153/62 98 Intake and Output 02/18/24 02/19/24 02/19/24 22:59 06:59 14:59 Intake Total 118 118 Output Total 450 475 Balance -332 -357 Intake: Oral 118 118 Output: Urine 450 475 Other: Voiding Method Indwelling Catheter Indwelling Catheter Indwelling Catheter # Bowel Movements 1 Weight 89 kg GENERAL EXAM: Alert, confused, poor historian, 84-year-old female, on 4 L nasal cannula, fairly comfortable in no apparent distress. HEAD: Normocephalic. EYES: Normal reaction of pupils, equal size. NOSE: Clear with pink turbinates. THROAT: No erythema or exudates. NECK: No masses, no JVD. CHEST: No chest wall deformity. LUNGS: Equal air entry with bibasilar crackles, diminished. CVS: S1 and S2 normal with no audible murmur, regular rhythm. ABDOMEN: No hepatosplenomegaly, normal bowel sounds, no guarding or rigidity. SPINE: No scoliosis or deformity SKIN: No rashes CENTRAL NERVOUS SYSTEM: No focal deficits, tone is normal in all 4 extremities. EXTREMITIES: Left swxih-raf-asjf amputation, right lateral foot wound dressing dry and intact. There is 1+ peripheral edema. Peripheral pulses are intact. Results - Laboratory Findings CBC and BMP: 02/19/24 07:09 02/19/24 07:09 PT/INR, D-dimer PT 12.1 sec (10.0-12.5) 02/18/24 07: INR 1.1 (<1.2) 02/18/24 07: D-Dimer 1.23 mg/L FEU (<0.60) H 02/18/24 22:20 Abnormal lab findings: Abnormal Labs 02/18/24 02/18/24 02/18/24 07: 07: 07:28 WBC Hgb 9.5 L Hct 29.9 L MCV 77.7 L MCH 24.8 L MCHC RDW 17.3 H Neutrophils # D-Dimer Sodium 135 L Carbon Dioxide 33 H BUN 20 H Creatinine Glucose 113 H POC Glucose (mg/dL) Calcium 8.0 L ALT 39 H Alkaline Phosphatase Troponin I 0.050 H* C-Reactive Protein Total Protein 5.2 L Albumin 2.7 L Procalcitonin Urine Appearance Urine Protein Urine Blood Ur Leukocyte Esterase Urine RBC Urine WBC Urine WBC Clumps Urine Mucus Urine Yeast (Budding) Urine Opiates Screen 02/18/24 02/18/24 02/18/24 07:56 12:17 20:03 WBC Hgb Hct MCV MCH MCHC RDW Neutrophils # D-Dimer Sodium Carbon Dioxide BUN Creatinine Glucose POC Glucose (mg/dL) 60 L 116 H Calcium ALT Alkaline Phosphatase Troponin I C-Reactive Protein Total Protein Albumin Procalcitonin Urine Appearance Turbid H Urine Protein 1+ H Urine Blood Large H Ur Leukocyte Esterase Large H Urine RBC >182 H Urine WBC >182 H Urine WBC Clumps Few H Urine Mucus Moderate H Urine Yeast (Budding) Many H Urine Opiates Screen Detected H 02/18/24 02/18/24 02/19/24 20:56 22:20 05:21 WBC Hgb Hct MCV MCH MCHC RDW Neutrophils # D-Dimer 1.23 H Sodium Carbon Dioxide BUN Creatinine Glucose POC Glucose (mg/dL) 120 H 173 H Calcium ALT Alkaline Phosphatase Troponin I C-Reactive Protein Total Protein Albumin Procalcitonin Urine Appearance Urine Protein Urine Blood Ur Leukocyte Esterase Urine RBC Urine WBC Urine WBC Clumps Urine Mucus Urine Yeast (Budding) Urine Opiates Screen 02/19/24 02/19/24 02/19/24 06:16 07:09 07:09 WBC 11.2 H Hgb 9.2 L Hct 30.0 L MCV 78.5 L MCH 24.0 L MCHC 30.6 L RDW 17.1 H Neutrophils # 8.9 H D-Dimer Sodium 134 L Carbon Dioxide BUN Creatinine 0.42 L Glucose 140 H POC Glucose (mg/dL) 159 H Calcium ALT Alkaline Phosphatase 130 H Troponin I C-Reactive Protein 3.5 H Total Protein 5.6 L Albumin 3.0 L Procalcitonin Urine Appearance Urine Protein Urine Blood Ur Leukocyte Esterase Urine RBC Urine WBC Urine WBC Clumps Urine Mucus Urine Yeast (Budding) Urine Opiates Screen 02/19/24 02/19/24 07:09 11:28 WBC Hgb Hct MCV MCH MCHC RDW Neutrophils # D-Dimer Sodium Carbon Dioxide BUN Creatinine Glucose POC Glucose (mg/dL) 245 H Calcium ALT Alkaline Phosphatase Troponin I C-Reactive Protein Total Protein Albumin Procalcitonin 1.24 H Urine Appearance Urine Protein Urine Blood Ur Leukocyte Esterase Urine RBC Urine WBC Urine WBC Clumps Urine Mucus Urine Yeast (Budding) Urine Opiates Screen - Diagnostic Findings Chest x-ray: image reviewed Assessment and Plan Assessment: Altered mental status of unclear etiology being treated for Proteus mirabilis right foot infection in the outpatient setting and remains on Invanz Acute hypoxic respiratory failure suspect secondary to fluid volume overload versus healthcare acquired pneumonia Recent hospitalization for osteomyelitis of the left heel with unstageable wounds, status post left rytqb-dgu-gaci amputation on 02/06/2024 graft coronary artery disease with previous stent placement Chronic pain syndrome Diabetes mellitus CVA with left-sided weakness Chronic pain syndrome History of breast cancer previous left lumpectomy Hypertension Hyperlipidemia Hypothyroidism Resides at [facility] Poor overall functional performance based on the above-mentioned multiple comorbidities Plan: The patient was seen and evaluated Imaging, labs and medications reviewed Currently on 4 L nasal cannula Titrate the FiO2 as tolerated Remains on antibiotics in the form of Invanz Remains on IV diuretics Continue DAPT broncho for DVT prophylaxis DNR/DNI CODE STATUS We will continue to follow and make further recommendations based on her clinical status I have personally seen and examined the patient, performed the documentation and the assessment and plan as written. Number of minutes spent on the visit: 20.
[2024-02-19 16:24] LABS: Glucose,Whole Blood 200 mg/dL (70-110)
[2024-02-19 17:06] LABS: Erythrocyte Sedimentation Rate 50 mm/Hr (0-30)
[2024-02-19] MEDS: amLODIPine 10 MG TAB PO SCH (17:25)
[2024-02-19 19:56] LABS: Glucose,Whole Blood 214 mg/dL (70-110)
--- NOTE | 2024-02-19 23:34 | P.PN ---
Subjective Progress Note Date: 02/19/24 HISTORY OF PRESENT ILLNESS: 84-year-old with active medical history of type 2 diabetes, left-sided breast cancer, hypertension, hyperlipidemia, chronic depression, lower back pain, severe spinal stenosis, severe peripheral vascular disease with severe carotid stenosis, history of coronary artery disease post PCI and stent placement of the LAD back in May 2023 who also had right transcarotid artery revascularization with stenting July 2023, she developed to have gangrenous the left leg post left above-knee amputation with debridement of the right heel came back with ESBL was sent to [facility] upon her discharge on 02/09/2024 on ertapenem 1 g every 24 hours for total of 42 days. 02/18/2024 she developed to have significant change in status on the weekend was discovered she was not acting right and the been transferred to [facility] for evaluation and assessment was seen and evaluated was complaining of suprapubic pain and discomfort with decreased urine output over the last few days found to have white blood cell of 6000 hemoglobin of 9.5's D-dimer was mildly elevated electrolytes with creatinine 0.58 blood sugar was normal urine was loaded and positive was drug screen was positive for opiates which patient is taking pain meds and [place]. She was to continue ertapenem in the hospital with indwelling catheter antibiotic seen infectious disease which believes she had dehydration and the possibility of UTI and possible respiratory infection urine mostly shows yeast chest x-ray did not show any major abnormality except atelectasis local wound still showing right foot have lateral border wound with Santyl and moist dressing with no increased drainage. Culture was done infectious disease believe this is still might be right foot early osteomyelitis slightly UTI. Continue ertapenem waiting for the final culture at this point. REVIEW OF SYSTEMS: CONSTITUTIONAL: Morbidly obese lying in bed in quite good pain no acute respiratory distress. Slightly confused EYES: No icterus sclerae, no conjunctivitis. EARS, NOSE, MOUTH, THROAT, and FACE: No sore throat, lymphadenopathy, carotid bruits or deformity. RESPIRATORY: Mild shortness of breath no cough or wheezes. CARDIOVASCULAR: Positive PND orthopnea palpitation no angina. GASTROINTESTINAL: No Abd pain, Nausea or vomiting, no Diarrhea or constipation, No GI Bleed, no distention or masses. GENITOURINARY: Negative for Hematuria or UTI, no kidney stones. INTEGUMENT/BREAST: Left above-knee amputation with right foot lateral small gangrenous change still have a dressing. HEMATOLOGIC/LYMPHATIC: Negative for bleed or purpura. History of left-sided breast cancer. MUSCULOSKELTAL: Negative for Myalgia or arthralgia. Left above-knee amputation with debridement of the right side the stump area does not have any bleed. NEURLOGICAL: Significantly confused moving all 4 extremity BEHAVIORAL/PSYCH: Negative. ENDOCRINE: Negative. PHYSICAL EXAMINATION: General Appearance: Obese lying in bed no distress slightly confused. Neck HEENT: Supple, no lymphadenopathy, no thyroid enlargement, no carotid bruits. Lungs: Clear to auscultation without crackles or wheezes no rhonchi, no deformity. Chest Wall: Decreased expansion with deep inspiration no tenderness and no deformity was found on exam, no costochondral pain or discomfort. Heart: Regular rate and rhythm, S1, S2 positive S3 positive systolic murmur. Back: Symmetric, with scoliosis and kyphosis with mild tenderness in lower lumbar area. Abdomen: Soft, non-tender, bowel sounds active all four quadrants, no masses, no organomegaly. Extremities: Left side above-knee amputation right side had debridement of the heel with lateral dressing with slightly change no drainage. Pulses: No palpable pulse in both lower extremity. Skin: Skin color, texture, tugor normal, no rashes or lesions. Neurologic: Alert oriented severe confusion cranial nerves II through XII intact, generalized weakness with severe stiffness muscular james. ASSESSMENT AND PLAN: _Sepsis: Not a clear etiology could be also in the right foot but with urinary tract infection, culture is done waiting for final result, continue ertapenem for now still seen infectious disease. _UTI: Still avoid any urinary retention with indwelling catheter continue antibiotic for now. _Gangrenous change of the right foot with recent debridement culture was positive for ESBL more specific for ertapenem which still watch by infectious disease. _Severe osteomyelitis of left leg post above-knee amputation stump still to be watched by vascular. _Change mental status with episode was not agreeable either syncope, seizure or other she was quite hypoglycemic at the time with blood sugar in the 60s continue to treat the blood sugar. Under control she is known to have left internal carotid stenosis with right carotid stenting in the past continue to see infectious disease continue current workup apparently family do not want patient to have EEG CAT scan was done already. Optimize management for CVA Aspirin antiplatelet agent along with atorvastatin and still optimize management for diabetes and blood sugar as well. _Type 2 diabetes: Was on Levemir and NovoLog per sliding scales coverage continue to watch blood sugar carefully and adjust medication probably slow down on the longer acting insulin slight bed. _Severe coronary artery disease post angioplasty and stent placement of the LAD back in May 2023 patient seen cardiology with no symptoms of chest pain or angina antiplatelet agent will be held for the surgery but continue aspirin. She is not having any chest pain or angina still on secondary prevention with better control blood pressure, blood sugar and cholesterol. _Chronic pain syndrome: Continue hydrocodone on as-needed basis for now along with muscle relaxer. _Iron deficiency anemia: Worsening so far with the infection and amputation hemoglobin still above 7 no need for transfusion but continue iron and multivi tamin. _Residual stroke with significant weakness affecting the left side more than the right side. No change at this point. _Severe carotid stenosis post right-sided carotid stenting. No major finding or complaint _History of breast cancer: Was seen oncology regularlyStill on anastrozole 1 mg daily. Breast cancer is in remission no sign of metastasis. _Hypertension: Continue Coreg 6.25 mg twice a day, amlodipine 10 mg daily, losartan hydrochlorothiazide 100/12.5 mg daily. Continue tighter control blood pressure below 130/80. _Hyperlipidemia: Resume atorvastatin at 80 mg daily. _Hypothyroidism: Continue Synthroid 50 mcg daily. _Severe spinal stenosis and lower back pain has been on medical management only still on pain meds along with gabapentin. No surgical intervention. _Chronic depression: Has been on trazodone 50 mg at bedtime along with Wellbutrin 150 mg daily Zoloft 100 mg a day. _Restless leg syndrome: Still on Requip 0.5 mg twice a day. Objective - Vital Signs Vital signs: Vital Signs Temp 98 F 02/19/24 04:00 Pulse 68 02/19/24 04:29 Resp 18 02/19/24 04:00 BP 162/64 02/19/24 04:00 Pulse Ox 97 02/19/24 04:00 FiO2 Intake & Output 02/18/24 02/18/24 02/19/24 06:59 18:59 06:59 Intake Total 118 Output Total 450 Balance 118 -450 Weight 90.718 kg 90.718 kg 89 kg Intake: Oral 118 Output: Urine 450 Other: Voiding Method Indwelling Catheter Indwelling Catheter - Labs CBC & Chem 7: 02/19/24 07:09 02/19/24 07:09 Labs: Abnormal Lab Results - Last 24 Hours (Table) 02/18/24 02/18/24 02/18/24 Range/Units 07:28 07: 07:28 Hgb 9.5 L (11.4-16.0) gm/dL Hct 29.9 L (34.0-46.0) % MCV 77.7 L (80.0-100.0) fL MCH 24.8 L (25.0-35.0) pg RDW 17.3 H (11.5-15.5) % D-Dimer (<0.60) mg/L FEU Sodium 135 L (137-145) mmol/L Carbon Dioxide 33 H (22-30) mmol/L BUN 20 H (7-17) mg/dL Glucose 113 H (74-99) mg/dL POC Glucose (mg/dL) (70-110) mg/dL Calcium 8.0 L (8.4-10.2) mg/dL ALT 39 H (4-34) U/L Troponin I 0.050 H* (0.000-0.034) ng/mL Total Protein 5.2 L (6.3-8.2) g/dL Albumin 2.7 L (3.5-5.0) g/dL Urine Appearance (Clear) Urine Protein (Negative) Urine Blood (Negative) Ur Leukocyte Esterase (Negative) Urine RBC (0-5) /hpf Urine WBC (0-5) /hpf Urine WBC Clumps (None) /hpf Urine Mucus (None) /hpf Urine Yeast (Budding) (None) /hpf Urine Opiates Screen (NotDetected) 02/18/24 02/18/24 02/18/24 Range/Units 07:56 12:17 20:03 Hgb (11.4-16.0) gm/dL Hct (34.0-46.0) % MCV (80.0-100.0) fL MCH (25.0-35.0) pg RDW (11.5-15.5) % D-Dimer (<0.60) mg/L FEU Sodium (137-145) mmol/L Carbon Dioxide (22-30) mmol/L BUN (7-17) mg/dL Glucose (74-99) mg/dL POC Glucose (mg/dL) 60 L 116 H (70-110) mg/dL Calcium (8.4-10.2) mg/dL ALT (4-34) U/L Troponin I (0.000-0.034) ng/mL Total Protein (6.3-8.2) g/dL Albumin (3.5-5.0) g/dL Urine Appearance Turbid H (Clear) Urine Protein 1+ H (Negative) Urine Blood Large H (Negative) Ur Leukocyte Esterase Large H (Negative) Urine RBC >182 H (0-5) /hpf Urine WBC >182 H (0-5) /hpf Urine WBC Clumps Few H (None) /hpf Urine Mucus Moderate H (None) /hpf Urine Yeast (Budding) Many H (None) /hpf Urine Opiates Screen Detected H (NotDetected) 02/18/24 02/18/24 02/19/24 Range/Units 20:56 22:20 05:21 Hgb (11.4-16.0) gm/dL Hct (34.0-46.0) % MCV (80.0-100.0) fL MCH (25.0-35.0) pg RDW (11.5-15.5) % D-Dimer 1.23 H (<0.60) mg/L FEU Sodium (137-145) mmol/L Carbon Dioxide (22-30) mmol/L BUN (7-17) mg/dL Glucose (74-99) mg/dL POC Glucose (mg/dL) 120 H 173 H (70-110) mg/dL Calcium (8.4-10.2) mg/dL ALT (4-34) U/L Troponin I (0.000-0.034) ng/mL Total Protein (6.3-8.2) g/dL Albumin (3.5-5.0) g/dL Urine Appearance (Clear) Urine Protein (Negative) Urine Blood (Negative) Ur Leukocyte Esterase (Negative) Urine RBC (0-5) /hpf Urine WBC (0-5) /hpf Urine WBC Clumps (None) /hpf Urine Mucus (None) /hpf Urine Yeast (Budding) (None) /hpf Urine Opiates Screen (NotDetected)
[2024-02-20] MEDS: LATANOPROST 0.005% OPHTH DROPS 2.5 ML BTL BOTH EYES SCH (00:32)
[2024-02-20 04:30] VITALS: RESP 18
[2024-02-20 05:52] LABS: Glucose,Whole Blood 214 mg/dL (70-110)
--- NOTE | 2024-02-20 11:02 | P.PN ---
Subjective Progress Note Date: 02/20/24 Principal diagnosis: Recent left AKA Patient seen and examined today as a follow-up. Family was able to bring stump panelboard tank pumper to the hospital. Nursing states he did apply it yesterday however somebody did take it off throughout the night. Patient is having some shortness of breath she is on 5 L of nasal cannula. Still having some phantom pain. She has been afebrile. Objective - Vital Signs Vital signs: Vital Signs Temp 97.5 F L 02/20/24 08:00 Pulse 72 02/20/24 08:15 Resp 18 02/20/24 08:00 BP 162/77 02/20/24 08:00 Pulse Ox 95 02/20/24 08:03 FiO2 Intake & Output 02/19/24 02/20/24 02/20/24 18:59 06:59 18:59 Intake Total 118 540 Output Total 1875 1700 1450 Balance -1757 -1700 -910 Weight 103 kg Intake: Oral 118 540 Output: Urine 1875 1700 1450 Other: Voiding Method Indwelling Catheter Indwelling Catheter Indwelling Catheter - Exam General appearance: The patient is alert, oriented, appears in no acute distress. HET: Head is normocephalic and atraumatic. Pupils are equal and reactive. Neck: Supple. Heart: Regular. Lungs: Equal expansion, increased respiratory effort. Abdomen: Soft, nontender, nondistended. Extremities: Left uwuqt-bxy-zbau amputation surgical site well-approximated with jose maria without any swelling, redness or drainage. Left foot with diabetic ulcer to the medial aspect with escar and 2 to the lateral aspect down to subcutaneous tissue Neurological: No focal deficits. - Labs CBC & Chem 7: 02/19/24 07:09 02/19/24 07:09 Labs: Abnormal Lab Results - Last 24 Hours (Table) 02/19/24 02/19/24 02/19/24 Range/Units 07:09 11:28 16:23 ESR 50 H (0-30) mm/Hr POC Glucose (mg/dL) 245 H 200 H (70-110) mg/dL 02/19/24 02/20/24 Range/Units 19:54 05:51 ESR (0-30) mm/Hr POC Glucose (mg/dL) 214 H 214 H (70-110) mg/dL Microbiology - Last 24 Hours (Table) 02/18/24 11:00 Blood Culture - Preliminary Blood 02/18/24 07:56 Urine Culture - Final Urine,Clean Catch Linnea albicans Assessment and Plan Assessment: 1. Recent left hmtpz-jgq-ioag amputation, well-healing 2. Peripheral arterial disease 3. Right foot diabetic ulcers Plan: Stump panelboard tank pumper and rigid dressing applied. Please keep in place and do not remove unless it becomes soiled. There is no indication for any other vascular surgical intervention. Incision well-healing, continue local wound care to right foot ulcers and continue outpatient wound care. Thank you for this consultation, we will sign off at this time. The impression and plan of care has been dictated as directed. I performed a history and examination of this patient, discussed the same with the dictator. I agree with the dictator's note ,documented as a scribe. Any additional findings or plans will be noted.
[2024-02-20 11:57] LABS: Glucose,Whole Blood 246 mg/dL (70-110)
--- NOTE | 2024-02-20 13:41 | P.PN ---
Subjective Progress Note Date: 02/19/24 Principal diagnosis: Reason for follow-up is right diabetic foot infection/osteo and possible UTI Patient is a 84-year-old female with a past medical history significant for diabetes mellitus hypertension hyperlipidemia osteoarthritis recent admission to the hospital with extensive left diabetic foot infection requiring left zdweq-hac-qmnl amputation patient also have a wound on the lateral aspect of the right foot that was debrided in OR culture positive for ESBL Proteus patient did get a PICC line patient now brought back to the hospital concerning for drowsiness weakness and low blood sugar did have a positive with concern for possible UTI however the patient had a Nichole catheter which was changed. On today's evaluation that is 02/19/2024, the patient continues to be afebrile, the patient is on 3 L nasal oxygen has been complaining of shortness of breath, the Pt denies having any chest pain or cough, the patient denies having any abdominal pain no vomiting or any diarrhea has been reported by the nursing staff Patient did have white count of 11.2, creatinine 0.42 Objective - Vital Signs Vital signs: Vital Signs Temp 97.5 F L 02/19/24 08:00 Pulse 77 02/19/24 11:35 Resp 20 02/19/24 11:35 BP 174/53 02/19/24 08:00 Pulse Ox 96 02/19/24 08:29 FiO2 Intake & Output 02/18/24 02/19/24 02/19/24 18:59 06:59 18:59 Intake Total 118 118 Output Total 450 475 Balance 118 -450 -357 Weight 90.718 kg 89 kg Intake: Oral 118 118 Output: Urine 450 475 Other: Voiding Method Indwelling Catheter Indwelling Catheter Indwelling Catheter # Bowel Movements 1 - Exam GENERAL DESCRIPTION: An elderly female lying in bed in no distress RESPIRATORY SYSTEM: Unlabored breathing , decreased breath sounds at bases HEART: S1 S2 regular rate and rhythm , ABDOMEN: Soft , no tenderness EXTREMITIES: Left AKA stump and right foot wound is currently dressed - Labs CBC & Chem 7: 02/19/24 07:09 02/19/24 07:09 Labs: Abnormal Lab Results - Last 24 Hours (Table) 02/18/24 02/18/24 02/18/24 Range/Units 20:03 20:56 22:20 WBC (3.8-10.6) k/uL Hgb (11.4-16.0) gm/dL Hct (34.0-46.0) % MCV (80.0-100.0) fL MCH (25.0-35.0) pg MCHC (31.0-37.0) g/dL RDW (11.5-15.5) % Neutrophils # (1.3-7.7) k/uL D-Dimer 1.23 H (<0.60) mg/L FEU Sodium (137-145) mmol/L Creatinine (0.52-1.04) mg/dL Glucose (74-99) mg/dL POC Glucose (mg/dL) 116 H 120 H (70-110) mg/dL Alkaline Phosphatase (38-126) U/L C-Reactive Protein (<1.0) mg/dL Total Protein (6.3-8.2) g/dL Albumin (3.5-5.0) g/dL Procalcitonin (0.02-0.50) ng/mL 02/19/24 02/19/24 02/19/24 Range/Units 05:21 06:16 07:09 WBC 11.2 H (3.8-10.6) k/uL Hgb 9.2 L (11.4-16.0) gm/dL Hct 30.0 L (34.0-46.0) % MCV 78.5 L (80.0-100.0) fL MCH 24.0 L (25.0-35.0) pg MCHC 30.6 L (31.0-37.0) g/dL RDW 17.1 H (11.5-15.5) % Neutrophils # 8.9 H (1.3-7.7) k/uL D-Dimer (<0.60) mg/L FEU Sodium (137-145) mmol/L Creatinine (0.52-1.04) mg/dL Glucose (74-99) mg/dL POC Glucose (mg/dL) 173 H 159 H (70-110) mg/dL Alkaline Phosphatase (38-126) U/L C-Reactive Protein (<1.0) mg/dL Total Protein (6.3-8.2) g/dL Albumin (3.5-5.0) g/dL Procalcitonin (0.02-0.50) ng/mL 02/19/24 02/19/24 02/19/24 Range/Units 07:09 07:09 11:28 WBC (3.8-10.6) k/uL Hgb (11.4-16.0) gm/dL Hct (34.0-46.0) % MCV (80.0-100.0) fL MCH (25.0-35.0) pg MCHC (31.0-37.0) g/dL RDW (11.5-15.5) % Neutrophils # (1.3-7.7) k/uL D-Dimer (<0.60) mg/L FEU Sodium 134 L (137-145) mmol/L Creatinine 0.42 L (0.52-1.04) mg/dL Glucose 140 H (74-99) mg/dL POC Glucose (mg/dL) 245 H (70-110) mg/dL Alkaline Phosphatase 130 H (38-126) U/L C-Reactive Protein 3.5 H (<1.0) mg/dL Total Protein 5.6 L (6.3-8.2) g/dL Albumin 3.0 L (3.5-5.0) g/dL Procalcitonin 1.24 H (0.02-0.50) ng/mL Microbiology - Last 24 Hours (Table) 02/18/24 07:56 Urine Culture - Final Urine,Clean Catch Linnea albicans Assessment and Plan (1) Diabetic ulcer of right foot Current Visit: Yes Status: Acute Code(s): E11.621 - TYPE 2 DIABETES MELLITUS WITH FOOT ULCER; L97.519 - NON-PRS CHRONIC ULCER OTH PRT RIGHT FOOT W UNSP SEVERITY SNOMED Code(s): 194461323 (2) Abnormal chest x-ray Current Visit: Yes Status: Acute Code(s): R93.89 - ABNORMAL FINDINGS ON DX IMAGING OF OTH BODY STRUCTURES SNOMED Code(s): 479995887 (3) Foot osteomyelitis, right Current Visit: No Status: Acute Code(s): M86.9 - OSTEOMYELITIS, UNSPECIFIED SNOMED Code(s): 8075138490395410 Plan: 1patient presented to hospital for evaluation of weakness mental status changes which is likely multifactorial possible dehydration patient did have a positive UA and concern for possible Respiratory tract infection however urine showed mostly yeast 2-patient also have a abnormal x-ray question of atelectasis clinically not behaving as pneumonia but not excluded 3patient did have right diabetic foot ulcer with underlying osteomyelitis last culture positive for ESBL Proteus 4patient Nichole catheter has already been changed repeat UA is currently pending 5local wound care to the right foot lateral border wound with Santyl followed by moist dressing and keep the area of the pressure 6patient to continue with Invanz 1 g daily and monitor clinical course closely Daughter at the bedside questions were answered Dictation was produced using [employer] dictation software. please excuse any grammatical, word or spelling errors. Time with Patient: Less than 30
--- NOTE | 2024-02-20 13:43 | P.PN ---
Subjective Progress Note Date: 02/20/24 Principal diagnosis: Reason for follow-up is right diabetic foot infection/osteo and possible UTI Patient is a 84-year-old female with a past medical history significant for diabetes mellitus hypertension hyperlipidemia osteoarthritis recent admission to the hospital with extensive left diabetic foot infection requiring left yesns-bol-qzzx amputation patient also have a wound on the lateral aspect of the right foot that was debrided in OR culture positive for ESBL Proteus patient did get a PICC line patient now brought back to the hospital concerning for drowsiness weakness and low blood sugar did have a positive with concern for possible UTI however the patient had a Nichole catheter which was changed. On today's evaluation that is 02/20/2024, Patient is afebrile patient is currently on 4 L current oxygen and is complaining of some shortness of breath, the patient denies any chest pain or cough, the patient denies any nausea vomiting did not have any abdominal pain and no diarrhea has been complaining of pain to left AKA stump and right foot. No new labs were obtained today blood culture negative urine is growing Linnea albicans Objective - Vital Signs Vital signs: Vital Signs Temp 97.5 F L 02/20/24 08:00 Pulse 64 02/20/24 11:29 Resp 18 02/20/24 08:00 BP 162/77 02/20/24 08:00 Pulse Ox 95 02/20/24 08:03 FiO2 Intake & Output 02/19/24 02/20/24 02/20/24 18:59 06:59 18:59 Intake Total 118 540 Output Total 1875 1700 1450 Balance -1757 1700 -910 Weight 103 kg Intake: Oral 118 540 Output: Urine 1875 1700 1450 Other: Voiding Method Indwelling Catheter Indwelling Catheter Indwelling Catheter - Exam GENERAL DESCRIPTION: An elderly female lying in bed in no distress RESPIRATORY SYSTEM: Unlabored breathing , decreased breath sounds at bases HEART: S1 S2 regular rate and rhythm , ABDOMEN: Soft , no tenderness EXTREMITIES: Left AKA stump and right foot wound is currently dressed - Labs CBC & Chem 7: 02/19/24 07:09 02/19/24 07:09 Labs: Abnormal Lab Results - Last 24 Hours (Table) 02/19/24 02/19/24 02/19/24 Range/Units 07:09 16:23 19:54 ESR 50 H (0-30) mm/Hr POC Glucose (mg/dL) 200 H 214 H (70-110) mg/dL 02/20/24 Range/Units 05:51 ESR (0-30) mm/Hr POC Glucose (mg/dL) 214 H (70-110) mg/dL Microbiology - Last 24 Hours (Table) 02/18/24 11:00 Blood Culture - Preliminary Blood 02/18/24 07:56 Urine Culture - Final Urine,Clean Catch Linnea albicans Assessment and Plan (1) Diabetic ulcer of right foot Current Visit: Yes Status: Acute Code(s): E11.621 - TYPE 2 DIABETES MELLITUS WITH FOOT ULCER; L97.519 - NON-PRS CHRONIC ULCER OTH PRT RIGHT FOOT W UNSP SEVERITY SNOMED Code(s): 893653966 (2) Abnormal chest x-ray Current Visit: Yes Status: Acute Code(s): R93.89 - ABNORMAL FINDINGS ON DX IMAGING OF OTH BODY STRUCTURES SNOMED Code(s): 603233028 (3) Foot osteomyelitis, right Current Visit: No Status: Acute Code(s): M86.9 - OSTEOMYELITIS, UNSPECIFIED SNOMED Code(s): 1566812200490421 Plan: 1patient presented to hospital for evaluation of weakness mental status changes which is likely multifactorial possible dehydration patient did have a positive UA and concern for possible Respiratory tract infection however urine showed mostly yeast 2-patient also have a abnormal x-ray question of atelectasis clinically not behaving as pneumonia but not excluded 3patient did have right diabetic foot ulcer with underlying osteomyelitis last culture positive for ESBL Proteus 4patient Nichole catheter has already been changed urine culture grew Linnea patient is on Plavix and hydrocodone interacting with the Diflucan which may be considered for treatment keeping in mind the patient Nichole catheter has been changed sometimes there may have been a form of mild yeast catheter assisted UTI we will request for repeat UA after changing her Nichole catheter 5local wound care to the right foot lateral border wound with Santyl followed by moist dressing and keep the area of the pressure 6patient continue treatment with Invanz 1 g daily for right diabetic foot infection with underlying osteomyelitis and monitor clinical course closely Daughter at the bedside questions were answered Dictation was produced using [employer] software. please excuse any grammatical, word or spelling errors. Time with Patient: Less than 30
--- NOTE | 2024-02-20 14:20 | P.PN ---
Subjective Progress Note Date: 02/20/24 This is an 84-year-old female patient with a known history of diabetes mellitus, hearing disorder, hyperlipidemia, hypertension, hypothyroidism, breast cancer status post left lumpectomy, peripheral vascular disease. She was recently here for severe gangrenous change in the left heel, unstageable and had undergone an nbnox-bao-qziw amputation. Wound culture was positive for ESBL Proteus and she was to receive 6 weeks of IV antibiotics. She was discharged to a local ECF on February 09, 2024 and they brought her back here yesterday February 18, 2024 with altered mental status. CT scan of the brain revealed moderate generalized atrophy. Mild to moderate chronic ischemic white matter demyelination. No acute bleed or mass effect. Chest x-ray reveals a limited study with opacity in the right lung base suspicious for pneumonia. CT angiogram however revealed large bilateral pleural effusions. Consider congestive heart failure. No central pulmonary emboli. Bilateral pneumonia cannot be excluded. White count 11.2. Hemoglobin 9.2. Platelets 363. Sodium 134. Potassium 4.5. Bicarb 28. BUN 14. Creatinine 0.42. Glucose 140. Procalcitonin 1.24. She is been initiated on DuoNeb inhalations, ertapenem, heparin for DVT prophylaxis. Currently on IV diuretics. Normal saline at KVO. The patient is seen today February 20, 2024 in follow-up on the selective care unit. She is currently resting in bed. More awake and alert today. She is maintaining O2 saturations in the 90s on 4 L/min per nasal cannula. She remains on IV diuretics. Antibiotics in the form of Invanz. She remains on bron chodilators. Heparin for DVT prophylaxis. Glucose 246. Currently in a -3.4 L balance. Objective - Vital Signs Vital signs: Vital Signs Temp 97.5 F L 02/20/24 08:00 Pulse 68 02/20/24 11:38 Resp 18 02/20/24 08:00 BP 162/77 02/20/24 08:00 Pulse Ox 95 02/20/24 08:03 FiO2 Intake & Output 02/19/24 02/20/24 02/20/24 18:59 06:59 18:59 Intake Total 118 540 Output Total 1870 1700 1450 Balance -1757 -1700 -910 Weight 103 kg Intake: Oral 118 540 Output: Urine 1875 1700 1450 Other: Voiding Method Indwelling Catheter Indwelling Catheter Indwelling Catheter - Exam GENERAL EXAM: Alert, poor historian, 84-year-old female, on 4 L nasal cannula, comfortable in no apparent distress. HEAD: Normocephalic. EYES: Normal reaction of pupils, equal size. NOSE: Clear with pink turbinates. THROAT: No erythema or exudates. NECK: No masses, no JVD. CHEST: No chest wall deformity. LUNGS: Equal air entry with bibasilar crackles, diminished. CVS: S1 and S2 normal with no audible murmur, regular rhythm. ABDOMEN: No hepatosplenomegaly, normal bowel sounds, no guarding or rigidity. SPINE: No scoliosis or deformity SKIN: No rashes CENTRAL NERVOUS SYSTEM: No focal deficits, tone is normal in all 4 extremities. EXTREMITIES: Left petsb-rds-vmht amputation, right lateral foot wound dressing dry and intact. There is 1+ peripheral edema. Peripheral pulses are intact. - Labs CBC & Chem 7: 02/19/24 07:09 02/19/24 07:09 Labs: Abnormal Lab Results - Last 24 Hours (Table) 02/18/24 02/19/24 02/19/24 Range/Units 07:28 07:09 16:23 ESR 50 H (0-30) mm/Hr POC Glucose (mg/dL) 200 H (70-110) mg/dL Hemoglobin A1c 6.3 H (<=6.0) % 02/19/24 02/20/24 02/20/24 Range/Units 19:54 05:51 11:51 ESR (0-30) mm/Hr POC Glucose (mg/dL) 214 H 214 H 246 H (70-110) mg/dL Hemoglobin A1c (<=6.0) % Microbiology - Last 24 Hours (Table) 02/18/24 11:00 Blood Culture - Preliminary Blood 02/18/24 07:56 Urine Culture - Final Urine,Clean Catch Linnea albicans Assessment and Plan Assessment: Altered mental status of unclear etiology being treated for Proteus mirabilis right foot infection in the outpatient setting and remains on Invanz Acute hypoxic respiratory failure suspect secondary to fluid volume overload versus healthcare acquired pneumonia Recent hospitalization for osteomyelitis of the left heel with unstageable wounds, status post left gpogn-jip-[id number] amputation on 02/06/2024 graft coronary artery disease with previous stent placement Chronic pain syndrome Diabetes mellitus CVA with left-sided weakness Chronic pain syndrome History of breast cancer previous left lumpectomy Hypertension Hyperlipidemia Hypothyroidism Resides at [facility] Poor overall functional performance based on the above-mentioned multiple co morbidities Plan: The patient was seen and evaluated Labs and medications reviewed Titrate the FiO2 as tolerated Remains on Invanz Remains on IV diuretics DNR/DNI CODE STATUS We will continue to follow I have personally seen and examined the patient, performed the documentation and the assessment and plan as written. Number of minutes spent on the visit: 10.
--- NOTE | 2024-02-20 15:34 | P.PN ---
Subjective Progress Note Date: 02/20/24 I am seeing the patient for the first time during this admission. Please refer to Dr. Esquivel's note for further details. Seems to the patient had a syncopal episode versus questionable seizure and was felt likely due to hypoglycemia with a sugar in the 60s. Per Dr. Esquivel the family declined with a routine EEG. Upon seeing the patient today she feels she is doing somewhat better. No further seizure-like activity. Objective - Vital Signs Vital signs: Vital Signs Temp 97.5 F L 02/20/24 08:00 Pulse 84 02/20/24 15:26 Resp 18 02/20/24 08:00 BP 181/75 02/20/24 12:00 Pulse Ox 95 02/20/24 12:00 FiO2 Intake & Output 02/19/24 02/20/24 02/20/24 18:59 06:59 18:59 Intake Total 118 540 Output Total 1875 1700 1450 Balance -1757 -1700 -910 Weight 103 kg Intake: Oral 118 540 Output: Urine 1875 1700 1450 Other: Voiding Method Indwelling Catheter Indwelling Catheter Indwelling Catheter - Exam General: Lying in bed and is not in acute distress. Neuro: Somewhat limited. The patient is oriented to self and she correctly stated the current month but did not know the year. She did not know the facility's name but she knew that she was in the hospital. She is following some simple commands. No aphasia from limited language. No facial weakness. No dysarthria Motor is left in all extremities above gravity. She has ywycp-fmf-nhla amputation. - Labs CBC & Chem 7: 02/19/24 07:09 02/19/24 07:09 Labs: Abnormal Lab Results - Last 24 Hours (Table) 02/18/24 02/19/24 02/19/24 Range/Units 07:28 07:09 16:23 ESR 50 H (0-30) mm/Hr POC Glucose (mg/dL) 200 H (70-110) mg/dL Hemoglobin A1c 6.3 H (<=6.0) % 02/19/24 02/20/24 02/20/24 Range/Units 19:54 05:51 11:51 ESR (0-30) mm/Hr POC Glucose (mg/dL) 214 H 214 H 246 H (70-110) mg/dL Hemoglobin A1c (<=6.0) % Microbiology - Last 24 Hours (Table) 02/18/24 11:00 Blood Culture - Preliminary Blood 02/18/24 07:56 Urine Culture - Final Urine,Clean Catch Linnea albicans Assessment and Plan Assessment: * Syncopal spell versus seizure, likely due to hypoglycemia. Patient's blood sugar was 60 when checked by the EMS (after she has received glucagon at the nursing facility before EMS was called). Therefore she probably had lower glucose at the onset of symptoms. * History of severe left ICA stenosis. History of right ICA stenting * Abnormal chest x-ray, rule out pneumonia * Diabetic ulcer right foot. * Osteomyelitis right foot * History of left AKA * Diabetes * Hyperlipidemia * Hypertension * Diabetic peripheral neuropathy Plan: * Patient had a CTA head and neck performed 10/16/2023, which revealed proximal right ICA stent in the proximal stent stenosis of approximately 50-60%. Persistent severe 70-75% stenosis of the proximal left ICA. Heavily calcified plaques in the axillary portion of the subclavian arteries and significant stenosis are likely. There's been no change as compared to 05/22/2023 study. Vascular surgery consult. * Patient's syncopal episode/seizure was likely from hypoglycemia. Family declined checking EEG. * Patient has possible pneumonia for which patient is on Invanz. ID following. * Resume dual antiplatelet medication including aspirin 81 mg, Plavix 75 mg and Lipitor 80 mg (all home medications). * Hemoglobin A1c 8.9 on 12/13/2023. Recommend optimize control of diabetes to target A1c < 7.0. Avoid hypoglycemia. * Defer the rest of the medical management the primary and other specialist. * DVT prophylaxis: Patient on heparin 5000 units subcu every 12 hour. Will follow-up up with the patient sporadically. Time with Patient: Less than 30
[2024-02-20 15:45] LABS: Appearance,Urine Clear (Clear); Bilirubin,Urine Negative (Negative); Blood,Urine Negative (Negative); Color,Urine Colorless; Glucose,Urine (UA) Negative (Negative); Ketones,Urine Negative (Negative); Leukocyte Esterase,Urine Negative (Negative); Nitrite,Urine Negative (Negative); PH, Urine 7.5 (5.0-8.0); Protein,Urine Trace (Negative); Specific Gravity,Urine 1.007 (1.001-1.035); Urobilinogen,Urine <2.0 mg/dL (<2.0)
[2024-02-20 16:51] LABS: Glucose,Whole Blood 184 mg/dL (70-110)
[2024-02-20] MEDS: ONDANSETRON 4 MG/2 ML VIAL IVP PRN (17:22)
[2024-02-20 21:00] LABS: Glucose,Whole Blood 193 mg/dL (70-110)
--- NOTE | 2024-02-21 05:32 | P.PN ---
Subjective Progress Note Date: 02/20/24 HISTORY OF PRESENT ILLNESS: 84-year-old with active medical history of type 2 diabetes, left-sided breast cancer, hypertension, hyperlipidemia, chronic depression, lower back pain, severe spinal stenosis, severe peripheral vascular disease with severe carotid stenosis, history of coronary artery disease post PCI and stent placement of the LAD back in May 2023 who also had right transcarotid artery revascularization with stenting July 2023, she developed to have gangrenous the left leg post left above-knee amputation with debridement of the right heel came back with ESBL was sent to [facility] upon her discharge on 02/09/2024 on ertapenem 1 g every 24 hours for total of 42 days. 02/18/2024 she developed to have significant change in status on the weekend was discovered she was not acting right and the been transferred to [facility] for evaluation and assessment was seen and evaluated was complaining of suprapubic pain and discomfort with decreased urine output over the last few days found to have white blood cell of 6000 hemoglobin of 9.5's D-dimer was mildly elevated electrolytes with creatinine 0.58 blood sugar was normal urine was loaded and positive was drug screen was positive for opiates which patient is taking pain meds and [place]. She was to continue ertapenem in the hospital with indwelling catheter antibiotic seen infectious disease which believes she had dehydration and the possibility of UTI and possible respiratory infection urine mostly shows yeast chest x-ray did not show any major abnormality except atelectasis local wound still showing right foot have lateral border wound with Santyl and moist dressing with no increased drainage. Culture was done infectious disease believe this is still might be right foot early osteomyelitis slightly UTI. Continue ertapenem waiting for the final culture at this point. : Patient was seen neurology with recurrent syncope versus seizure and episode of hypoglycemia at the time known to have history of severe left internal carotid stenosis with post right internal carotid stenting review last CTA from September which showed 70-75 percentile stenosis of the left internal carotid artery family apparently declined going for an EEG at this point the patient still on medical management will be seen vascular to review her stump from the left above-knee amputation and also follow-up with nonhealing gangrenous ulcer on the right side and opinion of the carotid artery stenosis will be giving as well. Vascular do not believe there is any reason for any clear intervention at this point incision of the left stump has been good still waiting to see if the right side at some point require surgery but might not be during this admission. No intention of doing any carotid stenting or intervention while patient is in the hospital this time. From pulmonary standpoint patient had mild acute hypoxic respiratory failure secondary to fluid volume overload with possible hospital-acquired pneumonia continue 4 L of O2 continue to use his CPAP at nighttime continue ertapenem as an antibiotics titrate O2 stay watching for any further complication at this point. No change in lab value blood sugar has been much better so far she is remain on Accu-Chek with sliding scales coverage took away the long-acting insulin currently previously was on 20 units of Levemir twice a day which at some point can be probably switch to an a.m. 25 units of Lantus or Toujeo if the blood sugars start going up specially when patient oral intake become more. Again all this might be just sign and symptom of hypoglycemic episode more than anything else with mild hypoxia might require her O2 and using CPAP on a regular basis and that might correct the problem. Urine culture from the came back as Linnea albicans decide ertapenem probably patient can benefit from adding fluconazole to again will be running this by infectious disease. REVIEW OF SYSTEMS: CONSTITUTIONAL: Morbidly obese lying in bed in quite good pain no acute respiratory distress. Slightly confused EYES: No icterus sclerae, no conjunctivitis. EARS, NOSE, MOUTH, THROAT, and FACE: No sore throat, lymphadenopathy, carotid bruits or deformity. RESPIRATORY: Mild shortness of breath no cough or wheezes. CARDIOVASCULAR: Positive PND orthopnea palpitation no angina. GASTROINTESTINAL: No Abd pain, Nausea or vomiting, no Diarrhea or constipation, No GI Bleed, no distention or masses. GENITOURINARY: Negative for Hematuria or UTI, no kidney stones. INTEGUMENT/BREAST: Left above-knee amputation with right foot lateral small gangrenous change still have a dressing. HEMATOLOGIC/LYMPHATIC: Negative for bleed or purpura. History of left-sided br east cancer. MUSCULOSKELTAL: Negative for Myalgia or arthralgia. Left above-knee amputation with debridement of the right side the stump area does not have any bleed. NEURLOGICAL: Significantly confused moving all 4 extremity BEHAVIORAL/PSYCH: Negative. ENDOCRINE: Negative. PHYSICAL EXAMINATION: General Appearance: Obese lying in bed no distress slightly confused. Neck HEENT: Supple, no lymphadenopathy, no thyroid enlargement, no carotid bruits. Lungs: Clear to auscultation without crackles or wheezes no rhonchi, no deformity. Chest Wall: Decreased expansion with deep inspiration no tenderness and no deformity was found on exam, no costochondral pain or discomfort. Heart: Regular rate and rhythm, S1, S2 positive S3 positive systolic murmur. Back: Symmetric, with scoliosis and kyphosis with mild tenderness in lower lumbar area. Abdomen: Soft, non-tender, bowel sounds active all four quadrants, no masses, no organomegaly. Extremities: Left side above-knee amputation right side had debridement of the heel with lateral dressing with slightly change no drainage. Pulses: No palpable pulse in both lower extremity. Skin: Skin color, texture, tugor normal, no rashes or lesions. Neurologic: Alert oriented severe confusion cranial nerves II through XII intact, generalized weakness with severe stiffness muscular james. ASSESSMENT AND PLAN: _Sepsis: Not a clear etiology could be also in the right foot but with urinary tract infection, culture is done waiting for final result, continue ertapenem for now still seen infectious disease. Urine culture was positive for candidiasis might require fluconazole as an addition. _UTI: Still avoid any urinary retention with indwelling catheter continue antibiotic for now. _Gangrenous change of the right foot with recent debridement culture was positive for ESBL more specific for ertapenem which still watch by infectious disease. The stump on the left side is clean the right side still been treated with IV antibiotic try to avoid amputation for the time being. _Severe osteomyelitis of left leg post above-knee amputation stump still to be watched by vascular. _Change mental status with episode was not agreeable either syncope, seizure or other she was quite hypoglycemic at the time with blood sugar in the 60s continue to treat the blood sugar. Continue to optimize medical management patient had hypoglycemia and hypoxia both can be controlled back off on Levemir and cut down the dose eventually along with titrating O2 try to give her pulse ox above 90 percentile and make sure patient to use CPAP on more regular basis. _Type 2 diabetes: Because of the hypoglycemia Levemir was stopped continue Accu- Cheks sliding scales coverage when adding longer term insulin might do Toujeo or Tresiba at 25 to 30 units a.m. only. _Severe coronary artery disease post angioplasty and stent placement of the LAD back in May 2023 patient seen cardiology with no symptoms of chest pain or angina antiplatelet agent will be held for the surgery but continue aspirin. She is not having any chest pain or angina still on secondary prevention with better control blood pressure, blood sugar and cholesterol. _Chronic pain syndrome: Continue hydrocodone on as-needed basis for now along with muscle relaxer. _Iron deficiency anemia: Hemoglobin is much better at 9.2 continue iron kearns pplement. _Residual stroke with significant weakness affecting the left side more than the right side. No change at this point. _Severe carotid stenosis post right-sided carotid stenting. Left side had 70+ percent stenosis but no intervention required at this point. _History of breast cancer: Was seen oncology regularlyStill on anastrozole 1 mg daily. Breast cancer is in remission no sign of metastasis. _Hypertension: Continue Coreg 6.25 mg twice a day, amlodipine 10 mg daily, losartan hydrochlorothiazide 100/12.5 mg daily. Continue tighter control blood pressure below 130/80. _Hyperlipidemia: Resume atorvastatin at 80 mg daily. _Hypothyroidism: Continue Synthroid 50 mcg daily. _Severe spinal stenosis and lower back pain has been on medical management only still on pain meds along with gabapentin. No surgical intervention. _Chronic depression: Has been on trazodone 50 mg at bedtime along with Wellbutrin 150 mg daily Zoloft 100 mg a day. _Restless leg syndrome: Still on Requip 0.5 mg twice a day. Discussion: Patient continue ertapenem per infectious disease will probably require to add fluconazole for candidiasis, pulmonary believe just titrate O2 will be helpful to keep her pulse ox above 90 percentile continue to use CPAP at nighttime every night. Hypoglycemia can be better controlled by switching her medication and keep her long-acting at little bit general activities therapist dose even if patient becomes slightly hyperglycemic to avoid having hypoglycemia switching Levemir eventually to either Tresiba or Toujeo and try to use it only and 1 time which is in the morning to avoid having any episode at nighttime. Patient probably require being for possible 1 more day to make sure she is more stable and prepare hopefully for sending her back to [facility] on Monday. Objective - Vital Signs Vital signs: Vital Signs Temp 97.4 F L 02/20/24 04:00 Pulse 72 02/20/24 04:00 Resp 18 02/20/24 04:00 BP 181/70 02/20/24 04:00 Pulse Ox 91 L 02/20/24 04:00 FiO2 Intake & Output 02/19/24 02/19/24 02/20/24 06:59 18:59 06:59 Intake Total 118 Output Total 450 0537 4773 Balance -270 -0615 -1683 Weight 89 kg 103 kg Intake: Oral 118 Output: Urine 450 9694 1700 Other: Voiding Method Indwelling Catheter Indwelling Catheter Indwelling Catheter # Bowel Movements 1 - Labs CBC & Chem 7: 02/19/24 07:09 02/19/24 07:09 Labs: Abnormal Lab Results - Last 24 Hours (Table) 02/19/24 02/19/24 02/19/24 Range/Units 06:16 07:09 07:09 WBC 11.2 H (3.8-10.6) k/uL Hgb 9.2 L (11.4-16.0) gm/dL Hct 30.0 L (34.0-46.0) % MCV 78.5 L (80.0-100.0) fL MCH 24.0 L (25.0-35.0) pg MCHC 30.6 L (31.0-37.0) g/dL RDW 17.1 H (11.5-15.5) % Neutrophils # 8.9 H (1.3-7.7) k/uL ESR 50 H (0-30) mm/Hr Sodium 134 L (137-145) mmol/L Creatinine 0.42 L (0.52-1.04) mg/dL Glucose 140 H (74-99) mg/dL POC Glucose (mg/dL) 159 H (70-110) mg/dL Alkaline Phosphatase 130 H (38-126) U/L C-Reactive Protein 3.5 H (<1.0) mg/dL Total Protein 5.6 L (6.3-8.2) g/dL Albumin 3.0 L (3.5-5.0) g/dL Procalcitonin (0.02-0.50) ng/mL 02/19/24 02/19/24 02/19/24 Range/Units 07:09 11:28 16:23 WBC (3.8-10.6) k/uL Hgb (11.4-16.0) gm/dL Hct (34.0-46.0) % MCV (80.0-100.0) fL MCH (25.0-35.0) pg MCHC (31.0-37.0) g/dL RDW (11.5-15.5) % Neutrophils # (1.3-7.7) k/uL ESR (0-30) mm/Hr Sodium (137-145) mmol/L Creatinine (0.52-1.04) mg/dL Glucose (74-99) mg/dL POC Glucose (mg/dL) 245 H 200 H (70-110) mg/dL Alkaline Phosphatase (38-126) U/L C-Reactive Protein (<1.0) mg/dL Total Protein (6.3-8.2) g/dL Albumin (3.5-5.0) g/dL Procalcitonin 1.24 H (0.02-0.50) ng/mL 02/19/24 02/20/24 Range/Units 19:54 05:51 WBC (3.8-10.6) k/uL Hgb (11.4-16.0) gm/dL Hct (34.0-46.0) % MCV (80.0-100.0) fL MCH (25.0-35.0) pg MCHC (31.0-37.0) g/dL RDW (11.5-15.5) % Neutrophils # (1.3-7.7) k/uL ESR (0-30) mm/Hr Sodium (137-145) mmol/L Creatinine (0.52-1.04) mg/dL Glucose (74-99) mg/dL POC Glucose (mg/dL) 214 H 214 H (70-110) mg/dL Alkaline Phosphatase (38-126) U/L C-Reactive Protein (<1.0) mg/dL Total Protein (6.3-8.2) g/dL Albumin (3.5-5.0) g/dL Procalcitonin (0.02-0.50) ng/mL Microbiology - Last 24 Hours (Table) 02/18/24 11:00 Blood Culture - Preliminary Blood 02/18/24 07:56 Urine Culture - Final Urine,Clean Catch Linnea albicans
[2024-02-21 05:56] LABS: Glucose,Whole Blood 288 mg/dL (70-110)
[2024-02-21 11:33] LABS: Glucose,Whole Blood 210 mg/dL (70-110)
--- NOTE | 2024-02-21 12:27 | P.PN ---
Subjective Progress Note Date: 02/21/24 Principal diagnosis: Reason for follow-up is right diabetic foot infection/osteo and possible UTI Patient is a 84-year-old female with a past medical history significant for diabetes mellitus hypertension hyperlipidemia osteoarthritis recent admission to the hospital with extensive left diabetic foot infection requiring left bskle-wst-[id number] amputation patient also have a wound on the lateral aspect of the right foot that was debrided in OR culture positive for ESBL Proteus patient did get a PICC line patient now brought back to the hospital concerning for drowsiness weakness and low blood sugar did have a positive with concern for possible UTI however the patient had a Nichole catheter which was changed. On today's evaluation that is 02/21/2024, patient has been afebrile, patient is breathing comfortably and is currently on 4 L current oxygen, patient denies h aving any significant cough no chest pain shortness of breath, patient denies nausea vomiting or diarrhea and no abdominal pain and denies worsening pain to bilateral feet area. Repeat UA has been negative no lab draw today blood culture negative Objective - Vital Signs Vital signs: Vital Signs Temp 97.8 F 02/21/24 04:00 Pulse 84 02/21/24 09:40 Resp 18 02/21/24 08:00 BP 138/77 02/21/24 08:00 Pulse Ox 96 02/21/24 09:29 FiO2 Intake & Output 02/20/24 02/21/24 02/21/24 18:59 06:59 18:59 Intake Total 1080 Output Total 1450 300 450 Balance -370 -300 -450 Intake: Intake, IV Titration 300 Amount Ertapenem 1 gm In Sodium 100 Chloride 0.9% 50 ml @ 100 mls/hr IVPB Q24H [facility] Rx# :[id number] Sodium Chloride 0.9% 1, 200 000 ml @ 20 mls/hr IV . Q24H [facility] Rx#:[id number] Oral 780 Output: Urine 1450 300 450 Other: Voiding Method Indwelling Catheter Indwelling Catheter Indwelling Catheter - Exam GENERAL DESCRIPTION: An elderly female lying in bed in no distress RESPIRATORY SYSTEM: Unlabored breathing , decreased breath sounds at bases HEART: S1 S2 regular rate and rhythm , ABDOMEN: Soft , no tenderness EXTREMITIES: Left AKA stump and right foot wound is currently dressed - Labs CBC & Chem 7: 02/19/24 07:09 02/19/24 07:09 Labs: Abnormal Lab Results - Last 24 Hours (Table) 02/18/24 02/20/24 02/20/24 Range/Units 07: 11:51 15:30 POC Glucose (mg/dL) 246 H (70-110) mg/dL Hemoglobin A1c 6.3 H (<=6.0) % Urine Protein Trace H (Negative) 02/20/24 02/20/24 02/21/24 Range/Units 16:49 20:50 05:52 POC Glucose (mg/dL) 184 H 193 H 288 H (70-110) mg/dL Hemoglobin A1c (<=6.0) % Urine Protein (Negative) Microbiology - Last 24 Hours (Table) 02/18/24 11:00 Blood Culture - Preliminary Blood Assessment and Plan (1) Diabetic ulcer of right foot Current Visit: Yes Status: Acute Code(s): E11.621 - TYPE 2 DIABETES MELLITUS WITH FOOT ULCER; L97.519 - NON-PRS CHRONIC ULCER OTH PRT RIGHT FOOT W UNSP SEVERITY SNOMED Code(s): 737317904 (2) Abnormal chest x-ray Current Visit: Yes Status: Acute Code(s): R93.89 - ABNORMAL FINDINGS ON DX IMAGING OF OTH BODY STRUCTURES SNOMED Code(s): 313269320 (3) Foot osteomyelitis, right Current Visit: No Status: Acute Code(s): M86.9 - OSTEOMYELITIS, UNSPECIFIED SNOMED Code(s): 7786305193071177 Plan: 1patient presented to hospital for evaluation of weakness mental status changes which is likely multifactorial possible dehydration patient did have a positive UA and concern for possible Respiratory tract infection however urine showed mostly yeast 2-patient also have a abnormal x-ray question of atelectasis clinically not behaving as pneumonia but not excluded 3patient did have right diabetic foot ulcer with underlying osteomyelitis last culture positive for ESBL Proteus 4patient Nichole catheter has already been changed urine culture grew Linnea patient is on Plavix and hydrocodone interacting with the Diflucan which may be considered for treatment keeping in mind the patient Nichole catheter has been changed sometimes there may have been a form of mild yeast catheter assisted UTI, patient did have repeat UA that is negative no need for Diflucan 5local wound care to the right foot lateral border wound with Santyl followed by moist dressing and keep the area of the pressure 6patient continue treatment with Invanz 1 g daily for right diabetic foot infection with underlying osteomyelitis and monitor clinical course closely Dictation was produced using [employer] dictation software. please excuse any grammatical, word or spelling errors. Time with Patient: Less than 30
--- NOTE | 2024-02-21 13:09 | CDI ---
Documentation Clarification Form Date: 02/21/2024 12:52:37 PM From: Sheri Huff RN CCDS Phone: [phone] Admit Date: 02/18/2024 10:11:00 AM Patient Name: Abena Vizcaino Visit Number: [id number] Discharge Date: ATTENTION: The Clinical Documentation Specialists (CDI) and [facility] Coding Staff appreciate your assistance in clarifying documentation. Please respond to the clarification below the line at the bottom and electronically sign. The CDI & [facility] Coding staff will review the response and follow-up if needed. Please note: Queries are made part of the Legal Health Record. If you have any questions, please contact the author of this message via ITS. Doctor: Joaquin Levine, UTI is documented 02/19, Medicine note and patient has indwelling lopez 02/19 medicine note.. Additional clarification regarding the etiology of the UTI is requested. History/Risk Factors: 83 year old male sent to the ED by home health aide with being more tired and drowsy. Medical History: Recent admission for AKA, Indwelling Lopez catheter, DM2, Obesity, breast cancer, chronic depression, HTN and CAD. 02/17, HP. Clinical Indicators: Urinalysis, 02/17: Color yellow, appearance turbid, ph 6.0, specific gravity 1.020, protein 1+, glucose negative, ketones negative, blood large, nitrate negative leukocyte esterase large, wbc >182 wbc clumps few mucus moderate urine yeast budding many Urine culture, 02/17: Linnea albians verified 02/19/2024 Lab results, 02/17: Wbc 6.0 Treatment: 02/17 Ceftriaxone IVPB x 1; Please clarify the etiology of the UTI, if known: [ XX ] Lopez catheter [ ] UTI not related to catheter [ ] Other condition, please specify [ ] Unable to determine (Template Last Revised: September 2020) MTDD
[2024-02-21 13:30] VITALS: BMI 41.5
[2024-02-21 16:57] LABS: Glucose,Whole Blood 192 mg/dL (70-110)
--- NOTE | 2024-02-21 17:21 | P.PN ---
Subjective Progress Note Date: 02/21/24 This is an 84-year-old female patient with a known history of diabetes mellitus, hearing disorder, hyperlipidemia, hypertension, hypothyroidism, breast cancer status post left lumpectomy, peripheral vascular disease. She was recently here for severe gangrenous change in the left heel, unstageable and had undergone an mjuoc-yyp-kmsb amputation. Wound culture was positive for ESBL Proteus and she was to receive 6 weeks of IV antibiotics. She was discharged to a local ECF on February 09, 2024 and they brought her back here yesterday February 18, 2024 with altered mental status. CT scan of the brain revealed moderate generalized atrophy. Mild to moderate chronic ischemic white matter demyelination. No acute bleed or mass effect. Chest x-ray reveals a limited study with opacity in the right lung base suspicious for pneumonia. CT angiogram however revealed large bilateral pleural effusions. Consider congestive heart failure. No central pulmonary emboli. Bilateral pneumonia cannot be excluded. White count 11.2. Hemoglobin 9.2. Platelets 363. Sodium 134. Potassium 4.5. Bicarb 28. BUN 14. Creatinine 0.42. Glucose 140. Procalcitonin 1.24. She is been initiated on DuoNeb inhalations, ertapenem, heparin for DVT prophylaxis. Currently on IV diuretics. Normal saline at KVO. The patient is seen today February 20, 2024 in follow-up on the selective care unit. She is currently resting in bed. More awake and alert today. She is maintaining O2 saturations in the 90s on 4 L/min per nasal cannula. She remains on IV diuretics. Antibiotics in the form of Invanz. She remains on bron chodilators. Heparin for DVT prophylaxis. Glucose 246. Currently in a -3.4 L balance. The patient is seen today February 21, 2024 in follow-up on the selective care unit. She is awake, alert in no acute distress. Maintaining O2 saturations in the 90s on 4 L/min per nasal cannula. She has normal saline at KVO. Glucose 192. She continues on bronchodilators. Heparin for DVT prophylaxis. Remains on IV diuretics. Currently in a -670 mL balance. Antibiotics in the form of ertapenem. Objective - Vital Signs Vital signs: Vital Signs Temp 97.8 F 02/21/24 04:00 Pulse 80 02/21/24 17:07 Resp 18 02/21/24 16:00 BP 143/69 02/21/24 16:00 Pulse Ox 98 02/21/24 16:00 FiO2 Intake & Output 02/20/24 02/21/24 02/21/24 18:59 06:59 18:59 Intake Total 1080 118 Output Total 1450 300 450 Balance -370 -300 -332 Weight 103 kg Intake: Intake, IV Titration 300 Amount Ertapenem 1 gm In Sodium 100 Chloride 0.9% 50 ml @ 100 mls/hr IVPB Q24H [facility] Rx# :[id number] Sodium Chloride 0.9% 1, 200 000 ml @ 20 mls/hr IV . Q24H [facility] Rx#:[id number] Oral 780 118 Output: Urine 1450 300 450 Other: Voiding Method Indwelling Catheter Indwelling Catheter Indwelling Catheter - Exam GENERAL EXAM: Alert, poor historian, 84-year-old female, on 4 L nasal cannula, comfortable in no apparent distress. HEAD: Normocephalic. EYES: Normal reaction of pupils, equal size. NOSE: Clear with pink turbinates. THROAT: No erythema or exudates. NECK: No masses, no JVD. CHEST: No chest wall deformity. LUNGS: Equal air entry with bibasilar crackles, diminished. CVS: S1 and S2 normal with no audible murmur, regular rhythm. ABDOMEN: No hepatosplenomegaly, normal bowel sounds, no guarding or rigidity. SPINE: No scoliosis or deformity SKIN: No rashes CENTRAL NERVOUS SYSTEM: No focal deficits, tone is normal in all 4 extremities. EXTREMITIES: Left ytmjg-lpa-knbc amputation, right lateral foot wound dressing dry and intact. There is 1+ peripheral edema. Peripheral pulses are intact. - Labs CBC & Chem 7: 02/19/24 07:09 02/19/24 07:09 Labs: Abnormal Lab Results - Last 24 Hours (Table) 02/20/24 02/21/24 02/21/24 Range/Units 20:50 05:52 11:25 POC Glucose (mg/dL) 193 H 288 H 210 H (70-110) mg/dL 02/21/24 Range/Units 16:55 POC Glucose (mg/dL) 192 H (70-110) mg/dL Microbiology - Last 24 Hours (Table) 02/18/24 11:00 Blood Culture - Preliminary Blood Assessment and Plan Assessment: Altered mental status of unclear etiology being treated for Proteus mirabilis right foot infection in the outpatient setting and remains on Invanz Acute hypoxic respiratory failure suspect secondary to fluid volume overload versus healthcare acquired pneumonia Recent hospitalization for osteomyelitis of the left heel with unstageable wounds, status post left nilvs-rhg-lmfu amputation on 02/06/2024 graft coronary artery disease with previous stent placement Chronic pain syndrome Diabetes mellitus CVA with left-sided weakness Chronic pain syndrome History of breast cancer previous left lumpectomy Hypertension Hyperlipidemia Hypothyroidism Resides at [facility] Poor overall functional performance based on the above-mentioned multiple comorbidities Plan: The patient was seen and evaluated Labs and medications reviewed Titrate the FiO2 as tolerated Remains on Invanz Remains on IV diuretics DNR/DNI CODE STATUS Plan is to return to [facility] with hospice care I have personally seen and examined the patient, performed the documentation and the assessment and plan as written. Number of minutes spent on the visit: 10.
[2024-02-21 20:01] LABS: Glucose,Whole Blood 186 mg/dL (70-110)
--- NOTE | 2024-02-22 05:49 | P.PN ---
Subjective Progress Note Date: 02/21/24 HISTORY OF PRESENT ILLNESS: 84-year-old with active medical history of type 2 diabetes, left-sided breast cancer, hypertension, hyperlipidemia, chronic depression, lower back pain, severe spinal stenosis, severe peripheral vascular disease with severe carotid stenosis, history of coronary artery disease post PCI and stent placement of the LAD back in May 2023 who also had right transcarotid artery revascularization with stenting July 2023, she developed to have gangrenous the left leg post left above-knee amputation with debridement of the right heel came back with ESBL was sent to [facility] upon her discharge on 02/09/2024 on ertapenem 1 g every 24 hours for total of 42 days. 02/18/2024 she developed to have significant change in status on the weekend was discovered she was not acting right and the been transferred to [facility] for evaluation and assessment was seen and evaluated was complaining of suprapubic pain and discomfort with decreased urine output over the last few days found to have white blood cell of 6000 hemoglobin of 9.5's D-dimer was mildly elevated electrolytes with creatinine 0.58 blood sugar was normal urine was loaded and positive was drug screen was positive for opiates which patient is taking pain meds and [place]. She was to continue ertapenem in the hospital with indwelling catheter antibiotic seen infectious disease which believes she had dehydration and the possibility of UTI and possible respiratory infection urine mostly shows yeast chest x-ray did not show any major abnormality except atelectasis local wound still showing right foot have lateral border wound with Santyl and moist dressing with no increased drainage. Culture was done infectious disease believe this is still might be right foot early osteomyelitis slightly UTI. Continue ertapenem waiting for the final culture at this point. 02/20/2024: Patient was seen neurology with recurrent syncope versus seizure and episode of hypoglycemia at the time known to have history of severe left internal carotid stenosis with post right internal carotid stenting review last CTA from September which showed 70-75 percentile stenosis of the left internal carotid artery family apparently declined going for an EEG at this point the patient still on medical management will be seen vascular to review her stump from the left above-knee amputation and also follow-up with nonhealing gangrenous ulcer on the right side and opinion of the carotid artery stenosis will be giving as well. Vascular do not believe there is any reason for any clear intervention at this point incision of the left stump has been good still waiting to see if the right side at some point require surgery but might not be during this admission. No intention of doing any carotid stenting or intervention while patient is in the hospital this time. From pulmonary standpoint patient had mild acute hypoxic respiratory failure secondary to fluid volume overload with possible hospital-acquired pneumonia continue 4 L of O2 continue to use his CPAP at nighttime continue ertapenem as an antibiotics titrate O2 stay watching for any further complication at this point. No change in lab value blood sugar has been much better so far she is remain on Accu-Chek with sliding scales coverage took away the long-acting insulin currently previously was on 20 units of Levemir twice a day which at some point can be probably switch to an a.m. 25 units of Lantus or Toujeo if the blood sugars start going up specially when patient oral intake become more. Again all this might be just sign and symptom of hypoglycemic episode more than anything else with mild hypoxia might require her O2 and using CPAP on a regular basis and that might correct the problem. Urine culture from the came back as Linnea albicans decide ertapenem probably patient can benefit from adding fluconazole to again will be running this by infectious disease. 02/21/2024:Patient seen this morning with family on the bedside with many questions on chronic kidney close family on the original question. Patient is a candidate for hospice and mother hospice referral is appropriate or not. Patient had declined significantly last few weeks and has so many comorbidity and significant diagnosis of condition and increased mortality significantly and will be very appropriate to have her meet with hospice at least 2 to have an idea what to expect the family at this point planning to do an might plan to do hospice at [facility]. REVIEW OF SYSTEMS: CONSTITUTIONAL: Morbidly obese lying in bed in quite good pain no acute respiratory distress. Slightly confused EYES: No icterus sclerae, no conjunctivitis. EARS, NOSE, MOUTH, THROAT, and FACE: No sore throat, lymphadenopathy, carotid bruits or deformity. RESPIRATORY: Mild shortness of breath no cough or wheezes. CARDIOVASCULAR: Positive PND orthopnea palpitation no angina. GASTROINTESTINAL: No Abd pain, Nausea or vomiting, no Diarrhea or constipation, No GI Bleed, no distention or masses. GENITOURINARY: Negative for Hematuria or UTI, no kidney stones. INTEGUMENT/BREAST: Left above-knee amputation with right foot lateral small gangrenous change still have a dressing. HEMATOLOGIC/LYMPHATIC: Negative for bleed or purpura. History of left-sided breast cancer. MUSCULOSKELTAL: Negative for Myalgia or arthralgia. Left above-knee amputation with debridement of the right side the stump area does not have any bleed. NEURLOGICAL: Significantly confused moving all 4 extremity BEHAVIORAL/PSYCH: Negative. ENDOCRINE: Negative. PHYSICAL EXAMINATION: General Appearance: Obese lying in bed no distress slightly confused. Neck HEENT: Supple, no lymphadenopathy, no thyroid enlargement, no carotid bruits. Lungs: Clear to auscultation without crackles or wheezes no rhonchi, no deformity. Chest Wall: Decreased expansion with deep inspiration no tenderness and no deformity was found on exam, no costochondral pain or discomfort. Heart: Regular rate and rhythm, S1, S2 positive S3 positive systolic murmur. Back: Symmetric, with scoliosis and kyphosis with mild tenderness in lower lumbar area. Abdomen: Soft, non-tender, bowel sounds active all four quadrants, no masses, no organomegaly. Extremities: Left side above-knee amputation right side had debridement of the heel with lateral dressing with slightly change no drainage. Pulses: No palpable pulse in both lower extremity. Skin: Skin color, texture, tugor normal, no rashes or lesions. Neurologic: Alert oriented severe confusion cranial nerves II through XII intact, generalized weakness with severe stiffness muscular james. ASSESSMENT AND PLAN: _Sepsis: Not a clear etiology could be also in the right foot but with urinary tract infection, culture still negative except for candidiasis with her urine and she is to continue ertapenem with fluconazole her procalcitonin was mildly elevated. _UTI: Still avoid any urinary retention with indwelling catheter urine culture was positive for candidiasis infectious disease might add fluconazole. _Gangrenous change of the right foot with recent debridement culture was positive for ESBL more specific for ertapenem which still watch by infectious disease. The stump on the left side is clean the right side still been treated with IV antibiotic try to avoid amputation for the time being. _Severe osteomyelitis of left leg post above-knee amputation stump still to be watched by vascular. This time looks good no intervention required for the leg. _Change mental status with episode was not agreeable either syncope, seizure or other she was quite hypoglycemic at the time with blood sugar in the 60s continue to treat the blood sugar. Symptom has been resolved the patient continues to use oxygen and probably CPAP at nighttime. _Type 2 diabetes: She is off Levemir currently no further hypoglycemia we will continue Accu-Chek and sliding scales coverage with probably her long-term insulin will be either Toujeo or Tresiba but once a day only and probably to be used early childhood. _Severe coronary artery disease post angioplasty and stent placement of the LAD back in May 2023 patient seen cardiology with no symptoms of chest pain or angina antiplatelet agent will be held for the surgery but continue aspirin. She is not having any chest pain or angina still on secondary prevention with better control blood pressure, blood sugar and cholesterol. _Chronic pain syndrome: Continue hydrocodone on as-needed basis for now along with muscle relaxer. _Iron deficiency anemia: Hemoglobin is much better at 9.2 continue iron supplement. _Residual stroke with significant weakness affecting the left side more than the right side. No change at this point. _Severe carotid stenosis post right-sided carotid stenting. Left side had 70+ percent stenosis but no intervention required at this point. _History of breast cancer: Was seen oncology regularlyStill on anastrozole 1 mg daily. Breast cancer is in remission no sign of metastasis. _Hypertension: Continue Coreg 6.25 mg twice a day, amlodipine 10 mg daily, losartan hydrochlorothiazide 100/12.5 mg daily. Continue tighter control blood pressure below 130/80. _Hyperlipidemia: Resume atorvastatin at 80 mg daily. _Hypothyroidism: Continue Synthroid 50 mcg daily. _Severe spinal stenosis and lower back pain has been on medical management only still on pain meds along with gabapentin. No surgical intervention. _Chronic depression: Has been on trazodone 50 mg at bedtime along with Wellbutrin 150 mg daily Zoloft 100 mg a day. _Restless leg syndrome: Still on Requip 0.5 mg twice a day. Discussion: Full discussion with the family and disclosure to have an appointment with hospice and the plan probably to have patient return tomorrow with hospice care will drop things up specially if there is no further management from vascular or pulmonary continue treatment management for her pneumonia UTI and ESBL of the right foot will finalize management and probably return to [facility] in the next 48 hours. Objective - Vital Signs Vital signs: Vital Signs Temp 98.1 F 02/21/24 00:00 Pulse 67 02/21/24 02:00 Resp 18 02/21/24 02:00 BP 144/65 02/21/24 00:00 Pulse Ox 94 L 02/21/24 00:00 FiO2 Intake & Output 02/20/24 02/20/24 02/21/24 06:59 18:59 06:59 Intake Total 1080 Output Total 1700 1450 300 Balance -1700 -370 -300 Weight 103 kg Intake: Intake, IV Titration 300 Amount Ertapenem 1 gm In Sodium 100 Chloride 0.9% 50 ml @ 100 mls/hr IVPB Q24H [facility] Rx# :[id number] Sodium Chloride 0.9% 1, 200 000 ml @ 20 mls/hr IV . Q24H [facility] Rx#:[id number] Oral 780 Output: Urine 1700 1450 300 Other: Voiding Method Indwelling Catheter Indwelling Catheter Indwelling Catheter - Labs CBC & Chem 7: 02/19/24 07:09 02/19/24 07:09 Labs: Abnormal Lab Results - Last 24 Hours (Table) 02/18/24 02/20/24 02/20/24 Range/Units 07:28 05:51 11:51 POC Glucose (mg/dL) 214 H 246 H (70-110) mg/dL Hemoglobin A1c 6.3 H (<=6.0) % Urine Protein (Negative) 02/20/24 02/20/24 02/20/24 Range/Units 15:30 16:49 20:50 POC Glucose (mg/dL) 184 H 193 H (70-110) mg/dL Hemoglobin A1c (<=6.0) % Urine Protein Trace H (Negative) Microbiology - Last 24 Hours (Table) 02/18/24 11:00 Blood Culture - Preliminary Blood
[2024-02-22 06:04] LABS: Glucose,Whole Blood 198 mg/dL (70-110)
--- NOTE | 2024-02-22 08:01 | P.DS ---
Providers Date of admission: 02/18/24 10:11 Attending physician: Joaquin Levine Consults: 02/18/24 10:10 Consult Physician Routine Consulting Provider: Raj Esquivel Consult Reason/Comments: ams Do you want consulting provider notified?: Yes 02/18/24 11:17 Consult Physician Routine Consulting Provider: Yuridia Alicia Consult Reason/Comments: uti, pna, left aka wound Do you want consulting provider notified?: Yes 02/19/24 02:22 Consult Physician Routine Consulting Provider: Mansoor Duke Consult Reason/Comments: Bilateral Pleural Effusions Do you want consulting provider notified?: Yes, Notify in am Primary care physician: [facility] Course: HISTORY OF PRESENT ILLNESS: 84-year-old with active medical history of type 2 diabetes, left-sided breast cancer, hypertension, hyperlipidemia, chronic depression, lower back pain, severe spinal stenosis, severe peripheral vascular disease with severe carotid stenosis, history of coronary artery disease post PCI and stent placement of the LAD back in May 2023 who also had right transcarotid artery revascularization with stenting July 2023, she developed to have gangrenous the left leg post left above-knee amputation with debridement of the right heel came back with ESBL was sent to [facility] upon her discharge on 02/09/2024 on ertapenem 1 g every 24 hours for total of 42 days. 02/18/2024 she developed to have significant change in status on the weekend was discovered she was not acting right and the been transferred to [facility] for evaluation and assessment was seen and evaluated was complaining of suprapubic pain and discomfort with decreased urine output over the last few days found to have white blood cell of 6000 hemoglobin of 9.5's D-dimer was mildly elevated elec trolytes with creatinine 0.58 blood sugar was normal urine was loaded and positive was drug screen was positive for opiates which patient is taking pain meds and [place]. She was to continue ertapenem in the hospital with indwelling catheter antibiotic seen infectious disease which believes she had dehydration and the possibility of UTI and possible respiratory infection urine mostly shows yeast chest x-ray did not show any major abnormality except atelectasis local wound still showing right foot have lateral border wound with Santyl and moist dressing with no increased drainage. Culture was done infectious disease believe this is still might be right foot early osteomyelitis slightly UTI. Continue ertapenem waiting for the final culture at this point. 02/20/2024: Patient was seen neurology with recurrent syncope versus seizure and episode of hypoglycemia at the time known to have history of severe left internal carotid stenosis with post right internal carotid stenting review last CTA from September which showed 70-75 percentile stenosis of the left internal carotid artery family apparently declined going for an EEG at this point the patient still on medical management will be seen vascular to review her stump from the left above-knee amputation and also follow-up with nonhealing gangrenous ulcer on the right side and opinion of the carotid artery stenosis will be giving as well. Vascular do not believe there is any reason for any clear intervention at this point incision of the left stump has been good still waiting to see if the right side at some point require surgery but might not be during this admission. No intention of doing any carotid stenting or intervention while patient is in the hospital this time. From pulmonary standpoint patient had mild acute hypoxic respiratory failure secondary to fluid volume overload with possible hospital-acquired pneumonia continue 4 L of O2 continue to use his CPAP at nighttime continue ertapenem as a n antibiotics titrate O2 stay watching for any further complication at this point. No change in lab value blood sugar has been much better so far she is remain on Accu-Chek with sliding scales coverage took away the long-acting insulin currently previously was on 20 units of Levemir twice a day which at some point can be probably switch to an a.m. 25 units of Lantus or Toujeo if the blood sugars start going up specially when patient oral intake become more. Again all this might be just sign and symptom of hypoglycemic episode more than anything else with mild hypoxia might require her O2 and using CPAP on a regular basis and that might correct the problem. Urine culture from the came back as Linnea albicans decide ertapenem probably patient can benefit from adding fluconazole to again will be running this by infectious disease. 02/21/2024:Patient seen this morning with family on the bedside with many questions on chronic kidney close family on the original question. Patient is a candidate for hospice and mother hospice referral is appropriate or not. Patient had declined significantly last few weeks and has so many comorbidity and significant diagnosis of condition and increased mortality significantly and will be very appropriate to have her meet with hospice at least 2 to have an idea what to expect the family at this point planning to do an might plan to do hospice at [facility]. February 22, 2024: Patient is resting comfortably in bed apparently agreeable with hospice management patient will be returning back tomorrow with today on hospice care family for the time being and keep her on current antibiotics and as time goes by if there is any elevation for medication will be probably happen through hospice [id number]. REVIEW OF SYSTEMS: CONSTITUTIONAL: Morbidly obese lying in bed in quite good pain no acute respiratory distress. Slightly confused EYES: No icterus sclerae, no conjunctivitis. EARS, NOSE, MOUTH, THROAT, and FACE: No sore throat, lymphadenopathy, carotid bruits or deformity. RESPIRATORY: Mild shortness of breath no cough or wheezes. CARDIOVASCULAR: Positive PND orthopnea palpitation no angina. GASTROINTESTINAL: No Abd pain, Nausea or vomiting, no Diarrhea or constipation, No GI Bleed, no distention or masses. GENITOURINARY: Negative for Hematuria or UTI, no kidney stones. INTEGUMENT/BREAST: Left above-knee amputation with right foot lateral small gangrenous change still have a dressing. HEMATOLOGIC/LYMPHATIC: Negative for bleed or purpura. History of left-sided breast cancer. MUSCULOSKELTAL: Negative for Myalgia or arthralgia. Left above-knee amputation with debridement of the right side the stump area does not have any bleed. NEURLOGICAL: Significantly confused moving all 4 extremity BEHAVIORAL/PSYCH: Negative. ENDOCRINE: Negative. PHYSICAL EXAMINATION: General Appearance: Obese lying in bed no distress slightly confused. Neck HEENT: Supple, no lymphadenopathy, no thyroid enlargement, no carotid bruits. Lungs: Clear to auscultation without crackles or wheezes no rhonchi, no deformity. Chest Wall: Decreased expansion with deep inspiration no tenderness and no deformity was found on exam, no costochondral pain or discomfort. Heart: Regular rate and rhythm, S1, S2 positive S3 positive systolic murmur. Back: Symmetric, with scoliosis and kyphosis with mild tenderness in lower lumbar area. Abdomen: Soft, non-tender, bowel sounds active all four quadrants, no masses, no organomegaly. Extremities: Left side above-knee amputation right side had debridement of the heel with lateral dressing with slightly change no drainage. Pulses: No palpable pulse in both lower extremity. Skin: Skin color, texture, tugor normal, no rashes or lesions. Neurologic: Alert oriented severe confusion cranial nerves II through XII intact, generalized weakness with severe stiffness muscular james. ASSESSMENT AND PLAN: _Sepsis: Not a clear etiology could be also in the right foot but with urinary tract infection, culture still negative except for candidiasis with her urine and she is to continue ertapenem with fluconazole her procalcitonin was mildly elevated. _UTI: Still avoid any urinary retention with indwelling catheter urine culture was positive for candidiasis infectious disease might add fluconazole. _Gangrenous change of the right foot with recent debridement culture was positive for ESBL more specific for ertapenem which still watch by infectious disease. The stump on the left side is clean the right side still been treated with IV antibiotic try to avoid amputation for the time being. _Severe osteomyelitis of left leg post above-knee amputation stump still to be watched by vascular. This time looks good no intervention required for the leg. _Change mental status with episode was not agreeable either syncope, seizure or other she was quite hypoglycemic at the time with blood sugar in the 60s continue to treat the blood sugar. Symptom has been resolved the patient continues to use oxygen and probably CPAP at nighttime. 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 _Severe coronary artery disease post angioplasty and stent placement of the LAD back in May 2023 patient seen cardiology with no symptoms of chest pain or angina antiplatelet agent will be held for the surgery but continue aspirin. She is not having any chest pain or angina still on secondary prevention with better control blood pressure, blood sugar and cholesterol. _Chronic pain syndrome: Continue hydrocodone on as-needed basis for now along with muscle relaxer. _Iron deficiency anemia: Hemoglobin is much better at 9.2 continue iron supplement. _Residual stroke with significant weakness affecting the left side more than the right side. No change at this point. _Severe carotid stenosis post right-sided carotid stenting. Left side had 70+ percent stenosis but no intervention required at this point. _History of breast cancer: Was seen oncology regularlyStill on anastrozole 1 mg daily. Breast cancer is in remission no sign of metastasis. _Hypertension: Continue Coreg 6.25 mg twice a day, amlodipine 10 mg daily, losartan hydrochlorothiazide 100/12.5 mg daily. Continue tighter control blood pressure below 130/80. _Hyperlipidemia: Resume atorvastatin at 80 mg daily. _Hypothyroidism: Continue Synthroid 50 mcg daily. _Severe spinal stenosis and lower back pain has been on medical management only still on pain meds along with gabapentin. No surgical intervention. _Chronic depression: Has been on trazodone 50 mg at bedtime along with Wellbutrin 150 mg daily Zoloft 100 mg a day. _Restless leg syndrome: Still on Requip 0.5 mg twice a day. Discussion: Full discussion with the family and disclosure to have an appointment with hospice and the plan probably to have patient return tomorrow with hospice care will drop things up specially if there is no further management from vascular or pulmonary continue treatment management for her pneumonia UTI and ESBL of the right foot will finalize management and probably return to [facility] in the next 48 hours. Hospital course: The patient was hospitalized on 02/18/2024 because of significant change in status with significant confusion and significant hypoxia. Patient found to have slightly hypoglycemia as well. She was seen at [facility] emergency department for evaluation and assessment developed to have suprapubic pain and discomfort with significant decreased urine output her D-dimer was mildly elevated urine was quite positive at the time the patient has been on ertapenem for ESBL of the right foot as an infection was diagnosed with a debridement done after her left above-knee amputation was done from last admission. Rest of her testing including urine culture chest x-ray showed atelectasis and early pneumonia possibly her stump has been healing well and the site of debridement on the right foot has been doing well as well. Patient was hospitalized in late seen neurology and pulmonary CT of the chest came back negative for pulmonary embolism, family declined having patient going for EEG or any further scan of brain. She started acting back herself hypoglycemia was treated and patient had candidiasis in her urine culture. Infectious disease Patient on ertapenem with ESBL been treated for. After the second day family started thinking about hospice and comfort care patient was cleared by infectious disease, pulmonary and vascular family want patient to return to [facility] on hospice care at this point. Time spent on patient discharge was over 35 minutes. Plan - Discharge Summary New Discharge Prescriptions: New Ipratropium-Albuterol Nebulize [Duoneb 0.5 mg-3 mg/3 ml Soln] 3 ml INHALATION RT-QID #0 each Ipratropium-Albuterol Nebulize [Duoneb 0.5 mg-3 mg/3 ml Soln] 3 ml INHALATION RT-QID PRN each PRN Reason: Shortness Of Breath Or Wheezing Furosemide [Lasix] 40 mg PO AC-BID #60 tablet Potassium Chloride [Klor-Con M10] 10 meq PO AC-BID #60 tab Continue Levothyroxine Sodium [Synthroid] 50 mcg PO DAILY@0800 INSULIN LISPRO (HumaLOG) [humaLOG] See Protocol SQ AC-TID@07,,16 Sertraline [Zoloft] 100 mg PO DAILY@0800 buPROPion XL [Wellbutrin XL] 150 mg PO DAILY@0800 Latanoprost Ophth [Xalatan 0.005%] 1 drop BOTH EYES HS@2100 Melatonin 6 mg PO HS PRN tab PRN Reason: Insomnia Magnesium Hydroxide [Milk of Magnesia Concentrate] 7,200 ml PO DAILY PRN PRN Reason: Constipation Lidocaine 5% Cream 1 applic TOPICAL WE@0800 Gabapentin 300 mg PO TID@06,, Biofreeze (Unknown) 1 applic TOPICAL TID Baclofen [Lioresal] 10 mg PO TID@0800,1400,2200 rOPINIRole HCL [Requip] 0.5 mg PO BID@1200,2100 Liquacal 30 ml PO BID@0800,1700 Caldesene Baby Powder 1 applic TOPICAL BID traZODone HCL [Desyrel] 50 mg PO HS@2000 Collagenase [Santyl Ointment] 1 applic TOPICAL DAILY amLODIPine [Norvasc] 10 mg PO DAILY@1700 Atorvastatin Calcium [Lipitor] 80 mg PO HS@2100 Aspirin 81 mg PO DAILY@0800 carvediloL [Coreg] 6.25 mg PO BID@0800,1700 Sennosides/Docusate Sodium [Senna Plus 8.6-50 mg Softgel] 1 cap PO BID@0800,1700 Loratadine [Claritin] 10 mg PO DAILY@0800 Anastrozole 1 mg PO DAILY@0800 Insulin Detemir (Levemir) [Levemir] 20 unit SQ BID@0700,2100 Meloxicam [Mobic] 7.5 mg PO DAILY@0800 Na Phos,M-B/Na Phos,Di-Ba [Fleet Adult] 133 ml RECTAL DAILY PRN PRN Reason: Constipation bisacodyL [Dulcolax] 10 mg RECTAL DAILY PRN PRN Reason: Constipation Collagenase [Santyl Ointment] 1 applic TOPICAL DAILY Dominic Packet 1 packet PO BID-W/MEALS Sodium Chloride [Saline Nasal Mist] 2 spray EA NOSTRIL DAILY@0800 Multivitamins, Thera [Multivitamin (formulary)] 1 tab PO DAILY Famotidine [Pepcid] 20 mg PO DAILY@0800 Acetaminophen Tab [Tylenol] 650 mg PO TID@, Clopidogrel [Plavix] 75 mg PO DAILY@0800 Ertapenem [INVanz] 1 gm IVPB DAILY@0800 Losartan/Hydrochlorothiazide [Losartan-Hctz 100-12.5 mg Tab] 1 tab PO DAILY@0800 #0 HYDROcodone/APAP 7.5-325MG [[place] 7.5-325] 1 tab PO QID@00,06,, #60 tab Discharge Medication List INSULIN LISPRO (HumaLOG) [humaLOG] See Protocol SQ AC-TID@,,12/28/16 [History] Levothyroxine Sodium [Synthroid] 50 mcg PO DAILY@0800 12/28/16 [History] Sertraline [Zoloft] 100 mg PO DAILY@0800 03/16/17 [History] Anastrozole 1 mg PO DAILY@0800 05/19/23 [History] Latanoprost Ophth [Xalatan 0.005%] 1 drop BOTH EYES HS@209905/19/23 [History] Loratadine [Claritin] 10 mg PO DAILY@0800 05/19/23 [History] buPROPion XL [Wellbutrin XL] 150 mg PO DAILY@0800 05/19/23 [History] Melatonin 6 mg PO HS PRN tab 05/24/23 [Rx] Insulin Detemir (Levemir) [Levemir] 20 unit SQ BID@0700,209908/03/23 [History] Magnesium Hydroxide [Milk of Magnesia Concentrate] 7,200 ml PO DAILY PRN 08/03/23 [History] Meloxicam [Mobic] 7.5 mg PO DAILY@0800 08/03/23 [History] Na Phos,M-B/Na Phos,Di-Ba [Fleet Adult] 133 ml RECTAL DAILY PRN 08/03/23 [History] bisacodyL [Dulcolax] 10 mg RECTAL DAILY PRN 08/03/23 [History] Atorvastatin Calcium [Lipitor] 80 mg PO HS@209901/31/24 [History] Baclofen [Lioresal] 10 mg PO TID@0800,1400,2200 01/31/24 [History] Biofreeze (Unknown) 1 applic TOPICAL TID 01/31/24 [History] Caldesene Baby Powder 1 applic TOPICAL BID 01/31/24 [History] Collagenase [Santyl Ointment] 1 applic TOPICAL DAILY 01/31/24 [History] Collagenase [Santyl Ointment] 1 applic TOPICAL DAILY 01/31/24 [History] Famotidine [Pepcid] 20 mg PO DAILY@79901/31/24 [History] Gabapentin 300 mg PO TID@06,,01/31/24 [History] Dominic Packet 1 packet PO BID-W/MEALS 01/31/24 [History] Lidocaine 5% Cream 1 applic TOPICAL WE@79901/31/24 [History] Liquacal 30 ml PO BID@0800,17001/31/24 [History] Multivitamins, Thera [Multivitamin (formulary)] 1 tab PO DAILY 01/31/24 [History] Sodium Chloride [Saline Nasal Mist] 2 spray EA NOSTRIL DAILY@79901/31/24 [History] amLODIPine [Norvasc] 10 mg PO DAILY@169901/31/24 [History] rOPINIRole HCL [Requip] 0.5 mg PO BID@1200,209901/31/24 [History] traZODone HCL [Desyrel] 50 mg PO HS@199901/31/24 [History] Acetaminophen Tab [Tylenol] 650 mg PO TID@08,14,02/18/24 [History] Aspirin 81 mg PO DAILY@79902/18/24 [History] Clopidogrel [Plavix] 75 mg PO DAILY@79902/18/24 [History] Ertapenem [INVanz] 1 gm IVPB DAILY@0802/18/24 [History] Sennosides/Docusate Sodium [Senna Plus 8.6-50 mg Softgel] 1 cap PO BID@0800,1700 02/18/24 [History] carvediloL [Coreg] 6.25 mg PO BID@0800,1700 02/18/24 [History] Furosemide [Lasix] 40 mg PO AC-BID #60 tablet 02/22/24 [Rx] HYDROcodone/APAP 7.5-325MG [[place] 7.5-325] 1 tab PO QID@00,06,12,18 #60 tab 02/22/24 [Rx] Ipratropium-Albuterol Nebulize [Duoneb 0.5 mg-3 mg/3 ml Soln] 3 ml INHALATION RT-QID #0 each 02/22/24 [Rx] Ipratropium-Albuterol Nebulize [Duoneb 0.5 mg-3 mg/3 ml Soln] 3 ml INHALATION RT-QID PRN each 02/22/24 [Rx] Losartan/Hydrochlorothiazide [Losartan-Hctz 100-12.5 mg Tab] 1 tab PO DAILY@0800 #0 02/22/24 [Rx] Potassium Chloride [Klor-Con M10] 10 meq PO AC-BID #60 tab 02/22/24 [Rx] Follow up Appointment(s)/Referral(s): Joaquin Levine MD [Primary Care Provider] - 1-2 days Discharge Disposition: TRANSFER TO SNF/ECF
[2024-02-22 11:09] VITALS: TEMP 97.2
[2024-02-22 11:24] LABS: Glucose,Whole Blood 219 mg/dL (70-110)
[2024-02-22 12:41] VITALS: BP 148/71; PULSE 74
[2024-02-22] MEDS: HYDROmorphone 1 MG/ML 1 ML SYRINGE IVP ONE (13:42)
--- NOTE | 2024-02-23 16:24 | P.PN ---
Subjective Progress Note Date: 02/22/24 Principal diagnosis: Reason for follow-up is right diabetic foot infection/osteo and possible UTI Patient is a 84-year-old female with a past medical history significant for diabetes mellitus hypertension hyperlipidemia osteoarthritis recent admission to the hospital with extensive left diabetic foot infection requiring left [id number]-[id number] amputation patient also have a wound on the lateral aspect of the right foot that was debrided in OR culture positive for ESBL Proteus patient did get a PICC line patient now brought back to the hospital concerning for drowsiness weakness and low blood sugar did have a positive with concern for possible UTI however the patient had a Nichole catheter which was changed. On today's evaluation that is 02/22/2024, Patient is afebrile this morning patient denies having any chest pain shortness of breath or cough, the patient is breathing comfortably and currently on 4 L current oxygen patient denies any abdominal pain no diarrhea no nausea no vomiting, denies any worsening pain to lower extremity wound mention feeling slightly better. No new labs were obtained today Objective - Vital Signs Vital signs: Vital Signs Temp 97.2 F L 02/22/24 08:00 Pulse 74 02/22/24 12:00 Resp 18 02/22/24 08:00 BP 148/71 02/22/24 12:00 Pulse Ox 96 02/22/24 12:00 FiO2 Intake & Output 02/21/24 02/22/24 02/22/24 18:59 06:59 18:59 Intake Total 236 218 Output Total 450 1750 Balance -214 -1750 218 Weight 103 kg 103 kg Intake: Intake, IV Titration 100 Amount Sodium Chloride 0.9% 1, 100 000 ml @ 20 mls/hr IV . Q24H [facility] Rx#:[id number] Oral 236 118 Output: Urine 450 1750 Other: Voiding Method Indwelling Catheter Indwelling Catheter Indwelling Catheter - Exam GENERAL DESCRIPTION: An elderly female lying in bed in no distress RESPIRATORY SYSTEM: Unlabored breathing , decreased breath sounds at bases HEART: S1 S2 regular rate and rhythm , ABDOMEN: Soft , no tenderness EXTREMITIES: Left AKA stump and right foot wound is currently dressed - Labs CBC & Chem 7: 02/19/24 07:09 02/19/24 07:09 Labs: Abnormal Lab Results - Last 24 Hours (Table) 02/21/24 02/21/24 02/22/24 Range/Units 16:55 19:59 06:03 POC Glucose (mg/dL) 192 H 186 H 198 H (70-110) mg/dL 02/22/24 Range/Units 11:14 POC Glucose (mg/dL) 219 H (70-110) mg/dL Microbiology - Last 24 Hours (Table) 02/18/24 11:00 Blood Culture - Preliminary Blood Assessment and Plan (1) Diabetic ulcer of right foot Status: Acute Code(s): E11.621 - TYPE 2 DIABETES MELLITUS WITH FOOT ULCER; L97.519 - NON-PRS CHRONIC ULCER OTH PRT RIGHT FOOT W UNSP SEVERITY SNOMED Code(s): 030844335 (2) Abnormal chest x-ray Status: Acute Code(s): R93.89 - ABNORMAL FINDINGS ON DX IMAGING OF OTH BODY STRUCTURES SNOMED Code(s): 322885259 (3) Foot osteomyelitis, right Status: Acute Code(s): M86.9 - OSTEOMYELITIS, UNSPECIFIED SNOMED Code(s): 3215701133306013 Plan: 1patient presented to hospital for evaluation of weakness mental status changes which is likely multifactorial possible dehydration patient did have a positive UA and concern for possible Respiratory tract infection however urine showed mostly yeast 2-patient also have a abnormal x-ray question of atelectasis clinically not behaving as pneumonia but not excluded 3patient did have right diabetic foot ulcer with underlying osteomyelitis last culture positive for ESBL Proteus 4patient Nichole catheter has already been changed urine culture grew Linnea patient is on Plavix and hydrocodone interacting with the Diflucan which may be considered for treatment keeping in mind the patient Nichole catheter has been changed sometimes there may have been a form of mild yeast catheter assisted UTI, patient did have repeat UA that is negative no need for Diflucan 5local wound care to the right foot lateral border wound with Santyl followed by moist dressing and keep the area of the pressure 6patient continue treatment with Invanz 1 g daily for right diabetic foot infection with underlying osteomyelitis however possible plan for hospice which may appropriate for her in that case antibiotics can be safely discontinued Multiple family members at bedside questions were answered Dictation was produced using [employer] dictation software. please excuse any gram matical, word or spelling errors. Time with Patient: Less than 30
--- NOTE | 2024-02-25 19:38 | P.PN ---
Subjective Progress Note Date: 02/22/24 HISTORY OF PRESENT ILLNESS: 84-year-old with active medical history of type 2 diabetes, left-sided breast cancer, hypertension, hyperlipidemia, chronic depression, lower back pain, severe spinal stenosis, severe peripheral vascular disease with severe carotid stenosis, history of coronary artery disease post PCI and stent placement of the LAD back in May 2023 who also had right transcarotid artery revascularization with stenting July 2023, she developed to have gangrenous the left leg post left above-knee amputation with debridement of the right heel came back with ESBL was sent to [facility] upon her discharge on 02/09/2024 on ertapenem 1 g every 24 hours for total of 42 days. 02/18/2024 she developed to have significant change in status on the weekend was discovered she was not acting right and the been transferred to [facility] for evaluation and assessment was seen and evaluated was complaining of suprapubic pain and discomfort with decreased urine output over the last few days found to have white blood cell of 6000 hemoglobin of 9.5's D-dimer was mildly elevated electrolytes with creatinine 0.58 blood sugar was normal urine was loaded and positive was drug screen was positive for opiates which patient is taking pain meds and [place]. She was to continue ertapenem in the hospital with indwelling catheter antibiotic seen infectious disease which believes she had dehydration and the possibility of UTI and possible respiratory infection urine mostly shows yeast chest x-ray did not show any major abnormality except atelectasis local wound still showing right foot have lateral border wound with Santyl and moist dressing with no increased drainage. Culture was done infectious disease believe this is still might be right foot early osteomyelitis slightly UTI. Continue ertapenem waiting for the final culture at this point. 02/20/2024: Patient was seen neurology with recurrent syncope versus seizure and episode of hypoglycemia at the time known to have history of severe left internal carotid stenosis with post right internal carotid stenting review last CTA from September which showed 70-75 percentile stenosis of the left internal carotid artery family apparently declined going for an EEG at this point the patient still on medical management will be seen vascular to review her stump from the left above-knee amputation and also follow-up with nonhealing gangrenous ulcer on the right side and opinion of the carotid artery stenosis will be giving as well. Vascular do not believe there is any reason for any clear intervention at this point incision of the left stump has been good still waiting to see if the right side at some point require surgery but might not be during this admission. No intention of doing any carotid stenting or intervention while patient is in the hospital this time. From pulmonary standpoint patient had mild acute hypoxic respiratory failure secondary to fluid volume overload with possible hospital-acquired pneumonia continue 4 L of O2 continue to use his CPAP at nighttime continue ertapenem as an antibiotics titrate O2 stay watching for any further complication at this point. No change in lab value blood sugar has been much better so far she is remain on Accu-Chek with sliding scales coverage took away the long-acting insulin currently previously was on 20 units of Levemir twice a day which at some point can be probably switch to an a.m. 25 units of Lantus or Toujeo if the blood sugars start going up specially when patient oral intake become more. Again all this might be just sign and symptom of hypoglycemic episode more than anything else with mild hypoxia might require her O2 and using CPAP on a regular basis and that might correct the problem. Urine culture from the came back as Linnea albicans decide ertapenem probably patient can benefit from adding fluconazole to again will be running this by infectious disease. 02/21/2024:Patient seen this morning with family on the bedside with many questions on chronic kidney close family on the original question. Patient is a candidate for hospice and mother hospice referral is appropriate or not. Patient had declined significantly last few weeks and has so many comorbidity and significant diagnosis of condition and increased mortality significantly and will be very appropriate to have her meet with hospice at least 2 to have an idea what to expect the family at this point planning to do an might plan to do hospice at [facility]. February 22, 2024: Patient is resting comfortably in bed apparently agreeable with hospice management patient will be returning back tomorrow with today on hospice care family for the time being and keep her on current antibiotics and as time goes by if there is any elevation for medication will be probably happen through hospice [id number]. REVIEW OF SYSTEMS: CONSTITUTIONAL: Morbidly obese lying in bed in quite good pain no acute respiratory distress. Slightly confused EYES: No icterus sclerae, no conjunctivitis. EARS, NOSE, MOUTH, THROAT, and FACE: No sore throat, lymphadenopathy, carotid bruits or deformity. RESPIRATORY: Mild shortness of breath no cough or wheezes. CARDIOVASCULAR: Positive PND orthopnea palpitation no angina. GASTROINTESTINAL: No Abd pain, Nausea or vomiting, no Diarrhea or constipation, No GI Bleed, no distention or masses. GENITOURINARY: Negative for Hematuria or UTI, no kidney stones. INTEGUMENT/BREAST: Left above-knee amputation with right foot lateral small gangrenous change still have a dressing. HEMATOLOGIC/LYMPHATIC: Negative for bleed or purpura. History of left-sided breast cancer. MUSCULOSKELTAL: Negative for Myalgia or arthralgia. Left above-knee amputation with debridement of the right side the stump area does not have any bleed. NEURLOGICAL: Significantly confused moving all 4 extremity BEHAVIORAL/PSYCH: Negative. ENDOCRINE: Negative. PHYSICAL EXAMINATION: General Appearance: Obese lying in bed no distress slightly confused. Neck HEENT: Supple, no lymphadenopathy, no thyroid enlargement, no carotid bruits. Lungs: Clear to auscultation without crackles or wheezes no rhonchi, no deformity. Chest Wall: Decreased expansion with deep inspiration no tenderness and no deformity was found on exam, no costochondral pain or discomfort. Heart: Regular rate and rhythm, S1, S2 positive S3 positive systolic murmur. Back: Symmetric, with scoliosis and kyphosis with mild tenderness in lower lumbar area. Abdomen: Soft, non-tender, bowel sounds active all four quadrants, no masses, no organomegaly. Extremities: Left side above-knee amputation right side had debridement of the heel with lateral dressing with slightly change no drainage. Pulses: No palpable pulse in both lower extremity. Skin: Skin color, texture, tugor normal, no rashes or lesions. Neurologic: Alert oriented severe confusion cranial nerves II through XII intact, generalized weakness with severe stiffness muscular james. ASSESSMENT AND PLAN: _Sepsis: Not a clear etiology could be also in the right foot but with urinary tract infection, culture still negative except for candidiasis with her urine and she is to continue ertapenem with fluconazole her procalcitonin was mildly elevated. _UTI: Still avoid any urinary retention with indwelling catheter urine culture was positive for candidiasis infectious disease might add fluconazole. _Gangrenous change of the right foot with recent debridement culture was positive for ESBL more specific for ertapenem which still watch by infectious disease. The stump on the left side is clean the right side still been treated with IV antibiotic try to avoid amputation for the time being. _Severe osteomyelitis of left leg post above-knee amputation stump still to be watched by vascular. This time looks good no intervention required for the leg. _Change mental status with episode was not agreeable either syncope, seizure or other she was quite hypoglycemic at the time with blood sugar in the 60s continue to treat the blood sugar. Symptom has been resolved the patient continues to use oxygen and probably CPAP at nighttime. 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 _Severe coronary artery disease post angioplasty and stent placement of the LAD back in May 2023 patient seen cardiology with no symptoms of chest pain or angina antiplatelet agent will be held for the surgery but continue aspirin. She is not having any chest pain or angina still on secondary prevention with better control blood pressure, blood sugar and cholesterol. _Chronic pain syndrome: Continue hydrocodone on as-needed basis for now along with muscle relaxer. _Iron deficiency anemia: Hemoglobin is much better at 9.2 continue iron supplement. _Residual stroke with significant weakness affecting the left side more than the right side. No change at this point. _Severe carotid stenosis post right-sided carotid stenting. Left side had 70+ percent stenosis but no intervention required at this point. _History of breast cancer: Was seen oncology regularlyStill on anastrozole 1 mg daily. Breast cancer is in remission no sign of metastasis. _Hypertension: Continue Coreg 6.25 mg twice a day, amlodipine 10 mg daily, losar osullivan hydrochlorothiazide 100/12.5 mg daily. Continue tighter control blood pressure below 130/80. _Hyperlipidemia: Resume atorvastatin at 80 mg daily. _Hypothyroidism: Continue Synthroid 50 mcg daily. _Severe spinal stenosis and lower back pain has been on medical management only still on pain meds along with gabapentin. No surgical intervention. _Chronic depression: Has been on trazodone 50 mg at bedtime along with Wellbutrin 150 mg daily Zoloft 100 mg a day. _Restless leg syndrome: Still on Requip 0.5 mg twice a day. Discussion: Full discussion with the family and disclosure to have an appointment with hospice and the plan probably to have patient return tomorrow with hospice care will drop things up specially if there is no further management from vascular or pulmonary continue treatment management for her pneumonia UTI and ESBL of the right foot will finalize management and probably return to [facility] in the next 48 hours. Objective - Vital Signs Vital signs: Vital Signs Temp 97.9 F 02/22/24 03:46 Pulse 73 02/22/24 03:46 Resp 18 02/22/24 03:46 BP 162/72 02/22/24 03:46 Pulse Ox 93 L 02/22/24 03:46 FiO2 Intake & Output 02/21/24 02/21/24 02/22/24 06:59 18:59 06:59 Intake Total 236 Output Total 941 473 4142 Balance -300 -214 -1750 Weight 103 kg Intake: Oral 236 Output: Urine 588 029 0045 Other: Voiding Method Indwelling Catheter Indwelling Catheter Indwelling Catheter - Labs CBC & Chem 7: 02/19/24 07:09 02/19/24 07:09 Labs: Abnormal Lab Results - Last 24 Hours (Table) 02/21/24 02/21/24 02/21/24 Range/Units 11:25 16:55 19:59 POC Glucose (mg/dL) 210 H 192 H 186 H (70-110) mg/dL Microbiology - Last 24 Hours (Table) 02/18/24 11:00 Blood Culture - Preliminary Blood
--- NOTE | 2024-03-18 10:32 | CDI ---
Documentation Clarification Form Date: 03/18/2024 10:21:51 AM From: Ml Peng Phone: Admit Date: 02/18/2024 10:11:00 AM Patient Name: Abena Vizcaino Visit Number: [id number] Discharge Date: 02/22/2024 01:57:00 PM ATTENTION: The Clinical Documentation Specialists (CDI) and [facility] Coding Staff appreciate your assistance in clarifying documentation. Please respond to the clarification below the line at the bottom and electronically sign. The CDI & [facility] Coding staff will review the response and follow-up if needed. Please note: Queries are made part of the Legal Health Record. If you have any questions, please contact the author of this message via ITS. Doctor/Provider: Joaquin Levine There is documentation of a Diabetic ulcer of right foot per Consult Note 02/17 and following Progress Notes. Additional specificity regarding the severity of the wound is requested. Patient history/risk factors: 83yo M, DMII w osteomyelitis and severe PAD recent LAKA, indwelling FC w laurent UTI,,Obesity,Hx breast cancer, chronicdepression,HTN,CAD, morbid obesity Clinical Indicators: Wound assessment: recent right side haddebridementof the heel with lateral dressing with slightly changenodrainage. Pulses:Nopalpablepulse in both lower extremity. Skin: Skin color, texture, tugor normal,norashesorlesions. Neurologic: Alert oriented severeconfusioncranial nerves II through XII intact,generalized weaknesswith severe stiffness muscular james. Treatment: monitored Please clarify the severity of the wound: [ ] Limited to breakdown of skin [ XX ] With fat layer exposed [ ] Other, Please specify [ ] Unable to determine (Template Last Revised: September 2020) MTDD
== END 2024-02-22 13:57 | disposition hospice, inpatient (51) | DRG 698 ==
LOC: EC 06:56 → 3SCARD 10:11
PROVIDERS: ADMIT Internal Medicine Geriatric Medicine; ATTEND Internal Medicine Geriatric Medicine
DX: T83.511A Infection and inflammatory reaction due to indwelling urethral catheter, initial encounter (principal); B37.7 Candidal sepsis; G92.8 Other toxic encephalopathy; J96.01 Acute respiratory failure with hypoxia; J18.9 Pneumonia, unspecified organism; J90 Pleural effusion, not elsewhere classified; E11.52 Type 2 diabetes mellitus with diabetic peripheral angiopathy with gangrene; I69.954 Hemiplegia and hemiparesis following unspecified cerebrovascular disease affecting left non-dominant side; B37.49 Other urogenital candidiasis; M86.8X7 Other osteomyelitis, ankle and foot; Z16.12 Extended spectrum beta lactamase (ESBL) resistance; E11.621 Type 2 diabetes mellitus with foot ulcer; E11.649 Type 2 diabetes mellitus with hypoglycemia without coma; G54.6 Phantom limb syndrome with pain; R62.7 Adult failure to thrive; I11.9 Hypertensive heart disease without heart failure; E11.42 Type 2 diabetes mellitus with diabetic polyneuropathy; E11.69 Type 2 diabetes mellitus with other specified complication; E66.01 Morbid (severe) obesity due to excess calories; I48.91 Unspecified atrial fibrillation; Z89.612 Acquired absence of left leg above knee; Z79.4 Long term (current) use of insulin; Z66 Do not resuscitate; Z51.5 Encounter for palliative care; Z95.828 Presence of other vascular implants and grafts; D50.9 Iron deficiency anemia, unspecified; F32.A Depression, unspecified; E03.9 Hypothyroidism, unspecified; G25.81 Restless legs syndrome; I65.22 Occlusion and stenosis of left carotid artery; E66.9 Obesity, unspecified; Z68.36 Body mass index [BMI] 36.0-36.9, adult; Z79.02 Long term (current) use of antithrombotics/antiplatelets; Z79.891 Long term (current) use of opiate analgesic; Z99.81 Dependence on supplemental oxygen; B96.4 Proteus (mirabilis) (morganii) as the cause of diseases classified elsewhere; E87.70 Fluid overload, unspecified; I25.10 Atherosclerotic heart disease of native coronary artery without angina pectoris; G89.4 Chronic pain syndrome; E78.5 Hyperlipidemia, unspecified; M48.061 Spinal stenosis, lumbar region without neurogenic claudication; H91.90 Unspecified hearing loss, unspecified ear; M51.36 Other intervertebral disc degeneration, lumbar region; Y73.1 Therapeutic (nonsurgical) and rehabilitative gastroenterology and urology devices associated with adverse incidents; Y95 Nosocomial condition; Z96.642 Presence of left artificial hip joint; Z79.890 Hormone replacement therapy; Z79.1 Long term (current) use of non-steroidal anti-inflammatories (NSAID); Z79.82 Long term (current) use of aspirin; Z95.5 Presence of coronary angioplasty implant and graft; Z85.3 Personal history of malignant neoplasm of breast; Z79.899 Other long term (current) drug therapy; Z99.3 Dependence on wheelchair; L97.512 Non-pressure chronic ulcer of other part of right foot with fat layer exposed
CPT/HCPCS: 36415; 70450; 71045; 71275; 80053; 80306; 81001; 81003; 83036; 83880; 84145; 84484; 85025; 85379; 85610; 85652; 85730; 86140; 87040; 87086; 93005; 94640; 94760; 96365; 99285